=== PATIENT | female | born 1955 | race Caucasian/White ===

== ENCOUNTER 2021-01-28 14:09 | Outpatient (CLI) | payer MEDICARE, SELFPAY ==
--- NOTE | 2021-01-28 14:23 | US_ITS ---
WS: [id number] ULTRASOUND RENAL TECHNIQUE: Ultrasound examination of both kidneys. CLINICAL INFORMATION: CHRONIC KIDNEY DZ-STAGE 4 COMPARISON: None. FINDINGS: RIGHT: Multiple simple right renal cysts the largest measuring 1.7 x 1.6 x 1.2 cm and 1.0 x 1.0 x 0.9 cm Echogenicity: Increased Cortical thickness: 0.9 cm Hydronephrosis: None. Perinephric fluid: None. Right kidney measures: 10.9 cm x 5.6 cm x 4.3 cm. LEFT: Echogenicity: Increased Cortical thickness: 1.0 cm Hydronephrosis: None. Perinephric fluid: None. Left kidney measures: 10.0 cm x 5.9 cm x 5.0 cm. Normal visualized aorta. Bladder not visualized. US/US renal BI* [id number] IMPRESSION: 1. No hydronephrosis in either kidney. Bilateral renal cortical atrophy. 2. Echogenic kidneys bilaterally can be seen with medical renal disease. 3. Multiple simple right renal cysts the largest measuring 1.7 x 1.6 x 1.2 cm and 1.0 x 1.0 x 0.9 cm
== END 2021-01-28 14:10 | disposition home or self-care (01) ==
LOC: RAD 14:19
PROVIDERS: PCP Family Medicine; Visit Provider Internal Medicine Nephrology
DX: N18.4 Chronic kidney disease, stage 4 (severe) (principal); N26.1 Atrophy of kidney (terminal); Q61.02 Congenital multiple renal cysts
CPT/HCPCS: 76770

== ENCOUNTER 2022-05-12 20:51 | Inpatient (IN) | payer MEDICARE, SELFPAY ==
[2022-05-12 20:56] VITALS: BP 187/80; PULSE 105; RESP 16; TEMP 37.4; O2SAT 91
--- NOTE | 2022-05-12 23:17 | ECG_ITS ---
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 Measurements Intervals [place] Rate: 96 P: 36 VT: 117 QRS: 33 QRSD: 93 T: 29 QT: 347 QTc: 439 Interpretive Statements SINUS RHYTHM WITH SHORT VT INTERVAL No previous ECG available for comparison Electronically Signed On 05-13-2022 22:25:19 CDT by Dandre Schwarz M.D. [id number]
--- NOTE | 2022-05-12 23:17 | XRR_ITS ---
PROCEDURE INFORMATION: Exam: XR Chest Exam date and time: 05/12/2022 11:54 PM Age: 66 years old Clinical indication: Shortness of breath; Additional info: SOB TECHNIQUE: Imaging protocol: Radiologic exam of the chest. Views: 1 view. COMPARISON: No relevant prior studies available. FINDINGS: Lungs: Ill-defined multifocal left upper lobe opacity. Indistinct central interstitial markings. Pleural spaces: No pneumothorax. Bilateral hemidiaphragms are obscured and lateral costophrenic sulci are blunted. Heart/Mediastinum: The cardiac silhouette is partially obscured. Mediastinal and hilar contours are unremarkable. Bones/joints: Bones are unremarkable. XR/XR chest 1V portable [id number] IMPRESSION: 1. Bilateral pleural effusions. 2. Indistinct central interstitial markings. Possible interstitial edema. 3. Multifocal ill-defined opacity in the left upper lung. Possible infection.
[2022-05-12 23:49] VITALS: BP 173/93; PULSE 99; RESP 26; O2SAT 88; O2SAT 95
--- NOTE | 2022-05-12 23:56 | ED_ITS ---
HPI - SOB/Dyspnea General: Chief Complaint: Shortness of Breath/Dyspnea Stated Complaint: Sortness of breath Time Seen by Provider: 05/12/22 23:39 Source: patient Mode of arrival: ambulatory Limitations: no limitations History of Present Illness: HPI Narrative: 66-year-old female who states that she had a port removed from her left side of her chest on the . She states that she had this port for iron infusions and is getting set up for a fistula for dialysis. She states that since she had the port removed she has been having increasing shortness of breath. States she gets dyspneic with any exertion. She denies any fever denies any pain. Patient here is requiring 2 L of oxygen. Denies any vomiting or diarrhea. Associated symptoms: Deny abdominal pain, chest pain, fever(s), nausea or vomiting Review of Systems Const: Denies: fever(s), chills, body aches or change in appetite Eyes: Denies: blurry vision or eye discomfort ENMT: Denies: throat pain or dental pain Card: Denies: chest pain Resp: Reports: dyspnea GI: Denies: abdominal pain, nausea, vomiting or diarrhea : Denies: dysuria Musc: Denies: neck pain or back pain Skin/Breast: Denies: rash Neuro: Denies: headache(s) Psych: Denies: depression Christ/Lymph: Denies: easy bruising All/Imm: Denies: urticaria PFSH ED PFSH: Medical History (Updated 05/13/22 @ 01:24 by Yue Cabrera MD) ESRD (end stage renal disease) Social History (Updated 05/12/22 @ 23:56 by Yue Cabrera MD) Substance/Drug Use: never Physical Exam Const: COMMON NORMALS: patient oriented x3 HENMT: COMMON NORMALS: normocephalic and atraumatic HEAD & SCALP: normocephalic and atraumatic Eye: COMMON NORMALS: Equal, round and reactive pupils present and EOMs intact bilaterally PUPIL: Yes Equal, round and reactive pupils present Neck/C-Spine: COMMON NORMALS: full ROM and supple Chest: COMMONS NORMALS: normal inspection of the chest and normal palpation of entire chest wall Resp: COMMON NORMALS: normal respiratory effort, No retractions, No use of acc essory muscles and clear to auscultation bilaterally AUSCULTATION: clear to auscultation bilaterally Cardio: COMMON NORMALS: regular rate, regular rhythm and No murmurs present (Cardio) RATE: regular rate RHYTHM: regular rhythm GI: COMMON NORMALS: Normal to inspection, nondistended, normoactive bowel sounds present, Soft to palpation, non-tender and no masses PALPATION: Yes Soft to palpation Extremity: COMMON NORMALS: normal to inspection and full ROM Neuro: COMMON NORMALS: patient oriented x3, moves all extremities and no focal motor deficits Psych: COMMON NORMALS: mental status grossly normal, Normal thought process present and cooperative THOUGHT PROCESS: Normal thought process present Skin: COMMON NORMALS: no rashes or lesions noted and no wounds GENERAL SKIN EXAM: no rashes or lesions noted Course Vital Signs: Vital signs: Vital Signs Temperature 99.3 F 05/12/22 20:56 Pulse Rate 99 05/12/22 23:49 Respiratory Rate 26 H 05/12/22 23:49 Blood Pressure 173/93 05/12/22 23:49 Pulse Oximetry 95 05/12/22 23:49 MDM - SOB/Dyspnea Medical Decision Making Patient presents here with shortness of breath x-ray and CT does show bilateral upper lobe pneumonias along with pleural effusion her BNP is elevated as well. She does have end-stage renal disease not on dialysis yet potassium here is normal she still makes urine I spoke to the hospitalist and will admit at this time. Lab Data : 05/12/22 23:45 05/12/22 23:45 Labs/Radiology: Radiology Impressions Chest X-Ray 05/12/22 23:17 IMPRESSION: 1. Bilateral pleural effusions. 2. Indistinct central interstitial markings. Possible interstitial edema. 3. Multifocal ill-defined opacity in the left upper lung. Possible infection. Chest CT 05/13/22 00:00 IMPRESSION: 1. Bilateral upper lung consolidation suggests infection. 2. Moderate-sized bilateral pleural effusions. 3. Incidental findings above. Laboratory Results WBC 12.7 10^3/uL (4.0-10.0) H 05/12/22 23:45 RBC 3.30 10^6/uL (4.1-5.3) L 05/12/22 23:45 Hgb 9.6 g/dL (11.5-15.3) L 05/12/22 23:45 Hct 28.9 % (37.0-47.0) L 05/12/22 23:45 MCV 87.6 fl (81-99) 05/12/22 23:45 MCH 29.1 pg (28.0-34.0) 05/12/22 23:45 MCHC 33.2 g/dL (30.0-36.0) 05/12/22 23:45 RDW 13.2 % (12.1-15.1) 05/12/22 23:45 Plt Count 385 10^3/cmm (130-400) 05/12/22 23:45 MPV 10.8 fL (7.4-10.4) H 05/12/22 23:45 Neut % (Auto) 84.0 % 05/12/22 23:45 Lymph % (Auto) 10.6 % 05/12/22 23:45 [place] % (Auto) 4.5 % 05/12/22 23:45 Eos % (Auto) 0.1 % 05/12/22 23:45 Baso % (Auto) 0.5 % 05/12/22 23:45 Neut # (Auto) 10.66 10^3/uL (1.8-7.7) H 05/12/22 23:45 Lymph # (Auto) 1.3 10^3/uL (0.8-4.8) 05/12/22 23:45 [place] # (Auto) 0.6 10^3/uL (0.2-0.9) 05/12/22 23:45 Eos # (Auto) 0.0 10^3/uL (0.0-0.8) 05/12/22 23:45 Baso # (Auto) 0.1 10^3/uL (0.0-0.1) 05/12/22 23:45 Nucleated RBC % (auto) 0 % 05/12/22 23:45 Nucleated RBCs # 0.0 /100WBC 05/12/22 23:45 Sodium 129 mmol/L (136-145) L 05/12/22 23:45 Potassium 4.7 mmol/L (3.5-5.1) 05/12/22 23:45 Chloride 96 mmol/L (98-107) L 05/12/22 23:45 Carbon Dioxide 16 mmol/L (22-29) L 05/12/22 23:45 Anion Gap 21.7 (5-19) H 05/12/22 23:45 BUN 44 mg/dL (8-23) H 05/12/22 23:45 Creatinine 5.7 mg/dL (0.5-0.9) H* 05/12/22 23:45 GFR Calculation 7.4 mL/min (90-130) L 05/12/22 23:45 Glucose 177 mg/dL (65-115) H 05/12/22 23:45 Calculated Osmolality 284 mOsm/kg (285-295) L 05/12/22 23:45 Calcium 8.8 mg/dL (8.5-10.5) 05/12/22 23:45 Total Bilirubin 0.5 mg/dL (0.15-1.2) 05/12/22 23:45 AST 18 U/L (0-32) 05/12/22 23:45 ALT < 5 U/L (0-33) 05/12/22 23:45 Alkaline Phosphatase 161 IU/L (35-105) H 05/12/22 23:45 NT-Pro-B Natriuret Pep 99867 pg/mL (0-125) H 05/12/22 23:45 Total Protein 7.7 g/dL (6.6-8.7) 05/12/22 23:45 Albumin 3.6 g/dL (3.5-5.2) 05/12/22 23:45 Globulin 4.1 g/dL (1.3-4.6) 05/12/22 23:45 SARS-CoV-2 Ag (Rapid) Negative (Negative) 05/13/22 00:30 EKG Data EKG 1: I personally reviewed and interpreted this EKG as follows: EKG Interpretation Date: 05/12/22 EKG interpretation time: 22:45 Interpretation: nsr hr [address] or t wave abnormalities qrs 93 qtc 400 Critical Care Time Critical Care Time: Critical Care Time: Yes Total Critical Care Time: 40 Attestation: The high probability of a clinically significant, sudden or life threatening deterioration of the patient's resp system(s) required my full and direct attention, intervention and personal management. The critical care time is as shown. This time is in addition to time spent performing any reported procedures but includes the following: [x] Data and vital sign review and interpretation [x] Patient assessment, examination and intervention [x] Documentation [x] Medication orders and management Discharge Plan Discharge Patient Disposition: Admitted As Inpatient Clinical Impression: ESRD (end stage renal disease), Acute respiratory failure with hypoxia Community acquired pneumonia Qualifiers: Lung location: upper lobe of lung Coding Level of Care Code ED Program Administrator for Sergio Fwd Exam Comprehensive
[2022-05-13] VITALS (12 sets, daily range): BP systolic 128–166; BP diastolic 64–86; PULSE 74–113; RESP 14–30; TEMP 36.6–36.8; O2SAT 90–95
--- NOTE | 2022-05-13 | CTR_ITS ---
PROCEDURE INFORMATION: Exam: CT Chest Without Contrast; Diagnostic Exam date and time: 05/13/2022 12:25 AM Age: 66 years old Clinical indication: Shortness of breath; Prior surgery; Surgery date: 3-7 days post-operative; Surgery type: Port removed from left breast area on Thursday last week and sudden onset of SOB on right after TECHNIQUE: Imaging protocol: Diagnostic computed tomography of the chest without contrast. Radiation optimization: All CT scans at this facility use at least one of these dose optimization techniques: automated exposure control; mA and/or kV adjustment per patient size (includes targeted exams where dose is matched to clinical indication); or iterative reconstruction. COMPARISON: CR (CHEST, ) 05/12/2022 11:54 PM RADIATION DOSE METRICS: Total DLP (mGy-cm): 822.76 FINDINGS: Lungs: There is dependent atelectasis in the lower lungs bilaterally. There is moderate severity patchy consolidation in the upper lungs bilaterally, greater on the left. Pleural spaces: Moderate size bilateral simple pleural effusions. Heart: There is mild cardiac enlargement. There is no pericardial effusion. There is mild coronary artery calcification. Lymph nodes: There is no mediastinal or hilar lymphadenopathy. Vasculature: The aorta is unremarkable. There is no aneurysm. Intraperitoneal space: Visible structures in the upper abdomen are unremarkable. Bones/joints: Bones are unremarkable. Soft tissues: 3.0 x 1.5 cm radiodense subdermal hematoma in the anterior left upper chest wall subcutaneous fat visible on series 2, image 19, consistent with recent removal of the chest port. CT/CT chest wo con [id number] IMPRESSION: 1. Bilateral upper lung consolidation suggests infection. 2. Moderate-sized bilateral pleural effusions. 3. Incidental findings above.
[2022-05-13 00:02] LABS: Basophils # 0.1 10^3/uL (0.0-0.1); Basophils % 0.5 %; Eosinophils % 0.1 %; Hematocrit 28.9 % (37.0-47.0); Hemoglobin 9.6 g/dL (11.5-15.3); Lymphocytes # 1.3 10^3/uL (0.8-4.8); Lymphocytes % 10.6 %; Mean Corpuscular HGB Conc 33.2 g/dL (30.0-36.0); Mean Corpuscular Hemoglobin 29.1 pg (28.0-34.0); Mean Corpuscular Volume 87.6 fl (81-99); Mean Platelet Volume 10.8 fL (7.4-10.4); Monocytes # 0.6 10^3/uL (0.2-0.9); Monocytes % 4.5 %; Neutrophils # 10.66 10^3/uL (1.8-7.7); Nucleated Red Blood Cells % 0 %; Platelet Count 385 10^3/cmm (130-400); Red Cell Distribution Width 13.2 % (12.1-15.1); White Blood Count 12.7 10^3/uL (4.0-10.0)
[2022-05-13 00:20] LABS: Alanine Aminotransferase < 5 U/L (0-33); Albumin Level 3.6 g/dL (3.5-5.2); Alkaline Phosphatase 161 IU/L (35-105); Anion Gap 21.7 (5-19); Aspartate Amino Transferase 18 U/L (0-32); Blood Urea Nitrogen 44 mg/dL (8-23); Calcium 8.8 mg/dL (8.5-10.5); Carbon Dioxide 16 mmol/L (22-29); Chloride 96 mmol/L (98-107); Globulin 4.1 g/dL (1.3-4.6); Glomerular Filtration Rate 7.4 mL/min (90-130); Glucose 177 mg/dL (65-115); Osmolality Calculated 284 mOsm/kg (285-295); Potassium 4.7 mmol/L (3.5-5.1); Sodium 129 mmol/L (136-145); Total Bilirubin 0.5 mg/dL (0.15-1.2); Total Protein 7.7 g/dL (6.6-8.7)
[2022-05-13 00:44] LABS: NT Pro B Type Natriuretic Pept 37146 pg/mL (0-125)
[2022-05-13 00:55] LABS: SARS Covid-2 Antigen Negative (Negative)
[2022-05-13] MEDS: cefTRIAXone 1,000 MG in sodium chloride 0.9% (plus) 50 ML 100 MG IV (01:48)
--- NOTE | 2022-05-13 01:48 | USCV_ITS ---
Tracie Corcoran Age: 66 Gender: F : 1955 Exam Date: 05/13/2022 04:26 Ordering Phys: William Puckett MD Technologist: BRITTANY Exam Location: [facility] [place] Indication: shortness of breath. No hx cardiac intervention per patient. BP: 141 / 69 HR: 93 Rhythm: Sinus with intermittent atrial fibrillation Technical Quality: Adequate MEASUREMENTS (Male / Female) Normal Values 2D ECHO LV Diastolic Diameter PLAX 5.0 cm 4.2 - 5.9 / 3.9 - 5.3 cm LV Systolic Diameter PLAX 3.4 cm IVS Diastolic Thickness 1.9 cm 0.6 - 1.0 / 0.6 - 0.9 cm IVS Systolic Thickness 1.8 cm LVPW Diastolic Thickness 1.6 cm 0.6 - 1.0 / 0.6 - 0.9 cm LVPW Systolic Thickness 1.5 cm LVOT Diameter 2.1 cm LV Ejection Fraction 2D Teich 60.6 % LV Ejection Fraction MOD 2C 69.3 % LV Ejection Fraction 2C AL 71.6 % LA Diameter 4.0 cm LA Width 4.3 cm LA Height 6.1 cm RA Width 3.1 cm RA Height 3.7 cm Aorta at Sinotubular Diameter 2.3 cm IVC Diameter 1.5 cm M-MODE Aortic Annulus Diameter 3.3 cm LA Ao Ratio MM 1.3 MV E Point Septal Separation 0.7 cm DOPPLER AV Peak Velocity 279.0 cm/s LVOT Peak Velocity 91.0 cm/s AV Area Cont Eq vti 1.1 cm squared AV Area Cont Eq pk 1.1 cm squared MV Peak Velocity 197.0 cm/s MV Area PHT 4.5 cm squared Mitral E to A Ratio 1.4 MV E' Velocity 98.0 cm/s Mitral E to MV E' Ratio 12.5 Mitral E to LV E' Lateral Ratio 10.3 Mitral E to LV E' Septal Ratio 15.9 TR Peak Velocity 369.7 cm/s TR Peak Gradient 54.7 mmHg TV Peak E Velocity 74.0 cm/s Right Atrial Pressure 10.0 mmHg Pulmonary Artery Systolic Pressu 64.7 mmHg PV Peak Velocity 123.0 cm/s RV Acceleration Time 0.1 s RV Ejection Time 0.3 s RV AcT/ET 0.2 FINDINGS Left Ventricle Normal left ventricular size. LV systolic function is normal with EF of 50-55%. No regional wall motion abnormalities. There is a echogenic structure attached to the interventricular septum possibly calcification of the basal septum. Right Ventricle The right ventricle is normal in size and function. Right Atrium The right atrium is normal in size. Left Atrium The left atrium is dilated Mitral Valve Moderate mitral annular calcification is seen. Mean gradient across the mitral valve is 5mmHg. This is consistent with mild mitral stenosis. There is moderate to severe mitral regurgitation. Aortic Valve Aortic valve is thickened. Mild to moderate aortic stenosis. Mean gradient across the aortic valve is 16.2mmHg with NEVIN of 1.11cm2. There is no aortic regurgitation. Tricuspid Valve Structurally normal tricuspid valve without significant stenosis. Mild to moderate tricuspid regurgitation. RVSP is more than 60 mmHg. This is consistent with severe pulmonary hypertension. Pulmonic Valve Not well visualized. Pericardium Normal pericardium without effusion. Pleural effusion is seen Aorta Normal ascending aorta dimension. IVC CONCLUSIONS LV systolic function is normal with EF of 50-55%. Left atrial enlargement Moderate mitral annular calcification is seen. Mild mitral stenosis. There is moderate to severe mitral regurgitation. Mild to moderate aortic stenosis. Mean gradient across the aortic valve is 16.2mmHg with NEVIN of 1.11cm2. Mild to moderate tricuspid regurgitation. RVSP is more than 60 mmHg. This is consistent with severe pulmonary hypertension. Pleural effusion is seen No comparison studies are available Chapo Mccabe MD (Electronically Signed) Final Date: 13 May 2022 11:04 S
[2022-05-13] MEDS: azithromycin 500 MG in sodium chloride 0.9% 250 ML 250 MG IV (01:50)
--- NOTE | 2022-05-13 01:52 | PM.HP ---
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 Currently she is denying any chest pain palpitation, dizziness, fever. Upon arrival to ER she was worked up for above-mentioned complaint: Pertinent imaging studies: X-ray chest: Bilateral pleural effusion: Multifocal ill-defined opacity in the left upper lung. CT chest without contrast: Moderate sized bilateral pleural effusion, ?Bilateral upper lung consolidation. Pertinent labs: WBC 12.7 , H&H 9.6 / 28 , plt : 385 , serum sodium 129 , serum potassium 4.7 , BUN serum creatinine 44 / 5.7 , proBNP:00639 , EKG: Sinus rhythm with short MD interval Review of Systems General: Reports: 10 or more systems reviewed and unremarkable except in HPI and below Narrative: 68-year-old currently not in acute distress being admitted for chest pain evaluation Const: Denies: fever(s), chills, body aches, change in appetite or diaphoresis Card: Reports: dyspnea on exertion and orthopnea; Denies: palpitations, edema, swelling of feet/ankles or leg pain with exertion Resp: Reports: dyspnea and productive cough; Denies: wheezing or pain on inspiration GI: Reports: nausea and vomiting; Denies: abdominal pain, diarrhea or constipation : Denies: flank pain Musc: Denies: back pain, extremity pain or extremity swelling Neuro: Denies: headache(s), difficulty walking or confusion Medications/Allergies Allergies Allergy/AdvReac Type Severity Reaction Status Date / Time Latex, Natural Rubber Allergy ALGY-Rash Verified 05/12/22 21:01 trazodone Allergy ADR-Confusi Verified 05/12/22 21:01 on PFSH Acute PFSH: Medical History (Updated 06/21/22 @ 01:54 by William Puckett MD) ESRD (end stage renal disease) Social History (Updated 05/12/22 @ 23:56 by Yue Cabrera MD) Substance/Drug Use: never Vitals/I&O/Wt Last Vital Signs Temp 99.3 F 05/12/22 20:56 Pulse 99 05/12/22 23:49 Resp 26 H 05/12/22 23:49 BP 173/93 05/12/22 23:49 Pulse Ox 95 05/12/22 23:49 Weight last 48 hrs Weight 91.172 kg Physical Exam Const: COMMON NORMALS: patient oriented x3 HENMT: COMMON NORMALS: normocephalic and atraumatic HEAD & SCALP: normocephalic and atraumatic Chest: CHEST: Yes Symmetrical chest wall rise Resp: EFFORT & INSPECTION: Yes symmetric chest movement AUSCULTATION: clear to auscultation bilaterally OTHER: Bilateral fine crackles present in both lung field predominantly at bases. Diminished air entry at bases Cardio: COMMON NORMALS: regular rate, regular rhythm, S1 normal heart sound present, S2 normal heart sound present, No gallops present (Cardio), No murmurs present (Cardio), No rub (Cardio) and Peripheral pulses 2+ throughout RATE: regular rate RHYTHM: regular rhythm HEART SOUNDS: S1 normal heart sound present and S2 normal heart sound present PERIPHERAL PULSES: Peripheral pulses 2+ throughout GI: COMMON NORMALS: Normal to inspection, nondistended, normoactive bowel sounds present, Soft to palpation, non-tender, No hepatosplenomegaly present and no masses AUSCULTATION: Yes normoactive bowel sounds PALPATION: Yes Soft to palpation and Yes No hepatosplenomegaly present RECTAL EXAM: deferred Extremity: COMMON NORMALS: no clubbing, cyanosis or edema and no pedal edema Neuro: COMMON NORMALS: patient oriented x3 Data : 05/13/22 03:43 05/13/22 03:43 A&P Assessment and plan (1) Pneumonia: Status: Acute (2) ESRD (end stage renal disease): Status: Acute (3) Hypertension: Status: Acute (4) Hyponatremia: Status: Acute (5) Pleural effusion: Status: Acute Plan 66 year old female with past medical history of hypertension diabetes , end-stage renal disease, currently not on dialysis, awaiting AV fistula formation, still makes urine, ca ovary, 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 Currently she is denying any chest pain palpitation, dizziness, fever. Assessment: Pneumonia End-stage renal disease Hypertension Diabetes Hyponatremia Increased anion gap metabolic acidosis Bilateral pleural effusion Plan: Follow blood culture 2D echo Urine Legionella antigen Bacterial antigen panel MRSA PCR Continue Vanco and Zosyn for now Monitor intake output charting Continue Lasix 40 IV daily Monitor BMP Oral bicarb DVT prophylaxis: On heparin subacute CODE STATUS: Full code Attestations Medical Necessity Statement*: Patient is in hospital for management of pneumonia. Anticipated length of stay greater than 2 midnights Time Spent in Patient Care: Greater than 35 minutes (>than 50% of time spent in counselling and/or direct pt care on unit). 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
[2022-05-13] MEDS: FUROsemide 10 mg/mL SDV 4mL 40 MG IVP ×2 (01:54→09:06)
[2022-05-13] MEDS: ondansetron 2 mg/ML SDV 2 mL 4 MG IVP (02:11)
[2022-05-13] MEDS: heparin 5,000 unit/mL INJ 1 mL 5000 UNIT SUBCUT ×2 (02:11→14:56)
[2022-05-13] MEDS: piperacillin-tazobactam 3.375 GM in sodium chloride 0.9% (plus) 50 ML IV (03:45)
[2022-05-13 03:50] LABS: Basophils # 0.1 10^3/uL (0.0-0.1); Basophils % 0.6 %; Eosinophils % 0.2 %; Hematocrit 25.6 % (37.0-47.0); Hemoglobin 8.4 g/dL (11.5-15.3); Lymphocytes # 0.9 10^3/uL (0.8-4.8); Lymphocytes % 8.7 %; Mean Corpuscular HGB Conc 32.8 g/dL (30.0-36.0); Mean Corpuscular Hemoglobin 29.4 pg (28.0-34.0); Mean Corpuscular Volume 89.5 fl (81-99); Mean Platelet Volume 10.9 fL (7.4-10.4); Monocytes # 0.5 10^3/uL (0.2-0.9); Monocytes % 5.2 %; Neutrophils # 8.58 10^3/uL (1.8-7.7); Neutrophils % 85.1 %; Nucleated Red Blood Cells % 0 %; Platelet Count 325 10^3/cmm (130-400); Red Blood Count 2.86 10^6/uL (4.1-5.3); Red Cell Distribution Width 13.6 % (12.1-15.1); White Blood Count 10.1 10^3/uL (4.0-10.0)
[2022-05-13 04:06] LABS: Blood Urea Nitrogen 46 mg/dL (8-23); Calcium 8.1 mg/dL (8.5-10.5); Carbon Dioxide 18 mmol/L (22-29); Chloride 105 mmol/L (98-107); Glomerular Filtration Rate 7.8 mL/min (90-130); Glucose 162 mg/dL (65-115); Lactic Sepsis W/Reflex 0.7 mmol/L (0.5-2.2); Magnesium 1.8 mg/dL (1.7-2.3); Osmolality Calculated 299 mOsm/kg (285-295); Phosphorus 5.5 mg/dL (2.5-4.5); Sodium 137 mmol/L (136-145)
[2022-05-13 04:07] LABS: Troponin(5th) Baseline 46 ng/L (0-10)
[2022-05-13 04:12] LABS: Anion Gap 19.9 (5-19); Potassium 5.9 mmol/L (3.5-5.1)
[2022-05-13] MEDS: calcium gluconate 0.9% NaCL 1 GM/50 ML PREMIX IV (05:51)
[2022-05-13] MEDS: dextrose 50% syringe 50 mL 25 ML IVP (05:52)
[2022-05-13] MEDS: sodium polystyrene sulfonate 15 gm/60 mL Btl PO ×3 (05:52→18:43)
[2022-05-13] MEDS: insulin regular-human 5 UNIT in SYRINGE 1 EACH IVP (05:52)
[2022-05-13 06:12] LABS: INR 1.12 (0.8-1.2)
[2022-05-13 06:23] LABS: Troponin 5 2HR 47.55 ng/L (0-10)
[2022-05-13 06:37] LABS: Troponin 5 2HR Delta 1.55 ABS# (0-10)
[2022-05-13] MEDS: vancomycin 1,250 MG/250 ML PIGGYBACK 200 MG IV (07:49)
[2022-05-13] MEDS: sodium bicarbonate 650 mg Tablet 1300 MG PO (09:06)
--- NOTE | 2022-05-13 09:09 | PC.NURSE ---
Rounded on pt at this time pt resting quietly in bed with respirations even and unlabored. Pt states ate some breakfast and trying to get some rest. Pt denies pain at this time.
[2022-05-13 10:01] LABS: Anion Gap 18.6 (5-19); Blood Urea Nitrogen 46 mg/dL (8-23); Calcium 8.2 mg/dL (8.5-10.5); Carbon Dioxide 20 mmol/L (22-29); Chloride 105 mmol/L (98-107); Glomerular Filtration Rate 7.3 mL/min (90-130); Glucose 104 mg/dL (65-115); Osmolality Calculated 300 mOsm/kg (285-295); Potassium 4.6 mmol/L (3.5-5.1); Sodium 139 mmol/L (136-145)
[2022-05-13 10:06] LABS: Troponin 5 6HR 44.68 ng/L (0-10)
[2022-05-13 10:09] LABS: Troponin 5 6HR Delta -1.32 ng/L (0-12)
--- NOTE | 2022-05-13 12:20 | PM.MISC ---
Miscellaneous Note Note: H&P reviewed Patient is not actively complaining of anything at this point, she was evaluated in the ER Currently on 4 L nasal cannula which is new She has been diagnosed with pneumonia No significant leukocytosis Afebrile Stable Patient was given Kayexalate, she had 1 bowel movement this morning, repeat labs showed improvement of hyperkalemia Will consult nephro Patient is saturating well on 4 L nasal cannula He medically stable Does not look fluid overloaded No signs of uremia Hemodynamically stable Nonfocal neuro exam S1, S2 Plan Nephro consultation Community-acquired pneumonia continue antibiotics Acute hypoxia related to pneumonia titrate oxygen She is full code No signs of uremia No acute indication for dialysis Hyperkalemia: Improved High BNP related to fluid overload secondary to chronic kidney disease Patient does not make urine
--- NOTE | 2022-05-13 12:27 | PC.NURSE ---
attempted report x1 put on hold for 8 min
--- NOTE | 2022-05-13 13:00 | P.CONIM_ITS ---
Providers/Reason For Consult Consulting Physician/Specialty*: Nephrology Reason for Consult*: Eval for CKD Attending Physician: Gt Carmen MD Primary Care Provider: Henny Banerjee MD History of Present Illness History of Present Illness Thank for consultation, today at the pleasure of reviewing this 66-year-old female for evaluation of chronic kidney disease. She has established chronic kidney disease, is followed by Dr. Ortega in the outpatient renal clinic with his nurse practitioner Ana. He was last seen roughly 1 month ago. Baseline creatinine is not exactly known, however believes that her baseline GFR is roughly 9 mL/min. She was referred for fistula placement, in preparation for this a PowerPort was removed from the left chest wall last week, on Monday 05/07. Following that she has had progressively worsening shortness of breath, feels weak, tired, with a slight cough since this morning. On arrival she does breathe more comfortably with nasal cannula. She was given intravenous Lasix which did seem to help. Admission imaging included CT scan of the chest which demonstrates bilateral upper lobe consolidation suggesting i nfection and moderate sized bilateral pleural effusions. She has been started on empirical antibiotics including azithromycin, Rocephin, vancomycin, Zosyn. Cultures are sent and currently pending No overt uremic symptoms. Some mild global edema but this is mild. Hemodynamics remained stable following hospitalization, blood pressure is currently 148/86. Medications/Allergies Home Medications Medication Instructions Recorded Confirmed Last Taken Type alprazolam 0.5 mg tablet 0.5 mg PO BID 05/13/22 05/13/22 Unknown History amlodipine 10 mg tablet 10 mg PO DAILY 05/13/22 05/13/22 Unknown History atorvastatin 40 mg tablet 40 mg PO DAILY 05/13/22 05/13/22 Unknown History calcitriol 0.25 mcg capsule 0.25 mcg PO DAILY 05/13/22 05/13/22 Unknown History calcium carbonate 600 mg-vitamin 1 tab PO DAILY 05/13/22 05/13/22 Unknown History D3 10 mcg (400 unit) tablet (Calcium 600 + D(3)) cholecalciferol (vitamin D3) 25 25 mcg PO DAILY 05/13/22 05/13/22 Unknown History mcg (1,000 unit) capsule (Vitamin D3) escitalopram oxalate 20 mg tablet 20 mg PO DAILY 05/13/22 05/13/22 Unknown History ferrous gluconate 324 mg (37.5 mg 324 mg PO DAILY 05/13/22 05/13/22 Unknown History iron) tablet glipizide 5 mg tablet 5 mg PO BID 05/13/22 05/13/22 Unknown History nocuxuvwpbiu-temfyjpx-vktlk acid 1 cap PO DAILY 05/13/22 05/13/22 Unknown History 400 mcg-vitamin K 80 mcg capsule (Multi For Her 50 Plus) sodium bicarbonate 650 mg tablet 1,300 mg PO TID 05/13/22 05/13/22 Unknown History Allergies Allergy/AdvReac Type Severity Reaction Status Date / Time Latex, Natural Rubber Allergy ALGY-Rash Verified 05/13/22 08:22 trazodone Allergy ADR-Confusi Verified 05/13/22 08:22 on Current Medications Generic Name Dose Route Start Last Admin Trade Name Freq PRN Reason Stop Dose Admin Heparin Sodium (Porcine) 5,000 unit 05/13/22 01:45 05/13/22 02:11 Heparin 5,000 Unit/Ml Inj 1 Ml SUBCUT 5,000 unit Q12H JAREK Administration Ondansetron HCl 4 mg 05/13/22 01:45 05/13/22 02:11 Ondansetron 2 Mg/Ml Sdv 2 Ml IVP 4 mg Q8H PRN Administration vomiting, or N/V if npo Sodium Polystyrene Sulfonate 15 gm 05/13/22 05:30 05/13/22 05:52 Sodium Polystyrene Sulfonate 15 Gm/60 Ml Btl PO 15 gm Q6H JAREK Administration PFSH Acute PFSH: Medical History (Updated 05/13/22 @ 13:01 by Anthony Hardy) ESRD (end stage renal disease) Social History (Updated 05/12/22 @ 23:56 by Yue Cabrera MD) Substance/Drug Use: never Vitals/I&O/Wt Last Vital Signs Temp 99.3 F 05/12/22 20:56 Pulse 99 05/13/22 12:20 Resp 22 H 05/13/22 12:20 BP 148/86 05/13/22 12:20 Pulse Ox 90 05/13/22 12:20 05/12/22 05/13/22 05/13/22 22:59 06:59 14:59 Intake Total 400.05 / 400.05 Output Total 250 / 250 Balance 400.05 / 400.05 -250 / -250 Weight last 48 hrs Weight 91.172 kg Weight 91.172 kg Physical Exam Narrative: Constitutional: Awake, comfortable HEENT: Wet mucosa, non icteric Lungs: Bilaterally decreased air entry CVS: S1 S2, no murmurs Abdo: Soft, BS ok Ext 4: Mild edema, peripheral perfusion with no cyanosis Neurological: Grossly non-focal Data : 05/13/22 03:43 05/13/22 09:29 Micro: Microbiology 05/13/22 03:40 MRSA Culture - Final Nose 05/13/22 05:20 Legionella Urinary Antigen - Final Urine,Clean Catch Bacterial Antigens - Final 05/13/22 05:51 Blood Culture - Preliminary Blood SPECIMEN COLLECTED 05/13/22 05:46 Blood Culture - Preliminary Blood SPECIMEN COLLECTED A&P Assessment and plan (1) Stage 5 chronic kidney disease: 1. Chronic kidney disease Possible acute component, however, this is likely to be predominantly chronic kidney disease. GFR currently 7-8 mL/min. No acute indication for dialysis, however, I am a little worried that she may need dialysis sooner rather than later given the bilateral pleural effusions and evidence of hypervolemia. Intravenous Lasix 80 mg IV twice daily Daily renal panel Strict I's and O's Dose medication for GFR less than 15 2. Chemistry Hyperkalemia was temporized with Kayexalate. Acidosis, however, will DC sodium bicarbonate given the obvious sodium load with this. Continue to monitor acidosis. 3. Shortness of breath Appears multifactorial i.e. from possible pneumonia for which she is receiving antibiotics, bilateral pleural effusions and pulmonary hypertension seen on echocardiogram. Management of pulmonary hypertension per medical team, and meantime we will also give intravenous Lasix as decongestion may help. Culture sent and pending 4. Anemia of CKD Continue to monitor for time being, check iron levels. Anthony Hardy MD Nephrology [phone] Patient seen and examined via telemedicine, with the assistance of the bedside RN > 25 min spent in evaluation and mgmt of patient Status: Acute Coding Level of Care Code Acute Kiosk Sales Representative for Sergio Fwd Diagnoses Stage 5 chronic kidney disease N18.5
[2022-05-13 16:58] LABS: Glucose Point of Care 153 mg/dL (70-110)
[2022-05-13] MEDS: FUROsemide 10 mg/mL SDV 10mL 80 MG IVP (20:28)
[2022-05-13] MEDS: acetaminophen 325 mg Tablet 650 MG PO (23:19)
[2022-05-13] MEDS: ALPRAZolam 0.5 mg Tablet PO (23:19)
[2022-05-14] VITALS (11 sets, daily range): BP systolic 146–154; BP diastolic 66–87; PULSE 72–88; RESP 15–18; TEMP 36.7–37; O2SAT 92–97
[2022-05-14] MEDS: heparin 5,000 unit/mL INJ 1 mL 5000 UNIT SUBCUT ×2 (02:14→13:56)
[2022-05-14 05:35] LABS: Basophils # 0.1 10^3/uL (0.0-0.1); Basophils % 0.7 %; Eosinophils # 0.6 10^3/uL (0.0-0.8); Hemoglobin 8.2 g/dL (11.5-15.3); Mean Corpuscular HGB Conc 32.8 g/dL (30.0-36.0); Mean Corpuscular Hemoglobin 29.4 pg (28.0-34.0); Mean Corpuscular Volume 89.6 fl (81-99); Mean Platelet Volume 10.5 fL (7.4-10.4); Monocytes # 0.6 10^3/uL (0.2-0.9); Monocytes % 6.3 %; Neutrophils # 4.79 10^3/uL (1.8-7.7); Neutrophils % 52.8 %; Nucleated Red Blood Cells % 0 %; Platelet Count 333 10^3/cmm (130-400); Red Blood Count 2.79 10^6/uL (4.1-5.3); Red Cell Distribution Width 13.2 % (12.1-15.1); White Blood Count 9.1 10^3/uL (4.0-10.0)
[2022-05-14 05:48] LABS: INR 1.04 (0.8-1.2)
[2022-05-14 05:52] LABS: Lactic Sepsis W/Reflex 0.8 mmol/L (0.5-2.2)
[2022-05-14 05:54] LABS: Anion Gap 19.5 (5-19); Blood Urea Nitrogen 45 mg/dL (8-23); Calcium 8.2 mg/dL (8.5-10.5); Carbon Dioxide 18 mmol/L (22-29); Chloride 102 mmol/L (98-107); Glucose 86 mg/dL (65-115); Magnesium 1.8 mg/dL (1.7-2.3); Osmolality Calculated 293 mOsm/kg (285-295); Phosphorus 6.2 mg/dL (2.5-4.5); Potassium 3.5 mmol/L (3.5-5.1); Sodium 136 mmol/L (136-145)
[2022-05-14 06:01] LABS: Procalcitonin 0.62 ng/mL (0-0.5)
--- NOTE | 2022-05-14 07:15 | PM.PN ---
Subjective Subjective: Patient is on 3 L nasal cannula Afebrile No leukocytosis Potassium improved Nephro recommendations reviewed Echo showing mild to moderate aortic valve stenosis, tricuspid regurgitation, pulmonary hypertension Vitals/I&O/Wt Last Vital Signs Temp 98.4 F 05/14/22 04:00 Pulse 72 05/14/22 06:00 Resp 15 05/14/22 04:00 BP 146/73 05/14/22 04:00 Pulse Ox 95 05/14/22 04:00 05/13/22 05/14/22 05/14/22 22:59 06:59 14:59 Intake Total 750 / 1000 480 / 1480 Balance 750 / 750 480 / 1230 Weight last 48 hrs Weight 91.172 kg Weight 91.172 kg Physical Exam Narrative: Signs of fluid overload Currently on 3 L No signs of respiratory distress S1, S2 Blood pressure is stable Nonfocal neuro exam Abdomen soft but distended visceral obesity Data : 05/14/22 05:22 05/14/22 05:22 Micro: Microbiology 05/13/22 05:46 Blood Culture - Preliminary Blood NEGATIVE TO DATE 05/13/22 05:51 Blood Culture - Preliminary Blood NEGATIVE TO DATE 05/13/22 15:03 Legionella Urinary Antigen - Final Urine,Clean Catch 05/13/22 03:40 MRSA Culture - Final Nose 05/13/22 05:20 Legionella Urinary Antigen - Final Urine,Clean Catch Bacterial Antigens - Final A&P Assessment and plan (1) Stage 5 chronic kidney disease: Status: Acute (2) Pleural effusion: Status: Acute (3) Hyponatremia: Status: Acute (4) Hypertension: Status: Acute (5) Pneumonia: Status: Acute (6) Community acquired pneumonia: Status: Acute Qualifiers: Lung location: upper lobe of lung (7) Acute respiratory failure with hypoxia: Status: Acute Plan Acute hypoxia Currently requiring 3 L secondary to pulm hypertension, fluid overload and pneumonia Home O2 evaluation at discharge Chronic kidney disease, patient does make urine, currently on IV Lasix, no acute indication for dialysis Nephro recommendations reviewed Community-acquired pneumonia currently on antibiotics, afebrile, no leukocytosis Procalcitonin noted She does carry high risk of mortality morbidity considering immunocompromise state and above-mentioned multiple comorbidities Full code Renal diet Patient will stay 1 more day, plan to discharge her tomorrow I did speak with her daughter as well this morning Attestations Medical Necessity Statement*: Continue medical management Time Spent in Patient Care: 30 Coding Level of Care Code Acute Railway Station Manager for Chg Fwd Diagnoses Stage 5 chronic kidney disease N18.5 Pleural effusion J90 Hyponatremia E87.1 Hypertension I10 Pneumonia J18.9 Community acquired pneumonia J18.9 Lung location: upper lobe of lung Acute respiratory failure with hypoxia J96.01
[2022-05-14] MEDS: calcitriol 0.25 mcg Capsule PO (08:38)
[2022-05-14] MEDS: amlodipine 10 mg Tablet PO (08:38)
[2022-05-14] MEDS: FUROsemide 10 mg/mL SDV 10mL 80 MG IVP ×2 (08:38→21:29)
[2022-05-14] MEDS: cholecalciferol (vitamin D3) 1,000 unit Tablet 1000 UNIT PO (08:38)
--- NOTE | 2022-05-14 10:40 | P.PN_ITS ---
Subjective Subjective: Ms. Corcoran feels relatively okay today with no acute symptoms. Her breathing is a little better today than yesterday. She denies any acute uremic symptoms. Denies any extremity edema etc. No cough still calls. Vitals/I&O/Wt Last Vital Signs Temp 98.0 F 05/14/22 07:50 Pulse 84 05/14/22 07:50 Resp 16 05/14/22 07:50 BP 146/73 05/14/22 07:50 Pulse Ox 93 05/14/22 07:50 05/13/22 05/14/22 05/14/22 22:59 06:59 14:59 Intake Total 750 / 1000 480 / 1480 240 / 240 Output Total 100 / 100 Balance 750 / 750 480 / 1230 140 / 140 Weight last 48 hrs Weight 91.172 kg Weight 91.172 kg Physical Exam Narrative: Constitutional: Awake, comfortable HEENT: Wet mucosa, non icteric Lungs: Bilaterally decreased air entry CVS: S1 S2, no murmurs Abdo: Soft, BS ok Ext 4: Mild edema, peripheral perfusion with no cyanosis Neurological: Grossly non-focal Data : 05/14/22 05:22 05/14/22 05:22 Micro: Microbiology 05/13/22 15:03 Bacterial Antigens - Final Urine,Clean Catch 05/13/22 05:46 Blood Culture - Preliminary Blood NEGATIVE TO DATE 05/13/22 05:51 Blood Culture - Preliminary Blood NEGATIVE TO DATE 05/13/22 15:03 Legionella Urinary Antigen - Final Urine,Clean Catch 05/13/22 03:40 MRSA Culture - Final Nose 05/13/22 05:20 Legionella Urinary Antigen - Final Urine,Clean Catch Bacterial Antigens - Final A&P Assessment and plan (1) Stage 5 chronic kidney disease: 1. Chronic kidney disease Possible acute component, however, this is likely to be predominantly chronic kidney disease. GFR currently 7-8 mL/min. No acute indication for dialysis, close monitoring Intravenous Lasix 80 mg IV twice daily No change in renal function since yesterday Daily renal panel Strict I's and O's Dose medication for GFR less than 15 2. Chemistry Acidosis noted, however, will DC sodium bicarbonate given the obvious sodium load with this. Continue to monitor acidosis. 3. Shortness of breath Appears multifactorial i.e. from possible pneumonia for which she is receiving antibiotics, bilateral pleural effusions and mod and pulmonary hypertension seen on echocardiogram. Management of pulmonary hypertension per medical team, and meantime we will also give intravenous Lasix as decongestion may help. ? cardiology to review for echo findings inc mod , pulm HTN Culture sent and pending 4. Anemia of CKD Continue to monitor for time being, check iron levels (requested and pending) Anthony Hardy MD Nephrology [phone] Patient seen and examined via telemedicine, with the assistance of the bedside RN > 25 min spent in evaluation and mgmt of patient Status: Acute Attestations Medical Necessity Statement*: eval for EVETTE Coding Level of Care Code Acute [employer] for [employer]g Fwd Diagnoses Stage 5 chronic kidney disease N18.5
[2022-05-15] VITALS (12 sets, daily range): BP systolic 142–159; BP diastolic 62–77; PULSE 67–110; RESP 17–21; TEMP 36.6–37; O2SAT 91–98
[2022-05-15] MEDS: heparin 5,000 unit/mL INJ 1 mL 5000 UNIT SUBCUT (01:54)
[2022-05-15 06:04] LABS: Basophils # 0.1 10^3/uL (0.0-0.1); Basophils % 0.6 %; Eosinophils # 0.6 10^3/uL (0.0-0.8); Eosinophils % 7.3 %; Hemoglobin 6.9 g/dL (11.5-15.3); Lymphocytes # 2.3 10^3/uL (0.8-4.8); Lymphocytes % 28.4 %; Mean Corpuscular HGB Conc 33.3 g/dL (30.0-36.0); Mean Corpuscular Hemoglobin 28.8 pg (28.0-34.0); Mean Corpuscular Volume 86.3 fl (81-99); Mean Platelet Volume 10.8 fL (7.4-10.4); Monocytes # 0.7 10^3/uL (0.2-0.9); Monocytes % 8.1 %; Neutrophils # 4.44 10^3/uL (1.8-7.7); Neutrophils % 55.2 %; Nucleated Red Blood Cells % 0 %; Platelet Count 296 10^3/cmm (130-400); Red Cell Distribution Width 12.7 % (12.1-15.1); White Blood Count 8.1 10^3/uL (4.0-10.0)
[2022-05-15 06:06] LABS: Hematocrit 20.7 % (37.0-47.0)
[2022-05-15 06:32] LABS: Anion Gap 21.5 (5-19); Blood Urea Nitrogen 48 mg/dL (8-23); Calcium 7.3 mg/dL (8.5-10.5); Carbon Dioxide 19 mmol/L (22-29); Chloride 104 mmol/L (98-107); Glomerular Filtration Rate 6.9 mL/min (90-130); Glucose 121 mg/dL (65-115); Osmolality Calculated 306 mOsm/kg (285-295); Potassium 3.5 mmol/L (3.5-5.1); Sodium 141 mmol/L (136-145)
[2022-05-15 06:37] LABS: Glucose Point of Care 123 mg/dL (70-110)
[2022-05-15] MEDS: calcitriol 0.25 mcg Capsule PO (08:17)
[2022-05-15] MEDS: amlodipine 10 mg Tablet PO (08:17)
[2022-05-15] MEDS: cholecalciferol (vitamin D3) 1,000 unit Tablet 1000 UNIT PO (08:17)
[2022-05-15] MEDS: FUROsemide 10 mg/mL SDV 10mL 80 MG IVP ×2 (08:17→21:10)
[2022-05-15 08:19] LABS: Glucose Point of Care 118 mg/dL (70-110)
[2022-05-15 08:56] LABS: Iron 37 ug/dL (37-145); Percent Saturation 22.2 % (20-50); Total Iron Binding Capacity 166 mcg/dl; Unsaturated Iron Binding 129 ug/dL (112-347)
[2022-05-15 09:12] LABS: Vitamin B12 317 pg/mL (232-1245)
--- NOTE | 2022-05-15 09:37 | P.PN_ITS ---
Subjective Subjective: Ms. Corcoran feels okay today with no acute complaints. She had some concern at her outpatient nephrology team Dr Ortgea and JOELLEN Perez were unaware of the details of her admission. No current uremic symptoms. Breathing seems stable on low-dose nasal cannula oxygen. Anemic today. Still light brown, no obvious melena. Vitals/I&O/Wt Last Vital Signs Temp 97.9 F 05/15/22 07:53 Pulse 110 H 05/15/22 08:00 Resp 17 05/15/22 04:00 BP 159/72 05/15/22 07:53 Pulse Ox 91 05/15/22 08:00 05/14/22 05/15/22 05/15/22 22:59 06:59 14:59 Intake Total 240 / 720 100 / 820 236 / 236 Output Total 500 / 700 Balance -260 / 20 100 / 120 236 / 236 Physical Exam Narrative: Constitutional: Awake, comfortable HEENT: Wet mucosa, non icteric Lungs: Bilaterally decreased air entry CVS: S1 S2, no murmurs Abdo: Soft, BS ok Ext 4: Mild edema, peripheral perfusion with no cyanosis Neurological: Grossly non-focal Data : 05/15/22 05:37 05/15/22 05:37 Micro: Microbiology 05/13/22 15:03 Bacterial Antigens - Final Urine,Clean Catch 05/13/22 05:46 Blood Culture - Preliminary Blood NEGATIVE TO DATE 05/13/22 05:51 Blood Culture - Preliminary Blood NEGATIVE TO DATE A&P Assessment and plan (1) Stage 5 chronic kidney disease: 1. Chronic kidney disease Possible acute component, however, this is likely to be predominantly chronic kidney disease. Mibor flux in creatinine but relatively stable GFR currently 7-8 mL/min. No acute indication for dialysis, close monitoring Intravenous Lasix 80 mg IV twice daily Daily renal panel Strict I's and O's Dose medication for GFR less than 15 2. Chemistry Acidosis noted, however, hold sodium bicarbonate given the obvious sodium load with this. Continue to monitor acidosis. 3. Shortness of breath Appears multifactorial i.e. from possible pneumonia for which she is receiving antibiotics, bilateral pleural effusions and mod and pulmonary hypertension seen on echocardiogram. Management of pulmonary hypertension per medical team, and meantime we will also give intravenous Lasix as decongestion may help. ? cardiology to review for echo findings inc mod , pulm HTN Culture sent and pending 4. Anemia of CKD Iron deficient, will give 2 units of PRBCs, EPO 20kiu subQ x 1 and venofer loading I explained to her that it is not typical for us to reach out to all outpatient providers when patients are admitted to a hospital, but typically we would communicate hospitalization course events at the time of discharge, however, as a courtesy I am happy to reach out to Dr. Ortega, which I did. Anthony Hardy MD Nephrology [phone] Patient seen and examined via telemedicine, with the assistance of the bedside RN > 25 min spent in evaluation and mgmt of patient Status: Acute Attestations Medical Necessity Statement*: eval for EVETTE/CKD Coding Level of Care Code Acute Director Of Cloud Services for Chg Fwd Diagnoses Stage 5 chronic kidney disease N18.5
[2022-05-15 10:13] LABS: Hemoglobin 7.6 g/dL (11.5-15.3)
[2022-05-15] MEDS: iron sucrose 200 MG in sodium chloride 0.9% (100 ml) 100 ML 220 MG IV (10:37)
[2022-05-15 10:48] LABS: Estmated Average Glucose 146; Hemoglobin A1C 6.7 % (4.0-6.0)
[2022-05-15] MEDS: epoetin alfa 1000 Unit/0.05 mL (ESRD) 20000 UNIT SUBCUT (10:54)
[2022-05-15 11:24] LABS: Glucose Point of Care 164 mg/dL (70-110)
[2022-05-15] MEDS: insulin lispro 100 unit/1 mL SUBCUT (11:59)
--- NOTE | 2022-05-15 12:26 | PM.PN ---
Subjective Subjective: She is not oliguric Potassium normal Hemoglobin 6.9 this morning, I held blood transfusion which was requested by overnight doctor repeat H&H did show hemoglobin of 7.6 I have made decision to hold off on blood transfusion and only give her iron transfusion, iron studies requested, low normal iron level B12 was normal No GI bleed, Patient had concerns regarding her echo Dr. Florez was also notified that family is requesting that dialysis nurse be updated I gave her echo report I did draw some diagrams to explain pulm hypertension aortic stenosis and mitral valve regurgitation I also explained why blood transfusion and iron is requested Dr. Florez has spoken with the nurse of Dr. Ortega this morning All questions were answered to their satisfaction Vitals/I&O/Wt Last Vital Signs Temp 98.1 F 05/15/22 11:14 Pulse 81 05/15/22 11:14 Resp 17 05/15/22 04:00 BP 153/72 05/15/22 11:14 Pulse Ox 96 05/15/22 11:14 05/14/22 05/15/22 05/15/22 22:59 06:59 14:59 Intake Total 240 / 720 100 / 820 346 / 346 Output Total 500 / 700 Balance -260 / 20 100 / 120 346 / 346 Physical Exam Narrative: Patient is euvolemic No signs of uremia S1, S2 Abdomen soft Currently on 3 L of cannula Experiencing cough mild crackles at the base of the lungs Abdomen soft No active signs of fluid overload Awake and alert Nonfocal neuro exam Data : 05/15/22 09:55 05/15/22 05:37 Micro: Microbiology 05/13/22 15:03 Bacterial Antigens - Final Urine,Clean Catch A&P Assessment and plan (1) Stage 5 chronic kidney disease: Status: Acute (2) Pleural effusion: Status: Acute (3) Hyponatremia: Status: Acute (4) Hypertension: Status: Acute (5) Pneumonia: Status: Acute (6) Community acquired pneumonia: Status: Acute Qualifiers: Lung location: upper lobe of lung (7) ESRD (end stage renal disease): Status: Acute (8) Hypoxia: Status: Acute (9) Pleural effusion: Status: Acute Plan Acute hypoxia related to pulmonary hypertension and pneumonia Currently on 3 L nasal cannula Home O2 eval Continue antibiotics Afebrile Cultures negative Echo showed severe pulmonary hypertension moderate aortic valve stenosis and tricuspid mitral valve regurgitation, EF 50 to 55%, I asked patient to make an appointment with a receiving and processing supervisor for close follow-up I also asked her to inform [facility] regarding this echo report it could affect her transplant candidacy Anemia of chronic disease No active GI bleed Low iron also noted Likely related to chronic kidney disease Have requested iron Hold off on blood transfusion repeat H&H 7.6 Chronic kidney disease Not on dialysis, she is not oliguric, no signs of uremia Patient is on kidney transplant list [facility] She is not sure about etiology however attributing to diabetes She is diabetic hemoglobin has been within normal range without use of insulin I will keep her on low-dose sliding scale I did aske patient not to use glipizide or metformin Full code Renal diet DVT prophylaxis on hold due to drop in H&H, add SCDs Attestations Medical Necessity Statement*: Continue medical management, plan to discharge her tomorrow Time Spent in Patient Care: 30 Coding Level of Care Code Acute Surgical First Assistant for Mariog Fwd Diagnoses Stage 5 chronic kidney disease N18.5 Pleural effusion J90 Hyponatremia E87.1 Hypertension I10 Pneumonia J18.9 Community acquired pneumonia J18.9 Lung location: upper lobe of lung ESRD (end stage renal disease) N18.6 Hypoxia R09.02 Pleural effusion J90
[2022-05-15 17:54] LABS: Glucose Point of Care 145 mg/dL (70-110)
[2022-05-15 20:35] LABS: Glucose Point of Care 224 mg/dL (70-110)
[2022-05-16] VITALS (9 sets, daily range): BP systolic 129–167; BP diastolic 57–75; PULSE 71–100; RESP 15–18; TEMP 36.6–37; O2SAT 94–99
[2022-05-16 04:58] LABS: Basophils # 0.1 10^3/uL (0.0-0.1); Basophils % 0.8 %; Eosinophils # 0.6 10^3/uL (0.0-0.8); Hematocrit 23.6 % (37.0-47.0); Hemoglobin 7.6 g/dL (11.5-15.3); Lymphocytes % 25.6 %; Mean Corpuscular HGB Conc 32.2 g/dL (30.0-36.0); Mean Corpuscular Hemoglobin 28.3 pg (28.0-34.0); Mean Corpuscular Volume 87.7 fl (81-99); Mean Platelet Volume 10.6 fL (7.4-10.4); Monocytes # 0.7 10^3/uL (0.2-0.9); Monocytes % 8.6 %; Neutrophils # 4.51 10^3/uL (1.8-7.7); Neutrophils % 57.7 %; Nucleated Red Blood Cells % 0 %; Platelet Count 343 10^3/cmm (130-400); Red Blood Count 2.69 10^6/uL (4.1-5.3); Red Cell Distribution Width 12.8 % (12.1-15.1); White Blood Count 7.8 10^3/uL (4.0-10.0)
[2022-05-16 05:22] LABS: Anion Gap 21.4 (5-19); Blood Urea Nitrogen 44 mg/dL (8-23); Carbon Dioxide 19 mmol/L (22-29); Chloride 102 mmol/L (98-107); Glomerular Filtration Rate 7.3 mL/min (90-130); Glucose 137 mg/dL (65-115); Osmolality Calculated 301 mOsm/kg (285-295); Potassium 3.4 mmol/L (3.5-5.1); Sodium 139 mmol/L (136-145)
[2022-05-16 06:19] LABS: Glucose Point of Care 138 mg/dL (70-110)
[2022-05-16] MEDS: amlodipine 10 mg Tablet PO (08:43)
[2022-05-16] MEDS: cholecalciferol (vitamin D3) 1,000 unit Tablet 1000 UNIT PO (08:43)
[2022-05-16] MEDS: FUROsemide 10 mg/mL SDV 10mL 80 MG IVP (08:43)
[2022-05-16] MEDS: calcitriol 0.25 mcg Capsule PO (08:43)
--- NOTE | 2022-05-16 08:51 | PC.SOCIAL ---
Pg 2 IMM Explained to pt Pg 2 IMM. No questions voiced. Provided pt a copy. Initialed, dated, & timed a copy & placed in chart.
--- NOTE | 2022-05-16 09:50 | PM.PN ---
Subjective Subjective: Ms. Corcoran feels okay today with no acute complaints. Breathing more comfortably. No fevers or chills. UO noted to be 1626mL. Remains on high-dose IV diuretics. No uremic symptoms. Vitals/I&O/Wt Last Vital Signs Temp 97.9 F 05/16/22 08:00 Pulse 100 05/16/22 09:02 Resp 15 05/16/22 08:00 BP 167/75 05/16/22 08:00 Pulse Ox 95 05/16/22 09:02 05/15/22 05/16/22 05/16/22 22:59 06:59 14:59 Intake Total 236 / 942 800 / 1742 120 / 120 Balance 236 / 942 800 / 1742 120 / 120 Weight last 48 hrs Weight 104.417 kg Physical Exam Narrative: Constitutional: Awake, comfortable HEENT: Wet mucosa, non icteric Lungs: Bilaterally decreased air entry CVS: S1 S2, no murmurs Abdo: Soft, BS ok Ext 4: Mild edema, peripheral perfusion with no cyanosis Neurological: Grossly non-focal Data : 05/16/22 04:49 05/16/22 04:49 A&P Assessment and plan (1) Stage 5 chronic kidney disease: 1. Chronic kidney disease Possible acute component, however, this is likely to be predominantly chronic kidney disease. Creatinine but relatively stable GFR currently 7-8 mL/min. No acute indication for dialysis, close monitoring Change diuretics to Lasix 80mg po daily Daily renal panel Strict I's and O's Dose medication for GFR less than 15 2. Chemistry Acidosis noted, however, hold sodium bicarbonate given the obvious sodium load with this. Continue to monitor acidosis. 3. Shortness of breath Appears multifactorial i.e. from possible pneumonia for which she is receiving antibiotics, bilateral pleural effusions and mod and pulmonary hypertension seen on echocardiogram. Improved 4. Anemia of CKD Iron deficient, received EPO 20kiu subQ x 1 and venofer loading ok for DC today with close follow up from Dr Jordan Hardy MD Nephrology [phone] Patient seen and examined via telemedicine, with the assistance of the bedside RN > 25 min spent in evaluation and mgmt of patient Status: Acute Attestations Medical Necessity Statement*: eval for CKD stage 5 Coding Level of Care Code Acute Design Studio Consultant for Chg Fwd Diagnoses Stage 5 chronic kidney disease N18.5
[2022-05-16] MEDS: iron sucrose 200 MG in sodium chloride 0.9% (100 ml) 100 ML 110 MG IV (10:46)
[2022-05-16 10:59] LABS: Glucose Point of Care 185 mg/dL (70-110)
--- NOTE | 2022-05-16 11:03 | PM.DCS ---
Discharge Providers Date of Admission: 05/13/22 03:17 Date of Discharge: May 16, 2022 Attending Provider at Admission: William Puckett MD Attending Provider at Discharge: Gt Carmen MD Primary Care Provider: Henny Banerjee MD Diagnoses at Discharge Discharge Diagnosis (1) Stage 5 chronic kidney disease: Status: Acute Reason for Visit Reason for Visit: Sortness of breath Hospital Course Hospital Course Pleasant and cooperative 66-year-old female, who is on kidney transplant list currently being evaluated at [facility], presented to the hospital with generalized fatigue, malaise, she was diagnosed with community-acquired pneumonia. She was treated with antibiotics, she never spiked fever, she was requiring 3 L of oxygen at rest. Her oxygen requirement is new. CT chest showed pneumonia. Nephro was consulted who recommended treated her with Lasix she remained nonoliguric, no signs of uremia, 2 bags of iron were administered due to drop in hemoglobin related to chronic kidney disease. No active GI bleed. Hemoglobin remained stable at 7.6. No blood transfusion during this hospitalization. Patient was told she might need blood transfusion down the road if hemoglobin drops below 7. And now with severe pulmonary hypertension her new goal could be hemoglobin of 8. Nurse of Dr. Ortega has been notified by Dr. Florez. Echo revealed severe pulmonary hypertension, moderate aortic valve stenosis, tricuspid and mitral valve regurgitation, I have drawn pictures on the paperwork to explain her valvular abnormality, I have also tried to explain to her daughter and requested them to update the kidney transplant center. Patient is stating that she has been given referrals to see a program production specialist and yarder operator in [place] by her transplant center. At the time of discharge I will give her iron supplementatio, (only 3-day supply) potassium supplementation, Lasix and cefpodoxime Close follow-up with Dr. Ortega Cultures remain negative. Physical Exam Narrative: Very pleasant cooperative female Nonfocal neuro exam She does have mild crackles at base of the lungs related to pleural effusion Currently on 3 L nasal cannula No acute respite distress S1, S2 No signs of fluid overload No signs of uremia Abdomen is soft Discharge Data Studies Completed and Pending Completed Studies During Hospitalization Category Date Time Status CT chest wo con [id number] Urgent Cat Scan 05/13/22 00:00 Completed CXRP [XR chest 1V portable [id number]] Stat Exams 05/12/22 23:17 Completed CV. echo complete* [id number] Routine Ultrasound 05/13/22 01:48 Completed Pending at discharge Category Date Time Status Blood Culture Stat Lab 05/13/22 05:51 Results PRBC [Leukocyte Reduced RBC] Routine Lab 05/15/22 06:17 Results Sputum Culture and Gram Stain Routine Lab 05/13/22 12:37 Uncollected Type and Screen Routine Lab 05/15/22 06:17 Results Radiology Impressions Chest X-Ray 05/12/22 23:17 IMPRESSION: 1. Bilateral pleural effusions. 2. Indistinct central interstitial markings. Possible interstitial edema. 3. Multifocal ill-defined opacity in the left upper lung. Possible infection. Chest CT 05/13/22 00:00 IMPRESSION: 1. Bilateral upper lung consolidation suggests infection. 2. Moderate-sized bilateral pleural effusions. 3. Incidental findings above. Laboratory Results WBC 7.8 10^3/uL (4.0-10.0) 05/16/22 04:49 RBC 2.69 10^6/uL (4.1-5.3) L 05/16/22 04:49 Hgb 7.6 g/dL (11.5-15.3) L 05/16/22 04:49 Hct 23.6 % (37.0-47.0) L 05/16/22 04:49 MCV 87.7 fl (81-99) 05/16/22 04:49 MCH 28.3 pg (28.0-34.0) 05/16/22 04:49 MCHC 32.2 g/dL (30.0-36.0) 05/16/22 04:49 RDW 12.8 % (12.1-15.1) 05/16/22 04:49 Plt Count 343 10^3/cmm (130-400) 05/16/22 04:49 MPV 10.6 fL (7.4-10.4) H 05/16/22 04:49 Neut % (Auto) 57.7 % 05/16/22 04:49 Lymph % (Auto) 25.6 % 05/16/22 04:49 [place] % (Auto) 8.6 % 05/16/22 04:49 Eos % (Auto) 7.0 % 05/16/22 04:49 Baso % (Auto) 0.8 % 05/16/22 04:49 Neut # (Auto) 4.51 10^3/uL (1.8-7.7) 05/16/22 04:49 Lymph # (Auto) 2.0 10^3/uL (0.8-4.8) 05/16/22 04:49 [place] # (Auto) 0.7 10^3/uL (0.2-0.9) 05/16/22 04:49 Eos # (Auto) 0.6 10^3/uL (0.0-0.8) 05/16/22 04:49 Baso # (Auto) 0.1 10^3/uL (0.0-0.1) 05/16/22 04:49 Nucleated RBC % (auto) 0 % 05/16/22 04:49 Nucleated RBCs # 0.0 /100WBC 05/16/22 04:49 PT 13.90 SECONDS (12.1-14.9) 05/14/22 05:22 INR 1.04 (0.8-1.2) 05/14/22 05:22 Sodium 139 mmol/L (136-145) 05/16/22 04:49 Potassium 3.4 mmol/L (3.5-5.1) L 05/16/22 04:49 Chloride 102 mmol/L (98-107) 05/16/22 04:49 Carbon Dioxide 19 mmol/L (22-29) L 05/16/22 04:49 Anion Gap 21.4 (5-19) H 05/16/22 04:49 BUN 44 mg/dL (8-23) H 05/16/22 04:49 Creatinine 5.8 mg/dL (0.5-0.9) H* 05/16/22 04:49 GFR Calculation 7.3 mL/min (90-130) L 05/16/22 04:49 Glucose 137 mg/dL (65-115) H 05/16/22 04:49 POC Glucose 185 mg/dL (70-110) H 05/16/22 10:51 Estimat Average Glucose 146 05/15/22 09:55 Hemoglobin A1c 6.7 % (4.0-6.0) H 05/15/22 09:55 Calculated Osmolality 301 mOsm/kg (285-295) H 05/16/22 04:49 Lactic Acid 0.8 mmol/L (0.5-2.2) 05/14/22 05:22 Calcium 8.0 mg/dL (8.5-10.5) L 05/16/22 04:49 Phosphorus 6.2 mg/dL (2.5-4.5) H 05/14/22 05:22 Magnesium 1.8 mg/dL (1.7-2.3) 05/14/22 05:22 Iron 37 ug/dL (37-145) 05/15/22 05:37 TIBC 166 mcg/dl 05/15/22 05:37 % Saturation 22.2 % (20-50) 05/15/22 05:37 Unsat Iron Binding 129 ug/dL (112-347) 05/15/22 05:37 Total Bilirubin 0.5 mg/dL (0.15-1.2) 05/12/22 23:45 AST 18 U/L (0-32) 05/12/22 23:45 ALT < 5 U/L (0-33) 05/12/22 23:45 Alkaline Phosphatase 161 IU/L (35-105) H 05/12/22 23:45 Troponin T Baseline 46 ng/L (0-10) H 05/13/22 03:43 Troponin T 120 Minute 47.55 ng/L (0-10) H 05/13/22 05:46 Delta Troponin T 1.55 ABS# (0-10) 05/13/22 05:46 Troponin T Hi Sens 6Hr 44.68 ng/L (0-10) H 05/13/22 09:29 Troponin T Hi Sens 6Hr Delta -1.32 ng/L (0-12) L 05/13/22 09:29 NT-Pro-B Natriuret Pep 04069 pg/mL (0-125) H 05/12/22 23:45 Total Protein 7.7 g/dL (6.6-8.7) 05/12/22 23:45 Albumin 3.6 g/dL (3.5-5.2) 05/12/22 23:45 Globulin 4.1 g/dL (1.3-4.6) 05/12/22 23:45 Vitamin B12 317 pg/mL (232-1245) 05/15/22 05:37 Procalcitonin 0.62 ng/mL (0-0.5) H 05/14/22 05:22 SARS-CoV-2 Ag (Rapid) Negative (Negative) 05/13/22 00:30 Blood Type O Negative 05/14/22 05:24 Rho(D) Type Negative 05/14/22 05:24 Antibody Screen Negative 05/14/22 05:24 Crossmatch See Detail 05/14/22 05:24 Vitals Last Vital Signs Temp 97.9 F 05/16/22 08:00 Pulse 100 05/16/22 09:02 Resp 15 05/16/22 08:00 BP 167/75 05/16/22 08:00 Pulse Ox 95 05/16/22 09:02 Discharge Plan Discharge Patient Disposition: Home Condition: Stable Prescriptions: New furosemide [Lasix] 40 mg tablet 40 mg PO DAILY Qty: 60 1RF ferrous sulfate [FeroSul] 325 mg (65 mg iron) tablet 325 mg PO .every otherday Qty: 30 1RF potassium chloride 10 mEq tablet extended release 10 meq PO DAILY Qty: 3 0RF cefpodoxime 200 mg tablet 200 mg PO BID Qty: 10 0RF Rx Instructions: must administer with a meal/food Continued atorvastatin 40 mg Tablet 40 mg PO DAILY 0RF alprazolam 0.5 mg Tablet 0.5 mg PO BID 0RF sodium bicarbonate 650 mg Tablet 1,300 mg PO TID 0RF amlodipine 10 mg Tablet 10 mg PO DAILY 0RF calcitriol 0.25 mcg Capsule 0.25 mcg PO DAILY 0RF Vitamin D3 25 mcg (1,000 unit) Capsule 25 mcg PO DAILY 0RF escitalopram oxalate 20 mg Tablet 20 mg PO DAILY 0RF Calcium 600 + D(3) 600 mg-10 mcg (400 unit) Tablet 1 tab PO DAILY 0RF Multi For Her 50 Plus 400-80 mcg Capsule 1 cap PO DAILY 0RF ferrous gluconate 324 mg (37.5 mg iron) Tablet 324 mg PO DAILY 0RF Changed glipizide 5 mg Tablet 5 mg PO DAILY Qty: 0 0RF Discharge Orders: Discharge Order (Routine); Ordered 05/16/22 Ordered By: Gt Carmen Referrals: Abbie Orona [Referring] - 05/19/22 11:00 am Julián Ortega MD [Referring] - 1-3 days Discharge Diet: Diabetic Discharge Activity: Increase activity as tolerated Patient Instructions: Chronic Kidney Disease (IP), Chronic Kidney Disease Diet (DC), Pleural Effusion (GEN), Opioid Safety Discharge Attestations Time Spent in Discharge Care*: less than 30 min Quality Metrics Clinical Quality Measures [ No reported AMI, CVA or VTE this stay] Coding Level of Care Code Acute Chg FW DC note Diagnoses Stage 5 chronic kidney disease N18.5
[2022-05-16] MEDS: potassium chloride ER 20 mEq Tablet 40 MEQ PO (14:50)
== END 2022-05-16 15:40 | disposition home or self-care (01) | DRG 194 ==
LOC: ER 05-13 01:24 → ER IP 05-13 05:36 → MEDSURG 05-13 12:09
PROVIDERS: Admitting Provider Internal Medicine; Emergency Provider Emergency Medicine; PCP Family Medicine; Visit Provider Internal Medicine
DX: J18.9 Pneumonia, unspecified organism (principal); I12.0 Hypertensive chronic kidney disease with stage 5 chronic kidney disease or end stage renal disease; N18.5 Chronic kidney disease, stage 5; E87.1 Hypo-osmolality and hyponatremia; E87.2 Acidosis; E11.22 Type 2 diabetes mellitus with diabetic chronic kidney disease; I27.20 Pulmonary hypertension, unspecified; E87.5 Hyperkalemia; D63.1 Anemia in chronic kidney disease; I35.0 Nonrheumatic aortic (valve) stenosis; I34.0 Nonrheumatic mitral (valve) insufficiency
CPT/HCPCS: 36415; 36416; 71045; 71250; 80048; 80053; 82607; 82962; 83036; 83540; 83550; 83605; 83735; 83880; 84100; 84145; 84484; 85014; 85018; 85025; 85610; 86403; 86850; 86900; 86920; 87040; 87426; 87449; 87641; 93005; 93306; 94664; 96365; 96367; 96372; 96375; 99285; J0456; J0610; J0696; J1644; J1756; J1815; J1940; J2405; J2543; J3370; J7050; Q3014; Q4081

== ENCOUNTER 2022-06-04 09:15 | Emergency (ER) | payer MEDICARE, SELFPAY ==
[2022-06-04] VITALS (8 sets, daily range): BP systolic 122–168; BP diastolic 68–108; PULSE 85–100; RESP 18; TEMP 36.6–36.7; O2SAT 95–98; BMI 35.0
[2022-06-04] MEDS: LORazepam 2 mg Tablet PO (09:57)
[2022-06-04 10:04] LABS: Glucose Point of Care 101 mg/dL (70-110)
--- NOTE | 2022-06-04 10:05 | W.ED.GENADLT ---
HPI - General Adult General: Chief complaint: General Medical Stated complaint: panic attack,numbness to legs and arms Time Seen by Provider: 06/04/22 09:15 Source: patient Mode of arrival: ambulatory Limitations: no limitations History of Present Illness: 66-year-old female presents emergency room with slurred speech shaking and leg cramps. Had dialysis yesterday this morning blood sugar was 57 when she woke up she had what she describes as a panic attack after that she cannot breathe rapidly numbness and tingling in the legs hands and face. She was given glucose by EMS all of her symptoms have essentially resolved. She has end-stage renal disease thought to be secondary to previous ovarian cancer complicated by diabetes. She is only on glipizide for diabetic control. She has no known history of coronary disease no previous stroke that she is aware of. Onset (ago): minute(s) Relieving factors: none Exacerbating factors: none Associated symptoms: Reports confusion and nausea; Deny chest pain, cough, diaphoresis, decreased appetite, dyspnea, fevers/chills, headache(s), malaise, rash, palpitations, seizures, short of breath, syncope, vomiting or weakness Treatments prior to arrival: none Review of Systems Const: Denies: fever(s), chills, fatigue, malaise or diaphoresis ENMT: Denies: throat pain, ear or mastoid pain, nasal discharge or nasal congestion Card: Denies: chest pain, palpitations or syncope Resp: Denies: dyspnea GI: Reports: nausea; Denies: abdominal pain or vomiting : Denies: flank pain, difficulty voiding, dysuria, urinary frequency or urinary urgency Skin/Breast: Denies: rash Neuro: Reports: confusion; Denies: headache(s) [facility] ED PFSH: Medical History Acute respiratory failure with hypoxia Community acquired pneumonia ESRD (end stage renal disease) Hypertension Hyponatremia Hypoxia Pleural effusion Pleural effusion Pneumonia Stage 5 chronic kidney disease Physical Exam Const: COMMON NORMALS: no acute distress GENERAL APPEARANCE: cooperative and comfortable ORIENTATION/CONSCIOUSNESS: Yes awake, Yes oriented to person, Yes oriented to place and Yes oriented to time HENMT: COMMON NORMALS: normocephalic and atraumatic HEAD & SCALP: normocephalic and atraumatic Resp: COMMON NORMALS: normal respiratory effort, No retractions, No use of accessory muscles and clear to auscultation bilaterally AUSCULTATION: clear to auscultation bilaterally Cardio: COMMON NORMALS: regular rate, regular rhythm and No murmurs present (Cardio) RATE: regular rate RHYTHM: regular rhythm GI: COMMON NORMALS: Soft to palpation and No hepatosplenomegaly present AUSCULTATION: Yes normoactive bowel sounds PALPATION: Yes Soft to palpation, No Tenderness to palpation present (GI), No Guarding due to palpation present (GI) and Yes No hepatosplenomegaly present Extremity: COMMON NORMALS: normal to inspection, capillary refill normal, no clubbing, cyanosis or edema, no calf tenderness and no pedal edema Neuro: SENSORIUM/ORIENTATION: Yes oriented to person, Yes oriented to place and Yes oriented to time Skin: COMMON NORMALS: no rashes or lesions noted GENERAL SKIN EXAM: no rashes or lesions noted Course Vital Signs: Vital signs: Vital Signs Temperature 98 F 06/04/22 10:53 Pulse Rate 90 06/04/22 10:53 Respiratory Rate 18 06/04/22 10:53 Blood Pressure 148/78 06/04/22 10:53 Pulse Oximetry 97 06/04/22 10:53 [facility] - General Adult Medical Decision Making Symptoms completely resolved. On her first encounter patient had an 8 score 0 she improved and all of her symptoms resolved after Lulú blood sugar improved we will go and discharge her home suggest her that she talk to her primary care about doctor about stopping glipizide and getting on different medications as likely to cause hypoglycemic episodes. Medical Records I reviewed the patient's medical records. Lab Data I reviewed the patient's lab results. : 06/04/22 10:30 06/04/22 10:30 Laboratory Results WBC 9.1 10^3/uL (4.0-10.0) 06/04/22 10:30 RBC 2.79 10^6/uL (4.1-5.3) L 06/04/22 10:30 Hgb 8.0 g/dL (11.5-15.3) L 06/04/22 10:30 Hct 25.5 % (37.0-47.0) L 06/04/22 10:30 MCV 91.4 fl (81-99) 06/04/22 10:30 MCH 28.7 pg (28.0-34.0) 06/04/22 10:30 MCHC 31.4 g/dL (30.0-36.0) 06/04/22 10:30 RDW 13.9 % (12.1-15.1) 06/04/22 10:30 Plt Count 347 10^3/cmm (130-400) 06/04/22 10:30 MPV 10.8 fL (7.4-10.4) H 06/04/22 10:30 Neut % (Auto) 78.1 % 06/04/22 10:30 Lymph % (Auto) 9.8 % 06/04/22 10:30 [place] % (Auto) 7.6 % 06/04/22 10:30 Eos % (Auto) 3.8 % 06/04/22 10:30 Baso % (Auto) 0.4 % 06/04/22 10:30 Neut # (Auto) 7.06 10^3/uL (1.8-7.7) 06/04/22 10:30 Lymph # (Auto) 0.9 10^3/uL (0.8-4.8) 06/04/22 10:30 [place] # (Auto) 0.7 10^3/uL (0.2-0.9) 06/04/22 10:30 Eos # (Auto) 0.3 10^3/uL (0.0-0.8) 06/04/22 10:30 Baso # (Auto) 0.0 10^3/uL (0.0-0.1) 06/04/22 10:30 Nucleated RBC % (auto) 0 % 06/04/22 10:30 Nucleated RBCs # 0.0 /100WBC 06/04/22 10:30 Sodium 141 mmol/L (136-145) 06/04/22 10:30 Potassium 4.3 mmol/L (3.5-5.1) 06/04/22 10:30 Chloride 99 mmol/L (98-107) 06/04/22 10:30 Carbon Dioxide 25 mmol/L (22-29) 06/04/22 10:30 Anion Gap 21.3 (5-19) H 06/04/22 10:30 BUN 44 mg/dL (8-23) H 06/04/22 10:30 Creatinine 5.0 mg/dL (0.5-0.9) H 06/04/22 10:30 GFR Calculation 8.7 mL/min (90-130) L 06/04/22 10:30 Glucose 89 mg/dL (65-115) 06/04/22 10:30 POC Glucose 101 mg/dL (70-110) 06/04/22 10:00 Calculated Osmolality 303 mOsm/kg (285-295) H 06/04/22 10:30 Calcium 7.8 mg/dL (8.5-10.5) L 06/04/22 10:30 Urine Color Yellow (Yellow) 06/04/22 10:30 Urine Appearance Clear (CLEAR) 06/04/22 10:30 Urine pH 8 (5-7) H 06/04/22 10:30 Ur Specific [place] 1.010 (1.005-1.030) 06/04/22 10:30 Urine Protein 3+ (Negative) H 06/04/22 10:30 Urine Glucose (UA) Norm (Normal) 06/04/22 10:30 Urine Ketones Negative (Negative) 06/04/22 10:30 Urine Blood 2+ (Negative) H 06/04/22 10:30 Urine Nitrate Negative (Negative) 06/04/22 10:30 Urine Bilirubin Neg (Negative) 06/04/22 10:30 Prot Sulfosalicylic Acd Positive (Negative) 06/04/22 10:30 Urine Urobilinogen 1 mg/dL (Negative) H 06/04/22 10:30 Ur Leukocyte Esterase Negative (Negative) 06/04/22 10:30 Urine RBC 0-4 /hpf (0-2) H 06/04/22 10:30 Urine WBC 0-4 /hpf (0-5) H 06/04/22 10:30 Ur Squamous Epith Cells 0-4 /hpf (0-5) H 06/04/22 10:30 Ur Renal Epithelial Cell 0 /hpf 06/04/22 10:30 Amorphous Sediment Not Reportable 06/04/22 10:30 Urine Bacteria None /hpf (NONE) 06/04/22 10:30 Discharge Plan Discharge Patient Disposition: Home Clinical Impression: Hypoglycemia, Anxiety reaction Condition: Stable Prescriptions: No Action atorvastatin 40 mg Tablet 40 mg PO QAM 0RF sodium bicarbonate 650 mg Tablet 1,950 mg PO BID 0RF amlodipine 10 mg Tablet 10 mg PO QAM 0RF calcitriol 0.25 mcg Capsule 0.25 mcg PO .ON MON,WED,FRI 0RF cholecalciferol (vitamin D3) [Vitamin D3] 25 mcg (1,000 unit) Capsule 25 mcg PO QAM 0RF escitalopram oxalate 20 mg Tablet 20 mg PO QAM 0RF calcium carbonate-vitamin D3 [Calcium 600 + D(3)] 600 mg-10 mcg (400 unit) Tablet 1 tab PO QAM 0RF ferrous gluconate 324 mg (37.5 mg iron) Tablet 324 mg PO QAM 0RF potassium chloride 10 mEq tablet extended release 10 meq PO DAILY Qty: 3 0RF multivitamin Tablet 1 tab PO DAILY 0RF acetaminophen-codeine 300-30 mg tablet 1 tab PO Q4H PRN (Reason: Pain) 0RF Lasix 40 mg tablet 40 mg PO QAM 0RF glipizide 5 mg tablet 5 mg PO QAM 0RF Discharge Orders: Discharge ED (Routine); Ordered 06/04/22 Ordered By: Maciel Regalado Referrals: Jhon Schneider [Primary Care Provider] - Activity Restrictions/Additional Instructions: Talk to your primary care doctor about changing her glipizide to something less likely to cause hypoglycemia Coding Level of Care Code ED Gear Coding Machine Operator for Sergio Tang NIH stroke score NIHSS Level Of Consciousness - 1a: 0 Level Of Consciousness Questions - 1b: Both Correct Level Of Consciousness Commands - 1c: Both Correct Best Gaze - 2: Normal Visual Schuster - 3: No Visual Loss Facial Palsy - 4: Normal Motor Arm Right - 5: No Drift Motor Arm Left - 5: No Drift Motor Leg Right - 6: No Drift Motor Leg Left - 6: No Drift Limb Ataxia - 7: Absent Sensory - 8: Normal Best Language - 9: No Aphasia Dysarthia - 10: Normal Extinction And Inattention - 11: 0 Score Total Score: 0
--- NOTE | 2022-06-04 10:16 | PC.PHAR ---
pt states she takes care of her own medications-pt states she does not take alprazolam 0.5mg bid ext med history shows last filled 05/12/22 30d/s-rx bottle has ferrous gluconate 324mg bid pt states just takes one tab qam-rx written on 05/16/22 from for ferosul 325mg eod pt states doesnt take sulfate because of her kidney-pt states she is out of her kcl 10meq daily ext med history shows last filled 05/19/22 10d/s-pt states she takes sodium bicarbonate 650mg 3 tabs bid rx bottle has 2 tabs tid-notes are made in the pharmacy comments
[2022-06-04 10:53] LABS: Basophils % 0.4 %; Eosinophils # 0.3 10^3/uL (0.0-0.8); Eosinophils % 3.8 %; Hematocrit 25.5 % (37.0-47.0); Lymphocytes # 0.9 10^3/uL (0.8-4.8); Lymphocytes % 9.8 %; Mean Corpuscular HGB Conc 31.4 g/dL (30.0-36.0); Mean Corpuscular Hemoglobin 28.7 pg (28.0-34.0); Mean Corpuscular Volume 91.4 fl (81-99); Mean Platelet Volume 10.8 fL (7.4-10.4); Monocytes # 0.7 10^3/uL (0.2-0.9); Monocytes % 7.6 %; Neutrophils # 7.06 10^3/uL (1.8-7.7); Neutrophils % 78.1 %; Nucleated Red Blood Cells % 0 %; Platelet Count 347 10^3/cmm (130-400); Red Blood Count 2.79 10^6/uL (4.1-5.3); Red Cell Distribution Width 13.9 % (12.1-15.1); White Blood Count 9.1 10^3/uL (4.0-10.0)
[2022-06-04 10:57] LABS: Urine Appearance Clear (CLEAR); Urine Color Yellow (Yellow); pH Urine 8 (5-7)
[2022-06-04 10:58] LABS: Add Urine Culture? No; Add Urine Microscopic? YES; Bilirubin Urine Neg (Negative); Blood Urine 2+ (Negative); Glucose Urine UA Norm (Normal); Ketones Urine Negative (Negative); Leukocyte Esterase Urine Negative (Negative); Nitrate Urine Negative (Negative); Protein Urine 3+ (Negative); RBC Urine 0-4 /hpf (0-2); Renal Epithelial Cells Urine 0 /hpf; Squamous Epithelial Cell Urine 0-4 /hpf (0-5); Sulfosalicylic Acid Urine Positive (Negative); Urobilinogen Urine 1 mg/dL (Negative); WBC Urine 0-4 /hpf (0-5)
[2022-06-04 11:12] LABS: Anion Gap 21.3 (5-19); Blood Urea Nitrogen 44 mg/dL (8-23); Calcium 7.8 mg/dL (8.5-10.5); Carbon Dioxide 25 mmol/L (22-29); Chloride 99 mmol/L (98-107); Glomerular Filtration Rate 8.7 mL/min (90-130); Glucose 89 mg/dL (65-115); Osmolality Calculated 303 mOsm/kg (285-295); Potassium 4.3 mmol/L (3.5-5.1); Sodium 141 mmol/L (136-145)
== END 2022-06-04 12:10 | disposition home or self-care (01) ==
PROVIDERS: Emergency Provider Family Medicine; PCP Family Medicine
DX: F41.1 Generalized anxiety disorder (principal); E11.649 Type 2 diabetes mellitus with hypoglycemia without coma; E11.22 Type 2 diabetes mellitus with diabetic chronic kidney disease; I12.0 Hypertensive chronic kidney disease with stage 5 chronic kidney disease or end stage renal disease; N18.6 End stage renal disease; Z99.2 Dependence on renal dialysis; Z79.84 Long term (current) use of oral hypoglycemic drugs; Z85.43 Personal history of malignant neoplasm of ovary
CPT/HCPCS: 36416; 80048; 81001; 82962; 85025; 99283

== ENCOUNTER → 2022-06-13 07:55 | Day surgery (SDC) | payer MEDICARE, SELFPAY ==
[2022-06-13 08:29] VITALS: BP 118/57; PULSE 79; RESP 18; TEMP 36.7; O2SAT 98
[2022-06-13 08:31] LABS: Hematocrit 25.4 % (37.0-47.0); Hemoglobin 7.9 g/dL (11.5-15.3)
[2022-06-13] MEDS: sodium chloride 0.9% (100 ml) 100 ML 10 ML (09:30)
[2022-06-13 09:50] VITALS: BP 141/59; PULSE 72; RESP 18; TEMP 36.6; O2SAT 95
[2022-06-13 10:06] VITALS: BP 138/78; PULSE 74; RESP 18; TEMP 36.4; O2SAT 94
[2022-06-13 10:21] VITALS: BP 143/67; PULSE 69; RESP 18; TEMP 36.6; O2SAT 95
[2022-06-13 11:21] VITALS: BP 140/60; PULSE 79; RESP 18; TEMP 36.5; O2SAT 96
== END ==
PROVIDERS: PCP Family Medicine; Visit Provider Internal Medicine Nephrology
DX: D64.9 Anemia, unspecified (principal)
CPT/HCPCS: 36415; 36430; 85014; 85018; 86850; 86900; 86920; P9016

== ENCOUNTER 2022-10-23 10:49 | Emergency (ER) | payer MEDICARE, SELFPAY ==
[2022-10-23] VITALS (37 sets, daily range): BP systolic 106–149; BP diastolic 50–80; PULSE 69–82; RESP 13–24; TEMP 36.8; O2SAT 91–100; BMI 34.3
--- NOTE | 2022-10-23 11:31 | XRR_ITS ---
PROCEDURE INFORMATION: Exam: XR Chest Exam date and time: 10/23/2022 11:43 AM Age: 67 years old Clinical indication: Angina pectoris; Prior surgery; Surgery type: Heart cath; Patient HX: Chest pain with nausea and vomiting; Additional info: Cp TECHNIQUE: Imaging protocol: Radiologic exam of the chest. Views: 1 view. COMPARISON: CT chest con [id number] 05/13/2022 12:25 AM FINDINGS: Tubes, catheters and devices: A dialysis catheter is present with the tip near the junction of the SVC and right atrium. Lungs: Unremarkable. No consolidation. Pleural spaces: Unremarkable. No pleural effusion. No pneumothorax. Heart/Mediastinum: An aortic valve prosthesis is present. Heart is not enlarged. Bones/joints: Unremarkable. XR/XR chest 1V portable [id number] IMPRESSION: No acute abnormality.
--- NOTE | 2022-10-23 11:31 | ECG_ITS ---
[facility] Test Date: 2022-10-23 Pat Name: Tracie Corcoran Department: Room: Gender: Female Survey Questionnaire Designer: : 1955 Requested By: Daron Noe Order Number: [id number] Bowen MD: Marta Lugo M.D. Measurements Intervals [place] Rate: 68 P: 77 HI: 130 QRS: 52 QRSD: 93 T: 78 QT: 483 QTc: 517 Interpretive Statements SINUS RHYTHM MINIMAL ST DEPRESSION [0.025+ mV ST DEPRESSION] PROLONGED QT INTERVAL Compared to ECG 05/12/2022 22:45:08 ST (T wave) deviation now present Prolonged QT interval now present Short HI interval no longer present Electronically Signed On 10-23-2022 19:00:33 PROGRESS DEVELOPER by Marta Lugo M.D. [email or web address]
--- NOTE | 2022-10-23 11:32 | W.ED.CHESTPA ---
HPI - Chest Pain General: Chief Complaint: Chest Pain Stated Complaint: CP/ N/V Time Seen by Provider: 10/23/22 11:02 Source: patient Mode of arrival: EMS Limitations: no limitations History of Present Illness: This patient was transported to the emergency department via EMS from dialysis. She was almost completed with her usual dialysis run and noted discomfort in her epigastrium and her lower chest with emesis of mucus. She states that she was nauseated prior to the onset of the symptoms. She states that she does not normally eat anything before dialysis and she did not do so today. She does not have any significant history of heartburn or gastroesophageal reflux disease. She had a aortic valve TAVR completed at [facility] a few weeks ago but has been doing well since then with less dyspnea with exertion. She has no known history of coronary artery disease or prior NM. He is a diabetic as well as she is had a prior gastric bypass approximately 16 years ago. No known exposure to illness. She completed approximately 3 hours of her dialysis run this morning. Quality: heaviness Context: recent surgery Associated symptoms: Reports nausea and vomiting; Deny abdominal pain, dyspnea, fever(s), palpitations or syncope Risk Factors: Coronary artery disease risk factors: diabetes Review of Systems Const: Denies: fever(s) or chills Eyes: Denies: change in vision ENMT: Denies: throat pain, odynophagia, nasal discharge or nasal congestion Card: Denies: palpitations, irregular heart rhythm, edema, syncope or pre-syncope Resp: Denies: dyspnea, productive cough or non-productive cough GI: Reports: nausea and vomiting; Denies: abdominal pain, diarrhea, hematochezia or melena : Reports: oliguria; Denies: flank pain Musc: Denies: neck pain, back pain, extremity pain or extremity swelling Skin/Breast: Denies: rash or pruritus Neuro: Denies: headache(s), numbness in extremities or weakness in extremities Psych: Reports: anxiety; Denies: depression Christ/Lymph: Reports: easy bruising PFSH ED PFSH: Medical History Acute respiratory failure with hypoxia Community acquired pneumonia ESRD (end stage renal disease) Hypertension Hyponatremia Hypoxia Pleural effusion Pleural effusion Pneumonia Stage 5 chronic kidney disease Physical Exam Narrative: EXAM NARRATIVE: This patient is alert and responds appropriately to questions. She makes good eye contact. Const: COMMON NORMALS: no acute distress and patient oriented x3 GENERAL APPEARANCE: cooperative and comfortable NUTRITIONAL APPEARANCE: overweight HENMT: COMMON NORMALS: normocephalic, Normal nasal mucous membranes and turbinates present, moist oral mucous membranes and oropharynx normal HEAD & SCALP: normocephalic NOSE: Normal nasal mucous membranes and turbinates present Eye: COMMON NORMALS: Equal, round and reactive pupils present, EOMs intact bilaterally and conjunctivae normal CONJUNCTIVA: Yes conjunctivae normal PUPIL: Yes Equal, round and reactive pupils present Neck/C-Spine: COMMON NORMALS: full ROM, no JVD and No carotid bruits Chest: COMMONS NORMALS: normal inspection of the chest (She has a dialysis catheter in her right upper chest) and normal palpation of entire chest wall Resp: COMMON NORMALS: normal respiratory effort, No retractions, No use of accessory muscles and clear to auscultation bilaterally AUSCULTATION: clear to auscultation bilaterally Cardio: COMMON NORMALS: no JVD, regular rate, regular rhythm and Peripheral pulses 2+ throughout RATE: regular rate RHYTHM: regular rhythm HEART SOUNDS: Murmur heart sound present PERIPHERAL PULSES: Peripheral pulses 2+ throughout GI: COMMON NORMALS: Normal to inspection, nondistended, normoactive bowel sounds present, Soft to palpation, non-tender, no masses and no bruits PALPATION: Yes Soft to palpation : COMMON NORMALS: Yes no CVA tenderness BLADDER/KIDNEY EXAM: Yes no CVA tenderness Back/Pelvis: COMMON NORMALS: no CVA tenderness, thoracic and lumbar spine normal to inspection, no thoracic nor lumbar tenderness and thoraco-lumbar ROM normal Extremity: COMMON NORMALS: normal to inspection, full ROM, capillary refill normal, no calf tenderness and no pedal edema Neuro: COMMON NORMALS: patient oriented x3, moves all extremities, no focal motor deficits and no sensory deficits noted CRANIAL NERVES: Yes CN normal except as noted Psych: COMMON NORMALS: mental status grossly normal Skin: COMMON NORMALS: no rashes or lesions noted and turgor normal GENERAL SKIN EXAM: no rashes or lesions noted and turgor normal Course Reevaluation(s): Reevaluation #1: Patient has had resolution of any symptoms shortly after arriving in the examination room. Her laboratories are generally reassuring. She has chronic anemia which is typical with chronic kidney disease. Troponin is essentially unchanged albeit elevated but this is likely due to the high sensitivity of the high-sensitivity troponin in light of her chronic kidney disease. She has excellent vital signs and no other concerning findings at this time. We will repeat a third troponin to provide additional assurance against any potential ongoing ACS etc. Time: 16:44 Reevaluation #2: The patient continues to be asymptomatic so a third or 6-hour troponin was obtained. It is unchanged essentially from the prior 2 troponins. Her EKGs are also unchanged and do not reveal any concerning changes. At this point given negative biomarkers as well as negative EKGs and a currently asymptomatic I feel that the likelihood of ACS is extremely low. No evidence of other worrisome condition based upon her clinical picture ancillary studies etc. We discussed continued observation versus discharge to home observation and she agreed with the latter. She is to continue all her usual medications, dialysis, and return to this or the nearest emergency department should she experience any recurrent symptoms to include chest pain shortness of breath fevers chills or other concerning symptoms that we discussed. She was appreciative of care. Time: 18:49 Vital Signs: Vital signs: Vital Signs Temperature 98.3 F 10/23/22 11:00 Pulse Rate 82 10/23/22 17:15 Respiratory Rate 16 10/23/22 17:15 Blood Pressure 127/58 10/23/22 17:15 Pulse Oximetry 100 10/23/22 17:00 Oxygen Delivery Me thod 10/23/22 11:10 MDM - Chest Pain Medical Decision Making Patient with known history of diabetes as well as chronic kidney disease on hemodialysis presented to our emergency department with some vague symptoms with an episode of regurgitation of clear mucus. He did not have any associated fevers chills cough sustained chest pain, shortness of breath etc. Is occurred almost at the end of her dialysis run. She was evaluated in the emergency department found to have reassuring vital signs reassuring clinical examination and a reassuring biochemical evaluation for ACS. Serial biomarkers,(elevation of high-sensitivity troponin which remained unchanged is consistent with her chronic kidney disease). EKGs reassuring. Chest x-ray and other ancillary studies are consistent with her underlying diagnosis and do not point to any worrisome condition. She is remained asymptomatic with stable vital signs in the emergency department for prolonged observation. We discussed work-up and its limitations and implications but certainly does not suggest an ongoing emergency medical condition and she is stable for home observation with return precautions. Medical Records I reviewed the patient's medical records. Lab Data I reviewed the patient's lab results. 10/23/22 11:55 10/23/22 12:38 Radiology Impressions Chest X-Ray 10/23/22 11:31 IMPRESSION: No acute abnormality. Laboratory Results WBC 10.5 10^3/uL (4.0-10.0) H 10/23/22 11:55 RBC 2.99 10^6/uL (4.1-5.3) L 10/23/22 11:55 Hgb 9.0 g/dL (11.5-15.3) L 10/23/22 11:55 Hct 29.8 % (37.0-47.0) L 10/23/22 11:55 MCV 99.7 fl (81-99) H 10/23/22 11:55 MCH 30.1 pg (28.0-34.0) 10/23/22 11:55 MCHC 30.2 g/dL (30.0-36.0) 10/23/22 11:55 RDW 21.9 % (12.1-15.1) H 10/23/22 11:55 Plt Count 120 10^3/cmm (130-400) L 10/23/22 11:55 MPV 11.7 fL (7.4-10.4) H 10/23/22 11:55 Neut % (Auto) 83.6 % 10/23/22 11:55 Lymph % (Auto) 7.6 % 10/23/22 11:55 Granite % (Auto) 7.5 % 10/23/22 11:55 Eos % (Auto) 0.4 % 10/23/22 11:55 Baso % (Auto) 0.4 % 10/23/22 11:55 Neut # (Auto) 8.80 10^3/uL (1.8-7.7) H 10/23/22 11:55 Lymph # (Auto) 0.8 10^3/uL (0.8-4.8) 10/23/22 11:55 Granite # (Auto) 0.8 10^3/uL (0.2-0.9) 10/23/22 11:55 Eos # (Auto) 0.0 10^3/uL (0.0-0.8) 10/23/22 11:55 Baso # (Auto) 0.0 10^3/uL (0.0-0.1) 10/23/22 11:55 Nucleated RBC % (auto) 0 % 10/23/22 11:55 Nucleated RBCs # 0.0 /100WBC 10/23/22 11:55 Sodium 137 mmol/L (136-145) 10/23/22 12:38 Potassium 4.0 mmol/L (3.5-5.1) 10/23/22 12:38 Chloride 91 mmol/L (98-107) L 10/23/22 12:38 Carbon Dioxide 34 mmol/L (22-29) H 10/23/22 12:38 Anion Gap 16.0 (5-19) 10/23/22 12:38 BUN 21 mg/dL (8-23) 10/23/22 12:38 Creatinine 2.7 mg/dL (0.5-0.9) H 10/23/22 12:38 GFR Calculation 17.6 mL/min (90-130) L 10/23/22 12:38 Glucose 184 mg/dL (65-115) H 10/23/22 12:38 Calculated Osmolality 292 mOsm/kg (285-295) 10/23/22 12:38 Calcium 9.0 mg/dL (8.5-10.5) 10/23/22 12:38 Magnesium 1.8 mg/dL (1.7-2.3) 10/23/22 12:38 Total Bilirubin 1.1 mg/dL (0.15-1.2) 10/23/22 12:38 AST 21 U/L (0-32) 10/23/22 12:38 ALT 14 U/L (0-33) 10/23/22 12:38 Alkaline Phosphatase 126 U/L (35-105) H 10/23/22 12:38 Troponin T Baseline 29 ng/L (0-10) H 10/23/22 11:55 Troponin T 120 Minute 32.62 ng/L (0-10) H 10/23/22 13:57 Delta Troponin T 3.62 ABS# (0-10) 10/23/22 13:57 Troponin T Hi Sens 6Hr 32.93 ng/L (0-10) H 10/23/22 17:30 Troponin T Hi Sens 6Hr Delta 3.93 ng/L (0-12) 10/23/22 17:30 Total Protein 6.7 g/dL (6.6-8.7) 10/23/22 12:38 Albumin 3.7 g/dL (3.5-5.2) 10/23/22 12:38 Globulin 3.0 g/dL (1.3-4.6) 10/23/22 12:38 Lipase 41 U/L (13-60) 10/23/22 12:38 EKG Data EKG 1: I personally reviewed and interpreted this EKG as follows: Interpretation: Resting EKG reveals a ventricular rate of 68 bpm consistent with sinus rhythm. She has a prolonged QTC at 501 ms. Other intervals are normal. No acute ST-T wave changes noted.No acute changes compared with prior tracings. EKG 3: I personally reviewed and interpreted this EKG as follows: Interpretation: Repeat EKG this visit reveals a ventricular rate of 72 bpm. Normal TN interval normal QRS duration. Normal axis. No acute ST-T wave changes noted at this time. Discharge Plan Discharge Patient Disposition: Home Clinical Impression: Chronic kidney disease, Anemia due to chronic kidney disease, Epigastric pain Condition: Stable Prescriptions: No Action atorvastatin 40 mg Tablet 40 mg PO QAM amlodipine 10 mg Tablet 10 mg PO QAM cholecalciferol (vitamin D3) [Vitamin D3] 25 mcg (1,000 unit) Capsule 25 mcg PO QAM escitalopram oxalate 20 mg Tablet 20 mg PO QAM calcium carbonate-vitamin D3 [Calcium 600 + D(3)] 600 mg-10 mcg (400 unit) Tablet 1 tab PO QAM furosemide [Lasix] 40 mg tablet 40 mg PO QAM PRN (Reason: Edema) glipizide 5 mg tablet 2.5 mg PO QAM Aspir-81 81 mg Tablet,Delayed Release (Dr/Ec) 81 mg PO DAILY calcitriol 0.25 mcg capsule See Rx Instructions .ROUTE .COMPLEX Rx Instructions: 75 MG ONLY ON DIALYSIS DAYS Velphoro 500 mg tablet,chewable 750 mg PO TID RenaPlex-D 800 mcg-12.5 mg -2,000 unit tablet 1 tab PO DAILY Discharge Orders: Discharge ED (Routine); Ordered 10/23/22 Ordered By: Daron Noe Referrals: Jhon Schneider [Primary Care Provider] - Discharge Diet: Usual diet Discharge Activity: Increase activity as tolerated Patient Instructions: Abdominal Pain (ED), Opioid Safety, Pain Management Activity Restrictions/Additional Instructions: Continue all your usual medications. Continue dialysis as scheduled. If you develop recurrence of symptoms, sustained chest pain, fever, cough, shortness of breath or other concerning symptoms return to this or the nearest emergency department. Coding Level of Care Code ED Digital Hardware Design Engineer for Chg Fwd Exam Comprehensive
[2022-10-23 12:09] LABS: Basophils % 0.4 %; Eosinophils % 0.4 %; Hematocrit 29.8 % (37.0-47.0); Lymphocytes # 0.8 10^3/uL (0.8-4.8); Lymphocytes % 7.6 %; Mean Corpuscular HGB Conc 30.2 g/dL (30.0-36.0); Mean Corpuscular Hemoglobin 30.1 pg (28.0-34.0); Mean Corpuscular Volume 99.7 fl (81-99); Mean Platelet Volume 11.7 fL (7.4-10.4); Monocytes # 0.8 10^3/uL (0.2-0.9); Monocytes % 7.5 %; Neutrophils % 83.6 %; Nucleated Red Blood Cells % 0 %; Platelet Count 120 10^3/cmm (130-400); Red Blood Count 2.99 10^6/uL (4.1-5.3); Red Cell Distribution Width 21.9 % (12.1-15.1); White Blood Count 10.5 10^3/uL (4.0-10.0)
[2022-10-23] MEDS: famotidine 20 mg/2 mL INJ 40 MG IVP (12:23)
[2022-10-23 12:28] LABS: Troponin(5th) Baseline 29 ng/L (0-10)
[2022-10-23 13:10] LABS: Alanine Aminotransferase 14 U/L (0-33); Albumin Level 3.7 g/dL (3.5-5.2); Alkaline Phosphatase 126 U/L (35-105); Aspartate Amino Transferase 21 U/L (0-32); Blood Urea Nitrogen 21 mg/dL (8-23); Carbon Dioxide 34 mmol/L (22-29); Chloride 91 mmol/L (98-107); Glomerular Filtration Rate 17.6 mL/min (90-130); Glucose 184 mg/dL (65-115); Lipase 41 U/L (13-60); Magnesium 1.8 mg/dL (1.7-2.3); Osmolality Calculated 292 mOsm/kg (285-295); Sodium 137 mmol/L (136-145); Total Bilirubin 1.1 mg/dL (0.15-1.2); Total Protein 6.7 g/dL (6.6-8.7)
--- NOTE | 2022-10-23 13:31 | ECG_ITS ---
[facility] Test Date: 2022-10-23 Pat Name: Tracie Corcoran Department: Room: Gender: Female Pneumatic Systems Operator: : 1955 Requested By: Daron Noe Order Number: [id number] Bowen MD: Marta Lugo M.D. Measurements Intervals [place] Rate: 73 P: 56 [place]: 142 QRS: 53 QRSD: 94 T: 77 QT: 441 QTc: 488 Interpretive Statements SINUS RHYTHM Compared to ECG 10/23/2022 11:04:49 ST (T wave) deviation no longer present Prolonged QT interval no longer present Electronically Signed On 10-23-2022 19:06:00 CLAIMS COUNSEL by Marta Lugo M.D. [id number]
[2022-10-23 14:23] LABS: Troponin 5 2HR 32.62 ng/L (0-10); Troponin 5 2HR Delta 3.62 ABS# (0-10)
--- NOTE | 2022-10-23 17:31 | ECG_ITS ---
[facility] Test Date: 2022-10-23 Pat Name: Tracie Corcoran Department: Room: Gender: Female Drier Operator Head: : 1955 Requested By: Daron Noe Order Number: [id number] Bowen MD: Marta Lugo M.D. Measurements Intervals [place] Rate: 72 P: 58 [place]: 139 QRS: 57 QRSD: 91 T: 75 QT: 433 QTc: 475 Interpretive Statements SINUS RHYTHM Compared to ECG 10/23/2022 14:03:29 No significant changes Electronically Signed On 10-23-2022 19:05:20 CONTRACT TECHNICAL WRITER by Marta Lugo M.D. [id number]
[2022-10-23 18:25] LABS: Troponin 5 6HR 32.93 ng/L (0-10)
[2022-10-23 18:29] LABS: Troponin 5 6HR Delta 3.93 ng/L (0-12)
== END 2022-10-23 19:48 | disposition home or self-care (01) ==
PROVIDERS: Emergency Provider Emergency Medicine; PCP Family Medicine
DX: R10.13 Epigastric pain (principal); I12.0 Hypertensive chronic kidney disease with stage 5 chronic kidney disease or end stage renal disease; N18.6 End stage renal disease; D63.1 Anemia in chronic kidney disease; Z99.2 Dependence on renal dialysis; Z79.84 Long term (current) use of oral hypoglycemic drugs; Z79.82 Long term (current) use of aspirin
CPT/HCPCS: 36415; 71045; 80053; 83690; 83735; 84484; 85025; 93005; 96374; 99285; J3490

== ENCOUNTER 2023-07-28 11:15 | Outpatient (CLI) | payer MEDICARE, SELFPAY ==
--- NOTE | 2023-07-28 11:21 | MM_ITS ---
WS: [id number] BILATERAL 3D TOMOSYNTHESIS DIGITAL SCREENING MAMMOGRAPHY WITH CAD CLINICAL INFORMATION: SCREENING HISTORY: Screening mammogram. No current complaints. COMPARISON: 2020 TECHNIQUE: Bilateral CC and MLO views. FINDINGS: Scattered fibroglandular densities bilaterally. No suspicious focal mass, asymmetry, calcifications, or architectural distortion. No evidence of malignancy. Vascular calcification. IMPRESSION: MM/[place] [id number] BI-RADS: 2-Benign FOLLOW UP: 1 Year Follow-up Recommend return to annual screening mammography.
== END 2023-07-28 11:16 | disposition home or self-care (01) ==
PROVIDERS: PCP Family Medicine; Visit Provider Family Medicine
DX: Z12.31 Encounter for screening mammogram for malignant neoplasm of breast (principal)
CPT/HCPCS: 77063; 77067

== ENCOUNTER → 2023-10-23 09:48 | Outpatient (BNVA) | payer MEDICARE, SELFPAY | PROVIDERS: PCP Family Medicine; Visit Provider Podiatrist Foot & Ankle Surgery | DX: Q82.8 Other specified congenital malformations of skin (principal); N18.9 Chronic kidney disease, unspecified; E11.22 Type 2 diabetes mellitus with diabetic chronic kidney disease | CPT/HCPCS: 99203 ==

== ENCOUNTER 2024-08-23 07:18 | Emergency (ER) | payer MEDICARE, SELFPAY ==
[2024-08-23] VITALS (9 sets, daily range): BP systolic 135–164; BP diastolic 55–83; PULSE 76–84; RESP 14–25; TEMP 36.7; O2SAT 96–100; BMI 30.4
--- NOTE | 2024-08-23 07:21 | ECG_ITS ---
[facility] Test Date: 2024-08-23 Pat Name: Tracie Corcoran Department: Room: Gender: Female Clerk Cashier: : 1955 Requested By: Maciel Patel Order Number: [id number] Jessi MD: Chapo Mccabe M.D. Measurements Intervals [place] Rate: 79 P: 66 [place]: 145 QRS: 38 QRSD: 94 T: 46 QT: 406 QTc: 468 Interpretive Statements SINUS RHYTHM NONSPECIFIC T-WAVE ABNORMALITY Compared to ECG 10/23/2022 17:31:15 T-wave abnormality now present Electronically Signed On 08-23-2024 16:25:50 CDT by Chapo Mccabe M.D. [id number]
--- NOTE | 2024-08-23 07:22 | XR_ITS ---
WS: [id number] Exam: XR chest 1V portable [id number] Date/Time of Exam: 08/23/2024 7:27 AM Reason For Exam: Chest pain Comparison 10/23/2022. Lungs are fully expanded and clear. Heart size is normal. The mediastinum is normal in contour. No pl eural effusions. Signs of aortic valve replacement. Bony structures are intact. Surgical clips along the LEFT axilla. XR/XR chest 1V portable [id number] IMPRESSION: 1. No acute cardiopulmonary finding.
--- NOTE | 2024-08-23 07:24 | ED_ITS ---
HPI - Chest Pain 2 General: Chief Complaint: Chest Pain Stated Complaint: Chest Pain Time Seen by Provider: 08/23/24 07:19 History of Present Illness: 69-year-old female who presents emergenc y room complaining of chest discomfort and anxiety. Patient is complaining numbness and tingling in her hands and face. She is some mild chest tightness. She admits to having severe anxiety and feels like she is having anxiety attack. No shortness of breath per her report but she is mildly tachypneic on arrival. Associated symptoms: Deny abdominal pain, dyspnea or fever(s) Related Data Home Medications Medication Instructions Recorded Confirmed amlodipine 10 mg tablet 10 mg PO QAM 05/13/22 08/23/24 atorvastatin 40 mg tablet 40 mg PO QAM 05/13/22 08/23/24 calcium carbonate 600 mg-vitamin 1 tab PO QAM 05/13/22 08/23/24 D3 10 mcg (400 unit) tablet (Calcium 600 + D(3)) cholecalciferol (vitamin D3) 25 25 mcg PO QAM 05/13/22 08/23/24 mcg (1,000 unit) capsule (Vitamin D3) escitalopram oxalate 20 mg tablet 20 mg PO QAM 05/13/22 08/23/24 aspirin 81 mg tablet,delayed 81 mg PO DAILY 10/23/22 08/23/24 release calcitriol 0.25 mcg capsule See Rx Instructions .Route .COMPLEX 10/23/22 08/23/24 vit B,C-folic ac 800 mcg-zinc 12.5 1 tab PO DAILY 10/23/22 08/23/24 mg-selen-D3 2,000 unit-vit E tablet (RenaPlex-D) cinacalcet 60 mg tablet (Sensipar) 60 mg PO .3XW 08/23/24 08/23/24 lanthanum 750 mg chewable tablet See Rx Instructions .Route .COMPLEX 08/23/24 08/23/24 losartan 25 mg tablet 25 mg PO QPM 08/23/24 08/23/24 Previous Rx's Medication Instructions Recorded lorazepam 2 mg tablet (Ativan) 2 mg PO Q8H PRN anxiety #10 tabs 08/23/24 Allergies Allergy/AdvReac Type Severity Reaction Status Date / Time Latex, Natural Rubber Allergy ALGY-Rash Verified 10/23/23 09:52 trazodone Allergy ADR-Confusi Verified 10/23/23 09:52 on Review of Systems 2 Const: Denies: fever(s) or chills Card: Reports: chest pain Resp: Denies: dyspnea GI: Denies: abdominal pain : Denies: dysuria, urinary frequency or urinary urgency Musc: Denies: neck pain or back pain Skin/Breast: Denies: rash PFSH ED 2 PFSH: Medical History Pleural effusion Hypoxia Stage 5 chronic kidney disease Pleural effusion Hyponatremia Hypertension Pneumonia Acute respiratory failure with hypoxia Community acquired pneumonia ESRD (end stage renal disease) Social History Substance/Drug Use: never Physical Exam 2 Const: COMMON NORMALS: no acute distress GENERAL APPEARANCE: cooperative and comfortable ORIENTATION/CONSCIOUSNESS: Yes awake, Yes oriented to person, Yes oriented to place and Yes oriented to time HENMT: COMMON NORMALS: normocephalic, atraumatic and hearing grossly normal bilaterally HEAD & SCALP: normocephalic and atraumatic Resp: COMMON NORMALS: normal respiratory effort, No retractions, No use of accessory muscles and clear to auscultation bilaterally AUSCULTATION: clear to auscultation bilaterally Cardio: COMMON NORMALS: regular rate, regular rhythm and No murmurs present (Cardio) RATE: regular rate RHYTHM: regular rhythm GI: COMMON NORMALS: Soft to palpation and No hepatosplenomegaly present A USCULTATION: Yes normoactive bowel sounds PALPATION: Yes Soft to palpation, No Tenderness to palpation present (GI), No Guarding due to palpation present (GI) and Yes No hepatosplenomegaly present Extremity: COMMON NORMALS: normal to inspection, capillary refill normal, no clubbing, cyanosis or edema, no calf tenderness and no pedal edema Neuro: SENSORIUM/ORIENTATION: Yes oriented to person, Yes oriented to place and Yes oriented to time Skin: COMMON NORMALS: no rashes or lesions noted GENERAL SKIN EXAM: no rashes or lesions noted Course 2 Vital Signs: Vital signs: Vital Signs Temperature 98.1 F 08/23/24 07:19 Pulse Rate 80 08/23/24 11:45 Respiratory Rate 17 08/23/24 11:45 Blood Pressure 139/82 08/23/24 11:45 Pulse Oximetry 96 08/23/24 11:45 Oxygen Delivery Me thod Room Air 08/23/24 11:30 MDM - Chest Pain Medical Decision Making No acute findings cardiac enzymes show elevated troponin consistent with her history of chronic kidney disease no acute EKG changes. She is not having any further symptoms of all resolved. ABG shows acute respiratory alkalosis from hyperventilation. Will discharge patient home. She is going to follow-up for send he is to get her usual dialysis today. Medical Records I reviewed the patient's medical records. Lab Data I reviewed the patient's lab results. 08/23/24 08:05 08/23/24 08:05 Radiology Impressions Chest X-Ray 08/23/24 07:22 IMPRESSION: 1. No acute cardiopulmonary finding. Laboratory Results WBC 8.65 10^3/uL (3.29-11.43) 08/23/24 08:05 RBC 3.69 10^6/uL (3.85-5.65) L 08/23/24 08:05 Hgb 10.60 g/dL (11.27-16.99) L 08/23/24 08:05 Hct 34.1 % (36-47) L 08/23/24 08:05 MCV 92.4 fl (85-98) 08/23/24 08:05 MCH 28.7 pg (27-33) 08/23/24 08:05 MCHC 31.1 g/dL (30-55) 08/23/24 08:05 RDW 15.1 % (12.1-15.1) 08/23/24 08:05 Plt Count 223 10^3/cmm (157-399) 08/23/24 08:05 MPV 10.1 fL (7.4-10.4) 08/23/24 08:05 Neut % (Auto) 81.2 % 08/23/24 08:05 Lymph % (Auto) 10.2 % 08/23/24 08:05 [place] % (Auto) 5.5 % 08/23/24 08:05 Eos % (Auto) 2.4 % 08/23/24 08:05 Baso % (Auto) 0.5 % 08/23/24 08:05 Neut # (Auto) 7.02 10^3/uL (1.8-7.7) 08/23/24 08:05 Lymph # (Auto) 0.9 10^3/uL (0.8-4.8) 08/23/24 08:05 [place] # (Auto) 0.5 10^3/uL (0.2-0.9) 08/23/24 08:05 Eos # (Auto) 0.2 10^3/uL (0.0-0.8) 08/23/24 08:05 Baso # (Auto) 0.0 10^3/uL (0.0-0.1) 08/23/24 08:05 Nucleated RBC % (auto) 0 % 08/23/24 08:05 Nucleated RBCs # 0.0 /100WBC 08/23/24 08:05 Specimen Type Arterial 08/23/24 07:44 Sample Site Brachial, right 08/23/24 07:44 ABG pH 7.62 (7.35-7.45) H* 08/23/24 07:44 ABG pCO2 18.8 mmHg (35-45) L* 08/23/24 07:44 ABG pO2 121.0 mmHg (80.0-100.0) H 08/23/24 07:44 ABG PO2/FiO2 Ratio 576 08/23/24 07:44 ABG HCO3 19.1 mmol/L (22-26) L 08/23/24 07:44 ABG O2 Saturation > 99.1 08/23/24 07:44 ABG Base Excess -0.5 mmol/L (-2.0-2.0) 08/23/24 07:44 Collin Test N/a 08/23/24 07:44 A-a O2 Gradient 0.3 mmHg (5-10) L 08/23/24 07:44 Hematocrit 33.0 % (37-47) L 08/23/24 07:44 Hgb O2 Saturation 97.0 % (95-100) 08/23/24 07:44 Carboxyhemoglobin 0.8 %THgb (0.4-20.1) 08/23/24 07:44 Methemoglobin 1.4 % (0.4-1.5) 08/23/24 07:44 Total Hemoglobin 10.8 g/dL (12-16) L 08/23/24 07:44 Sodium 141.0 mmol/L (131-143) 08/23/24 07:44 Potassium 3.8 mmol/L (3.5-5.0) 08/23/24 07:44 Glucose 252.0 mg/dL (70-115) H 08/23/24 07:44 Ionized Calcium 1.1 mmol/L (1.1-1.4) 08/23/24 07:44 O2 Delivery Device Room air 08/23/24 07:44 FiO2 21.0 % 08/23/24 07:44 Curriculum And Assessment Director ID Amh 08/23/24 07:44 Sodium 142 mmol/L (136-145) 08/23/24 08:05 Potassium 4.0 mmol/L (3.5-5.1) 08/23/24 08:05 Chloride 100 mmol/L (98-107) 08/23/24 08:05 Carbon Dioxide 21 mmol/L (22-29) L 08/23/24 08:05 Anion Gap 25.0 (5-19) H 08/23/24 08:05 BUN 44 mg/dL (8-23) H 08/23/24 08:05 Creatinine 7.0 mg/dL (0.5-0.9) H* 08/23/24 08:05 GFR Calculation 5.8 mL/min (90-130) L 08/23/24 08:05 Glucose 245 mg/dL (65-115) H 08/23/24 08:05 Calculated Osmolality 313 mOsm/kg (285-295) H 08/23/24 08:05 Calcium 9.2 mg/dL (8.5-10.5) 08/23/24 08:05 Total Bilirubin 0.6 mg/dL (0.15-1.2) 08/23/24 08:05 AST 24 U/L (0-32) 08/23/24 08:05 ALT 25 U/L (0-33) 08/23/24 08:05 Alkaline Phosphatase 97 U/L (35-105) 08/23/24 08:05 Troponin T Baseline 31 ng/L (0-10) H 08/23/24 08:05 Troponin T 120 Minute 30.58 ng/L (0-10) H 08/23/24 10:31 Delta Troponin T -0.42 ABS# (0-10) L 08/23/24 10:31 Total Protein 6.5 g/dL (6.6-8.7) L 08/23/24 08:05 Albumin 4.1 g/dL (3.5-5.2) 08/23/24 08:05 Globulin 2.4 g/dL (1.3-4.6) 08/23/24 08:05 All radiology interpretation(s) finalized by discharge Discharge Plan Discharge Patient Disposition: Home Clinical Impression: Acute hyperventilation, End stage renal disease on dialysis Condition: Stable Prescriptions: New lorazepam [Ativan] 2 mg tablet 2 mg PO Q8H PRN (Reason: anxiety) Qty: 10 0RF No Action atorvastatin 40 mg Tablet 40 mg PO QAM amlodipine 10 mg Tablet 10 mg PO QAM cholecalciferol (vitamin D3) [Vitamin D3] 25 mcg (1,000 unit) Capsule 25 mcg PO QAM escitalopram oxalate 20 mg Tablet 20 mg PO QAM calcium carbonate-vitamin D3 [Calcium 600 + D(3)] 600 mg-10 mcg (400 unit) Tablet 1 tab PO QAM aspirin [Aspir-81] 81 mg Tablet,Delayed Release (Dr/Ec) 81 mg PO DAILY calcitriol 0.25 mcg capsule See Rx Instructions .ROUTE .COMPLEX Rx Instructions: 75 MG ONLY ON DIALYSIS DAYS RenaPlex-D 800 mcg-12.5 mg -2,000 unit tablet 1 tab PO DAILY cinacalcet [Sensipar] 60 mg Tablet 60 mg PO .3XW Rx Instructions: takes thursday , and thursday before dialysis losartan 25 mg tablet 25 mg PO QPM lanthanum 750 mg tablet,chewable See Rx Instructions .ROUTE .COMPLEX Rx Instructions: chew 3tablets by mouth before each meal and 2 tablets before each snack daily Discharge Orders: Discharge ED (Routine); Ordered 08/23/24 Ordered By: Macile Regalado Referrals: Jhon Schneider [Primary Care Provider] - Discharge Diet: Usual diet Discharge Activity: Increase activity as tolerated Patient Instructions: Opioid Safety, Pain Management Activity Restrictions/Additional Instructions: Thank you for choosing [facility] for your healthcare needs today. It is very important that you follow up as instructed or that you return to the Emergency Department should you have concerns or if your condition changes or worsens in any way. You were seen in the emergency room for headache and numbness in your face and arms and tingling as well as some mild chest discomfort. Your cardiac enzymes and EKG does not show any acute changes here ABG showed hyperventilation. Recommend that you return to the clinic for completion of your dialysis as previously scheduled follow-up with your primary care physician. Coding Level of Care Code ED Surgery Consultant for Sergio Tang
[2024-08-23] MEDS: aspirin 81 mg Chew Tablet 324 MG PO (07:39)
[2024-08-23 07:55] LABS: ABG PCO2 18.8 mmHg (35-45); ABG PH Result 7.62 (7.35-7.45); Alveolar-Arterial Oxygen Gradi 0.3 mmHg (5-10); Base Excess ABG -0.5 mmol/L (-2.0-2.0); Blood Gas Operator Identificat AMH; Blood Gas Sample Site Brachial, right; Blood Gas Sample Type Arterial; Carboxyhemoglobin 0.8 %THgb (0.4-20.1); HCO3 ABG 19.1 mmol/L (22-26); Ionized Calcium Level - ABG 1.1 mmol/L (1.1-1.4); Methemoglobin 1.4 % (0.4-1.5); Oxygen Device ROOM AIR; Oxygen Saturation ABG > 99.1; PO2 FiO2 Ratio Arterial Blood 576; Potassium Level - ABG 3.8 mmol/L (3.5-5.0); Total Hemoglobin 10.8 g/dL (12-16)
[2024-08-23 08:20] LABS: Basophils % 0.5 %; Eosinophils # 0.2 10^3/uL (0.0-0.8); Eosinophils % 2.4 %; Hematocrit 34.1 % (36-47); Lymphocytes # 0.9 10^3/uL (0.8-4.8); Lymphocytes % 10.2 %; Mean Corpuscular HGB Conc 31.1 g/dL (30-55); Mean Corpuscular Hemoglobin 28.7 pg (27-33); Mean Corpuscular Volume 92.4 fl (85-98); Mean Platelet Volume 10.1 fL (7.4-10.4); Monocytes # 0.5 10^3/uL (0.2-0.9); Monocytes % 5.5 %; Neutrophils # 7.02 10^3/uL (1.8-7.7); Neutrophils % 81.2 %; Nucleated Red Blood Cells % 0 %; Platelet Count 223 10^3/cmm (157-399); Red Blood Count 3.69 10^6/uL (3.85-5.65); Red Cell Distribution Width 15.1 % (12.1-15.1); White Blood Count 8.65 10^3/uL (3.29-11.43)
[2024-08-23 08:46] LABS: Troponin(5th) Baseline 31 ng/L (0-10)
[2024-08-23 08:50] LABS: Alanine Aminotransferase 25 U/L (0-33); Albumin Level 4.1 g/dL (3.5-5.2); Alkaline Phosphatase 97 U/L (35-105); Aspartate Amino Transferase 24 U/L (0-32); Blood Urea Nitrogen 44 mg/dL (8-23); Calcium 9.2 mg/dL (8.5-10.5); Carbon Dioxide 21 mmol/L (22-29); Chloride 100 mmol/L (98-107); Globulin 2.4 g/dL (1.3-4.6); Glomerular Filtration Rate 5.8 mL/min (90-130); Glucose 245 mg/dL (65-115); Osmolality Calculated 313 mOsm/kg (285-295); Sodium 142 mmol/L (136-145); Total Bilirubin 0.6 mg/dL (0.15-1.2); Total Protein 6.5 g/dL (6.6-8.7)
[2024-08-23 08:58] LABS: Creatinine Clr Calc Pharmacy 7.5006
--- NOTE | 2024-08-23 09:23 | ECG_ITS ---
[facility] Test Date: 2024-08-23 Pat Name: Tracie Corcoran Department: Room: Gender: Female Snuff Container Inspector: : 1955 Requested By: Maciel Patel Order Number: [id number] Jessi MD: Chapo Mccabe M.D. Measurements Intervals [place] Rate: 78 P: 60 [place]: 157 QRS: 64 QRSD: 89 T: 58 QT: 404 QTc: 463 Interpretive Statements SINUS RHYTHM Compared to ECG 08/23/2024 07:21:34 T-wave abnormality no longer present Electronically Signed On 08-23-2024 16:31:24 CDT by Chapo Mccabe M.D. [id number]
[2024-08-23] MEDS: LORazepam 2 mg Tablet PO (09:25)
[2024-08-23 11:02] LABS: Troponin 5 2HR 30.58 ng/L (0-10)
[2024-08-23 11:06] LABS: Troponin 5 2HR Delta -0.42 ABS# (0-10)
== END 2024-08-23 12:22 | disposition home or self-care (01) ==
PROVIDERS: Emergency Provider Family Medicine; PCP Family Medicine
DX: I12.0 Hypertensive chronic kidney disease with stage 5 chronic kidney disease or end stage renal disease (principal); N18.6 End stage renal disease; R06.4 Hyperventilation; R07.89 Other chest pain; F41.9 Anxiety disorder, unspecified; Z79.899 Other long term (current) drug therapy; Z99.2 Dependence on renal dialysis
CPT/HCPCS: 36415; 36600; 71045; 80051; 80053; 82330; 82805; 84484; 85025; 93005; 99285

== ENCOUNTER 2024-10-27 14:49 | Observation (INO) | payer MEDICARE, SELFPAY ==
[2024-10-27] VITALS (18 sets, daily range): BP systolic 112–174; BP diastolic 43–86; PULSE 69–118; RESP 15–20; TEMP 37–37.2; O2SAT 70–100
--- NOTE | 2024-10-27 15:18 | ECG_ITS ---
[facility] Test Date: 2024-10-27 Pat Name: Tracie Corcoran Department: Room: Gender: Female Marine Surveyor: : 1955 Requested By: Maciel Patel Order Number: [id number] Jessi MD: Chapo Mccabe M.D. Measurements Intervals [place] Rate: 154 P: 0 [place]: 0 QRS: 19 QRSD: 86 T: 16 QT: 286 QTc: 459 Interpretive Statements ATRIAL FIBRILLATION WITH RAPID VENTRICULAR RESPONSE WITH ABERRANT CONDUCTION OR VENTRICULAR PREMATURE COMPLEXES MINIMAL VOLTAGE CRITERIA FOR LVH, CONSIDER NORMAL VARIANT [MEETS CRITERIA IN ONE OF: R(aVL), S(V1), R(V5), R(V5/V6)+S(V1)] NONSPECIFIC ST & T-WAVE ABNORMALITY Compared to ECG 08/23/2024 10:02:28 Ventricular premature complex(es) now present Aberrant conduction of supraventricular beat(s) now present T-wave abnormality now present Sinus rhythm no longer present Electronically Signed On 10-27-2024 17:57:28 REGISTERED NURSE by Chapo Mccabe M.D. [id number]
[2024-10-27 15:19] LABS: Basophils # 0.1 10^3/uL (0.0-0.1); Basophils % 0.7 %; Eosinophils # 0.2 10^3/uL (0.0-0.8); Eosinophils % 2.8 %; Hematocrit 36.5 % (36-47); Lymphocytes # 1.8 10^3/uL (0.8-4.8); Lymphocytes % 26.1 %; Mean Corpuscular Hemoglobin 28.5 pg (27-33); Mean Corpuscular Volume 92.2 fl (85-98); Mean Platelet Volume 10.6 fL (7.4-10.4); Monocytes # 0.5 10^3/uL (0.2-0.9); Monocytes % 7.1 %; Neutrophils # 4.29 10^3/uL (1.8-7.7); Neutrophils % 63.2 %; Nucleated Red Blood Cells % 0 %; Platelet Count 246 10^3/cmm (157-399); Red Blood Count 3.96 10^6/uL (3.85-5.65); Red Cell Distribution Width 16.1 % (12.1-15.1); White Blood Count 6.79 10^3/uL (3.29-11.43)
[2024-10-27 15:38] LABS: Alanine Aminotransferase 21 U/L (0-33); Albumin Level 3.9 g/dL (3.5-5.2); Alkaline Phosphatase 95 U/L (35-105); Aspartate Amino Transferase 24 U/L (0-32); Blood Urea Nitrogen 19 mg/dL (8-23); Calcium 9.3 mg/dL (8.5-10.5); Carbon Dioxide 29 mmol/L (22-29); Chloride 94 mmol/L (98-107); Creatinine Clr Calc Pharmacy 12.4212; Globulin 3.2 g/dL (1.3-4.6); Glomerular Filtration Rate 10.5 mL/min (90-130); Glucose 157 mg/dL (65-115); Osmolality Calculated 300 mOsm/kg (285-295); Sodium 142 mmol/L (136-145); Total Bilirubin 0.7 mg/dL (0.15-1.2); Total Protein 7.1 g/dL (6.6-8.7)
--- NOTE | 2024-10-27 15:46 | ED_ITS ---
HPI - Arrhythmia/Palpitations 2 General: Chief Complaint: Arrhythmia/Palpitations Stated Complaint: Reff by dialysis, levels are high 140 and above Time Seen by Provider: 10/27/24 15:28 History of Present Illness: 69-year-old female who presents to the e mergency room with complaint of rapid heart rate palpitations been going on for several days intermittently quite a bit worse today. She was at nephrology for dialysis and noted to have heart rate in the 150s dialysis stopped she was directed to the emergency room. Etiology of her renal failure is diabetes mellitus and hypertensive kidney disease. Normally gets dialysis on Tuesdays and Saturdays. She denies chest pain. Related Data Home Medications Medication Instructions Recorded Confirmed amlodipine 10 mg tablet 10 mg PO QAM 05/13/22 10/27/24 atorvastatin 40 mg tablet 80 mg PO BEDTIME 05/13/22 10/27/24 calcium 600 mg (as 1 tab PO QAM 05/13/22 10/27/24 carbonate)-vitamin D3 10 mcg (400 unit) tablet (Calcium 600 + D(3)) cholecalciferol (vitamin D3) 25 25 mcg PO QAM 05/13/22 10/27/24 mcg (1,000 unit) capsule (Vitamin D3) escitalopram oxalate 20 mg tablet 20 mg PO QAM 05/13/22 10/27/24 aspirin 81 mg tablet,delayed 81 mg PO DAILY 10/23/22 10/27/24 release calcitriol 0.25 mcg capsule See Rx Instructions .Route .COMPLEX 10/23/22 10/27/24 vit B,C-folic ac 800 mcg-zinc 12.5 1 tab PO DAILY 10/23/22 10/27/24 mg-selen-D3 2,000 unit-vit E tablet (RenaPlex-D) cinacalcet 60 mg tablet (Sensipar) 60 mg PO .3XW 08/23/24 10/27/24 lanthanum 750 mg chewable tablet See Rx Instructions .Route .COMPLEX 08/23/24 10/27/24 losartan 25 mg tablet 25 mg PO QPM 08/23/24 10/27/24 Previous Rx's Medication Instructions Recorded lorazepam 2 mg tablet (Ativan) 2 mg PO Q8H PRN anxiety #10 tabs 08/23/24 Allergies Allergy/AdvReac Type Severity Reaction Status Date / Time Latex, Natural Rubber Allergy ALGY-Rash Verified 10/23/23 09:52 Review of Systems 2 Const: Denies: fever(s) or chills Card: Reports: chest pain, palpitations, irregular heart rhythm, edema and swelling of feet/ankles Resp: Reports: dyspnea GI: Denies: abdominal pain : Denies: dysuria, urinary frequency or urinary urgency Musc: Denies: neck pain or back pain Skin/Breast: Denies: rash PFSH ED 2 PFSH: Medical History Pleural effusion Hypoxia Stage 5 chronic kidney disease Pleural effusion Hyponatremia Hypertension Pneumonia Acute respiratory failure with hypoxia Community acquired pneumonia ESRD (end stage renal disease) Surgical History H/O gastric bypass S/P TAVR (transcatheter aortic valve replacement) Social History Substance/Drug Use: never Physical Exam 2 Const: COMMON NORMALS: no acute distress GENERAL APPEARANCE: cooperative and comfortable ORIENTATION/CONSCIOUSNESS: Yes awake, Yes oriented to person, Yes oriented to place and Yes oriented to time HENMT: COMMON NORMALS: normocephalic, atraumatic and hearing grossly normal bilaterally HEAD & SCALP: normocephalic and atraumatic Resp: COMMON NORMALS: normal respiratory effort, No retractions, No use of accessory muscles and clear to auscultation bilaterally AUSCULTATION: clear to auscultation bilaterally Cardio: COMMON NORMALS: No murmurs present (Cardio) RATE: tachycardic R HYTHM: abnormal rhythm irregularly irregular GI: COMMON NORMALS: Soft to palpation and No hepatosplenomegaly present A USCULTATION: Yes normoactive bowel sounds PALPATION: Yes Soft to palpation, No Tenderness to palpation present (GI), No Guarding due to palpation present (GI) and Yes No hepatosplenomegaly present Extremity: COMMON NORMALS: normal to inspection, capillary refill normal, no clubbing, cyanosis or edema, no calf tenderness and no pedal edema Neuro: SENSORIUM/ORIENTATION: Yes oriented to person, Yes oriented to place and Yes oriented to time Skin: COMMON NORMALS: no rashes or lesions noted GENERAL SKIN EXAM: no rashes or lesions noted Course 2 Vital Signs: Vital signs: Vital Signs Temperature 98.6 F 10/28/24 04:00 Pulse Rate 67 10/28/24 05:49 Respiratory Rate 12 10/28/24 04:00 Blood Pressure 103/51 10/28/24 04:00 Pulse Oximetry 91 10/28/24 04:00 Oxygen Delivery Me thod Room Air 10/28/24 04:00 MDM - Arrhythmia/Palpitations Medical Decision Making New onset A-fib with RVR. Improved after Cardizem bolus and drip. Patient's rate is controlled. First troponin 37-second troponin 35 trending negative. Discussed with hospitalist will admit for new onset A-fib consideration of anticoagulation and adjustment of medications for rate control. Discussed with hospitalist patient did not complete her course of dialysis today Medical Records I reviewed the patient's medical records. Lab Data I reviewed the patient's lab results. 10/28/24 05:25 10/27/24 15:10 Radiology Impressions Chest X-Ray 10/27/24 15:46 IMPRESSION: No acute cardiopulmonary findings. Laboratory Results WBC 6.79 10^3/uL (3.29-11.43) 10/27/24 15:10 RBC 3.96 10^6/uL (3.85-5.65) 10/27/24 15:10 Hgb 11.30 g/dL (11.27-16.99) 10/27/24 15:10 Hct 36.5 % (36-47) 10/27/24 15:10 MCV 92.2 fl (85-98) 10/27/24 15:10 MCH 28.5 pg (27-33) 10/27/24 15:10 MCHC 31.0 g/dL (30-55) 10/27/24 15:10 RDW 16.1 % (12.1-15.1) H 10/27/24 15:10 Plt Count 246 10^3/cmm (157-399) 10/27/24 15:10 MPV 10.6 fL (7.4-10.4) H 10/27/24 15:10 Neut % (Auto) 63.2 % 10/27/24 15:10 Lymph % (Auto) 26.1 % 10/27/24 15:10 [place] % (Auto) 7.1 % 10/27/24 15:10 Eos % (Auto) 2.8 % 10/27/24 15:10 Baso % (Auto) 0.7 % 10/27/24 15:10 Neut # (Auto) 4.29 10^3/uL (1.8-7.7) 10/27/24 15:10 Lymph # (Auto) 1.8 10^3/uL (0.8-4.8) 10/27/24 15:10 [place] # (Auto) 0.5 10^3/uL (0.2-0.9) 10/27/24 15:10 Eos # (Auto) 0.2 10^3/uL (0.0-0.8) 10/27/24 15:10 Baso # (Auto) 0.1 10^3/uL (0.0-0.1) 10/27/24 15:10 Nucleated RBC % (auto) 0 % 10/27/24 15:10 Nucleated RBCs # 0.0 /100WBC 10/27/24 15:10 Sodium 142 mmol/L (136-145) 10/27/24 15:10 Potassium 4.0 mmol/L (3.5-5.1) 10/27/24 15:10 Chloride 94 mmol/L (98-107) L 10/27/24 15:10 Carbon Dioxide 29 mmol/L (22-29) 10/27/24 15:10 Anion Gap 23.0 (5-19) H 10/27/24 15:10 BUN 19 mg/dL (8-23) 10/27/24 15:10 Creatinine 4.2 mg/dL (0.5-0.9) H 10/27/24 15:10 GFR Calculation 10.5 mL/min (90-130) L 10/27/24 15:10 Glucose 157 mg/dL (65-115) H 10/27/24 15:10 Calculated Osmolality 300 mOsm/kg (285-295) H 10/27/24 15:10 Calcium 9.3 mg/dL (8.5-10.5) 10/27/24 15:10 Magnesium 1.9 mg/dL (1.7-2.3) 10/27/24 15:10 Total Bilirubin 0.7 mg/dL (0.15-1.2) 10/27/24 15:10 AST 24 U/L (0-32) 10/27/24 15:10 ALT 21 U/L (0-33) 10/27/24 15:10 Alkaline Phosphatase 95 U/L (35-105) 10/27/24 15:10 Troponin T Baseline 37 ng/L (0-10) H 10/27/24 15:10 Troponin T 120 Minute 35.04 ng/L (0-10) H 10/27/24 17:21 Delta Troponin T -1.96 ABS# (0-10) L 10/27/24 17:21 Total Protein 7.1 g/dL (6.6-8.7) 10/27/24 15:10 Albumin 3.9 g/dL (3.5-5.2) 10/27/24 15:10 Globulin 3.2 g/dL (1.3-4.6) 10/27/24 15:10 TSH 3.02 uIU/mL (0.27-4.20) 10/27/24 15:10 All radiology interpretation(s) finalized by discharge Discharge Plan Discharge Patient Disposition: Admitted As Inpatient Admit Provider: Teddy Figueroa Clinical Impression: New onset atrial fibrillation, Type 2 diabetes mellitus, S/P TAVR (transcatheter aortic valve replacement), End-stage renal disease on hemodialysis Condition: Stable Coding Level of Care Code ED Campus Coordinator for Sergio Tang
--- NOTE | 2024-10-27 15:46 | XRR_ITS ---
PROCEDURE INFORMATION: Exam: XR Chest Exam date and time: 10/27/2024 4:19 PM Age: 69 years old Clinical indication: Cough and dyspnea; Additional info: Dyspnea/cough TECHNIQUE: Imaging protocol: Radiologic exam of the chest. Views: 1 view. COMPARISON: CR XR chest 1V portable [id number] 08/23/2024 7:31 AM FINDINGS: Lungs: Unremarkable. No consolidation. Pleural spaces: Unremarkable. No pleural effusion. No pneumothorax. Heart/Mediastinum: Status post TAVR. Stable heart size. Bones/joints: Unremarkable. Soft tissues: Surgical clips again seen along the left axilla. XR/XR chest 1V portable [id number] IMPRESSION: No acute cardiopulmonary findings.
[2024-10-27] MEDS: dilTIAZem 5 mg/mL SDV 5 mL 20 MG IVP (15:57)
[2024-10-27] MEDS: dilTIAZem 100 MG in sodium chloride 0.9% (add-van) 100 ML IV (15:58)
[2024-10-27 16:13] LABS: Troponin(5th) Baseline 37 ng/L (0-10)
[2024-10-27 16:32] LABS: Thyroid Stimulating Hormone 3.02 uIU/mL (0.27-4.20)
--- NOTE | 2024-10-27 17:46 | ECG_ITS ---
[facility] Test Date: 2024-10-27 Pat Name: Tracie Corcoran Department: Room: Gender: Female Interactive Media Marketing Strategist: : 1955 Requested By: Maciel Patel Order Number: [id number] Jessi MD: Chapo Mccabe M.D. Measurements Intervals [place] Rate: 97 P: 0 [place]: 0 QRS: 42 QRSD: 90 T: 36 QT: 347 QTc: 442 Interpretive Statements ATRIAL FIBRILLATION NONSPECIFIC T-WAVE ABNORMALITY Compared to ECG 10/27/2024 15:18:49 Ventricular premature complex(es) no longer present Aberrant conduction of supraventricular beat(s) no longer present T-wave abnormality still present Electronically Signed On 10-27-2024 17:57:41 GARAGE DOOR TECHNICIAN by Chapo Mccabe M.D. [id number]
--- NOTE | 2024-10-27 17:57 | P.HP_ITS ---
Providers/Chief Complaint 2 Admitting Physician: Teddy Figueroa Primary Care Provider: Jhon Schneider Chief Complaint: Reff by dialysis, levels are high 140 and above History of Present Illness Pleasant 69 and a lady with history of ESRD on dialysis TTS, recently noticed a few episodes of brief lightheadedness, reports that her vitals were repeatedly abnormal during dialysis today and she was directed for evaluation to ER. There she was found to have A-fib with RVR, heart rates up into 160s. She denies history of A-fib in the past. She states she is currently awaiting arrangements for kidney transplantation. She states she has history of TAVR. Other than that had a migraine several weeks ago. And more recently a UTI which was treated by her primary provider. Otherwise denies any other recent issues apart from mild stress from bills and other day-to-day matters. Does not drink any alcohol. Does drink a large pot of coffee every day. Never smoked, no recreational substance use. She normally follows with a rug renovator at [facility] where her transplant team is as well. Review of Systems 2 Const: Denies: fever(s), chills, body aches or malaise ENMT: Denies: throat pain Card: Reports: lightheadedness; Denies: chest pain, edema, pre-syncope or dyspnea on exertion Resp: Denies: dyspnea, productive cough, change in phlegm color or hemoptysis GI: Denies: abdominal pain, nausea, vomiting, diarrhea, constipation, hematochezia or melena : Denies: flank pain, urinary frequency or hematuria Musc: Denies: back pain, joint swelling or joint redness Skin/Breast: Denies: rash or new lesions Neuro: Denies: headache(s), dizziness or confusion Medications/Allergies Home Medications Medication Instructions Recorded Confirmed Last Taken Type amlodipine 10 mg tablet 10 mg PO QAM 05/13/22 08/23/24 08/22/24 History atorvastatin 40 mg tablet 40 mg PO [facility] 05/13/22 08/23/24 08/22/24 History calcium 600 mg (as 1 tab PO [facility] 05/13/22 08/23/24 08/22/24 History carbonate)-vitamin D3 10 mcg (400 unit) tablet (Calcium 600 + D(3)) cholecalciferol (vitamin D3) 25 25 mcg PO QAM 05/13/22 08/23/24 08/22/24 History mcg (1,000 unit) capsule (Vitamin D3) escitalopram oxalate 20 mg tablet 20 mg PO QAM 05/13/22 08/23/24 08/22/24 History aspirin 81 mg tablet,delayed 81 mg PO DAILY 10/23/22 08/23/24 08/23/24 History release calcitriol 0.25 mcg capsule See Rx Instructions .Route .COMPLEX 10/23/22 08/23/24 08/23/24 History vit B,C-folic ac 800 mcg-zinc 12.5 1 tab PO DAILY 10/23/22 08/23/24 08/22/24 History mg-selen-D3 2,000 unit-vit E tablet (RenaPlex-D) cinacalcet 60 mg tablet (Sensipar) 60 mg PO .3XW 08/23/24 08/23/24 08/23/24 History lanthanum 750 mg chewable tablet See Rx Instructions .Route .COMPLEX 08/23/24 08/23/24 08/22/24 History lorazepam 2 mg tablet (Ativan) 2 mg PO Q8H PRN anxiety #10 tabs 08/23/24 Unknown Rx losartan 25 mg tablet 25 mg PO QPM 08/23/24 08/23/24 08/22/24 History Allergies Allergy/AdvReac Type Severity Reaction Status Date / Time Latex, Natural Rubber Allergy ALGY-Rash Verified 10/23/23 09:52 PFSH Acute 2 PFSH: Medical History Pleural effusion Hypoxia Stage 5 chronic kidney disease Pleural effusion Hyponatremia Hypertension Pneumonia Acute respiratory failure with hypoxia Community acquired pneumonia ESRD (end stage renal disease) Surgical History H/O gastric bypass S/P TAVR (transcatheter aortic valve replacement) Social History Substance/Drug Use: never Vitals/I&O/Wt Last Vital Signs Temp 98.9 F 10/27/24 15:15 Pulse 100 10/27/24 17:30 BP 147/68 10/27/24 17:30 Pulse Ox 99 10/27/24 17:30 O2 Del Method Room Air 10/27/24 17:30 10/27/24 10/27/24 10/27/24 06:59 14:59 22:59 Intake Total 13.250 / 13.250 Balance 13.250 / 13.250 Weight last 48 hrs Weight 77 kg Physical Exam 2 Const: COMMON NORMALS: patient oriented x3 and alert GENERAL APPEARANCE: c ooperative NUTRITIONAL APPEARANCE: overweight ORIENTATION/CONSCIOUSNESS: Y es awake HENMT: COMMON NORMALS: oropharynx normal Neck/C-Spine: COMMON NORMALS: no JVD Resp: COMMON NORMALS: normal respiratory effort and clear to auscultation bilaterally AUSCULTATION: clear to auscultation bilaterally Cardio: COMMON NORMALS: no JVD, regular rhythm, S1 normal heart sound present, S2 normal heart sound present and No murmurs present (Cardio) RATE: t achycardic RHYTHM: abnormal rhythm irregularly irregular HEART SOUNDS: S1 normal heart sound present and S2 normal heart sound present GI: COMMON NORMALS: Normal to inspection, nondistended, normoactive bowel sounds present, Soft to palpation and non-tender PALPATION: Yes Soft to palpation Extremity: COMMON NORMALS: no joint enlargement and no pedal edema Neuro: COMMON NORMALS: patient oriented x3 and moves all extremities S ENSORIUM/ORIENTATION: Yes alert Skin: COMMON NORMALS: no rashes or lesions noted GENERAL SKIN EXAM: no rashes or lesions noted Data 10/27/24 15:10 10/27/24 15:10 A&P Assessment and plan (1) Paroxysmal atrial fibrillation with RVR: New onset atrial fibrillation with A-fib with RVR, heart rates up to 160s. This was accompanied by lightheadedness. No palpitations. No chest pain. Reviewed vitals, CBC, CMP, troponin, TSH. Requesting magnesium. Reviewed echocardiogram from 2021 at which point was found to have moderate to severe mitral regurgitation. Additionally reports history of TAVR. Did not respond to initial Cardizem push, started on Cardizem drip in the ER. Currently on 15 mg/h. Continue Cardizem drip, discussed with her starting oral Cardizem. Wean off drip. Monitor heart rates on telemetry with risk of bradycardia, hypotension with IV Cardizem. Denies chest pain. Complete troponin EKG series. So far noted with mild ovation of troponin, EKG on my interpretation without sign of acute [place]. Pending official read. With high her age, sex, history of hypertension, discussed risk of CVA. She is agreeable to initiate anticoagulation. Denies any significant bleeding or falls. Discussed with her risk of bleeding with anticoagulation. (2) New onset atrial fibrillation: Suspected possibly secondary to at least moderate to severe mitral regurgitation noted back in 2021. Repeat TTE once heart rate is better controlled. Complete troponin EKG series to assess for ischemia. She does not drink alcohol, no substance use. Does drink a pot of coffee a day. Discussed with her reducing caffeine intake, she verbalized understanding. Plan ESRD: Hemodialysis TTS. Reports is working with transplant team at [facility], and is close to receiving a kidney transplant. History of TAVR HTN: Hold amlodipine for now with Cardizem. Hold losartan for now while medications adjusted for atrial fibrillation. Monitor blood pressures. Attestations 2 Medical Necessity Statement*: Place in observation for assessment and management of symptomatic new onset atrial fibrillation with RVR in a lady with underlying ESRD on dialysis. and High MDM includes amount and/or complexity of data reviewed/ordered [ previous or external records, resulted lab(s)/test(s), ordered lab(s)/test(s), independent test interpretation and other healthcare professional discussion] and described risk of complication, morbidity or mortality of management as documented Diagnoses Paroxysmal atrial fibrillation with RVR I48.0 New onset atrial fibrillation I48.91
[2024-10-27 18:15] LABS: Troponin 5 2HR 35.04 ng/L (0-10)
[2024-10-27 18:16] LABS: Troponin 5 2HR Delta -1.96 ABS# (0-10)
[2024-10-27 20:03] LABS: Magnesium 1.9 mg/dL (1.7-2.3)
[2024-10-27] MEDS: dilTIAZem 60 mg Tablet PO (20:09)
[2024-10-27] MEDS: apixaban 5 mg Tablet PO (20:10)
[2024-10-27 20:43] LABS: Bilirubin Urine Negative (Negative); Blood Urine Negative (Negative); Glucose Urine UA Negative (Normal); Ketones Urine Negative (Negative); Leukocyte Esterase Urine 2+ (Negative); Nitrate Urine Negative (Negative); Protein Urine 2+ (Negative); Specific Gravity, Urine 1.006 (1.005-1.030); Urine Appearance Cloudy (CLEAR); Urine Color Yellow (Yellow); pH Urine 8.5 (5-7)
[2024-10-27 20:46] LABS: Add Urine Microscopic? YES; Bacteria Urine EXCEEDS /hpf; Hyaline Casts Urine 0-4 /lpf; RBC Urine 0-2 /hpf (0-2); WBC Urine >100 /hpf (0-5)
[2024-10-27 21:00] LABS: Add Urine Culture? Yes
--- NOTE | 2024-10-27 21:46 | ECG_ITS ---
[facility] Date: 2024-[facility]27 Pat Name: Tracie Corcoran Department: Room: 112 Gender: Female Bench Manager: : 1955 Requested By: Maciel Patel Order Number: [id number] Jessi MD: Dandre Schwarz M.D. Measurements Intervals [place] Rate: 80 P: 0 VA: 0 QRS: 45 QRSD: 88 T: 51 QT: 388 QTc: 449 Interpretive Statements ATRIAL FIBRILLATION NONSPECIFIC T-WAVE ABNORMALITY ABNORMAL RHYTHM ECG Compared to ECG 10/27/2024 17:53:53 No significant changes Electronically Signed On 10-28-2024 17:04:50 ENVIRONMENTAL SAMPLER by Dandre Schwarz M.D. [email or web address]
[2024-10-27 21:57] LABS: Troponin 5 6HR 40.04 ng/L (0-10); Troponin 5 6HR Delta 3.04 ng/L (0-12)
[2024-10-28] VITALS: BP 145/54; PULSE 95; RESP 19; TEMP 37.2; O2SAT 99
[2024-10-28] MEDS: dilTIAZem 60 mg Tablet PO ×2 (00:31→08:48)
[2024-10-28] MEDS: acetaminophen 325 mg Tablet 650 MG PO (00:31)
[2024-10-28 04:00] VITALS: BP 103/51; PULSE 90; RESP 12; TEMP 37; O2SAT 91
[2024-10-28 05:49] VITALS: PULSE 67
[2024-10-28 05:50] LABS: Basophils # 0.1 10^3/uL (0.0-0.1); Eosinophils # 0.3 10^3/uL (0.0-0.8); Eosinophils % 4.2 %; Hematocrit 30.1 % (36-47); Lymphocytes # 2.1 10^3/uL (0.8-4.8); Lymphocytes % 34.9 %; Mean Corpuscular HGB Conc 30.6 g/dL (30-55); Mean Corpuscular Hemoglobin 29.3 pg (27-33); Mean Corpuscular Volume 95.9 fl (85-98); Mean Platelet Volume 10.4 fL (7.4-10.4); Monocytes # 0.7 10^3/uL (0.2-0.9); Monocytes % 11.4 %; Neutrophils # 2.85 10^3/uL (1.8-7.7); Neutrophils % 48.3 %; Nucleated Red Blood Cells % 0 %; Platelet Count 214 10^3/cmm (157-399); Red Blood Count 3.14 10^6/uL (3.85-5.65); Red Cell Distribution Width 16.2 % (12.1-15.1)
[2024-10-28 06:20] LABS: Alanine Aminotransferase 18 U/L (0-33); Albumin Level 3.2 g/dL (3.5-5.2); Alkaline Phosphatase 74 U/L (35-105); Aspartate Amino Transferase 20 U/L (0-32); Blood Urea Nitrogen 27 mg/dL (8-23); Calcium 9.4 mg/dL (8.5-10.5); Carbon Dioxide 30 mmol/L (22-29); Chloride 98 mmol/L (98-107); Creatinine Clr Calc Pharmacy 9.3404; Globulin 2.7 g/dL (1.3-4.6); Glomerular Filtration Rate 7.4 mL/min (90-130); Glucose 123 mg/dL (65-115); Osmolality Calculated 296 mOsm/kg (285-295); Sodium 140 mmol/L (136-145); Total Bilirubin 0.6 mg/dL (0.15-1.2); Total Protein 5.9 g/dL (6.6-8.7)
[2024-10-28 07:52] VITALS: BP 135/47; PULSE 66; TEMP 36.9; O2SAT 100
[2024-10-28] MEDS: apixaban 5 mg Tablet PO (08:48)
--- NOTE | 2024-10-28 09:21 | USCV_ITS ---
Tracie Corcoran Age: 69 Gender: F : 1955 Exam Date: 10/28/2024 14:50 Ordering Phys: Teddy Figueroa MD Technologist: Jimbo Espinosa Exam Location: [facility] [place] Indication: new afib BP: 0 / 45 HR: 72 Rhythm: Sinus Technical Quality: Adequate MEASUREMENTS (Male / Female) Normal Values 2D ECHO LV Diastolic Diameter PLAX 3.5 cm 4.2 - 5.9 / 3.9 - 5.3 cm IVS Diastolic Thickness 1.1 cm 0.6 - 1.0 / 0.6 - 0.9 cm IVS Systolic Thickness 1.1 cm LVPW Diastolic Thickness 1.9 cm 0.6 - 1.0 / 0.6 - 0.9 cm LVPW Systolic Thickness 2.9 cm LVOT Diameter 2.0 cm LV Ejection Fraction 2D Teich 63.1 % LV Ejection Fraction MOD 4C 62.3 % LV Ejection Fraction MOD 2C 58.6 % LV Ejection Fraction 2C AL 61.3 % LA Diameter 3.8 cm RA Systolic Volume 4C AL 47.3 ml RA Systolic Volume 4C MOD 49.1 ml LA Sys Volume AL 69.6 cm cubed LA Sys Volume Index AL 36.4 cm cubed/m squared Aorta at Sinotubular Diameter 1.7 cm IVC Diameter 2.0 cm M-MODE LA Ao Ratio MM 1.9 AV Cusp Separation MM 0.7 cm DOPPLER AV Peak Velocity 295.3 cm/s LVOT Peak Velocity 89.0 cm/s AV Area Cont Eq vti 1.1 cm squared AV Area Cont Eq pk 1.0 cm squared MV Peak Velocity 505.0 cm/s MV Area PHT 2.0 cm squared Mitral E to A Ratio 1.7 TV Peak Velocity 409.8 cm/s TR Peak Velocity 446.0 cm/s TR Peak Gradient 79.6 mmHg TR Mean Velocity 367.0 cm/s TR Mean Gradient 57.1 mmHg TR Velocity Time Integral 131.0 cm PV Peak Velocity 118.0 cm/s RV Ejection Time 0.3 s FINDINGS Left Ventricle Normal left ventricular size, systolic function and wall thickness, with no regional wall motion abnormalities. Left ventricular ejection fraction is estimated at 55 %. Grade II/IV diastolic dysfunction, moderately elevated filling pressures. Right Ventricle The right ventricle is normal in size and function. RVSP could not be calculated due to incomplete tricuspid regurgitation velocity profile. Right Atrium The right atrium is normal in size. Left Atrium Moderately increased left atrial size. Mitral Valve Moderately thickened mitral valve. Moderate mitral annular calcification. Moderate mitral valve regurgitation Aortic Valve Structurally normal trileaflet aortic valve. No aortic valve stenosis. Trace aortic valve regurgitation. Tricuspid Valve [id number] tricuspid valve regurgitation. Pulmonic Valve Structurally normal pulmonic valve without significant stenosis. There is no pulmonic regurgitation. Pericardium Normal pericardium without effusion. Aorta Normal ascending aorta dimension. IVC The inferior vena cava appears normal. CONCLUSIONS Normal left ventricular size, systolic function and wall thickness, with no regional wall motion abnormalities. Left ventricular ejection fraction is estimated at 55 %. Grade II/IV diastolic dysfunction, moderately elevated filling pressures. Moderately increased left atrial size. Moderately thickened mitral valve. Moderate mitral annular calcification. Moderate mitral valve regurgitation [id number] tricuspid valve regurgitation. Right atrial pressure is around 20 mm of mercury. Gt Cam MD (Electronically Signed) Final Date: 29 October 2024 00:38 S
[2024-10-28] MEDS: aspirin 81 mg EC Tablet PO (10:06)
[2024-10-28 11:40] VITALS: BP 134/45; PULSE 67; RESP 18; TEMP 36.6; O2SAT 97
--- NOTE | 2024-10-28 11:43 | PC.SOCIAL ---
IMM Updated Updated pt on IMM. No questions voiced. Provided pt a copy. Initialed, dated, & timed a copy & placed in chart.
[2024-10-28 12:00] VITALS: BP 134/45; PULSE 67; TEMP 36.6; O2SAT 97
--- NOTE | 2024-10-28 13:38 | PC.NURSE ---
called ultrasound twice now since this morning due to hospitalist wants her us echocardiogram done prior to discharge due to pt's cardiac history and soon to be on a kidney transplant list. Called LEEANN and left a voicemail message twice.
--- NOTE | 2024-10-28 14:19 | P.DS_ITS ---
Discharge Providers Date of Admission: 10/27/24 17:31 Date of Discharge: October 28, 2024 Attending Provider at Admission: Teddy Figueroa Attending Provider at Discharge: Teddy Figueroa Primary Care Provider: Jhon Schneider Diagnoses at Discharge Discharge Diagnosis (1) Paroxysmal atrial fibrillation with RVR: Status: Acute (2) New onset atrial fibrillation: Status: Acute Reason for Visit Reason for Visit: Reff by dialysis, levels are high 140 and above Brief History: Pleasant 69 and a lady with history of ESRD on dialysis TTS, recently noticed a few episodes of brief lightheadedness, reports that her vitals were repeatedly abnormal during dialysis today and she was directed for evaluation to ER. There she was found to have A-fib with RVR, heart rates up into 160s. She denies history of A-fib in the past. She states she is currently awaiting arrangements for kidney transplantation. She states she has history of TAVR. Other than that had a migraine several weeks ago. And more recently a UTI which was treated by her primary provider. Otherwise denies any other recent issues apart from mild stress from bills and other day-to-day matters. Does not drink any alcohol. Does drink a large pot of coffee every day. Never smoked, no recreational substance use. She normally follows with a machinist bench at [facility] where her transplant team is as well. Hospital Course Hospital Course She was hospitalized and continue treatment with Cardizem drip, started on oral Cardizem, resumed on her usual medications. TSH was assessed and unremarkable. Electrolytes were good. Heart rates improved and she converted to sinus rhythm. With discussion of stroke risk, bleeding risk, started on Eliquis for stroke risk reduction. Etiology is suspected possibly secondary to atrial dilation with previously noted moderate to severe mitral regurgitation. Did not have any evidence of ischemia on EKG and only minimal elevation of troponin. Remained free of chest pain. She additionally drinks at least a pot of coffee a day, which is discussed could contribute, and was instructed to reduce coffee intake if possible. At discharge continues on Cardizem with discontinuation of amlodipine. Please follow-up heart rhythm as well as blood counts and tolerance of anticoagulation. She is asked to follow-up with cardiology, as well as with her machinist bench at [facility] who is coordinating preparations for renal transplantation. Due to proximity to possible renal transplantation, echocardiogram is not resulted but has been obtained prior to discharge. Physical Exam Const: COMMON NORMALS: patient oriented x3 and alert GENERAL APPEARANCE: cooperative ORIENTATION/CONSCIOUSNESS: Yes awake HENMT: COMMON NORMALS: oropharynx normal Neck/C-Spine: COMMON NORMALS: no JVD Resp: COMMON NORMALS: normal respiratory effort and clear to auscultation bilaterally AUSCULTATION: clear to auscultation bilaterally Cardio: COMMON NORMALS: no JVD, regular rhythm, S1 normal heart sound present, S2 normal heart sound present and No murmurs present (Cardio) RHYTHM: regular rhythm HEART SOUNDS: S1 normal heart sound present and S2 normal heart sound present GI: COMMON NORMALS: Normal to inspection, nondistended, normoactive bowel sounds present, Soft to palpation and non-tender PALPATION: Yes Soft to palpation Extremity: COMMON NORMALS: no joint enlargement and no pedal edema Neuro: COMMON NORMALS: patient oriented x3 and moves all extremities SENSORIUM/ORIENTATION: Yes alert Skin: COMMON NORMALS: no rashes or lesions noted GENERAL SKIN EXAM: no rashes or lesions noted Discharge Data Studies Completed and Pending Completed Studies During Hospitalization Category Date Time Status XR chest 1V portable [id number] Stat Exams 10/27/24 15:46 Completed Pending at discharge Category Date Time Status Complete Blood Count w/Auto AM LABS Lab 10/29/24 04:00 Ordered Complete Blood Count w/Auto AM LABS Lab 10/30/24 04:00 Ordered Comprehensive Metabolic Panel AM LABS Lab 10/29/24 04:00 Ordered Comprehensive Metabolic Panel AM LABS Lab 10/30/24 04:00 Ordered Urine Culture Stat Lab 10/27/24 20:00 Received CV. echo complete* [id number] Routine Ultrasound 10/28/24 09:21 Ordered Radiology Impressions Chest X-Ray 10/27/24 15:46 IMPRESSION: No acute cardiopulmonary findings. Laboratory Results WBC 5.90 10^3/uL (3.29-11.43) 10/28/24 05:25 RBC 3.14 10^6/uL (3.85-5.65) L 10/28/24 05:25 Hgb 9.20 g/dL (11.27-16.99) L 10/28/24 05:25 Hct 30.1 % (36-47) L 10/28/24 05:25 MCV 95.9 fl (85-98) 10/28/24 05:25 MCH 29.3 pg (27-33) 10/28/24 05:25 MCHC 30.6 g/dL (30-55) 10/28/24 05:25 RDW 16.2 % (12.1-15.1) H 10/28/24 05:25 Plt Count 214 10^3/cmm (157-399) 10/28/24 05:25 MPV 10.4 fL (7.4-10.4) 10/28/24 05:25 Neut % (Auto) 48.3 % 10/28/24 05:25 Lymph % (Auto) 34.9 % 10/28/24 05:25 [place] % (Auto) 11.4 % 10/28/24 05:25 Eos % (Auto) 4.2 % 10/28/24 05:25 Baso % (Auto) 1.0 % 10/28/24 05:25 Neut # (Auto) 2.85 10^3/uL (1.8-7.7) 10/28/24 05:25 Lymph # (Auto) 2.1 10^3/uL (0.8-4.8) 10/28/24 05:25 [place] # (Auto) 0.7 10^3/uL (0.2-0.9) 10/28/24 05:25 Eos # (Auto) 0.3 10^3/uL (0.0-0.8) 10/28/24 05:25 Baso # (Auto) 0.1 10^3/uL (0.0-0.1) 10/28/24 05:25 Nucleated RBC % (auto) 0 % 10/28/24 05:25 Nucleated RBCs # 0.0 /100WBC 10/28/24 05:25 Sodium 140 mmol/L (136-145) 10/28/24 05:25 Potassium 4.0 mmol/L (3.5-5.1) 10/28/24 05:25 Chloride 98 mmol/L (98-107) 10/28/24 05:25 Carbon Dioxide 30 mmol/L (22-29) H 10/28/24 05:25 Anion Gap 16.0 (5-19) 10/28/24 05:25 BUN 27 mg/dL (8-23) H 12/06/24 05:25 Creatinine 5.7 mg/dL (0.5-0.9) H* 10/28/24 05:25 GFR Calculation 7.4 mL/min (90-130) L 10/28/24 05:25 Glucose 123 mg/dL (65-115) H 10/28/24 05:25 Calculated Osmolality 296 mOsm/kg (285-295) H 10/28/24 05:25 Calcium 9.4 mg/dL (8.5-10.5) 10/28/24 05:25 Magnesium 1.9 mg/dL (1.7-2.3) 10/27/24 15:10 Total Bilirubin 0.6 mg/dL (0.15-1.2) 10/28/24 05:25 AST 20 U/L (0-32) 10/28/24 05:25 ALT 18 U/L (0-33) 10/28/24 05:25 Alkaline Phosphatase 74 U/L (35-105) 10/28/24 05:25 Troponin T Baseline 37 ng/L (0-10) H 10/27/24 15:10 Troponin T 120 Minute 35.04 ng/L (0-10) H 10/27/24 17:21 Delta Troponin T -1.96 ABS# (0-10) L 10/27/24 17:21 Troponin T Hi Sens 6Hr 40.04 ng/L (0-10) H 10/27/24 21:33 Troponin T Hi Sens 6Hr Delta 3.04 ng/L (0-12) 10/27/24 21:33 Total Protein 5.9 g/dL (6.6-8.7) L 10/28/24 05:25 Albumin 3.2 g/dL (3.5-5.2) L 10/28/24 05:25 Globulin 2.7 g/dL (1.3-4.6) 10/28/24 05:25 TSH 3.02 uIU/mL (0.27-4.20) 10/27/24 15:10 Urine Color Yellow (Yellow) 10/27/24 20:00 Urine Appearance Cloudy (CLEAR) A 10/27/24 20:00 Urine pH 8.5 (5-7) A 10/27/24 20:00 Ur Specific [place] 1.006 (1.005-1.030) 10/27/24 20:00 Urine Protein 2+ (Negative) A 10/27/24 20:00 Urine Glucose (UA) Negative (Normal) 10/27/24 20:00 Urine Ketones Negative (Negative) 10/27/24 20:00 Urine Blood Negative (Negative) 10/27/24 20:00 Urine Nitrate Negative (Negative) 10/27/24 20:00 Urine Bilirubin Negative (Negative) 10/27/24 20:00 Urine Urobilinogen 1.0 mg/dL (Negative) 10/27/24 20:00 Ur Leukocyte Esterase 2+ (Negative) A 10/27/24 20:00 Urine RBC 0-2 /hpf (0-2) 10/27/24 20:00 Urine WBC >100 /hpf (0-5) H 10/27/24 20:00 Ur Squamous Epith Cells 6-10 /hpf (0-5) 10/27/24 20:00 Amorphous Sediment Not Reportable 10/27/24 20:00 Urine Bacteria Exceeds /hpf (NONE) 10/27/24 20:00 Hyaline Casts 0-4 /lpf H 10/27/24 20:00 Vitals Last Vital Signs Temp 97.8 F 10/28/24 12:00 Pulse 67 10/28/24 12:00 Resp 18 10/28/24 11:40 BP 134/45 10/28/24 12:00 Pulse Ox 97 10/28/24 12:00 O2 Del Method Room Air 10/28/24 12:00 Discharge Plan Discharge Patient Disposition: Home Condition: Stable Prescriptions: New Eliquis 5 mg Tablet 5 mg PO BID@0900,2100 Qty: 180 0RF diltiazem HCl 60 mg capsule,extended release 12 hr 60 mg PO BID Qty: 180 0RF Continued atorvastatin 40 mg Tablet 80 mg PO BEDTIME cholecalciferol (vitamin D3) [Vitamin D3] 25 mcg (1,000 unit) Capsule 25 mcg PO QAM escitalopram oxalate 20 mg Tablet 20 mg PO QAM calcium carbonate-vitamin D3 [Calcium 600 + D(3)] 600 mg-10 mcg (400 unit) Tablet 1 tab PO QAM aspirin 81 mg Tablet,Delayed Release (Dr/Ec) 81 mg PO DAILY calcitriol 0.25 mcg capsule See Rx Instructions .ROUTE .COMPLEX Rx Instructions: 75 MG ONLY ON DIALYSIS DAYS, Thursday, , Thursday RenaPlex-D 800 mcg-12.5 mg -2,000 unit tablet 1 tab PO DAILY cinacalcet [Sensipar] 60 mg Tablet 60 mg PO .3XW Rx Instructions: takes thursday , and thursday before dialysis losartan 25 mg tablet 25 mg PO QPM lanthanum 750 mg tablet,chewable See Rx Instructions .ROUTE .COMPLEX Rx Instructions: chew 3tablets by mouth before each meal and 2 tablets before each snack daily lorazepam [Ativan] 2 mg tablet 2 mg PO Q8H PRN (Reason: anxiety) Qty: 10 0RF Discontinued amlodipine 10 mg Tablet 10 mg PO QAM Discharge Orders: Discharge Order (Routine); Ordered 10/28/24 Ordered By: Teddy Figueroa Referrals: CARDIOLOGY [Provider Group] - 4-7 days (Patient will get referal from Primary care Physician) [facility] - [Outside] Jhon Schneider [Primary Care Provider] - 11/02/24 9:40 am Patient Instructions: Anticoagulation Therapy, Diltiazem (By mouth), Apixaban (By mouth), A-fib (Atrial Fibrillation) (DC) Activity Restrictions/Additional Instructions: Please follow-up with your primary provider as well as with cardiology for reassessment after new onset atrial fibrillation. Please discuss with your prime provider as well as machinist bench regarding pending echocardiogram for follow-up of moderate to severe mitral regurgitation as a suspected etiology. Continue diltiazem for atrial fibrillation, discontinue amlodipine. Monitor blood pressure 3 times daily. Discussed with your primary provider regarding anticoagulation for stroke risk reduction. Have your parent provider follow-up your blood counts. Please reduce coffee intake to help reduce chance of triggering atrial fibrillation. Discharge Attestations Time Spent in Discharge Care*: greater than 30 min Quality Metrics Clinical Quality Measures [ No reported AMI, CVA or VTE this stay] Coding Level of Care Code 27887 Total time (in minutes) for Discharge: 45 Diagnoses Paroxysmal atrial fibrillation with RVR I48.0 New onset atrial fibrillation I48.91
--- NOTE | 2024-10-28 14:56 | PC.NURSE ---
ultrasound staff is in here now discharge packet provided to pt. lenny henry is provided.
== END 2024-10-28 15:17 | disposition home or self-care (01) ==
LOC: ER 15:47 → CSU 18:19
PROVIDERS: Emergency Medicine; Admitting Provider Internal Medicine; Emergency Provider Family Medicine; PCP Family Medicine; Visit Provider Internal Medicine
DX: I48.0 Paroxysmal atrial fibrillation (principal); E11.22 Type 2 diabetes mellitus with diabetic chronic kidney disease; I12.9 Hypertensive chronic kidney disease with stage 1 through stage 4 chronic kidney disease, or unspecified chronic kidney disease; N18.6 End stage renal disease; Z99.2 Dependence on renal dialysis; Z79.82 Long term (current) use of aspirin; Z98.84 Bariatric surgery status
CPT/HCPCS: 36415; 71045; 80053; 81001; 83735; 84443; 84484; 85025; 87077; 87086; 87186; 93005; 93306; 96374; 99285; A9270; G0378; J3490

== ENCOUNTER 2024-11-01 21:17 | Inpatient (IN) | payer MEDICARE, SELFPAY ==
[2024-11-01] VITALS (7 sets, daily range): BP systolic 120–181; BP diastolic 35–76; PULSE 83–93; RESP 32; TEMP 37.7; O2SAT 86–100; BMI 30.4
--- NOTE | 2024-11-01 21:24 | XRR_ITS ---
PROCEDURE INFORMATION: Exam: XR Chest Exam date and time: 11/01/2024 9:27 PM Age: 69 years old Clinical indication: Shortness of breath; Prior surgery; Surgery date: 6+ months; Surgery type: Lt axilla; Additional info: Dyspnea TECHNIQUE: Imaging protocol: Radiologic exam of the chest. Views: 1 view. COMPARISON: CR XR chest 1V portable [id number] 10/27/2024 4:19 PM FINDINGS: Lungs: Mild interstitial pulmonary edema. No focal consolidation. Pleural spaces: Unremarkable. No pleural effusion. No pneumothorax. Heart/Mediastinum: Unremarkable. No cardiomegaly. Vasculature: Aortic valve replacement. Bones/joints: Mild degenerative disease of bilateral acromioclavicular joints. There are mild degenerative changes of the glenohumeral joint. Soft tissues: Left axillary surgical clips. XR/XR chest 1V portable [id number] IMPRESSION: Mild interstitial pulmonary edema.
--- NOTE | 2024-11-01 21:33 | ECG_ITS ---
[facility]: 2024[facility]01 Pat Name: Tracie Corcoran Department: Room: Gender: Female Irish Moss Gatherer: : 1955 Requested By: Low Tariq Order Number: [id number] Jessi MD: Dandre Schwarz M.D. Measurements Intervals [place] Rate: 92 P: 58 AL: 133 QRS: 51 QRSD: 90 T: 70 QT: 321 QTc: 397 Interpretive Statements SINUS RHYTHM WITH OCCASIONAL VENTRICULAR PREMATURE COMPLEXES MODERATE ST DEPRESSION [0.05+ mV ST DEPRESSION] Compared to ECG 10/27/2024 21:57:20 Ventricular premature complex(es) now present ST (T wave) deviation now present Atrial fibrillation no longer present T-wave abnormality no longer present Electronically Signed On 11-02-2024 01:03:37 NIGHT CLERK by Dandre Schwarz M.D. [id number]
--- NOTE | 2024-11-01 21:45 | ED_ITS ---
HPI - SOB/Dyspnea 2 General: Chief Complaint: Shortness of Breath/Dyspnea Stated Complaint: SOB Time Seen by Provider: 11/01/24 21:18 History of Present Illness: HPI Narrative: Return to the ER with worsening dyspnea. Patient is on 4 L per nasal cannula his O2 sat is approximately 86% upon arrival. She is end-stage renal disease on dialysis, she was diagnosed with A-fib and put on Eliquis. She was just recently discharged from the hospital on 10 28, she was sent home on Eliquis and diltiazem, she has not taken her Eliquis for the last couple days because it made her feel funny. Related Data Home Medications Medication Instructions Recorded Confirmed atorvastatin 40 mg tablet 80 mg PO BEDTIME 05/13/22 10/27/24 calcium 600 mg (as 1 tab PO QAM 05/13/22 10/27/24 carbonate)-vitamin D3 10 mcg (400 unit) tablet (Calcium 600 + D(3)) cholecalciferol (vitamin D3) 25 25 mcg PO QAM 05/13/22 10/27/24 mcg (1,000 unit) capsule (Vitamin D3) escitalopram oxalate 20 mg tablet 20 mg PO QAM 05/13/22 10/27/24 aspirin 81 mg tablet,delayed 81 mg PO DAILY 10/23/22 10/27/24 release calcitriol 0.25 mcg capsule See Rx Instructions .Route .COMPLEX 10/23/22 10/27/24 vit B,C-folic ac 800 mcg-zinc 12.5 1 tab PO DAILY 10/23/22 10/27/24 mg-selen-D3 2,000 unit-vit E tablet (RenaPlex-D) cinacalcet 60 mg tablet (Sensipar) 60 mg PO .3XW 08/23/24 10/27/24 lanthanum 750 mg chewable tablet See Rx Instructions .Route .COMPLEX 08/23/24 10/27/24 losartan 25 mg tablet 25 mg PO QPM 08/23/24 10/27/24 Previous Rx's Medication Instructions Recorded lorazepam 2 mg tablet (Ativan) 2 mg PO Q8H PRN anxiety #10 tabs 08/23/24 apixaban 5 mg tablet (Eliquis) 5 mg PO BID@0900,2100 #180 tabs 10/28/24 diltiazem HCl 60 mg 60 mg PO BID #180 caps 10/28/24 capsule,extended release 12 hr Allergies Allergy/AdvReac Type Severity Reaction Status Date / Time Latex, Natural Rubber Allergy ALGY-Rash Verified 11/01/24 21:31 Review of Systems 2 General: Reports: 10 or more systems reviewed and unremarkable except in HPI and below PFSH ED 2 PFSH: Medical History Pleural effusion Hypoxia Stage 5 chronic kidney disease Pleural effusion Hyponatremia Hypertension Pneumonia Acute respiratory failure with hypoxia Community acquired pneumonia ESRD (end stage renal disease) Surgical History H/O gastric bypass S/P TAVR (transcatheter aortic valve replacement) Social History Substance/Drug Use: never Physical Exam 2 Const: COMMON NORMALS: no acute distress, average body habitus, patient oriented x3, no limitations, healthy appearing, alert and well nourished HENMT: COMMON NORMALS: normocephalic, atraumatic, hearing grossly normal bilaterally, external ears normal, Normal external nose present and moist oral mucous membranes HEAD & SCALP: normocephalic and atraumatic NOSE: Normal external nose present EXTERNAL EAR: Yes external ears normal Neck/C-Spine: COMMON NORMALS: full ROM, no lymphadenopathy, supple, no meningeal signs, no JVD and Thyroid normal THYROID: Thyroid normal Chest: COMMONS NORMALS: normal inspection of the chest and normal palpation of entire chest wall Resp: COMMON NORMALS: normal respiratory effort, No retractions and No use of accessory muscles; negative for clear to auscultation bilaterally (Decreased breath sounds bilaterally) AUSCULTATION: not clear to auscultation bilaterally (Decreased breath sounds bilaterally) Cardio: COMMON NORMALS: no JVD, regular rate, regular rhythm, S1 normal heart sound present, S2 normal heart sound present, No gallops present (Cardio), No clicks present (Cardio), No murmurs present (Cardio) and No rub (Cardio) R ATE: regular rate RHYTHM: regular rhythm HEART SOUNDS: S1 normal heart sound present and S2 normal heart sound present GI: COMMON NORMALS: Normal to inspection, nondistended, normoactive bowel sounds present, Soft to palpation, non-tender, No hepatosplenomegaly present and no masses PALPATION: Yes Soft to palpation and Yes No hepatosplenomegaly present Neuro: COMMON NORMALS: patient oriented x3 SENSORIUM/ORIENTATION: Yes alert MENINGEAL SIGNS: Yes no meningeal signs Course 2 Vital Signs: Vital signs: Vital Signs Temperature 99.9 F H 11/01/24 21:18 Pulse Rate 90 11/01/24 23:47 Respiratory Rate 32 H 11/01/24 21:18 Blood Pressure 120/35 11/01/24 23:00 Pulse Oximetry 97 11/01/24 23:47 Oxygen Delivery Me thod Nasal Cannula 11/01/24 21:18 Oxygen Flow Rate 4 11/01/24 21:18 MDM - SOB/Dyspnea Medical Decision Making Patient was requiring at least 4 L of oxygen here stay here. Patient is COVID- positive. X-ray shows pulmonary edema. Patient had a initial troponin of approximately 92 with a delta of 107 and a 2-hour of 199 approximately. Patient was chest pain free during her stay here. Patient was given IV insulin dextrose and calcium gluconate for an elevated potassium. These results was discussed with Dr. Carmen who [facility] Medical Records I reviewed the patient's medical records. Lab Data I reviewed the patient's lab results. 11/01/24 22:25 11/01/24 22:25 Labs/Radiology: Radiology Impressions Chest X-Ray 11/01/24 21:24 IMPRESSION: Mild interstitial pulmonary edema. Laboratory Results WBC 9.07 10^3/uL (3.29-11.43) 11/01/24: RBC 3.39 10^6/uL (3.85-5.65) L 11/01/24 22: Hgb 9.70 g/dL (11.27-16.99) L 11/01/24: Hct 31.4 % (36-47) L 11/01/24: MCV 92.6 fl (85-98) 11/01/24 22: MCH 28.6 pg (27-33) 11/01/24 22: MCHC 30.9 g/dL (30-55) 11/01/24 22: RDW 16.5 % (12.1-15.1) H 11/01/24 22: Plt Count 252 10^3/cmm (157-399) 11/01/24: MPV 9.8 fL (7.4-10.4) 11/01/24: Neut % (Auto) 88.2 % 11/01/24: Lymph % (Auto) 4.6 % 11/01/24: Rock % (Auto) 6.0 % 11/01/24: Eos % (Auto) 0.3 % 11/01/24: Baso % (Auto) 0.2 % 11/01/24: Neut # (Auto) 8.00 10^3/uL (1.8-7.7) H 11/01/24: Lymph # (Auto) 0.4 10^3/uL (0.8-4.8) L 11/01/24: Rock # (Auto) 0.5 10^3/uL (0.2-0.9) 11/01/24: Eos # (Auto) 0.0 10^3/uL (0.0-0.8) 11/01/24: Baso # (Auto) 0.0 10^3/uL (0.0-0.1) 11/01/24: Nucleated RBC % (auto) 0 % 11/01/24: Nucleated RBCs # 0.0 /100WBC 11/01/24: Specimen Type Arterial 11/01/24 22:09 Sample Site Brachial, right 11/01/24 22:09 ABG pH 7.42 (7.35-7.45) 11/01/24 22:09 ABG pCO2 32.7 mmHg (35-45) L 11/01/24 22:09 ABG pO2 88.6 mmHg (80.0-100.0) 11/01/24 22:09 ABG HCO3 21.1 mmol/L (22-26) L 11/01/24 22:09 ABG O2 Saturation 95.6 11/01/24 22:09 ABG Base Excess -2.8 mmol/L (-2.0-2.0) L 11/01/24 22:09 Collin Test N/a 11/01/24 22:09 A-a O2 Gradient 2.6 mmHg (5-10) L 11/01/24 22:09 Hematocrit 31.6 % (37-47) L 11/01/24 22:09 Hgb O2 Saturation 93.8 % (95-100) L 11/01/24 22:09 Carboxyhemoglobin 0.3 %THgb (0.4-20.1) L 11/01/24 22:09 Methemoglobin 1.5 % (0.4-1.5) 11/01/24 22:09 Total Hemoglobin 10.3 g/dL (12-16) L 11/01/24 22:09 Sodium 139.0 mmol/L (131-143) 11/01/24 22:09 Potassium 5.6 mmol/L (3.5-5.0) H 11/01/24 22:09 Glucose 248.0 mg/dL (70-115) H 11/01/24 22:09 Ionized Calcium 1.1 mmol/L (1.1-1.4) 11/01/24 22:09 O2 Delivery Device Oxy mask 11/01/24 22:09 O2 Liters/Min 13.0 % 11/01/24 22:09 Screen Printing Equipment Setter ID [id number] 11/01/24 22:09 Sodium 137 mmol/L (136-145) 11/01/24 22:25 Potassium 5.9 mmol/L (3.5-5.1) H 11/01/24 22:25 Chloride 97 mmol/L (98-107) L 11/01/24 22:25 Carbon Dioxide 21 mmol/L (22-29) L 11/01/24 22:25 Anion Gap 24.9 (5-19) H 11/01/24 22:25 BUN 53 mg/dL (8-23) H 11/01/24 22:25 Creatinine 8.4 mg/dL (0.5-0.9) H* 11/01/24 22:25 GFR Calculation 4.7 mL/min (90-130) L 11/01/24 22:25 Glucose 259 mg/dL (65-115) H 11/01/24 22:25 Calculated Osmolality 307 mOsm/kg (285-295) H 11/01/24 22:25 Lactic Acid 1.9 mmol/L (0.5-2.2) 11/01/24 22: Calcium 8.9 mg/dL (8.5-10.5) 11/01/24 22:25 Phosphorus 7.5 mg/dL (2.5-4.5) H 11/01/24 22:25 Magnesium 1.9 mg/dL (1.7-2.3) 11/01/24 22:25 Total Bilirubin 0.7 mg/dL (0.15-1.2) 11/01/24 22:25 AST 40 U/L (0-32) H 11/01/24 22:25 ALT 39 U/L (0-33) H 11/01/24 22:25 Alkaline Phosphatase 90 U/L (35-105) 11/01/24 22:25 Troponin T Baseline 93 ng/L (0-10) H 11/01/24 22:25 Troponin T 120 Minute 196.0 ng/L (0-10) H 11/02/24 00:32 Delta Troponin T 103.0 ABS# (0-10) H* 11/02/24 00:32 NT-Pro-B Natriuret Pep 32081 pg/mL (0-125) H 11/01/24 22:25 Total Protein 6.9 g/dL (6.6-8.7) 11/01/24 22:25 Albumin 3.7 g/dL (3.5-5.2) 11/01/24 22:25 Globulin 3.2 g/dL (1.3-4.6) 11/01/24 22:25 Coronavirus (PCR) Positive (Negative) A 11/01/24 21:45 Influenza A (PCR) Negative (Negative) 11/01/24 21:45 Influenza Type B (PCR) Negative (Negative) 11/01/24 21:45 RSV (PCR) Negative (Negative) 11/01/24 21:45 All radiology interpretation(s) finalized by discharge Discharge Plan Discharge Patient Disposition: Admitted As Inpatient Clinical Impression: Pulmonary edema, End-stage renal disease on hemodialysis, COVID, Acute hyperkalemia, Acute hypoxic respiratory failure, Elevated troponin Condition: Stable Coding Level of Care Code ED Transmission Mechanic for Sergio Tang
[2024-11-01 22:13] LABS: ABG PCO2 32.7 mmHg (35-45); ABG PH Result 7.42 (7.35-7.45); Alveolar-Arterial Oxygen Gradi 2.6 mmHg (5-10); Arterial Blood Gas Hematocrit 31.6 % (37-47); Base Excess ABG -2.8 mmol/L (-2.0-2.0); Blood Gas Operator Identificat 600455; Blood Gas Sample Site Brachial, right; Blood Gas Sample Type Arterial; Carboxyhemoglobin 0.3 %THgb (0.4-20.1); HCO3 ABG 21.1 mmol/L (22-26); HGB O2 Sat 93.8 % (95-100); Ionized Calcium Level - ABG 1.1 mmol/L (1.1-1.4); Methemoglobin 1.5 % (0.4-1.5); Oxygen Device OXY MASK; Oxygen Saturation ABG 95.6; PO2 ABG 88.6 mmHg (80.0-100.0); Potassium Level - ABG 5.6 mmol/L (3.5-5.0); Total Hemoglobin 10.3 g/dL (12-16)
[2024-11-01] MEDS: cloNIDine 0.1 mg Tablet PO (22:15)
[2024-11-01 22:31] LABS: Basophils % 0.2 %; Eosinophils % 0.3 %; Hematocrit 31.4 % (36-47); Lymphocytes # 0.4 10^3/uL (0.8-4.8); Lymphocytes % 4.6 %; Mean Corpuscular HGB Conc 30.9 g/dL (30-55); Mean Corpuscular Hemoglobin 28.6 pg (27-33); Mean Corpuscular Volume 92.6 fl (85-98); Mean Platelet Volume 9.8 fL (7.4-10.4); Monocytes # 0.5 10^3/uL (0.2-0.9); Neutrophils % 88.2 %; Nucleated Red Blood Cells % 0 %; Platelet Count 252 10^3/cmm (157-399); Red Blood Count 3.39 10^6/uL (3.85-5.65); Red Cell Distribution Width 16.5 % (12.1-15.1); White Blood Count 9.07 10^3/uL (3.29-11.43)
[2024-11-01 22:48] LABS: Lactic Sepsis W/Reflex 1.9 mmol/L (0.5-2.2)
[2024-11-01 23:10] LABS: Troponin(5th) Baseline 93 ng/L (0-10)
[2024-11-01 23:34] LABS: Alanine Aminotransferase 39 U/L (0-33); Albumin Level 3.7 g/dL (3.5-5.2); Alkaline Phosphatase 90 U/L (35-105); Aspartate Amino Transferase 40 U/L (0-32); Blood Urea Nitrogen 53 mg/dL (8-23); Calcium 8.9 mg/dL (8.5-10.5); Carbon Dioxide 21 mmol/L (22-29); Creatinine Clr Calc Pharmacy 6.2505; Globulin 3.2 g/dL (1.3-4.6); Glomerular Filtration Rate 4.7 mL/min (90-130); Glucose 259 mg/dL (65-115); Magnesium 1.9 mg/dL (1.7-2.3); NT Pro B Type Natriuretic Pept 20215 pg/mL (0-125); Phosphorus 7.5 mg/dL (2.5-4.5); Total Bilirubin 0.7 mg/dL (0.15-1.2); Total Protein 6.9 g/dL (6.6-8.7)
[2024-11-01 23:36] LABS: Influenza A NEGATIVE (Negative); Influenza B NEGATIVE (Negative); Respiratory Syncytial Virus Ce NEGATIVE (Negative)
[2024-11-01 23:42] LABS: Anion Gap 24.9 (5-19); Chloride 97 mmol/L (98-107); Osmolality Calculated 307 mOsm/kg (285-295); Potassium 5.9 mmol/L (3.5-5.1); Sodium 137 mmol/L (136-145)
[2024-11-01] MEDS: FUROsemide 10 mg/mL SDV 4mL 40 MG IVP (23:44)
[2024-11-01 23:46] LABS: Covid PCR Positive (Negative)
--- NOTE | 2024-11-01 23:52 | ECG_ITS ---
[employer] Test Date: 2024-11-01 Pat Name: Tracie Corcoran Department: Room: Gender: Female Spares Scheduler: : 1955 Requested By: Low Tariq Order Number: [id number] Jessi MD: Dandre Schwarz M.D. Measurements Intervals [place] Rate: 81 P: 57 MO: 142 QRS: 67 QRSD: 89 T: 63 QT: 372 QTc: 432 Interpretive Statements SINUS RHYTHM Compared to ECG 11/01/2024 21:33:36 Ventricular premature complex(es) no longer present ST (T wave) deviation no longer present Electronically Signed On 11-02-2024 01:10:00 INSPECTOR FILTERS by Dandre Schwarz M.D. [id number]
[2024-11-02] VITALS (15 sets, daily range): BP systolic 99–158; BP diastolic 35–72; PULSE 62–86; RESP 15–19; TEMP 36.3–36.9; O2SAT 92–98; BMI 32.3
[2024-11-02] MEDS: calcium chloride 10% Syr 10 mL 1 GM IVP (00:49)
[2024-11-02] MEDS: insulin regular-human 100 units/1 mL 10 UNIT IVP (00:49)
[2024-11-02] MEDS: enoxaparin 80 mg/0.8 mL Syringe SUBCUT (02:12)
--- NOTE | 2024-11-02 02:45 | P.HP_ITS ---
Providers/Chief Complaint 2 Admitting Physician: Gt Carmen MD Primary Care Provider: Jhon Schneider Chief Complaint: SOB History of Present Illness Tracie Corcoran is a 69 year old female end-stage renal disease Thursday, was recently discharged from the hospital after management of A-fib on Cardizem and Eliquis, patient has stopped taking Eliquis because she did not feel comfortable with it, patient is being evaluated at [facility] for kidney transplant and has a referral for pulmonary hypertension as well presented with worsening of shortness of breath. In the ER she was diagnosed with COVID-19 current currently requiring 6 L nasal cannula. At baseline she is not oxygen dependent. In the ER she received treatment for hyperkalemia Patient is stating that since her discharge she has only taken 2 doses of Eliquis it made her feel nauseous that so she did not continue Eliquis. She has has been feeling weak lethargic fatigue with nonproductive cough. She has not noticed any fever but endorsing diaphoresis. Shortness of breath. At the time of my evaluation she is on OxyMask 5 L saturating 97%. Patient is stating that her case is being discussed on [facility] for [facility] transplant Review of Systems 2 Const: Reports: fever(s) and chills Eyes: Denies: change in vision ENMT: Denies: throat pain Card: Denies: chest pain Resp: Reports: dyspnea GI: Reports: nausea Medications/Allergies Home Medications Medication Instructions Recorded Confirmed Last Taken Type atorvastatin 40 mg tablet 80 mg PO BEDTIME 05/13/22 11/02/24 11/01/24 History calcium 600 mg (as 1 tab PO QAM 05/13/22 11/02/24 11/01/24 History carbonate)-vitamin D3 10 mcg (400 unit) tablet (Calcium 600 + D(3)) cholecalciferol (vitamin D3) 25 25 mcg PO QAM 05/13/22 11/02/24 11/01/24 History mcg (1,000 unit) capsule (Vitamin D3) escitalopram oxalate 20 mg tablet 20 mg PO QAM 05/13/22 11/02/24 11/01/24 History aspirin 81 mg tablet,delayed 81 mg PO DAILY 10/23/22 11/02/24 11/01/24 History release calcitriol 0.25 mcg capsule See Rx Instructions .Route .COMPLEX 10/23/22 11/02/24 10/29/24 History vit B,C-folic ac 800 mcg-zinc 12.5 1 tab PO DAILY 10/23/22 11/02/24 11/01/24 History mg-selen-D3 2,000 unit-vit E tablet (RenaPlex-D) cinacalcet 60 mg tablet (Sensipar) 60 mg PO .3XW 08/23/24 11/02/24 10/29/24 History lanthanum 750 mg chewable tablet See Rx Instructions .Route .COMPLEX 08/23/24 11/02/24 11/01/24 History losartan 25 mg tablet 25 mg PO QPM 08/23/24 11/02/24 11/01/24 History apixaban 5 mg tablet (Eliquis) 5 mg PO BID@0900,2100 #180 tabs 10/28/24 11/02/24 10/31/24 Rx 5 mg diltiazem HCl 60 mg 60 mg PO BID #180 caps 10/28/24 11/02/24 11/01/24 Rx capsule,extended release 12 hr Allergies Allergy/AdvReac Type Severity Reaction Status Date / Time Latex, Natural Rubber Allergy ALGY-Rash Verified 11/01/24 21:31 PFSH Acute 2 PFSH: Medical History Pleural effusion Hypoxia Stage 5 chronic kidney disease Pleural effusion Hyponatremia Hypertension Pneumonia Acute respiratory failure with hypoxia Community acquired pneumonia ESRD (end stage renal disease) Surgical History H/O gastric bypass S/P TAVR (transcatheter aortic valve replacement) Social History Substance/Drug Use: never Vitals/I&O/Wt Last Vital Signs Temp 99.9 F H 11/01/24 21:18 Pulse 78 11/02/24 02:00 Resp 32 H 11/01/24 21:18 BP 156/70 11/02/24 02:00 Pulse Ox 97 11/02/24 02:00 O2 Del Method Nasal Cannula, Simple Mask 11/02/24 02:00 O2 Flow Rate 6 11/02/24 02:00 11/01/24 11/01/24 11/02/24 14:59 22:59 06:59 Intake Total 0 / 0 Balance 0 / 0 Weight last 48 hrs Weight 78 kg Physical Exam 2 Narrative: Euvolemic GCS 15 Currently on 5 L OxiMax Hypertensive Pleasant and cooperative Nonfocal neuroexam S1, S2 No signs of RVR Pleasant nonfocal neuroexam Abdomen soft Data 11/01/24 22:25 11/01/24 22:25 A&P Assessment and plan (1) S/P TAVR (transcatheter aortic valve replacement): (2) Paroxysmal atrial fibrillation with RVR: (3) Type 2 diabetes mellitus: (4) End-stage renal disease on hemodialysis: (5) Acute hyperkalemia: (6) COVID: (7) Acute hypoxic respiratory failure: Plan COVID-19 Acute hypoxia Currently on 5 L OxyMask Can wean off oxygen if oxygen saturation stays above 95% Afebrile Start remdesivir Decadron Recently diagnosed A-fib Currently not in RVR I will reduce the dose of Eliquis to 2.5 mg twice daily and continue Continue diltiazem End-stage renal disease Thursday No urgent need of dialysis she has been given hyperkalemia cocktail in the ER I will put a consult order for nephrology, please inform them in the morning Patient is seeing materials engineer and kidney transplant team in [facility] Patient lives alone at home, Consistent carb/renal diet along sliding scale Hypertension: Continue antihypertensive regimen I am anticipating if patient remains afebrile and oxycodone is not worsening she might be able to go home by Thursday Full code Renal diet consisting of diet Continue Eliquis Attestations 2 Medical Necessity Statement*: More than 2 midnights anticipated Diagnoses S/P TAVR (transcatheter aortic valve replacement) Z95.2 Paroxysmal atrial fibrillation with RVR I48.0 Type 2 diabetes mellitus E11.9 End-stage renal disease on hemodialysis N18.6; Z99.2 Acute hyperkalemia E87.5 COVID U07.1 Acute hypoxic respiratory failure J96.01
[2024-11-02 04:40] LABS: Basophils % 0.2 %; Hematocrit 28.1 % (36-47); Lymphocytes # 0.8 10^3/uL (0.8-4.8); Lymphocytes % 13.6 %; Mean Corpuscular HGB Conc 30.6 g/dL (30-55); Mean Corpuscular Hemoglobin 29.3 pg (27-33); Mean Corpuscular Volume 95.6 fl (85-98); Mean Platelet Volume 10.5 fL (7.4-10.4); Monocytes # 0.6 10^3/uL (0.2-0.9); Monocytes % 10.3 %; Neutrophils # 4.46 10^3/uL (1.8-7.7); Neutrophils % 75.6 %; Nucleated Red Blood Cells % 0 %; Platelet Count 217 10^3/cmm (157-399); Red Blood Count 2.94 10^6/uL (3.85-5.65); Red Cell Distribution Width 16.4 % (12.1-15.1)
[2024-11-02 04:59] LABS: Anion Gap 23.7 (5-19); Blood Urea Nitrogen 56 mg/dL (8-23); C Reactive Protein 33.8 mg/L (0.0-4.9); Calcium 9.1 mg/dL (8.5-10.5); Carbon Dioxide 19 mmol/L (22-29); Chloride 98 mmol/L (98-107); Creatinine Clr Calc Pharmacy 5.9469; Glomerular Filtration Rate 4.3 mL/min (90-130); Glucose 106 mg/dL (65-115); Osmolality Calculated 296 mOsm/kg (285-295); Potassium 5.7 mmol/L (3.5-5.1); Sodium 135 mmol/L (136-145)
[2024-11-02 05:04] LABS: Troponin 5 6HR 286.5 ng/L (0-10); Troponin 5 6HR Delta 193.5 ng/L (0-12)
--- NOTE | 2024-11-02 05:09 | PC.NURSE ---
patient had morning blood drawn that came back with a critical creatnine level of 9.1, a 6 hour troponin level of 286.5, and a delta troponin level of 193.5. dr carrasco notified, no response at this time. a critical lab value documented.
[2024-11-02] MEDS: dexamethasone 10 mg/mL INJ 6 MG PO (05:44)
--- NOTE | 2024-11-02 06:04 | ECG_ITS ---
[facility] Date: 2024-[facility]02 Pat Name: Tracie Corcoran Department: Room: 258 Gender: Female Catalog Librarian: : 1955 Requested By: Low Tariq Order Number: [id number] Jessi MD: Chapo Mccabe M.D. Measurements Intervals [place] Rate: 71 P: 53 ME: 118 QRS: 62 QRSD: 93 T: 73 QT: 423 QTc: 462 Interpretive Statements SINUS RHYTHM WITH SHORT ME INTERVAL Compared to ECG 11/01/2024 23:52:09 Short ME interval now present Electronically Signed On 11-04-2024 22:20:28 SOCIAL RESEARCH ASSISTANT by Chapo Mccabe M.D. [id number]
[2024-11-02 06:25] LABS: Glucose Point of Care 119 mg/dL (70-110)
[2024-11-02] MEDS: remdesivir 200 MG in sodium chloride 0.9% (100 ml) 60 ML 100 MG IV (06:50)
[2024-11-02] MEDS: apixaban 5 mg Tablet 2.5 MG PO (07:58)
[2024-11-02] MEDS: dilTIAZem ER (12HR) 60 mg Capsule PO ×2 (07:58→20:22)
--- NOTE | 2024-11-02 09:01 | PC.NURSE ---
Pt complaining of chest heaviness. Pt flipping back and forth from sinus rhythm, to afib with RVR. Dr. Polanco advised. New orders received to DC eliquis, start heparin gtt. Stat troponin, and stat EKG
--- NOTE | 2024-11-02 09:08 | P.CONIM_ITS ---
Providers/Reason For Consult 2 Consulting Physician/Specialty*: jazmine lozoya md / telenephrology Reason for Consult*: ESRD care Requesting Physician: DR Carmen and Dr Polanco Attending Physician: Carly Polanco MD Primary Care Provider: Jhon Schneider History of Present Illness History of Present Illness Tracie Corcoran is a 69 year old female history of ESRD on dialysis Thursday and Thursday. Recent diagnosis of atrial fibrillation and hospitalization for A-fib with RVR and started on Eliquis. It appears that she did not get her medications over the last few days. History of aortic stenosis status post TAVR. Patient also has history of gastric bypass. The patient presented emergency room initially with significant shortness of breath was diagnosed with COVID-19 pneumonia. Renal was called this morning to provide dialysis care. Review of Systems 2 Narrative: Shortness of breath orthopnea palpitations intermittently no headaches positive cough no chest pain denies fevers positive constipation no diarrhea no significant edema. Medications/Allergies Home Medications Medication Instructions Recorded Confirmed Last Taken Type atorvastatin 40 mg tablet 80 mg PO BEDTIME 05/13/22 11/02/24 11/01/24 History calcium 600 mg (as 1 tab PO QAM 05/13/22 11/02/24 11/01/24 History carbonate)-vitamin D3 10 mcg (400 unit) tablet (Calcium 600 + D(3)) cholecalciferol (vitamin D3) 25 25 mcg PO QAM 05/13/22 11/02/24 11/01/24 History mcg (1,000 unit) capsule (Vitamin D3) escitalopram oxalate 20 mg tablet 20 mg PO QAM 05/13/22 11/02/24 11/01/24 History aspirin 81 mg tablet,delayed 81 mg PO DAILY 10/23/22 11/02/24 11/01/24 History release calcitriol 0.25 mcg capsule See Rx Instructions .Route .COMPLEX 10/23/22 11/02/24 10/29/24 History vit B,C-folic ac 800 mcg-zinc 12.5 1 tab PO DAILY 10/23/22 11/02/24 11/01/24 History mg-selen-D3 2,000 unit-vit E tablet (RenaPlex-D) cinacalcet 60 mg tablet (Sensipar) 60 mg PO .3XW 08/23/24 11/02/24 10/29/24 History lanthanum 750 mg chewable tablet See Rx Instructions .Route .COMPLEX 08/23/24 11/02/24 11/01/24 History losartan 25 mg tablet 25 mg PO QPM 08/23/24 11/02/24 11/01/24 History apixaban 5 mg tablet (Eliquis) 5 mg PO BID@0900,2100 #180 tabs 10/28/24 11/02/24 10/31/24 Rx 5 mg diltiazem HCl 60 mg 60 mg PO BID #180 caps 10/28/24 11/02/24 11/01/24 Rx capsule,extended release 12 hr Allergies Allergy/AdvReac Type Severity Reaction Status Date / Time Latex, Natural Rubber Allergy ALGY-Rash Verified 11/01/24 21:31 Current Medications Generic Name Dose Route Start Last Admin Trade Name Freq PRN Reason Stop Dose Admin Dexamethasone 6 mg 11/02/24 03:45 11/02/24 05:44 Dexamethasone 10 Mg/Ml Inj PO 6 mg Q24H JAREK Administration Diltiazem HCl 60 mg 11/02/24 09:00 11/02/24 07:58 Diltiazem Er (12hr) 60 Mg Capsule PO 60 mg BID JAREK Administration Insulin Human Lispro 0 unit 11/02/24 08:00 11/02/24 06:44 Insulin Lispro 100 Unit/1 Ml SUBCUT Not Given TIDWM JAREK Protocol PFSH Acute 2 PFSH: Medical History Pleural effusion Hypoxia Stage 5 chronic kidney disease Pleural effusion Hyponatremia Hypertension Pneumonia Acute respiratory failure with hypoxia Community acquired pneumonia ESRD (end stage renal disease) Surgical History H/O gastric bypass S/P TAVR (transcatheter aortic valve replacement) Social History Substance/Drug Use: never Vitals/I&O/Wt Last Vital Signs Temp 97.9 F 11/02/24 08:01 Pulse 69 11/02/24 08:01 Resp 16 11/02/24 08:01 BP 150/63 11/02/24 08:01 Pulse Ox 94 11/02/24 08:01 O2 Del Method Nasal Cannula 11/02/24 08:01 O2 Flow Rate 0 11/02/24 08:00 11/01/24 11/02/24 11/02/24 22:59 06:59 14:59 Intake Total 0 / 0 480 / 480 220 / 220 Balance 0 / 0 480 / 480 220 / 220 Weight last 48 hrs Weight 83.943 kg Weight 83.007 kg Weight 82.809 kg Weight 78 kg Physical Exam 2 Narrative: Obese lady sitting up in bed in mild discomfort/respiratory shortness of breath. Vital signs noted. HEENT normocephalic atraumatic. Neck is supple. Lungs dull bases and crackles. Heart regular with systolic murmur positive S1-S2. Abdomen is soft positive bowel sounds. Extremities left upper extremity AV fistula with good thrill and bruit. Minimal edema. Neuro awake alert Oriented, interactive. Data 11/02/24 04:30 11/02/24 04:30 A&P Assessment and plan (1) End-stage renal disease on hemodialysis: 69-year-old lady history of obesity, gastric bypass, aortic stenosis status post TAVR, recent diagnosis of A-fib. Underlying diabetes hypertension. Patient presents with COVID-19 pneumonia. 1. COVID-19 as per hospitalist. If give remdesivir please renal dose. 2. Paroxysmal A-fib currently in normal sinus rhythm agree with Logan. 3. ESRD and volume overloaded we will dialyze today and remove fluids as tolerated on a 2K bath. 4. Blood pressure should improve with dialysis. 5. Diabetic care as per the hospitalist 6. Anemia check iron studies give low-dose Epogen. 7. Mild elevated troponin as per hospitalist patient has elevated BNP we will remove fluids on dialysis. 8. Normal recent TSH on October 27 The patient was seen and examined with the aid of a nurse using audiovisual equipment. The patient consented to hemodialysis and to telehealth visit. Plan COVID-19 pneumonia, volume overload, hypertension, ESRD, obesity and diabetes. Consult Attestations 2 Medical Necessity Statement: Respiratory distress hyperkalemia hypertension shortness of breath. Time Spent in Patient Care: Greater than 35 minutes (>than 50% of time spent in counselling and/or direct pt care on unit) . Coding Level of Care Code Acute Code for Chg Fwd Diagnoses End-stage renal disease on hemodialysis N18.6; Z99.2
[2024-11-02] MEDS: heparin 5,000 unit/mL INJ 1 mL IVP (09:18)
[2024-11-02] MEDS: heparin drip 25,000 UNIT/500 ML PREMIX 24 UNIT IV (09:19)
--- NOTE | 2024-11-02 09:19 | ECG_ITS ---
[facility] Date: 2024-11-02 Pat Name: Tracie Corcoran Department: Room: 258 Gender: Female Asphalt Tile Floor Layer: : 1955 Requested By: Carly Polanco Order Number: [id number] Jessi MD: Chapo Mccabe M.D. Measurements Intervals [place] Rate: 74 P: 48 VT: 154 QRS: 48 QRSD: 97 T: 79 QT: 412 QTc: 459 Interpretive Statements SINUS RHYTHM Compared to ECG 11/02/2024 06:04:47 Short VT interval no longer present Electronically Signed On 11-04-2024 22:03:40 ANTIQUE FURNITURE RESTORER by Chapo Mccabe M.D. [id number]
[2024-11-02 11:13] LABS: Troponin T (5th) Once 222 ng/L (0-10)
[2024-11-02 11:31] LABS: 25 Hydroxy Vitamin D 58 ng/mL (30-100)
[2024-11-02 11:47] LABS: Glucose Point of Care 305 mg/dL (70-110)
[2024-11-02] MEDS: insulin lispro 100 unit/1 mL SUBCUT ×2 (12:09→22:20)
--- NOTE | 2024-11-02 13:11 | PM.MISC ---
Miscellaneous Note Note: continue mgmt as per hnp complains of chest pressure that comes and goes, not associated with n/v positive for covid plan for dialysis today pt on 5L nc trop 222, delta trop 6 hours 200 cardiology consulted, await recommendations continue heparin drip x48 hours continue aspirin, atorvastatin, continue remdesivir
[2024-11-02 15:17] LABS: Cholesterol 116 mg/dL (0-200); HDL Cholesterol 58 mg/dL (60-100); LDL Cholesterol Calculated 44 mg/dL (50-129); LDL HDL Ratio 0.76 RATIO (0.00-3.22); Triglycerides 69 mg/dL (0-150)
--- NOTE | 2024-11-02 15:20 | P.CONIM_ITS ---
Providers/Reason For Consult 2 Consulting Physician/Specialty*: Dr. Cam Reason for Consult*: elevated troponin, afib rvr Requesting Physician: Dr. Ploanco Attending Physician: Carly Polanco MD History of Present Illness History of Present Illness Tracie Corcoran is a 69 year old female end-stage renal disease, s/p TAVR, type 2 diabetes. Thursday has dialysis, was recently discharged from the hospital after management of A-fib on Cardizem and Eliquis but patient stopped taking this. Her complaint with the Eliquis was that it caused her to be nauseas.Her main complaint was shortness of breath, although she reports chest pressure from time to time. Currently she is rate controlled on Cardizem and metoprolol. Patient is being evaluated at [facility] for kidney transplant and originally came in for shortness of breath. Troponins were positive [id number] delta positive. EKG showed sinus rhythm with no acute ST or t wave abnormalities. Currently on nasal cannula. At baseline she is not oxygen dependent. In the ER she received treatment for hyperkalemia. She is covid positive. Echo showed normal EF grade II/IV diastolic dysfunction, moderate mitral regurg. No regional wall motion abnormalities seen. VSS. Review of Systems 2 Narrative: Consitutional: denies fever, chills, body aches, or changes in appetite, denies abnormal weight loss Eyes: Denies changes in vision Card: Reports on and off chest pressure denies aggrivating or relieving factors, palpitations, irregular heart rhythm, edema, syncope, , orthopnea, leg pain with exertion Resp: REports cough, reports shortness of breath on exertion, denies hemoptysis GI: denies abdominal pain, denies nausea or voimting, denies blood in stool : denies blood in urine, denies dysuria Musc: Denies extremity pain, denies limited range of motion or recent injury Skin: Denies rash, lesions, or wounds, denies changes to skin color Neuro: Denies nubmness in extremities, h/a, s/s of stroke Christ: Denies easy bruiding/bleeding Medications/Allergies Home Medications Medication Instructions Recorded Confirmed Last Taken Type atorvastatin 40 mg tablet 80 mg PO BEDTIME 05/13/22 11/02/24 11/01/24 History calcium 600 mg (as 1 tab PO QAM 05/13/22 11/02/24 11/01/24 History carbonate)-vitamin D3 10 mcg (400 unit) tablet (Calcium 600 + D(3)) cholecalciferol (vitamin D3) 25 25 mcg PO QAM 05/13/22 11/02/24 11/01/24 History mcg (1,000 unit) capsule (Vitamin D3) escitalopram oxalate 20 mg tablet 20 mg PO QAM 05/13/22 11/02/24 11/01/24 History aspirin 81 mg tablet,delayed 81 mg PO DAILY 10/23/22 11/02/24 11/01/24 History release calcitriol 0.25 mcg capsule See Rx Instructions .Route .COMPLEX 10/23/22 11/02/24 10/29/24 History vit B,C-folic ac 800 mcg-zinc 12.5 1 tab PO DAILY 10/23/22 11/02/24 11/01/24 History mg-selen-D3 2,000 unit-vit E tablet (RenaPlex-D) cinacalcet 60 mg tablet (Sensipar) 60 mg PO .3XW 08/23/24 11/02/24 10/29/24 History lanthanum 750 mg chewable tablet See Rx Instructions .Route .COMPLEX 08/23/24 11/02/24 11/01/24 History losartan 25 mg tablet 25 mg PO QPM 08/23/24 11/02/24 11/01/24 History apixaban 5 mg tablet (Eliquis) 5 mg PO BID@0900,2100 #180 tabs 10/28/24 11/02/24 10/31/24 Rx 5 mg diltiazem HCl 60 mg 60 mg PO BID #180 caps 10/28/24 11/02/24 11/01/24 Rx capsule,extended release 12 hr Allergies Allergy/AdvReac Type Severity Reaction Status Date / Time Latex, Natural Rubber Allergy ALGY-Rash Verified 11/01/24 21:31 Current Medications Generic Name Dose Route Start Last Admin Trade Name Freq PRN Reason Stop Dose Admin Dexamethasone 6 mg 11/02/24 03:45 11/02/24 05:44 Dexamethasone 10 Mg/Ml Inj PO 6 mg Q24H JAREK Administration Diltiazem HCl 60 mg 11/02/24 09:00 11/02/24 07:58 Diltiazem Er (12hr) 60 Mg Capsule PO 60 mg BID JAREK Administration Heparin Sodium/Sodium Chloride 25,000 unit in 500 mls @ 0 mls/hr 11/02/24 09:00 11/02/24 09:19 Heparin Drip IV 14.46 unit/kg/hr CONT JAREK 24 mls/hr Administration Protocol Per Protocol Insulin Human Lispro 0 unit 11/02/24 08:00 11/02/24 12:09 Insulin Lispro 100 Unit/1 Ml SUBCUT 12 unit TIDWM JAREK Administration Protocol PFSH Acute 2 PFSH: Medical History Pleural effusion Hypoxia Stage 5 chronic kidney disease Pleural effusion Hyponatremia Hypertension Pneumonia Acute respiratory failure with hypoxia Community acquired pneumonia ESRD (end stage renal disease) Surgical History H/O gastric bypass S/P TAVR (transcatheter aortic valve replacement) Social History Substance/Drug Use: never Vitals/I&O/Wt Last Vital Signs Temp 97.9 F 11/02/24 12:02 Pulse 86 11/02/24 14:40 Resp 18 11/02/24 14:40 BP 145/72 11/02/24 12:02 Pulse Ox 95 11/02/24 14:40 O2 Del Method Nasal Cannula 11/02/24 14:40 O2 Flow Rate 4 11/02/24 14:40 11/02/24 11/02/24 11/02/24 06:59 14:59 22:59 Intake Total 480 / 480 340 / 340 Balance 480 / 480 340 / 340 Weight last 48 hrs Weight 185 lb 1 oz Weight 183 lb Weight 182 lb 9 oz Weight 171 lb 15.369 oz Physical Exam 2 Narrative: General: No apparent distress, healthy appearing, well nourished HENMT: normoceophalic Muskuloskeletal: Full ROM Lymphatic: no lymphedema noted Respiratory: Currently on O2, bilateral lower lobes diminished, no use of accessory muscles Cardio: No JVD, regular rate, regular rhythm, S1 S2 normal, no murmurs GI: Normal to inspection, nondistended Extremities: Full ROM, normal, normal capillary refill, no cyanosis or edema Neuro: Alert and oriented x4, no focal motor deficits Psych: Affect normal, denies suicidal ideation, mental status grossly normal Skin: No rashes or lesions noted, no wounds Data 11/02/24 04:30 11/02/24 04:30 Other data: Echo CONCLUSIONS Normal left ventricular size, systolic function and wall thickness, with no regional wall motion abnormalities. Left ventricular ejection fraction is estimated at 55 %. Grade II/IV diastolic dysfunction, moderately elevated filling pressures. Moderately increased left atrial size. Moderately thickened mitral valve. Moderate mitral annular calcification. Moderate mitral valve regurgitation [id number]-[id number] tricuspid valve regurgitation. Right atrial pressure is around 20 mm of mercury A&P Assessment and plan (1) Chest pain: Qualifiers: Chest pain type: unspecified Qualified Code(s): R07.9 - Chest pain, unspecified (2) New onset atrial fibrillation: (3) S/P TAVR (transcatheter aortic valve replacement): (4) Elevated troponin: Plan The plan for this very pleasant 69 year old female is to continue rate control for afib with metoprolol and diltiazem. At this time rate controlled. Continue heparin drip. Troponins elevated. Could be result of myocarditis, end stage renal disease, coronary ischemia. At this time, chest pain is atypical more like chest pressure. Patient is recovering from covid. EKG stable. We will continue to watch her. Should she develop worsening pain/ekg changes, may do angiogram. She may require this in the future prior to renal transplant as well. Echo showed normal EF. Planning on dialysis today to remove fluid. Thank you, Dr. Polanco, for allowing us to care for this very pleasant 69 year old female. Consult Attestations 2 Medical Necessity Statement: Deferred to primary. Coding Level of Care Code Acute Code for Chg Fwd Diagnoses Chest pain, unspecified type R07.9 Chest pain type: unspecified New onset atrial fibrillation I48.91 S/P TAVR (transcatheter aortic valve replacement) Z95.2 Elevated troponin R79.89
[2024-11-02 15:40] LABS: Hepatitis B Surface AB 479.3 (11.5-1000); Hepatitis B Surface Antigen Non-Reactive (Nonreactive); Hepatitis C Virus Antibody Non-Reactive (Nonreactive)
[2024-11-02 16:25] LABS: Glucose Point of Care 146 mg/dL (70-110)
[2024-11-02] MEDS: epoetin alfa 20,000 unit/mL MDV (ESRD) 5000 UNIT SUBCUT (16:40)
[2024-11-02 17:05] LABS: Partial Thromboplastin Time > 250.0 SECONDS (23.9-36.7)
[2024-11-02 20:54] LABS: Glucose Point of Care 215 mg/dL (70-110)
[2024-11-02 23:36] LABS: Glucose Point of Care 291 mg/dL (70-110)
[2024-11-03] VITALS (7 sets, daily range): BP systolic 106–135; BP diastolic 46–70; PULSE 55–71; RESP 16–18; TEMP 36.4–36.8; O2SAT 92–100
[2024-11-03] MEDS: dexamethasone 10 mg/mL INJ 6 MG PO (04:01)
[2024-11-03 06:10] LABS: Hematocrit 28.9 % (36-47); Lymphocytes # 0.6 10^3/uL (0.8-4.8); Lymphocytes % 16.6 %; Mean Corpuscular HGB Conc 31.5 g/dL (30-55); Mean Corpuscular Hemoglobin 28.8 pg (27-33); Mean Corpuscular Volume 91.5 fl (85-98); Mean Platelet Volume 10.2 fL (7.4-10.4); Monocytes # 0.3 10^3/uL (0.2-0.9); Neutrophils # 2.94 10^3/uL (1.8-7.7); Neutrophils % 76.1 %; Nucleated Red Blood Cells % 0 %; Platelet Count 218 10^3/cmm (157-399); Red Blood Count 3.16 10^6/uL (3.85-5.65); Red Cell Distribution Width 16.3 % (12.1-15.1); White Blood Count 3.86 10^3/uL (3.29-11.43)
[2024-11-03 06:16] LABS: Glucose Point of Care 192 mg/dL (70-110)
[2024-11-03 06:27] LABS: Alanine Aminotransferase 27 U/L (0-33); Albumin Level 3.3 g/dL (3.5-5.2); Alkaline Phosphatase 67 U/L (35-105); Anion Gap 19.5 (5-19); Aspartate Amino Transferase 25 U/L (0-32); Blood Urea Nitrogen 29 mg/dL (8-23); Calcium 9.1 mg/dL (8.5-10.5); Carbon Dioxide 26 mmol/L (22-29); Chloride 99 mmol/L (98-107); Globulin 2.9 g/dL (1.3-4.6); Glucose 169 mg/dL (65-115); Magnesium 2.2 mg/dL (1.7-2.3); Osmolality Calculated 300 mOsm/kg (285-295); Phosphorus 6.1 mg/dL (2.5-4.5); Potassium 4.5 mmol/L (3.5-5.1); Sodium 140 mmol/L (136-145); Total Bilirubin 0.5 mg/dL (0.15-1.2); Total Protein 6.2 g/dL (6.6-8.7)
[2024-11-03 06:44] LABS: Iron 103 ug/dL (37-145); Percent Saturation 63.1 % (20-50); Total Iron Binding Capacity 163 mcg/dl; Unsaturated Iron Binding 60 ug/dL (112-347)
[2024-11-03 06:49] LABS: Partial Thromboplastin Time > 250.0 SECONDS (23.9-36.7)
[2024-11-03 06:57] LABS: Ferritin 2012 ng/mL (15-150)
[2024-11-03 07:07] LABS: Calcium 9.3 mg/dL (8.5-10.5)
[2024-11-03 07:14] LABS: Parathyroid Hormone 187.6 pg/mL (15-65)
--- NOTE | 2024-11-03 07:37 | PC.NURSE ---
dr garner notified of critical lab result, heparin drip paused at 0650. ptt was greater than 250.
[2024-11-03] MEDS: metoprolol succinate ER (24 HR) 25 mg Tablet 12.5 MG PO (09:41)
[2024-11-03] MEDS: dilTIAZem ER (12HR) 60 mg Capsule PO ×2 (09:41→17:56)
[2024-11-03] MEDS: aspirin 81 mg EC Tablet PO (09:42)
[2024-11-03] MEDS: remdesivir 100 MG in sodium chloride 0.9% (100 ml) 80 ML IV (09:42)
--- NOTE | 2024-11-03 10:55 | PM.PN ---
Subjective Subjective: dec SOB. less edema. feels better, no edema. weak. remains on 5l NC02 Medications: Reviewed: Yes Medication Review Details: Current Medications Acetaminophen (Acetaminophen 500 Mg Tablet) 500 mg PO Q4H PRN PRN Reason: fever Albuterol/Ipratropium (Ipratropium-Albuterol 3 Ml Neb) 3 ml INHALATION Q6H PRN PRN Reason: SHORTNESS OF BREATH Aspirin (Aspirin 81 Mg Ec Tablet) 81 mg PO DAILY [facility] Last Admin: 11/03/24 09:42 Dose: 81 mg Calcitriol (Calcitriol 0.25 Mcg Capsule) 0.75 mcg PO TuThSa [facility] Dexamethasone (Dexamethasone 10 Mg/Ml Inj) 6 mg PO Q24H [facility] Last Admin: 11/03/24 04:01 Dose: 6 mg Diltiazem HCl (Diltiazem Er (12hr) 60 Mg Capsule) 60 mg PO BID [facility] Last Admin: 11/03/24 09:41 Dose: 60 mg Epoetin Yobani (Epoetin Yobani 20,000 Unit/Ml Mdv (Esrd)) 5,000 unit SUBCUT DIALYSIS [facility] Last Admin: 11/02/24 16:40 Dose: 5,000 unit Heparin Sodium (Porcine) (Heparin 5,000 Unit/Ml Inj 1 Ml) 0 unit IVP PRN PRN; Protocol PRN Reason: Heparin Weight Based Protocol -Subsequent Bolus Dextrose (D10w) 250 mls @ 1,000 mls/hr IV PRN PRN PRN Reason: HYPOGLYCEMIA Remdesivir 100 mg/ Sodium (Chloride) 100 mls @ 100 mls/hr IV Q24H [facility] Stop: 11/06/24 09:59 Last Admin: 11/03/24 09:42 Dose: 100 mls/hr Dextrose (D10w) 250 mls @ 1,000 mls/hr IV PRN PRN; Protocol PRN Reason: Adult Acute Hypoglycemia Nursing Protocol Heparin Sodium/Sodium Chloride (Heparin Drip) 25,000 unit in 500 mls @ 0 mls/hr IV CONT JAREK; Protocol Last Titration: 11/03/24 06:56 Dose: 0 unit/kg/hr, 0 mls/hr Insulin Human Lispro (Insulin Lispro 100 Unit/1 Ml) 0 unit SUBCUT TIDWM [facility]; Protocol Last Admin: 11/02/24 22:20 Dose: 6 unit Lorazepam (Lorazepam 2 Mg Tablet) 0.5 mg PO Q8H PRN PRN Reason: anxiety Metoprolol Succinate (Metoprolol Succinate Er (24 Hr) 25 Mg Tablet) 12.5 mg PO DAILY JAREK Last Admin: 11/03/24 09:41 Dose: 12.5 mg Non-Formulary Medication (Cinacalcet [Sensipar]) 60 mg PO .3XW JAREK Ondansetron HCl (Ondansetron 2 Mg/Ml Sdv 2 Ml) 4 mg IVP Q6H PRN PRN Reason: NAUSEA AND VOMITING Vitals/I&O/Wt Last Vital Signs Temp 97.6 F 11/03/24 07:43 Pulse 63 11/03/24 09:44 Resp 18 11/03/24 09:44 BP 133/62 11/03/24 07:43 Pulse Ox 97 11/03/24 09:44 O2 Del Method Nasal Cannula 11/03/24 09:44 O2 Flow Rate 4 11/03/24 09:44 11/02/24 11/03/24 11/03/24 22:59 06:59 14:59 Intake Total 248.4 / 588.4 781.6 / 1370.0 236 / 236 Balance 248.4 / 588.4 781.6 / 1370.0 236 / 236 Weight last 48 hrs Weight 82.418 kg Weight 83.943 kg Weight 83.007 kg Weight 82.809 kg Weight 78 kg Physical Exam Narrative: Obese lady sitting up in bed in using NC02. Vital signs noted. HEENT normocephalic atraumatic. Neck is supple. Lungs dull bases and crackles. Heart irregular with systolic murmur positive S1-S2. Abdomen is soft positive bowel sounds. Extremities left upper extremity AV fistula with good thrill and bruit. Minimal edema. Neuro awake alert Oriented, interactive. Data 11/03/24 06:00 11/03/24 06:00 A&P Assessment and plan (1) End-stage renal disease on hemodialysis: 69-year-old lady history of obesity, gastric bypass, aortic stenosis status post TAVR, recent diagnosis of A-fib. Underlying diabetes hypertension. Patient presents with COVID-19 pneumonia. 1. COVID-19 as per hospitalist. remdesivir - please renal dose for ESRD. 2. Paroxysmal A-fib - agree with Eliquis. S/P TAVR 3. ESRD and volume overloaded -s/p HD yesterday. repeat dialysis tomorrow. consider extra over the weekend. 4. Blood pressure improved with dialysis and medications. 5. Diabetic care as per the hospitalist 6. Anemia- iron sat 63%, ferritin 2011. no iron. use low-dose Epogen. 7. echo- Grade II/ IV diastolic dysfunction and moderate MR -elevated BNP we will remove fluids on dialysis. 8. Normal recent TSH on October 27 9. phos binders. pth 187- good for ESRD- no vit d analouges- hold calcitriol and cinacalcet The patient was seen and examined with the aid of a nurse using audiovisual equipment. The patient consented to hemodialysis and to telehealth visit. Plan COVID-19 pneumonia, volume overload, hypertension, ESRD, obesity and diabetes. Attestations Medical Necessity Statement*: ESRD, COVID-19, hypoxemia Time Spent in Patient Care: 16 - 35 minutes (>than 50% of time spent in counselling and/or direct pt care on unit). Coding Level of Care Code Acute Code for Chg Fwd Diagnoses End-stage renal disease on hemodialysis N18.6; Z99.2
[2024-11-03 11:17] LABS: Partial Thromboplastin Time 64.6 SECONDS (23.9-36.7)
[2024-11-03 11:38] LABS: Glucose Point of Care 367 mg/dL (70-110)
--- NOTE | 2024-11-03 12:19 | USCV_ITS ---
Tracie Corcoran Age: 69 Gender: F : 1955 Exam Date: 11/03/2024 14:41 Ordering Phys: Carly Polanco MD Technologist: Exam Location: [facility] Indication: nstemi BP: / HR: Rhythm: Sinus Technical Quality: Adequate MEASUREMENTS (Male / Female) Normal Values 2D ECHO LV Diastolic Diameter PLAX 4.8 cm 4.2 - 5.9 / 3.9 - 5.3 cm IVS Diastolic Thickness 1.4 cm 0.6 - 1.0 / 0.6 - 0.9 cm IVS Systolic Thickness 1.4 cm LVPW Diastolic Thickness 1.6 cm 0.6 - 1.0 / 0.6 - 0.9 cm LVPW Systolic Thickness 1.8 cm LVOT Diameter 1.8 cm LV Ejection Fraction 2D Teich 67.8 % LV Ejection Fraction MOD 4C 54.4 % LV Ejection Fraction MOD 2C 61.8 % LV Ejection Fraction 2C AL 63.4 % LA Diameter 4.8 cm RA Systolic Volume 4C AL 46.3 ml RA Systolic Volume 4C MOD 47.5 ml Aorta at Sinotubular Diameter 2.5 cm IVC Diameter 1.9 cm FINDINGS Left Ventricle Right Ventricle Right Atrium Left Atrium Mitral Valve Aortic Valve Tricuspid Valve Pulmonic Valve Pericardium Aorta IVC CONCLUSIONS Limited echocardiogram performed to assess LV systolic function. LV systolic function is normal with EF 55 to 60%. No regional wall motion abnormalities are seen. Moderate mitral annular calcification. No changes from prior echo done on 10/28/2024 Chapo Mccabe MD (Electronically Signed) Final Date: 04 November 2024 07:51 S
[2024-11-03] MEDS: insulin lispro 100 unit/1 mL SUBCUT ×2 (12:43→17:56)
--- NOTE | 2024-11-03 16:13 | P.PN_ITS ---
Subjective 2 Subjective: seen today still requiring 3L NC dialysis planned today denies chest pain Vitals/I&O/Wt Last Vital Signs Temp 97.6 F 11/03/24 11:32 Pulse 55 L 11/03/24 11:32 Resp 16 11/03/24 11:32 BP 124/70 11/03/24 11:32 Pulse Ox 99 11/03/24 11:32 O2 Del Method Nasal Cannula 11/03/24 11:32 O2 Flow Rate 5 11/03/24 11:32 11/03/24 11/03/24 11/03/24 06:59 14:59 22:59 Intake Total 781.6 / 1870.0 454 / 454 Balance 781.6 / -680.0 454 / 454 Weight last 48 hrs Weight 82.418 kg Weight 85.1 kg Weight 83.943 kg Weight 83.007 kg Weight 82.809 kg Weight 78 kg Physical Exam 2 Narrative: Euvolemic GCS 15 Currently on 3 L OxiMax Hypertensive Pleasant and cooperative Nonfocal neuroexam S1, S2 No signs of RVR Pleasant nonfocal neuroexam Abdomen soft lungs clear to auscultation Data 11/04/24 04:20 11/04/24 04:20 A&P Assessment and plan (1) S/P TAVR (transcatheter aortic valve replacement): (2) Paroxysmal atrial fibrillation with RVR: (3) Type 2 diabetes mellitus: (4) End-stage renal disease on hemodialysis: (5) Acute hyperkalemia: (6) COVID: (7) Acute hypoxic respiratory failure: Plan COVID-19 Acute hypoxia Currently on 5 L OxyMask Can wean off oxygen if oxygen saturation stays above 95% Afebrile Start remdesivir Decadron Recently diagnosed A-fib Currently not in RVR I will reduce the dose of Eliquis to 2.5 mg twice daily and continue Continue diltiazem End-stage renal disease Thursday No urgent need of dialysis she has been given hyperkalemia cocktail in the ER I will put a consult order for nephrology, please inform them in the morning 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 stop at 48 hours cardiology following Attestations 2 Medical Necessity Statement*: continue to tx for nstemi and covid Diagnoses S/P TAVR (transcatheter aortic valve replacement) Z95.2 Paroxysmal atrial fibrillation with RVR I48.0 Type 2 diabetes mellitus E11.9 End-stage renal disease on hemodialysis N18.6; Z99.2 Acute hyperkalemia E87.5 COVID U07.1 Acute hypoxic respiratory failure J96.01
[2024-11-03 17:54] LABS: Glucose Point of Care 288 mg/dL (70-110)
[2024-11-03] MEDS: heparin, porcine 1,000 unit/mL INJ 10 mL 1000 UNIT IV (21:23)
[2024-11-03 21:35] LABS: Glucose Point of Care 235 mg/dL (70-110)
[2024-11-03] MEDS: heparin drip 25,000 UNIT/500 ML PREMIX 20 UNIT IV (21:39)
[2024-11-03 21:46] LABS: Partial Thromboplastin Time 43.9 SECONDS (23.9-36.7)
[2024-11-04] VITALS: BP 124/57; PULSE 58; RESP 17; TEMP 36.6; O2SAT 95
[2024-11-04] MEDS: dexamethasone 10 mg/mL INJ 6 MG PO (03:54)
[2024-11-04 04:00] VITALS: BP 121/61; PULSE 55; RESP 17; TEMP 36.3; O2SAT 94
[2024-11-04 05:29] LABS: Lymphocytes % 17.4 %; Mean Corpuscular HGB Conc 31.1 g/dL (30-55); Mean Corpuscular Hemoglobin 28.5 pg (27-33); Mean Corpuscular Volume 91.8 fl (85-98); Mean Platelet Volume 11.2 fL (7.4-10.4); Monocytes # 0.4 10^3/uL (0.2-0.9); Monocytes % 7.5 %; Neutrophils # 4.08 10^3/uL (1.8-7.7); Neutrophils % 74.9 %; Nucleated Red Blood Cells % 0 %; Platelet Count 229 10^3/cmm (157-399); Red Blood Count 3.05 10^6/uL (3.85-5.65); Red Cell Distribution Width 16.2 % (12.1-15.1); White Blood Count 5.45 10^3/uL (3.29-11.43)
[2024-11-04 06:03] LABS: Partial Thromboplastin Time > 250.0 SECONDS (23.9-36.7)
[2024-11-04 06:04] LABS: Alanine Aminotransferase 27 U/L (0-33); Albumin Level 3.4 g/dL (3.5-5.2); Alkaline Phosphatase 77 U/L (35-105); Anion Gap 21.6 (5-19); Aspartate Amino Transferase 24 U/L (0-32); Blood Urea Nitrogen 54 mg/dL (8-23); Carbon Dioxide 23 mmol/L (22-29); Chloride 96 mmol/L (98-107); Globulin 2.8 g/dL (1.3-4.6); Glomerular Filtration Rate 5.9 mL/min (90-130); Glucose 232 mg/dL (65-115); Magnesium 2.2 mg/dL (1.7-2.3); Osmolality Calculated 304 mOsm/kg (285-295); Potassium 4.6 mmol/L (3.5-5.1); Sodium 136 mmol/L (136-145); Total Bilirubin 0.5 mg/dL (0.15-1.2); Total Protein 6.2 g/dL (6.6-8.7)
--- NOTE | 2024-11-04 06:11 | PC.NURSE ---
patient had a critical PTT this morningof greater than 250. heparin drip paused and dr notified of critical lab value and waiting for further orders
--- NOTE | 2024-11-04 06:31 | PC.NURSE ---
dr carrasco called to report critical ptt on diaz manley but no answer. a message also sent thru voalte, and no response
[2024-11-04 06:39] LABS: Glucose Point of Care 237 mg/dL (70-110)
[2024-11-04 07:56] VITALS: BP 123/53; PULSE 60; TEMP 36.4; O2SAT 95
[2024-11-04] MEDS: insulin lispro 100 unit/1 mL SUBCUT ×2 (08:53→11:50)
[2024-11-04] MEDS: aspirin 81 mg EC Tablet PO (08:53)
[2024-11-04] MEDS: dilTIAZem ER (12HR) 60 mg Capsule PO (08:53)
[2024-11-04] MEDS: metoprolol succinate ER (24 HR) 25 mg Tablet 12.5 MG PO (08:53)
[2024-11-04 09:02] VITALS: PULSE 78; RESP 16; O2SAT 97
[2024-11-04] MEDS: remdesivir 100 MG in sodium chloride 0.9% (100 ml) 80 ML IV (10:00)
--- NOTE | 2024-11-04 11:21 | P.PN_ITS ---
Subjective 2 Subjective: no new complaints Medications: Reviewed: Yes Vitals/I&O/Wt Last Vital Signs Temp 97.6 F 11/04/24 07:56 Pulse 78 11/04/24 09:02 Resp 16 11/04/24 09:02 BP 123/53 11/04/24 07:56 Pulse Ox 97 11/04/24 09:02 O2 Del Method Room Air 11/04/24 09:02 O2 Flow Rate 5 11/03/24 11:32 11/03/24 11/04/24 11/04/24 22:59 06:59 14:59 Intake Total 390.333 / 844.333 340 / 340 Balance 390.333 / 844.333 340 / 340 Weight last 48 hrs Weight 84.907 kg Weight 82.418 kg Weight 85.1 kg Physical Exam 2 Narrative: Obese lady sitting up in bed in using NC02. Vital signs noted. HEENT normocephalic atraumatic. Neck is supple. Lungs dull bases and crackles. Heart irregular with systolic murmur positive S1-S2. Abdomen is soft positive bowel sounds. Extremities left upper extremity AV fistula with good thrill and bruit. Minimal edema. Neuro awake alert Oriented, interactive. Data 11/04/24 04:20 11/04/24 04:20 A&P Assessment and plan (1) End-stage renal disease on hemodialysis: 69-year-old lady history of obesity, gastric bypass, aortic stenosis status post TAVR, recent diagnosis of A-fib. Underlying diabetes hypertension. Patient presents with COVID-19 pneumonia. 1. COVID-19 as per hospitalist. remdesivir - please renal dose for ESRD. 2. Paroxysmal A-fib - agree with Eliquis. S/P TAVR 3. ESRD and volume overloaded -HD today 4. Blood pressure improved with dialysis and medications. 5. Diabetic care as per the hospitalist 6. Anemia- iron sat 63%, ferritin 2011. no iron. use low-dose Epogen. 7. echo- Grade II/ IV diastolic dysfunction and moderate MR -elevated BNP we will remove fluids on dialysis. 8. Normal recent TSH on October 27 9. phos binders. pth 187- good for ESRD- no vit d analouges- hold calcitriol and cinacalcet The patient was seen and examined with the aid of a nurse using audiovisual equipment. The patient consented to hemodialysis and to telehealth visit. Plan COVID-19 pneumonia, volume overload, hypertension, ESRD, obesity and diabetes. Attestations 2 Medical Necessity Statement*: per grzegorz Coding Level of Care Code Acute Code for Chg Fwd Diagnoses End-stage renal disease on hemodialysis N18.6; Z99.2
[2024-11-04 11:30] LABS: Glucose Point of Care 434 mg/dL (70-110)
[2024-11-04 11:50] LABS: Partial Thromboplastin Time 36.8 SECONDS (23.9-36.7)
--- NOTE | 2024-11-04 12:35 | PC.SOCIAL ---
IMM Updated Updated pt on IMM. No questions voiced. Provided pt a copy. Initialed, dated, & timed a copy & placed in chart.
--- NOTE | 2024-11-04 13:03 | P.DS_ITS ---
Discharge Providers Date of Admission: 11/02/24 01:17 Date of Discharge: November 04, 2024 Attending Provider at Admission: Gt Carmen MD Attending Provider at Discharge: Carly Polanco MD Primary Care Provider: Jhon Schneider Diagnoses at Discharge Discharge Diagnosis (1) End-stage renal disease on hemodialysis: Status: Acute Reason for Visit Reason for Visit: SOB Hospital Course Hospital Course Patient presented to the hospital with acute hypoxia requiring 5 L nasal cannula. She was diagnosed with COVID-19. She is also dialysis patient and was dialyzed in the hospital. Was found to have NSTEMI and treated with heparin drip x 48 hours. Seen by cardiology. No procedures planned at this time. Plan to follow-up as an outpatient. She was recently diagnosed with atrial fibrillation at a previous visit and was started on 5 Eliquis. She stated she was not taking her Eliquis as directed as it made her nauseous apparently. She would like to take a reduced dose of 2.5 twice daily. Doses was changed as per patient request however she was counseled that therapeutic doses 5 twice daily. She is supposed to get a kidney transplant in the near future as she is on the transplant list. She is following up at [facility] for that. She will be discharged home at this time as she is back to room air. Limited echocardiogram was also obtained which did not show any wall motion abnormalities. Outpatient cardiology consult provided. Physical Exam Narrative: Obese lady sitting up in bed on room air. Vital signs noted. HEENT normocephalic atraumatic. Neck is supple. Lungs clear to auscultation bilaterally no wheezes no rhonchi Heart irregular with systolic murmur positive S1-S2. Abdomen is soft positive bowel sounds. Extremities left upper extremity AV fistula with good thrill and bruit. Minimal edema. Neuro awake alert Oriented, interactive. Discharge Data Studies Completed and Pending Completed Studies During Hospitalization Category Date Time Status XR chest 1V portable [id number] Stat Exams 11/01/24 21:24 Completed CV. echo limited [id number] Routine Ultrasound 11/03/24 12:19 Completed Pending at discharge Category Date Time Status Complete Blood Count w/Auto AM LABS Lab 11/05/24 04:00 Ordered Comprehensive Metabolic Panel AM LABS Lab 11/05/24 04:00 Ordered Magnesium AM LABS Lab 11/05/24 04:00 Ordered Phosphorus AM LABS Lab 11/05/24 04:00 Ordered Radiology Impressions Chest X-Ray 11/01/24 21:24 IMPRESSION: Mild interstitial pulmonary edema. Laboratory Results WBC 5.45 10^3/uL (3.29-11.43) 11/04/24 04:20 RBC 3.05 10^6/uL (3.85-5.65) L 11/04/24 04:20 Hgb 8.70 g/dL (11.27-16.99) L 11/04/24 04:20 Hct 28.0 % (36-47) L 11/04/24 04:20 MCV 91.8 fl (85-98) 11/04/24 04:20 MCH 28.5 pg (27-33) 11/04/24 04:20 MCHC 31.1 g/dL (30-55) 11/04/24 04:20 RDW 16.2 % (12.1-15.1) H 11/04/24 04:20 Plt Count 229 10^3/cmm (157-399) 11/04/24 04:20 MPV 11.2 fL (7.4-10.4) H 11/04/24 04:20 Neut % (Auto) 74.9 % 11/04/24 04:20 Lymph % (Auto) 17.4 % 11/04/24 04:20 Banks % (Auto) 7.5 % 11/04/24 04:20 Eos % (Auto) 0.0 % 11/04/24 04:20 Baso % (Auto) 0.0 % 11/04/24 04:20 Neut # (Auto) 4.08 10^3/uL (1.8-7.7) 11/04/24 04:20 Lymph # (Auto) 1.0 10^3/uL (0.8-4.8) 11/04/24 04:20 Banks # (Auto) 0.4 10^3/uL (0.2-0.9) 11/04/24 04:20 Eos # (Auto) 0.0 10^3/uL (0.0-0.8) 11/04/24 04:20 Baso # (Auto) 0.0 10^3/uL (0.0-0.1) 11/04/24 04:20 Nucleated RBC % (auto) 0 % 11/04/24 04:20 Nucleated RBCs # 0.0 /100WBC 11/04/24 04:20 APTT 36.8 SECONDS (23.9-36.7) H D 11/04/24 11:04 Specimen Type Arterial 11/01/24 22:09 Sample Site Brachial, right 11/01/24 22:09 ABG pH 7.42 (7.35-7.45) 11/01/24 22:09 ABG pCO2 32.7 mmHg (35-45) L 11/01/24 22:09 ABG pO2 88.6 mmHg (80.0-100.0) 11/01/24 22:09 ABG HCO3 21.1 mmol/L (22-26) L 11/01/24 22:09 ABG O2 Saturation 95.6 11/01/24 22:09 ABG Base Excess -2.8 mmol/L (-2.0-2.0) L 11/01/24 22:09 Collin Test N/a 11/01/24 22:09 A-a O2 Gradient 2.6 mmHg (5-10) L 11/01/24 22:09 Hematocrit 31.6 % (37-47) L 11/01/24 22:09 Hgb O2 Saturation 93.8 % (95-100) L 11/01/24 22:09 Carboxyhemoglobin 0.3 %THgb (0.4-20.1) L 11/01/24 22:09 Methemoglobin 1.5 % (0.4-1.5) 11/01/24 22:09 Total Hemoglobin 10.3 g/dL (12-16) L 11/01/24 22:09 Sodium 139.0 mmol/L (131-143) 11/01/24 22:09 Potassium 5.6 mmol/L (3.5-5.0) H 11/01/24 22:09 Glucose 248.0 mg/dL (70-115) H 11/01/24 22:09 Ionized Calcium 1.1 mmol/L (1.1-1.4) 11/01/24 22:09 O2 Delivery Device Oxy mask 11/01/24 22:09 O2 Liters/Min 13.0 % 11/01/24 22:09 Sales Account Coordinator ID [id number] 11/01/24 22:09 Sodium 136 mmol/L (136-145) 11/04/24 04:20 Potassium 4.6 mmol/L (3.5-5.1) 11/04/24 04:20 Chloride 96 mmol/L (98-107) L 11/04/24 04:20 Carbon Dioxide 23 mmol/L (22-29) 11/04/24 04:20 Anion Gap 21.6 (5-19) H 11/04/24 04:20 BUN 54 mg/dL (8-23) H 11/04/24 04:20 Creatinine 6.9 mg/dL (0.5-0.9) H* 11/04/24 04:20 GFR Calculation 5.9 mL/min (90-130) L 11/04/24 04:20 Glucose 232 mg/dL (65-115) H 11/04/24 04:20 POC Glucose 434 mg/dL (70-110) H 11/04/24 11:28 Calculated Osmolality 304 mOsm/kg (285-295) H 11/04/24 04:20 Lactic Acid 1.9 mmol/L (0.5-2.2) 11/01/24 22:25 Calcium 9.0 mg/dL (8.5-10.5) 11/04/24 04:20 Phosphorus 6.0 mg/dL (2.5-4.5) H 11/04/24 04:20 Magnesium 2.2 mg/dL (1.7-2.3) 11/04/24 04:20 Iron 103 ug/dL (37-145) 11/03/24 06:00 TIBC 163 mcg/dl 11/03/24 06:00 % Saturation 63.1 % (20-50) H 11/03/24 06:00 Unsat Iron Binding 60 ug/dL (112-347) L 11/03/24 06:00 Ferritin 2012 ng/mL (15-150) H 11/03/24 06:00 Total Bilirubin 0.5 mg/dL (0.15-1.2) 11/04/24 04:20 AST 24 U/L (0-32) 11/04/24 04:20 ALT 27 U/L (0-33) 11/04/24 04:20 Alkaline Phosphatase 77 U/L (35-105) 11/04/24 04:20 Troponin T 5th Gen ng/L 222 ng/L (0-10) H* 11/02/24 09:56 Troponin T Baseline 93 ng/L (0-10) H 11/01/24 22:25 Troponin T 120 Minute 196.0 ng/L (0-10) H 11/02/24 00:32 Delta Troponin T 103.0 ABS# (0-10) H* 11/02/24 00:32 Troponin T Hi Sens 6Hr 286.5 ng/L (0-10) H 11/02/24 04:30 Troponin T Hi Sens 6Hr Delta 193.5 ng/L (0-12) H* 11/02/24 04:30 C-Reactive Protein 33.8 mg/L (0.0-4.9) H 11/02/24 04:30 NT-Pro-B Natriuret Pep 08450 pg/mL (0-125) H 11/01/24 22:25 Total Protein 6.2 g/dL (6.6-8.7) L 11/04/24 04:20 Albumin 3.4 g/dL (3.5-5.2) L 11/04/24 04:20 Globulin 2.8 g/dL (1.3-4.6) 11/04/24 04:20 Triglycerides 69 mg/dL (0-150) 11/02/24 04:30 Cholesterol 116 mg/dL (0-200) 11/02/24 04:30 LDL Cholesterol, Calc 44 mg/dL (50-129) L 11/02/24 04:30 HDL Cholesterol 58 mg/dL (60-100) L 11/02/24 04:30 LDL/HDL Ratio 0.76 RATIO (0.00-3.22) 11/02/24 04:30 Cholesterol/HDL Ratio 2.00 mg/dL (0.0-4.40) 11/02/24 04:30 25-OH Vitamin D Total 58 ng/mL (30-100) 11/02/24 09:56 PTH Intact 187.6 pg/mL (15-65) H 11/03/24 06:00 Calcium (PTH Intact) 9.3 mg/dL (8.5-10.5) 11/03/24 06:00 Coronavirus (PCR) Positive (Negative) A 11/01/24 21:45 Hep Bs Antigen Non-reactive (Nonreactive) 11/02/24 09:56 Hep Bs Antibody 479.3 (11.5-1000) 11/02/24 09:56 Hepatitis C Antibody Non-reactive (Nonreactive) 11/02/24 09:56 Influenza A (PCR) Negative (Negative) 11/01/24 21:45 Influenza Type B (PCR) Negative (Negative) 11/01/24 21:45 RSV (PCR) Negative (Negative) 11/01/24 21:45 Vitals Last Vital Signs Temp 97.6 F 11/04/24 07:56 Pulse 78 11/04/24 09:02 Resp 16 11/04/24 09:02 BP 123/53 11/04/24 07:56 Pulse Ox 97 11/04/24 09:02 O2 Del Method Room Air 11/04/24 09:02 O2 Flow Rate 5 11/03/24 11:32 Discharge Plan Discharge Patient Disposition: Home Condition: Stable Prescriptions: New metoprolol succinate 25 mg Tablet Extended Release 24 Hr 12.5 mg PO DAILY Qty: 30 0RF Eliquis 2.5 mg tablet 2.5 mg PO BID Qty: 30 0RF Continued atorvastatin 40 mg Tablet 80 mg PO BEDTIME cholecalciferol (vitamin D3) [Vitamin D3] 25 mcg (1,000 unit) Capsule 25 mcg PO QAM escitalopram oxalate 20 mg Tablet 20 mg PO QAM calcium carbonate-vitamin D3 [Calcium 600 + D(3)] 600 mg-10 mcg (400 unit) Tablet 1 tab PO QAM aspirin 81 mg Tablet,Delayed Release (Dr/Ec) 81 mg PO DAILY calcitriol 0.25 mcg capsule See Rx Instructions .ROUTE .COMPLEX Rx Instructions: 75 MG ONLY ON DIALYSIS DAYS, Thursday, , Thursday RenaPlex-D 800 mcg-12.5 mg -2,000 unit tablet 1 tab PO DAILY cinacalcet [Sensipar] 60 mg Tablet 60 mg PO .3XW Rx Instructions: takes thursday , and thursday before dialysis losartan 25 mg tablet 25 mg PO QPM lanthanum 750 mg tablet,chewable See Rx Instructions .ROUTE .COMPLEX Rx Instructions: chew 3tablets by mouth before each meal and 2 tablets before each snack daily diltiazem HCl 60 mg capsule,extended release 12 hr 60 mg PO BID Qty: 180 0RF Discontinued Eliquis 5 mg Tablet 5 mg PO BID@0900,2100 Qty: 180 0RF Patient Comments: patient states she stopped taking this med because it made her have a dry non productive cough and made her shake Discharge Orders: Discharge Order (Routine); Ordered 11/04/24 Ordered By: Carly Polanco [facility]] Celia Rasmussen NP [Nurse Practitioner] - 11/07/24 3:30 pm () Jhon Schneider [Primary Care Provider] - 11/08/24 9:20 am () Discharge Diet: Cardiac and Diabetic Discharge Activity: Resume usual activity Patient Instructions: Metoprolol (By mouth), Apixaban (By mouth), Dialysis Nutrition Plan (DC), Prevent Infections (GEN), How To Wash Your Hands (DC), Droplet Precautions (GEN), Hemodialysis (DC), Opioid Safety Discharge Attestations Time Spent in Discharge Care*: greater than 30 min Quality Metrics Clinical Quality Measures [ No reported AMI, CVA or VTE this stay] Coding Level of Care Code Acute Code for Chg Fwd Diagnoses End-stage renal disease on hemodialysis N18.6; Z99.2
[2024-11-04 14:55] VITALS: BP 123/53; PULSE 60; RESP 16; TEMP 36.4; O2SAT 95
== END 2024-11-04 14:40 | disposition home or self-care (01) | DRG 177 ==
LOC: ER 11-02 01:41 → MEDSURG 11-02 02:01
PROVIDERS: Internal Medicine Nephrology; Nurse Practitioner Family; Admitting Provider Internal Medicine; Emergency Provider Emergency Medicine; PCP Family Medicine; Visit Provider Internal Medicine
DX: U07.1 COVID-19 (principal); I21.4 Non-ST elevation (NSTEMI) myocardial infarction; N18.6 End stage renal disease; J96.01 Acute respiratory failure with hypoxia; I12.0 Hypertensive chronic kidney disease with stage 5 chronic kidney disease or end stage renal disease; E11.22 Type 2 diabetes mellitus with diabetic chronic kidney disease; I48.0 Paroxysmal atrial fibrillation; T45.516A Underdosing of anticoagulants, initial encounter; E87.5 Hyperkalemia; E66.9 Obesity, unspecified; Z68.33 Body mass index [BMI] 33.0-33.9, adult; D64.9 Anemia, unspecified; Z99.2 Dependence on renal dialysis; Z95.2 Presence of prosthetic heart valve; Z98.84 Bariatric surgery status
CPT/HCPCS: 0241U; 36415; 36416; 71045; 80048; 80051; 80053; 80061; 82306; 82310; 82330; 82728; 82805; 82962; 83540; 83550; 83605; 83735; 83880; 83970; 84100; 84484; 85025; 85730; 86140; 86706; 86803; 87340; 90935; 93005; 93308; 94664; 96372; 96374; 96375; 99285; J0248; J1100; J1644; J1650; J1815; J1940; J3490; Q3014; Q4081

== ENCOUNTER 2024-11-29 10:50 | Emergency (ER) | payer MEDICARE, SELFPAY ==
[2024-11-29 10:59] VITALS: BP 162/72; PULSE 66; TEMP 37.2; O2SAT 100; BMI 30.3
--- NOTE | 2024-11-29 11:34 | XRR_ITS ---
PROCEDURE INFORMATION: Exam: XR Left Wrist Exam date and time: 11/29/2024 11:37 AM Age: 69 years old Clinical indication: Injury or trauma; Fall; Blunt trauma (contusions or hematomas); Wrist; Left TECHNIQUE: Imaging protocol: Radiologic exam of the left wrist. Views: 3 or more views. Frontal Oblique Lateral COMPARISON: No relevant prior studies available. FINDINGS: Bones/joints: Diffusely severely decreased bone density. Limited sensitivity to detect acute abnormalities. Age-indeterminate fractures identified within the proximal aspect of the 5th digit middle phalanx. Fracture lines involve the proximal articular surface. Possible acute or chronic fractures. Mild to moderate generalized bony degenerative changes. No other bony fractures or dislocation. Soft tissues: Diffuse mild to moderate soft tissue edema. Vasculature: Severe diffuse atherosclerotic arterial vascular wall calcifications are demonstrated. Other findings: External artifact overlies the area of interest. Limited study. Notes: If there is further concern, followup radiographs or MRI of the wrist may be performed for complete assessment. XR/XR wrist LT min 3V* [id number] IMPRESSION: 1. Age-indeterminate fractures involving the 5th digit middle phalanx and involving the proximal articular surface. Possible acute or chronic fractures. 2. Chronic bony degenerative changes. Decreased bone density. 3. Soft tissue edema. 4. Arterial vascular calcifications.
--- NOTE | 2024-11-29 11:34 | XRR_ITS ---
PROCEDURE INFORMATION: Exam: XR Right Knee Exam date and time: 11/29/2024 11:37 AM Age: 69 years old Clinical indication: Injury or trauma; Fall; Blunt trauma; Knee; Right TECHNIQUE: Imaging protocol: Radiologic exam of the right knee. Views: 3 views. AP Obilque Lateral COMPARISON: No relevant prior studies available. FINDINGS: Bones/joints: Diffusely decreased bone density. Mild to moderate generalized bony degenerative changes. Narrowing of the knee medial compartment is demonstrated. Moderate degenerative changes in the medial compartment with sclerosis and osteophytes, joint space narrowing. No visualized evidence for acute bony fracture or dislocation. No joint effusion is demonstrated. Soft tissues: The soft tissue appear unremarkable. Vasculature: Severe diffuse atherosclerotic arterial vascular wall calcifications are demonstrated. Notes: If there is further concern, recommend follow-up radiographs or MRI for complete assessment. XR/XR knee RT 3V* [id number] IMPRESSION: 1. Chronic bony degenerative changes. Decreased bone density. 2. Arterial vascular calcifications.
--- NOTE | 2024-11-29 13:13 | W.ED.FALL ---
HPI - Fall General: Chief Complaint: Extremity Injury, Upper Stated Complaint: left hand, r knee injury Time Seen by Provider: 11/29/24 12:16 Source: patient Mode of arrival: ambulatory Limitations: no limitations History of Present Illness: Patient is a 69-year-old female presents to ED today for evaluation of right knee and left wrist and hand pain that began following a fall yesterday. She denies any other injuries at this time. Denies striking her head or LOC. She is ambulatory on the right knee by hobbling . She states her knee did not start hurting immediately after the fall but began later that evening and into today. She states her left wrist and hand hurt immediately. She states that she heard a crunch when she fell. Does report a previous injury to her left fifth finger about a month ago but never got seen for this. MD complaint: fall Onset (ago): day(s) (yesterday) Fall from: standing Fall witnessed: no Place fall occurred: home Loss of consciousness: None Prolonged down time: no Context: tripped/slipped Location of injury - extremities: Left: hand and Right: knee Severity: moderate Associated symptoms-after fall: Reports no associated symptoms; Denies chest pain, headache(s), lightheadedness or neck pain Related Data Home Medications Medication Instructions Recorded Confirmed atorvastatin 40 mg tablet 80 mg PO BEDTIME 05/13/22 11/02/24 calcium 600 mg (as 1 tab PO QAM 05/13/22 11/02/24 carbonate)-vitamin D3 10 mcg (400 unit) tablet (Calcium 600 + D(3)) cholecalciferol (vitamin D3) 25 25 mcg PO QAM 05/13/22 11/02/24 mcg (1,000 unit) capsule (Vitamin D3) escitalopram oxalate 20 mg tablet 20 mg PO QAM 05/13/22 11/02/24 aspirin 81 mg tablet,delayed 81 mg PO DAILY 10/23/22 11/02/24 release calcitriol 0.25 mcg capsule See Rx Instructions .Route .COMPLEX 10/23/22 11/02/24 vit B,C-folic ac 800 mcg-zinc 12.5 1 tab PO DAILY 10/23/22 11/02/24 mg-selen-D3 2,000 unit-vit E tablet (RenaPlex-D) cinacalcet 60 mg tablet (Sensipar) 60 mg PO .3XW 08/23/24 11/02/24 lanthanum 750 mg chewable tablet See Rx Instructions .Route .COMPLEX 08/23/24 11/02/24 losartan 25 mg tablet 25 mg PO QPM 08/23/24 11/02/24 Previous Rx's Medication Instructions Recorded diltiazem HCl 60 mg 60 mg PO BID #180 caps 10/28/24 capsule,extended release 12 hr apixaban 2.5 mg tablet (Eliquis) 2.5 mg PO BID #30 tabs 11/04/24 metoprolol succinate 25 mg 12.5 mg (1/2 x 25 mg) PO DAILY #30 11/04/24 tablet,extended release 24 hr tabs Allergies Allergy/AdvReac Type Severity Reaction Status Date / Time Latex, Natural Rubber Allergy ALGY-Rash Verified 11/29/24 11:02 Review of Systems Card: Denies: chest pain, palpitations, lightheadedness, syncope or pre-syncope GI: Denies: nausea or vomiting Musc: Reports: extremity pain (L hand), extremity swelling (L hand), joint pain (L wrist, R knee) and joint swelling (L wrist); Denies: neck pain or back pain Neuro: Denies: headache(s), numbness in extremities, weakness in extremities or sensory changes PFSH ED PFSH: Medical History Pleural effusion Hypoxia Stage 5 chronic kidney disease Pleural effusion Hyponatremia Hypertension Pneumonia Acute respiratory failure with hypoxia Community acquired pneumonia ESRD (end stage renal disease) Surgical History H/O gastric bypass S/P TAVR (transcatheter aortic valve replacement) Social History Substance/Drug Use: never Physical Exam Const: COMMON NORMALS: no acute distress, average body habitus, patient oriented x3, no limitations, alert and well nourished HENMT: COMMON NORMALS: normocephalic and atraumatic HEAD & SCALP: normal to inspection, normocephalic and atraumatic Neck/C-Spine: CERVICAL SPINE: No Cervical spine tenderness Back/Pelvis: COMMON NORMALS: thoracic and lumbar spine normal to inspection Extremity: COMMON NORMALS: capillary refill normal GENERAL: Yes normal exam except as noted LEFT UPPER EXTREMITY: Yes wrist and Yes hand & digits RIGHT LOWER EXTREMITY: Yes knee joint (mild anterior knee pain; no edema or signs of trauma) Right knee: Yes neurovascular exam (normal) OTHER: significant pain and mild swelling to L wrist and dorsal L hand; ecchymosis present; NV intact Neuro: COMMON NORMALS: patient oriented x3, moves all extremities, no focal motor deficits and no sensory deficits noted SENSORIUM/ORIENTATION: Yes alert Course Vital Signs: Vital signs: Vital Signs Temperature 98.9 F 11/29/24 10:59 Pulse Rate 66 11/29/24 10:59 Blood Pressure 162/72 11/29/24 10:59 Pulse Oximetry 100 11/29/24 10:59 Oxygen Delivery Me thod Room Air 11/29/24 10:59 MDM - Fall Medical Decision Making XR of knee unremarkable apart from chronic changes. XR of wrist showing fx involving 5th digit. This is probably from an earlier fall. She has significant pain/swelling to wrist/hand. I think it is reasonable to splint and have her evaluated at ortho. Lab Data Radiology Impressions Knee X-Ray 11/29/24 11:34 IMPRESSION: 1. Chronic bony degenerative changes. Decreased bone density. 2. Arterial vascular calcifications. Wrist X-Ray 11/29/24 11:34 IMPRESSION: 1. Age-indeterminate fractures involving the 5th digit middle phalanx and involving the proximal articular surface. Possible acute or chronic fractures. 2. Chronic bony degenerative changes. Decreased bone density. 3. Soft tissue edema. 4. Arterial vascular calcifications. All radiology interpretation(s) finalized by discharge Discharge Plan Discharge Patient Disposition: Home Clinical Impression: Injury of left wrist Qualifiers: Encounter type: initial encounter Qualified Code(s): S69.92XA - Unspecified injury of left wrist, hand and finger(s), initial encounter Closed fracture of phalanx of little finger Qualifiers: Encounter type: initial encounter Phalanx: unspecified phalanx Fracture alignment: nondisplaced Laterality: left Qualified Code(s): S62.607A - Fracture of unspecified phalanx of left little finger, initial encounter for closed fracture Condition: Stable Prescriptions: No Action atorvastatin 40 mg Tablet 80 mg PO BEDTIME cholecalciferol (vitamin D3) [Vitamin D3] 25 mcg (1,000 unit) Capsule 25 mcg PO QAM escitalopram oxalate 20 mg Tablet 20 mg PO QAM calcium carbonate-vitamin D3 [Calcium 600 + D(3)] 600 mg-10 mcg (400 unit) Tablet 1 tab PO QAM metoprolol succinate 25 mg Tablet Extended Release 24 Hr 12.5 mg PO DAILY Qty: 30 0RF Eliquis 2.5 mg tablet 2.5 mg PO BID Qty: 30 0RF aspirin 81 mg Tablet,Delayed Release (Dr/Ec) 81 mg PO DAILY calcitriol 0.25 mcg capsule See Rx Instructions .ROUTE .COMPLEX Rx Instructions: 75 MG ONLY ON DIALYSIS DAYS, Thursday, , Thursday RenaPlex-D 800 mcg-12.5 mg -2,000 unit tablet 1 tab PO DAILY cinacalcet [Sensipar] 60 mg Tablet 60 mg PO .3XW Rx Instructions: takes thursday , and thursday before dialysis losartan 25 mg tablet 25 mg PO QPM lanthanum 750 mg tablet,chewable See Rx Instructions .ROUTE .COMPLEX Rx Instructions: chew 3tablets by mouth before each meal and 2 tablets before each snack daily diltiazem HCl 60 mg capsule,extended release 12 hr 60 mg PO BID Qty: 180 0RF Discharge Orders: Discharge ED (Routine); Ordered 11/29/24 Ordered By: Celia Jacobsen Referrals: Jhon Schneider [Primary Care Provider] - Activity Restrictions/Additional Instructions: As we discussed, we will place a splint on your left hand and wrist and have you follow-up with orthopedics. Coding Level of Care Code ED Inside Sales Advertising Executive for Sergio Tang
[2024-11-29 13:56] VITALS: BP 174/74; PULSE 64; O2SAT 98
--- NOTE | 2024-12-01 07:17 | DCPLANNER ---
messaged ortho for er f/u
== END 2024-11-29 13:58 | disposition home or self-care (01) ==
PROVIDERS: Emergency Provider Physician Assistant; PCP Family Medicine
DX: S62.607A Fracture of unspecified phalanx of left little finger, initial encounter for closed fracture (principal); S69.92XA Unspecified injury of left wrist, hand and finger(s), initial encounter; Z79.01 Long term (current) use of anticoagulants; Z79.82 Long term (current) use of aspirin; I12.0 Hypertensive chronic kidney disease with stage 5 chronic kidney disease or end stage renal disease; N18.6 End stage renal disease; W19.XXXA Unspecified fall, initial encounter
CPT/HCPCS: 29125; 73110; 73562; 99284

== ENCOUNTER → 2024-12-06 11:16 | Outpatient (BNVA) | payer MEDICARE, SELFPAY | PROVIDERS: PCP Family Medicine; Visit Provider Nurse Practitioner | DX: S62.657D Nondisplaced fracture of middle phalanx of left little finger, subsequent encounter for fracture with routine healing; S60.211D Contusion of right wrist, subsequent encounter; X58.XXXD Exposure to other specified factors, subsequent encounter; Z46.89 Encounter for fitting and adjustment of other specified devices | CPT/HCPCS: 26725; 73130; 97760; 99204; L3982 ==

== ENCOUNTER 2024-12-06 14:55 | Outpatient (CLI) | payer MEDICARE, SELFPAY | END 2024-12-06 14:56 | disposition home or self-care (01) | LOC: SPT 14:55 | PROVIDERS: PCP Family Medicine; Visit Provider Nurse Practitioner | DX: Z46.89 Encounter for fitting and adjustment of other specified devices (principal); S62.607D Fracture of unspecified phalanx of left little finger, subsequent encounter for fracture with routine healing; X58.XXXD Exposure to other specified factors, subsequent encounter | CPT/HCPCS: 97760; L3982 ==

== ENCOUNTER → 2024-12-15 12:03 | Outpatient (BNVA) | payer MEDICARE, SELFPAY | PROVIDERS: PCP Family Medicine; Visit Provider Nurse Practitioner Family | DX: I12.0 Hypertensive chronic kidney disease with stage 5 chronic kidney disease or end stage renal disease (principal); N18.6 End stage renal disease; Z99.2 Dependence on renal dialysis; E11.22 Type 2 diabetes mellitus with diabetic chronic kidney disease; Z95.2 Presence of prosthetic heart valve; I48.0 Paroxysmal atrial fibrillation; R79.89 Other specified abnormal findings of blood chemistry; Z87.891 Personal history of nicotine dependence; Z79.01 Long term (current) use of anticoagulants | CPT/HCPCS: 99213 ==

== ENCOUNTER 2024-12-22 11:01 | Outpatient (CLI) | payer MEDICARE, SELFPAY ==
--- NOTE | 2024-12-22 11:04 | MM_ITS ---
WS: [id number] VIEWS: MLO and CC views both breasts. 3D digital tomosynthesis is also included in this exam. Comparison made with prior exam of 07/28/2023 and 11/08/2020. . Findings: There are scattered areas of fibroglandular density. No sign of suspicious mass, tumor calcification or architectural distortion. MM/MM scr BI tomosynthesis [id number] Impression: BI-RADS: 2 - Benign. FOLLOW-UP: 1 Year Follow-up This mammogram was also analyzed by the Computer Aided Detection System R2 Imag e Behavioral Health Technician.
== END 2024-12-22 11:02 | disposition home or self-care (01) ==
LOC: RAD 11:03
PROVIDERS: PCP Family Medicine; Visit Provider Family Medicine
DX: Z12.31 Encounter for screening mammogram for malignant neoplasm of breast (principal); R92.323 Mammographic fibroglandular density, bilateral breasts
CPT/HCPCS: 77063; 77067

== ENCOUNTER → 2025-01-02 09:19 | Outpatient (BNVA) | payer MEDICARE, SELFPAY | PROVIDERS: PCP Family Medicine; Visit Provider Nurse Practitioner | DX: S62.657D Nondisplaced fracture of middle phalanx of left little finger, subsequent encounter for fracture with routine healing (principal); S60.211D Contusion of right wrist, subsequent encounter; X58.XXXD Exposure to other specified factors, subsequent encounter | CPT/HCPCS: 73130; 99024 ==

== ENCOUNTER → 2025-04-12 15:46 | Outpatient (BNVA) | payer MEDICARE, SELFPAY | PROVIDERS: PCP Family Medicine; Visit Provider Internal Medicine Cardiovascular Disease | DX: I48.91 Unspecified atrial fibrillation (principal); I35.0 Nonrheumatic aortic (valve) stenosis; Z95.2 Presence of prosthetic heart valve; N63.0 Unspecified lump in unspecified breast; I12.0 Hypertensive chronic kidney disease with stage 5 chronic kidney disease or end stage renal disease; N18.6 End stage renal disease; Z99.2 Dependence on renal dialysis; Z87.891 Personal history of nicotine dependence; Z79.01 Long term (current) use of anticoagulants | CPT/HCPCS: 99214 ==

== ENCOUNTER 2025-04-25 10:28 | Outpatient (CLI) | payer MEDICARE, SELFPAY ==
--- NOTE | 2025-04-25 10:31 | MM_ITS ---
WS: [id number] ADDITIONAL VIEWS LEFT MAMMOGRAM WITH DIGITAL BREAST TOMOSYNTHESIS. LEFT BREAST ULTRASOUND, complete HISTORY: BREAST ASYMMETRY/CHANGE OF SKIN OF BREAST COMPARISON: 12/22/2024, 07/28/2023 LEFT MAMMOGRAM: LEFT CC and MLO. Spot compression views and true ML with digital breast tomosynthesis and SM. Breast composition: The breasts are heterogeneously dense, which may obscure small masses. There is very thickened trabecular pattern throughout the entire LEFT breast. There are a few benign scattered calcifications. Heavy vascular calcifications. There is very mild diffuse skin thickening which has progressed since the prior studies. LEFT BREAST ULTRASOUND, complete 2-D and color Doppler imaging submitted. All 4 quadrants of the breast are evaluated along with the axilla and retroareolar. There is diffuse edema throughout the entire LEFT breast. No mass or adenopathy. Minimal skin thickening from edema. No area of increased vascularity. No abscess or focal collection identified. Note: Limited RIGHT breast evaluation demonstrated no breast edema. MM/MM diag LT tomosynthesis [id number] IMPRESSION: BI-RADS: 4 - Suspicious Finding - Biopsy Should Be Considered FOLLOW UP: See Report 1. Significant change in appearance of the LEFT breast as compared to 10/22/20 25 and 07/28/2023. There is new extensive soft tissue edema throughout the breast extending into the axilla. Unilateral breast edema can be seen with both benig n and malignant conditions. 2. Benign etiologies to consider are mastitis, postradiation changes and lymph atic obstruction and congestive heart failure. CHF is more typically noted bila terally. 3. Malignant etiologies to consider are inflammatory breast carcinoma, lymphom a or leukemia, metastasis. Consider punch biopsy of the LEFT breast. Additional imaging that may be helpful as chest CT with IV contrast to evaluate for a georgie tral venous obstruction or adenopathy.
== END 2025-04-25 10:29 | disposition home or self-care (01) ==
LOC: RAD 10:30
PROVIDERS: PCP Family Medicine; Visit Provider Nurse Practitioner Family
DX: N64.89 Other specified disorders of breast (principal); R23.4 Changes in skin texture; R92.333 Mammographic heterogeneous density, bilateral breasts; R92.1 Mammographic calcification found on diagnostic imaging of breast; R60.0 Localized edema; R92.8 Other abnormal and inconclusive findings on diagnostic imaging of breast
CPT/HCPCS: 76642; 77061; G0279

== ENCOUNTER 2025-10-24 07:13 | Inpatient (IN) | payer MEDICARE, SELFPAY ==
[2025-10-24] VITALS (10 sets, daily range): BP systolic 120–149; BP diastolic 55–99; PULSE 61–80; RESP 16–18; TEMP 36.4–36.9; O2SAT 93–99; BMI 26.9
--- NOTE | 2025-10-24 07:15 | W.ED.WEAKNES ---
HPI - Weakness General: Chief complaint: General Medical Stated complaint: Tachy, Weakness, AMS coming from dialysis History of Present Illness: 70-year-old female with a history of gastric bypass, TAVR, end-stage renal disease on dialysis, hyponatremia, hypertension, atrial fibrillation and chronic anticoagulation on Eliquis who presents to the emergency room by ambulance from dialysis with tachycardia, weakness and altered mental status. She says she drove herself to dialysis. While there apparently she became altered briefly and had a high heart rate. By the time EMS arrived this had all resolved. She is alert and oriented now with a regular heart rate. No focal motor deficits. She says she had been feeling a little bit weak earlier in the day when she went outside and felt like her heart rate might have gone up at that point. No fevers. No chest pain. No abdominal pain. No nausea or vomiting. She did not complete dialysis today. She also did not go to her Thursday dialysis Related Data Home Medications ?Medication ?Instructions ?Recorded ?Confirmed calcium 600 mg (as 1 tab PO QAM 05/13/22 10/24/25 carbonate)-vitamin D3 10 mcg (400 unit) tablet (Calcium 600 + D(3)) cholecalciferol (vitamin D3) 25 25 mcg PO QAM 05/13/22 10/24/25 mcg (1,000 unit) capsule (Vitamin D3) escitalopram oxalate 20 mg tablet 20 mg PO QAM 05/13/22 10/24/25 aspirin 81 mg tablet,delayed 81 mg PO DAILY 10/23/22 10/24/25 release calcitriol 0.25 mcg capsule See Rx Instructions .Route .COMPLEX 10/23/22 10/24/25 vit B,C-folic ac 800 mcg-zinc 12.5 1 tab PO DAILY 10/23/22 10/24/25 mg-selen-D3 2,000 unit-vit E tablet (RenaPlex-D) cinacalcet 60 mg tablet (Sensipar) 60 mg PO .3XW 08/23/24 10/24/25 lanthanum 750 mg chewable tablet See Rx Instructions .Route .COMPLEX 08/23/24 10/24/25 atorvastatin 80 mg tablet 80 mg PO QPM 10/24/25 10/24/25 losartan 50 mg tablet 50 mg PO BID 10/24/25 10/24/25 omeprazole 20 mg capsule,delayed 20 mg PO DAILY 10/24/25 10/24/25 release trazodone 50 mg tablet 50 mg PO BEDTIME 10/24/25 10/24/25 Previous Rx's ?Medication ?Instructions ?Recorded ulnar gutter fast form #1 ea 12/06/24 metoprolol succinate 25 mg 12.5 mg (1/2 x 25 mg) PO DAILY #90 12/26/24 tablet,extended release 24 hr tabs diltiazem HCl 60 mg 60 mg PO BID #180 caps 01/27/25 capsule,extended release 12 hr isosorbide mononitrate 30 mg 30 mg PO DAILY #90 tabs 04/12/25 tablet,extended release 24 hr nitroglycerin 0.4 mg sublingual 0.4 mg sublingual Q5M PRN chest 04/12/25 tablet pain #25 tabs apixaban 2.5 mg tablet (Eliquis) 2.5 mg PO BID #90 tabs 06/02/25 Allergies Allergy/AdvReac Type Severity Reaction Status Date / Time Latex, Natural Rubber Allergy ALGY-Rash Verified 04/12/25 15:56 Review of Systems Narrative: Constitutional symptoms: Negative except as documented in HPI. Skin symptoms: Negative except as documented in HPI. Eye symptoms: Negative except as documented in HPI. ENMT symptoms: Negative except as documented in HPI. Respiratory symptoms: Negative except as documented in HPI. Cardiovascular symptoms: Negative except as documented in HPI. Gastrointestinal symptoms: Negative except as documented in HPI. Genitourinary symptoms: Negative except as documented in HPI. Musculoskeletal symptoms: Negative except as documented in HPI. Neurologic symptoms: Negative except as documented in HPI. Psychiatric symptoms: Negative except as documented in HPI. Endocrine symptoms: Negative except as documented in HPI. PFSH ED PFSH: Medical History (Updated 10/24/25 @ 09:20 by Kasandra De La Paz MD) Pleural effusion Hypoxia Stage 5 chronic kidney disease Pleural effusion Hyponatremia Hypertension Pneumonia Acute respiratory failure with hypoxia Community acquired pneumonia ESRD (end stage renal disease) Surgical History H/O gastric bypass S/P TAVR (transcatheter aortic valve replacement) Social History Smoking and tobacco/nicotine status: former use of tobacco/nicotine Substance/Drug Use: never Physical Exam Narrative: EXAM NARRATIVE: General: Alert, no acute distress. Skin: Warm, dry. AV fistula on the left Head: Normocephalic, atraumatic. Neck: Supple, trachea midline. Eye: Extraocular movements are intact. Ears, nose, mouth and throat: mucosa moist. Cardiovascular: Regular, Normal peripheral perfusion. Systolic ejection murmur present Respiratory: Lungs are clear to auscultation, respirations are non-labored, breath sounds are equal, Symmetrical chest wall expansion. Gastrointestinal: Soft, Nontender, Non distended Musculoskeletal: Normal ROM, no deformity. Neurological: Alert and oriented, No focal neurological deficit observed. Psychiatric: Cooperative, appropriate mood & affect. Course Vital Signs: Vital signs: Vital Signs Temperature 98.0 F 10/24/25 07:15 Pulse Rate 71 10/24/25 07:15 Respiratory Rate 16 10/24/25 07:15 Blood Pressure 147/72 10/24/25 07:15 Pulse Oximetry 93 10/24/25 07:15 Oxygen Delivery Me thod Room Air 10/24/25 07:15 MDM - Weakness Medical Decision Making Medical decision making Patient's reason for coming to the emergency room: Weakness, dizziness, tachycardia, altered mental status Social determinants: Patient is retired I reviewed the patient's medical record. 70-year-old female with a history of gastric bypass, TAVR, end-stage renal disease on dialysis, hyponatremia, hypertension, atrial fibrillation and chronic anticoagulation on Eliquis who presents to the emergency room by ambulance from dialysis with tachycardia, weakness and altered mental status. I reviewed the patient's current home meds Patient is on Eliquis at home. Alternate historians: None Differential diagnosis for patient presenting with generalized weakness including but not limited to and based on the above HPI, review of systems and physical exam: Sepsis. Dehydration. Renal failure. Electrolyte abnormalities. Anemia. Congestive heart failure. Hypotension. Coronary syndrome. Hepatitis. Cirrhosis. Infections such as pneumonia, urinary tract infection, Tick bourne illness, Cellulitis, Viral infections including influenza and Covid-19. Workup: labwork and lab/exam driven imaging ordered to evaluate, rule in and rule out above pathologies. EKG: Time 7:56 AM. Rate 71. Normal sinus rhythm, No ST-T changes, no ectopy, normal NH & QRS intervals, This was reviewed and interpreted by myself the ER physician at 8:01 AM Chest x-ray: Concern for left lower lobe infiltrate and left basal pleural effusion. Patient does not report any pneumonia type symptoms but she is receiving IV antibiotics. This was reviewed and interpreted by myself the emergency room physician. I also reviewed the radiology report. Lab Review: Laboratory results were reviewed and interpreted by myself the emergency room physician. No leukocytosis. No anemia. BUN and creatinine are 59 and 9. Potassium is 4.9. Urinalysis shows greater than 100 whites with 4+ bacteria. Chart review: Reviewed previous micro. Patient in October 2025 grew E. coli that was fairly pansensitive Assessment of risk: Level of risk: High risk patient. Multiple comorbidities. Hospitalization considerations: Observation for now. I have concerned she might be early sepsis with having had an episode of encephalopathy and tachycardia Reexamination: Patient has remained stable here. No tachycardia. No hypotension. No increased work of breathing. No altered mental status. No focal motor deficits. Consultation: I spoke with Dr. Johnson who is on-call for the hospital service who agrees to admission. Consultation: I spoke with Dr. Alvarado who is on-call for nephrology and will set up dialysis for the patient. I also spoke with the dialysis nurse who is going to come in and perform dialysis Assessment and plan: Urinary tract infection Metabolic encephalopathy End-stage renal disease on dialysis ?I am concerned with her becoming tachycardic, encephalopathic and having an elevated lactate that this may be an early sepsis/SIRS situation. - 50 mL saline given. Limited fluids as she has not received dialysis in over 5 days and her pressures okay right now - Cefepime given -Sepsis quality measures. -Lactic acid with a reflex was ordered. -Blood cultures were ordered. ?I reevaluated the patient's volume status after sepsis fluids were given. -I discussed the patient with the hospitalist on-call who is admitting the patient. - Discussed findings and plan with patient. Answered any questions. - All laboratory values were reviewed and interpreted personally by myself, the ER physician - All imaging was reviewed and interpreted personally by myself, the ER physician. - Evaluation and treatment of this problem were appropriate in the emergency setting Critical Care: -I spent a total of 36 minutes of critical care time managing the patient, independent of any other practitioner. -The time involved in the performance of separately reportable procedures was not counted towards critical care time. Lab Data 10/24/25 07:28 10/24/25 07:28 Radiology Impressions Chest X-Ray 10/24/25 07:19 IMPRESSION: 1. Mild LEFT lower lobe infiltrate and LEFT basal pleural effusion. 2. Mild cardiac enlargement. Laboratory Results WBC 7.65 10^3/uL (3.29-11.43) 10/24/25 07: RBC 4.33 10^6/uL (3.85-5.65) 10/24/25 07:28 Hgb 12.10 g/dL (11.27-16.99) 10/24/25 07:28 Hct 39.7 % (36-47) 10/24/25 07: MCV 91.7 fl (85-98) 10/24/25 07: MCH 27.9 pg (27-33) 10/24/25 07: MCHC 30.5 g/dL (30-55) 10/24/25 07: RDW 16.6 % (12.1-15.1) H 10/24/25 07:28 Plt Count 192 10^3/cmm (157-399) 10/24/25 07:28 MPV 11.1 fL (7.4-10.4) H 10/24/25 07:28 Neut % (Auto) 79.1 % 10/24/25 07: Lymph % (Auto) 11.8 % 10/24/25 07:28 [place] % (Auto) 5.6 % 10/24/25 07:28 Eos % (Auto) 2.4 % 10/24/25 07:28 Baso % (Auto) 0.8 % 10/24/25 07:28 Neut # (Auto) 6.06 10^3/uL (1.8-7.7) 10/24/25 07:28 Lymph # (Auto) 0.9 10^3/uL (0.8-4.8) 10/24/25 07:28 [place] # (Auto) 0.4 10^3/uL (0.2-0.9) 10/24/25 07:28 Eos # (Auto) 0.2 10^3/uL (0.0-0.8) 10/24/25 07:28 Baso # (Auto) 0.1 10^3/uL (0.0-0.1) 10/24/25 07:28 Nucleated RBC % (auto) 0 % 10/24/25 07:28 Nucleated RBCs # 0.0 /100WBC 10/24/25 07:28 Sodium 140 mmol/L (136-145) 10/24/25 07:28 Potassium 4.9 mmol/L (3.5-5.1) 10/24/25 07:28 Chloride 97 mmol/L (98-107) L 10/24/25 07:28 Carbon Dioxide 19 mmol/L (22-29) L 10/24/25 07:28 Anion Gap 28.9 (5-19) H 10/24/25 07:28 BUN 59 mg/dL (8-23) H 10/24/25 07:28 Creatinine 9.0 mg/dL (0.5-0.9) H* 10/24/25 07:28 GFR Calculation 4.3 mL/min (90-130) L 10/24/25 07:28 Glucose 231 mg/dL (65-115) H 10/24/25 07:28 Calculated Osmolality 314 mOsm/kg (285-295) H 10/24/25 07:28 Lactic Acid 2.8 mmol/L (0.5-2.2) H 10/24/25 07:28 Calcium 8.9 mg/dL (8.5-10.5) 10/24/25 07:28 Total Bilirubin 0.9 mg/dL (0.15-1.2) 10/24/25 07:28 AST 30 U/L (0-32) 10/24/25 07:28 ALT 21 U/L (0-33) 10/24/25 07:28 Alkaline Phosphatase 114 U/L (35-105) H 10/24/25 07:28 Troponin T Baseline 54 ng/L (0-10) H 10/24/25 07:28 Troponin T 120 Minute 54.32 ng/L (0-10) H 10/24/25 08:30 Delta Troponin T 0.32 ABS# (0-10) 10/24/25 08:30 Total Protein 7.0 g/dL (6.6-8.7) 10/24/25 07:28 Albumin 4.2 g/dL (3.5-5.2) 10/24/25 07:28 Globulin 2.8 g/dL (1.3-4.6) 10/24/25 07:28 Procalcitonin 0.36 ng/mL (0-0.5) 10/24/25 07:28 Urine Color Yellow (Yellow) 10/24/25 08:30 Urine Appearance Turbid (CLEAR) A 10/24/25 08:30 Urine pH 6.0 (5-7) 10/24/25 08:30 Ur Specific [place] 1.018 (1.005-1.030) 10/24/25 08:30 Urine Protein 3+ (Negative) A 10/24/25 08:30 Urine Glucose (UA) 1+ (Normal) H 10/24/25 08:30 Urine Ketones Trace (Negative) 10/24/25 08:30 Urine Blood 2+ (Negative) A 10/24/25 08:30 Urine Nitrate Negative (Negative) 10/24/25 08:30 Urine Bilirubin Negative (Negative) 10/24/25 08:30 Urine Urobilinogen 1.0 mg/dL (Negative) 10/24/25 08:30 Ur Leukocyte Esterase 3+ (Negative) A 10/24/25 08:30 Urine RBC 11-20 /hpf (0-2) H 10/24/25 08:30 Urine WBC >100 /hpf (0-5) H 10/24/25 08:30 Ur Squamous Epith Cells 11-20 /hpf (0-5) H 10/24/25 08:30 Amorphous Sediment Not Reportable 10/24/25 08:30 Urine Bacteria 4+ /hpf (NONE) H 10/24/25 08:30 Hyaline Casts 7.54 /lpf 10/24/25 08:30 Influenza A (PCR) Negative (Negative) 10/24/25 07:28 Influenza Type B (PCR) Negative (Negative) 10/24/25 07:28 RSV (PCR) Negative (Negative) 10/24/25 07:28 SARS-CoV-2 (PCR) Negative (Negative) 10/24/25 07:28 All radiology interpretation(s) finalized by discharge Discharge Plan Discharge Patient Disposition: Placed in Observation Clinical Impression: Urinary tract infection, Acute metabolic encephalopathy, End-stage renal disease on hemodialysis Coding Level of Care Code ED Quality Assurance Monitor Final for Sergio Tang
--- NOTE | 2025-10-24 07:19 | XR_ITS ---
WS: [id number] Exam: XR chest 1V portable [id number] Date/Time of Exam: 10/24/2025 7:47 AM Reason For Exam: Weakness Comparison 11/01/2024. Infiltrate in the LEFT lower lobe and LEFT basal pleural effusion noted. RIGHT lung is clear. Mild cardiac enlargement. Signs of cardiac valve replacement. The mediastinum is normal in contour. Bony structures are intact. XR/XR chest 1V portable [id number] IMPRESSION: 1. Mild LEFT lower lobe infiltrate and LEFT basal pleural effusion. 2. Mild cardiac enlargement.
--- OUTSIDE RECORDS SUMMARY | 2025-10-24 07:25 | XMS_ITS | Encounter Summary ---
Author Organization [facility] Address [address] [place] [address] Care Team Providers Care Mechanics Handyman Name Role Phone Jhon Schneider MD Primary Care Provider [phone] Encounter Details Date Type Department Care Team (Late st Contact Info) Description 10/27/2007 [facility] 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
--- OUTSIDE RECORDS SUMMARY | 2025-10-24 07:25 | XMS_ITS | Encounter Summary ---
Author Organization [facility] Address [address] [place] [address] Care Team Providers Care Miller Supervisor Name Role Phone Jhon Schneider MD Primary Care Provider [phone] Encounter Details Date Type Department Care Team (Latest Contact Info) Description 05/22/2005 Outpatient Historical [facility] 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 Female 3:56 AM RECOVERER Gender Identity Not on file Sexual Orientation Not on file documented as of this encounter Plan of Treatment Not on file documented as of this encounter Visit Diagnoses Diagnosis Ingrowing nail- Primary Type I (juvenile type) diabetes mellitus without mention of complication, not stated as uncontrolled Type II or unspecified type diabetes mellitus with neurological manifestations, not stated as uncontrolled(250.60) (CMS/HCC) Type II or unspecified type diabetes mellitus with neurological manifestations, not stated as uncontrolled documented in this encounter Care Teams Miller Supervisor Relationship Specialty Start Date End Date Jhon Schneider MD [address] [facility] [address] [place] [address] PCP - General Family Practice 11/08/20 documented as of this encounter
--- OUTSIDE RECORDS SUMMARY | 2025-10-24 07:25 | XMS_ITS | Encounter Summary ---
Author Organization [facility] Address [address] [place] [address] Care Team Providers Care Generation Technologist Name Role Phone Jhon Schneider MD Primary Care Provider [phone] Encounter Details Date Type Department Care Team (Latest Contact Info) Description 05/24/2007 Outpatient Historical [facility] [address], [address] [place] [address] Rachid Fermin DO NO ADDRESS ON FILE Elev Transaminase/Ldh (Primary Dx) Social History Tobacco Use Types Packs/Day Years Used Date Smoking Tobacco: Never Assessed Comments Unknown Sex and Gender Information Value Date Recorded Sex Assigned at Not on file Legal Sex Female 3:56 AM RN OSTOMY Gender Identity Not on file Sexual Orientation Not on file documented as of this encounter Plan of Treatment Not on file documented as of this encounter Visit Diagnoses Diagnosis Nonspecific elevation of levels of transaminase or lactic acid dehydrogenase (LDH)- Primary documented in this encounter Care Teams Generation Technologist Relationship Specialty Start Date End Date Jhon Schneider MD [address] [phone] PCP - General Family Practice 11/08/20 documented as of this encounter
--- OUTSIDE RECORDS SUMMARY | 2025-10-24 07:25 | XMS_ITS | Encounter Summary ---
Author Organization [facility] Address [address] [place] [address] Care Team Providers Care Gameplay Engineer Name Role Phone Jhon Schneider MD Primary Care Provider [phone] Encounter Details Date Type Department Care Team (Latest Contact Info) Description 08/31/2007 Outpatient Historical [facility] 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 Gender Identity Not on file Sexual Orientation Not on file documented as of this encounter Plan of Treatment Not on file documented as of this encounter Visit Diagnoses Diagnosis Type II or unspecified type diabetes mellitus without mention of complication, not stated as uncontrolled- Primary Iron deficiency anemia, unspecified Unspecified essential hypertension Other and unspecified hyperlipidemia documented in this encounter Care Teams Gameplay Engineer Relationship Specialty Start Date End Date Jhon Schneider MD [address] [facility] [address] [place] [phone] PCP - General Family Practice 11/08/20 documented as of this encounter
--- OUTSIDE RECORDS SUMMARY | 2025-10-24 07:25 | XMS_ITS | Encounter Summary ---
Author Organization [facility] Address [address] [place] [address] Care Team Providers Care Entry Level Management Name Role Phone Jhon Schneider MD Primary Care Provider [phone] Encounter Details Date Type Department Care Team (Late st Contact Info) Description 10/27/2007 Outpatient Historical [facility] 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
--- OUTSIDE RECORDS SUMMARY | 2025-10-24 07:25 | XMS_ITS | Encounter Summary ---
Author Organization [facility] Address [address] [place] [address] Care Team Providers Care Salesforce Developer Name Role Phone Jhon Schneider MD Primary Care Provider [phone] Encounter Details Date Type Department Care Team (Latest Contact Info) Description 07/01/2005 Outpatient Historical [facility] [address] [place] [address] Thania Calvin MD [address] [place] [phone] IRON DEFIC ANEMIA NOS (Primary Dx); HYPERTENSION NOS; DIABETES MELLITUS TYPE II-UNCOMPL (CMS/HCC); UNSPEC CONSTIPATION Social History Tobacco Use Types Packs/Day Years Used Date Smoking Tobacco: Never Assessed Comments Unknown Sex and Gender Information Value Date Recorded Sex Assigned at Not on file Legal 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 Gender Identity Not on file Sexual Orientation Not on file documented as of this encounter Plan of Treatment Not on file documented as of this encounter Visit Diagnoses Diagnosis Iron deficiency anemia, unspecified- Primary Unspecified essential hypertension Type II or unspecified type diabetes mellitus without mention of complication, not stated as uncontrolled Unspecified constipation documented in this encounter Care Teams Salesforce Developer Relationship Specialty Start Date End Date Jhon Schneider MD [address] [facility] [address] [place] [phone] PCP - General Family Practice 11/08/20 documented as of this encounter
--- OUTSIDE RECORDS SUMMARY | 2025-10-24 07:25 | XMS_ITS | Encounter Summary ---
Author Organization [facility] Address [address] [place] [address] Care Team Providers Care Package Delivery Room Service Runner Name Role Phone Jhon Schneider MD Primary Care Provider [phone] [phone] Encounter Details Date Type Department Care Team (Latest Contact Info) Description 06/10/2007 Outpatient Historical [facility] 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 Gender Identity Not on file Sexual Orientation Not on file documented as of this encounter Plan of Treatment Not on file documented as of this encounter Visit Diagnoses Diagnosis Type II or unspecified type diabetes mellitus without mention of complication, uncontrolled- Primary Unspecified essential hypertension Calculus of gallbladder without mention of cholecystitis or obstruction Iron deficiency anemia, unspecified documented in this encounter Care Teams Package Delivery Room Service Runner Relationship Specialty Start Date End Date Jhon Schneider MD [address] [phone] PCP - General Family Practice 11/08/20 documented as of this encounter
--- OUTSIDE RECORDS SUMMARY | 2025-10-24 07:25 | XMS_ITS | Encounter Summary ---
Author Organization [facility] Address [address] [place] [address] Care Team Providers Care Configurator Name Role Phone Jhon Schneider MD Primary Care Provider +1 [phone] Encounter Details Date Type Department Care Team (Latest Contact Info) Description 11/17/2005 Outpatient Historical [facility] 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 Gender Identity Not on file Sexual Orientation Not on file documented as of this encounter Plan of Treatment Not on file documented as of this encounter Visit Diagnoses Diagnosis Other abnormal clinical finding- Primary Iron deficiency anemia, unspecified Type II or unspecified type diabetes mellitus without mention of complication, not stated as uncontrolled Dysthymic disorder documented in this encounter Care Teams Configurator Relationship Specialty Start Date End Date Jhon Schneider MD [address] [phone] PCP - General Family Practice 11/08/20 documented as of this encounter
--- OUTSIDE RECORDS SUMMARY | 2025-10-24 07:25 | XMS_ITS | Clinical Summary ---
Author Organization [facility] Address [address] [place] [address] Care Team Providers Care Pharmacogeneticist Name Role Phone Jhon Schneider MD Primary Care Provider +1 [phone] Allergies Active Allergy Reactions Criticality Noted Date Comments Adhesive Rash Low 10/25/2020 Trazodone Nausea and Vomiting,Muscle Pain Low 02/2021 Medications cholecalciferol, Vitamin D3, 125 mcg (5,000 unit) Capsule Take 5,000 Units by mouth daily. Active acetaminophen (TYLENOL) 325 mg tablet Take 650 mg by mouth every 4 hours as needed. 2-3 tabs q 4 hours prn Active multivitamin (DAILY-EVANGELIST) tablet Take 1 Tablet by mouth daily. Active calcium carbonate/vitamin D3 (CALCIUM 600 + D,3, ORAL) Take 1 Tablet by mouth daily. Active lancets (Accu-Chek Fastclix Lancet Drum) Accu-Chek Fastclix Lancet Drum Active blood sugar diagnostic (Accu-Chek SmartView Test Strip) Strip Accu-Chek SmartView Test Strips Active ALPRAZolam (Xanax) 0.5 mg tabletIndications: YESSENIA (generalized anxiety disorder),Bereavem ent Take 1 Tablet (0.5 mg) by mouth 2 times daily as needed for Anxiety. 60 Tablet 2 1 Active SODIUM BICARBONATE ORAL Take by mouth. [address] Ortega Active glipiZIDE (GLUCOTROL) 5 mg tabletIndications: Type 2 diabetes mellitus with stage 4 chronic kidney disease, without long-term current use of insulin ([facility]/HCC) Take 1 Tablet (5 mg) by mouth 2 times daily with meals. 180 Tablet 1 1 Active ferrous gluconate 324 mg (38 mg iron) tablet Take 1 Tablet (324 mg) by mouth daily. Can only take the green tablet 90 Tablet 1 1 Active escitalopram oxalate (LEXAPRO) 20 mg tabletIndications: Moderate episode of recurrent major depressive disorder (CMS/HCC) Take 1 Tablet (20 mg) by mouth daily. 90 Tablet 1 1 Active atorvastatin (LIPITOR) 40 mg tabletIndications: Hyperlipidemia, unspecified hyperlipidemia type TAKE 1 TABLET BY MOUTH ONCE DAILY 90 Tablet 1 1 Active amLODIPine (NORVASC) 10 mg tabletIndications: Benign hypertension TAKE 1 TABLET EVERY DAY 30 Tablet 2 1 Active Active Problems Problem Noted Date Diagnosed Date YESSENIA (generalized anxiety disorder) 01/29/2021 Benign hypertension 10/26/2020 Insomnia 10/26/2020 Hyperlipidemia 10/26/2020 Moderate episode of recurrent major depressive d isorder 10/26/2020 Severe obesity (BMI 35.0-39.9) with comorbidity 10/26/2020 Type 2 diabetes mellitus wit h stage 4 chronic kidney disease, without long-term current use of insulin 10/25/2020 Resolved Problems Problem Noted Date Diagnosed Date Resolved Date Stage 3 chronic kidney disease 10/26/2020 01/29/2021 Immunizations Immunization Administration Dates Next Due (PNEUMOVAX 23)(50 YRS UP) PN EUMOCOCCAL POLYSACCHARIDE (PPV23) 0.5 ML, IM 10/23/2004 (SPIKEVAX) (12 YRS UP PRIMAR Y SERIES) COVID-19 VACCINE - MRNA-1273(PF) 100 MCG/0.5 ML IM SUSP 02/05/2021 Influenza Seasonal Unspecified Formulation IM ,09/09/2006 Pneumococcal conjugate, unspecified formulation 09/23/2015 Family History Medical History Relation Name Comments Unknown Father Uterine Cancer Maternal Grandmother Unknown Mother Ovarian Cancer Other SELF Breast Cancer Neg Hx Relation Name Status Comments Daughter 1 Alive Daughter 2 Alive Father Maternal Grandmother Mother Other SELF Alive Sister 1 Alive Sister 2 Alive Sister 3 Alive Son Alive Social History Tobacco Use Types Packs/Day Years Used Date Smoking Tobacco: Former Smokeless Tobacco: Never Alcohol Use Standard Drinks/Week Comments Not Currently 0 (1 standard drink = 0.6 oz pur e alcohol) Comments No Sex and Gender Information Value Date Recorded Sex Assigned at Not on file Legal Sex Female 3:56 AM 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 Gender Identity Not on file Sexual Orientation Not on file Last Filed Vital Signs Vital Sign Reading Time Taken Comments Blood Pressure 138/70 04/29/2021 9:16 AM CDT Pulse 72 04/29/2021 9:16 AM CDT Temperature 36.4 C (97.5 F) 04/29/2021 9:16 AM CDT Respiratory Rate 16 04/29/2021 9:16 AM CDT Oxygen Saturation 93% 04/29/2021 9:16 AM CDT Inhaled Oxygen Concentration - - Weight 99.1 kg (218 lb 6.4 oz) 04/29/2021 9:16 A M CDT Height 160 cm (5' 3 ) 04/29/2021 9:16 AM CDT Body Mass Index 38.69 04/29/2021 9:16 AM CDT Plan of Treatment Health Maintenance Due Date Last Done Comments DIABETES ANNUAL FOOT EXAM 1973 FIT/ DNA Q 3 YEARS (AUTO ORDER) 1973 FIT/FOBT Q 1 YEAR (AUTO ORDER) 1973 FLEX SIG/CT COLONOGRAPHY Q 5 YEARS (AUTO ORDER) 1973 DTAP/TDAP/TD VACCINES (1 - Tdap) 1974 COLORECTAL CANCER SCREENING (AUTO ORDER) 2000 COLORECTAL SCREENING 2000 Colorectal Cancer Screening (AUTO ORDER) 2000 Colorectal Cancer Screening 2000 FIT-DNA Q 3 years 2000 FIT/FOBT Q 1 year 2000 Flex Sig/CT Colonography Q 5 years 2000 RSV VACCINE (60+ or ) (1 - Risk 50-74 years 1-dose series) 2005 ZOSTER VACCINE (1 of 2) 2005 PNEUMOCOCCAL VACCINE 50+ YEA RS (2 of 2 - PCV) 09/23/2016 09/23/2015, 10/23/2004 OSTEOPOROSIS SCREENING 2020 DIABETES HBA1C Q 6 MONTHS 10/29/20212020, 10/25/2020, 09/03/2006, Additional history exists DIABETES MICROALBUMIN ANNUAL SCREEN 03/21/2022 03/21/2021, 09/03/2006 LDL CHOLESTEROL ANNUAL 04/29/2022 1, 01/26/2008, 09/03/2006 DIABETES ANNUAL RETINAL EXAM 12/05/2023 12/05/2022 [place] Preventative Visit/Annual Wellness Visit 11/23/2024 INFLUENZA VACCINE (#1) 2025 0, 09/23/2016, 09/23/2015, Additional history exists COVID-19 Vaccine (2 6 season) 2025 02/05/2021 BREAST CANCER SCREENING 04/25/2026 04/25/20 25, 12/22/2024, 07/28/2023, Additional history exists Procedures Procedure Name Priority Date/Time Associated Diagnosis Comments LIPID PANEL Routine 04/29/2021 10:38 AM CDT HEMOGLOBIN A1C Routine 04/29/2021 10:38 AM CDT MICROALBUMIN/CREATIN INE RATIO, RANDOM UR Routine 03/21/2021 2:20 PM CDT Chronic kidney disease, stage 4 (severe) (CMS/HCC) MAMMO SCREEN BILAT W OR WO CAD Routine 11/08/2020 2:10 PM WORKFORCE DEVELOPMENT 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 Screening mammogram, encounter for from Last 3 Months or Most Recently Relevant to Health Maintenance Results * (ABNORMAL) HEMOGLOBIN A1C (04/29/2021 10:38 AM CDT) HEMOGLOBIN A1C 6.9(H) <5.7 % of total Hgb [facility] [place] Comment: For someone without known diabetes, a hemoglobin A1c value of 6.5% or greater indicates that they may have diabetes and this should be confirmed with a follow-up test. For someone with known diabetes, a value <7% indicates that their diabetes is well controlled and a value greater than or equal to 7% indicates suboptimal control. A1c targets should be individualized based on duration of diabetes, age, comorbid conditions, and other considerations. Currently, no consensus exists regarding use of hemoglobin A1c for diagnosis of diabetes for children. FASTING: UNKNOWN Test Performed at: [facility] [address] [place] [address] Navin Martínez D.O. MPH 04/29/2021 10:3 8 AM CDT 04/30/2021 8:20 AM CDT Abbie HADDAD CHEMISTRY ORDERABLES Final Resul t [facility] [address] [address] [place] [id number] * (ABNORMAL) LIPID PANEL (04/29/2021 10:38 AM CDT) CHOLESTEROL 212(H) <200 mg/dL [facility] HDL 58 > OR = 50 mg/dL [facility] TRIGLYCERIDE 185(H) <150 mg/dL [facility] LDL CALCULATED 123(H) mg/dL (calc) [facility] Comment: Reference range: <100 Desirable range <100 mg/dL for primary prevention; <70 mg/dL for patients with CHD or diabetic patients with > or = 2 CHD risk factors. LDL-C is now calculated using the Maxx-Jenny calculation, which is a validated novel method providing better accuracy than the Friedewald equation in the estimation of LDL-C. Maxx SS et al. ROHAN. 2013;310(19): 5433-2095 (http://education.[employer]/faq/WUG459) CHOL/HDL RATIO 3.7 <5.0 (calc) [facility] TOTAL NON-HDL CHOL(LDL+VLDL) 154(H) <130 mg/dL (calc) [facility] Comment: For patients with diabetes plus 1 major ASCVD risk factor, treating to a non-HDL-C goal of <100 mg/dL (LDL-C of <70 mg/dL) is considered a therapeutic option. Test Performed at: [facility] [address] [address] [place] [address] Navin Martínez D.O., MPH 04/29/2021 10:3 8 AM CDT 04/30/2021 8:20 AM CDT Abbie HADDAD CHEMISTRY ORDERABLES Final Resul t Performing Organization Address City/[facility] [address]/ZIP Co de Phone Number [facility] [place] [address] [address] [address] * MICROALBUMIN/CREATININE RATIO, RANDOM UR (03/21/2021 2:20 PM CDT) MICROALBUMIN, URINE >440.0 No Reference Range mg/dL 03/22/2021 1:14 AM CDT [facility] [place] CREATININE, URINE 174.2 29.0 - 226.0 mg/dL 03/22/2021 1:[address] [facility] Urine URINE SPECIMEN / Unknown Collection / Unknown 03/21/2021 2:20 PM CDT 03/21/2021 10:35 PM CDT Narrative [facility] [place] [facility] - 03/22/2021 1:14 AM CDT Condition Microalbumin/Creat ratio Normal Males <17 Normal Females <25 Microalbuminuria Males 17-299 Microalbuminuria Females 25-299 Overt proteinuria >=300 Verified by repeat analysis. us Julián Ortega MD URINE ORDERABLES Final Resul t Performing Organization Address [facility] [address]/[facility] Co de Phone Number [facility] [place] [facility] [address] [place] [address] * MAMMO SCREEN BILAT W OR WO CAD (11/08/2020 2:10 PM WORKFORCE DEVELOPMENT 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) Anatomical Region Laterality Modality Breast Bilateral Mammography Narrative 11/21/2020 12:48 PM WORKFORCE DEVELOPMENT 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 Bilateral Mammogram Reason for Exam: Screening Comparison: No prior exam(s) for comparison. Findings: Bilateral CC and MLO views were obtained. This examination was reviewed with the aid of a computer-aided detection system(CAD). Breast Composition: The breasts are almost entirely fatty. There are no suspicious masses, areas of architectural distortions, or microcalcifications to suggest malignancy. Impression: Negative screening mammogram. Recommendation: Routine annual follow-up Overall Assessment: Birads Category 1: Negative Abbie Yeyo SOCIAL STAFF WORKER MAMMO ORDERABLES Final Result from Last 3 Months or Most Recently Relevant to Health Maintenance Insurance [address] [place], [place] [address]O [facility] Care Teams Pharmacogeneticist Relationship Specialty Start Date End Date Jhon Schneider MD [address] [phone] PCP - General Family Practice 11/08/20
--- OUTSIDE RECORDS SUMMARY | 2025-10-24 07:25 | XMS_ITS | Encounter Summary ---
Author Organization [facility] Address [address] [place] [address] Care Team Providers Care Postal Transportation Clerk Name Role Phone Jhon Schneider MD Primary Care Provider +1 [phone] Encounter Details Date Type Department Care Team (Latest Contact Info) Description 05/13/2005 Outpatient Historical [facility] [address] [place] [phone] Thania Calvin MD [address] [place] [phone] SCREENING MAL NEOP-RECTUM (Primary Dx); ABN FIND-STOOL CONTENTS-OCC BLOOD Social History Tobacco Use Types Packs/Day Years Used Date Smoking Tobacco: Never Assessed Comments Unknown Sex and Gender Information Value Date Recorded Sex Assigned at Not on file Legal Sex Female 3:56 AM ELECTROCHEMIST Gender Identity Not on file Sexual Orientation Not on file documented as of this encounter Plan of Treatment Not on file documented as of this encounter Visit Diagnoses Diagnosis Screening for malignant neoplasm of the rectum- Primary Nonspecific abnormal finding in stool contents documented in this encounter Care Teams Postal Transportation Clerk Relationship Specialty Start Date End Date Jhon Schneider MD [address] [facility] [address] [place] [phone] PCP - General Family Practice 11/08/20 documented as of this encounter
--- OUTSIDE RECORDS SUMMARY | 2025-10-24 07:25 | XMS_ITS | Encounter Summary ---
Author Organization [facility] Address [address] [place] [address] Care Team Providers Care Technical Sme Name Role Phone Jhon Schneider MD Primary Care Provider +1 -[phone] Encounter Details Date Type Department Care Team (Latest Contact Info) Description 05/18/2007 Outpatient Historical [place] [address] [place] [address] Thania Calvin MD [address] [place] [phone] Hypoglycemia, Unspecified (Primary Dx); Jaundice, Unspecified, not of [place]; Unspecified Iron Deficiency Anemia; Unspecified Essential Hypertension Social History Tobacco Use Types Packs/Day Years Used Date Smoking Tobacco: Never Assessed Comments Unknown Sex and Gender Information Value Date Recorded Sex Assigned at Not on file Legal Sex Female 3:56 AM PURCHASING 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
--- OUTSIDE RECORDS SUMMARY | 2025-10-24 07:25 | XMS_ITS | Encounter Summary ---
Author Organization [facility] Address [address] [place] [address] Care Team Providers Care Scaffold Builder Name Role Phone Jhon Schneider MD Primary Care Provider +1 -[phone] Encounter Details Date Type Department Care Team (Latest Contact Info) Description 07/13/2007 Outpatient Historical [facility] [address] [place] [phone] Thania Calvin MD [address] [place] [phone] DM w/o Complication Type II (CMS/HCC) (Primary Dx); Unspecified Essential Hypertension; Unspecified Iron Deficiency Anemia; Contact Dermatitis and Other Eczema, due to Unspecified Cause Social History Tobacco Use Types Packs/Day Years Used Date Smoking Tobacco: Never Assessed Comments Unknown Sex and Gender Information Value Date Recorded Sex Assigned at Not on file Legal Sex Female 3:[address]MINISTRATOR Gender Identity Not on file Sexual Orientation Not on file documented as of this encounter Plan of Treatment Not on file documented as of this encounter Visit Diagnoses Diagnosis Type II or unspecified type diabetes mellitus without mention of complication, not stated as uncontrolled- Primary Unspecified essential hypertension Iron deficiency anemia, unspecified Contact dermatitis and other eczema, due to unspecified cause documented in this encounter Care Teams Scaffold Builder Relationship Specialty Start Date End Date Jhon Schneider MD [address] [phone] PCP - General Family Practice 11/08/20 documented as of this encounter
--- OUTSIDE RECORDS SUMMARY | 2025-10-24 07:25 | XMS_ITS | Encounter Summary ---
Author Organization [facility] Address [address] [place] [address] Care Team Providers Care Lisw Name Role Phone Jhon Schneider MD Primary Care Provider +1 [phone] Encounter Details Date Type Department Care Team (Latest Contact Info) Description 04/29/2005 Outpatient Historical [place] [address] [place] [address] Thania Calvin MD [address] [place] [phone] DIABETES MELLITUS TYPE II-UNCOMPL (CMS/HCC) (Primary Dx); HYPERTENSION NOS; ANEMIA NOS; ACUTE STRESS REACT NOS Social History Tobacco Use Types Packs/Day Years Used Date Smoking Tobacco: Never Assessed Comments Unknown Sex and Gender Information Value Date Recorded Sex Assigned at Not on file Legal Sex Female 3:56 AM INVESTIGATOR Gender Identity Not on file Sexual Orientation Not on file documented as of this encounter Plan of Treatment Not on file documented as of this encounter Visit Diagnoses Diagnosis Type II or unspecified type diabetes mellitus without mention of complication, not stated as uncontrolled- Primary Unspecified essential hypertension Anemia, unspecified Unspecified acute reaction to stress documented in this encounter Care Teams Lisw Relationship Specialty Start Date End Date Jhon Schneider MD [address] [facility] [address] [place] [phone] PCP - General Family Practice 11/08/20 documented as of this encounter
--- OUTSIDE RECORDS SUMMARY | 2025-10-24 07:25 | XMS_ITS | Encounter Summary ---
Author Organization [facility] Address [address] [place] [address] Care Team Providers Care Food Preparer Name Role Phone Jhon Schneider MD Primary Care Provider +1 [phone] Encounter Details Date Type Department Care Team (Latest Contact Info) Description 09/16/2005 Outpatient Historical [place] [address] [place] [phone] Thania Calvin MD [address] [place] [phone] IRON DEFIC ANEMIA NOS (Primary Dx); DIABETES MELLITUS TYPE II-UNCOMPL (CMS/HCC); HYPERTENSION NOS; ABNORMAL CLINICAL FINDING NEC Social History Tobacco Use Types Packs/Day Years Used Date Smoking Tobacco: Never Assessed Comments Unknown Sex and Gender Information Value Date Recorded Sex Assigned at Not on file Legal 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 Female 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 Gender Identity Not on file Sexual Orientation Not on file documented as of this encounter Plan of Treatment Not on file documented as of this encounter Visit Diagnoses Diagnosis Iron deficiency anemia, unspecified- Primary Type II or unspecified type diabetes mellitus without mention of complication, not stated as uncontrolled Unspecified essential hypertension Other abnormal clinical finding documented in this encounter Care Teams Food Preparer Relationship Specialty Start Date End Date Jhon Schneider MD [address] [facility] [address] [place] [phone] PCP - General Family Practice 11/08/20 documented as of this encounter
--- OUTSIDE RECORDS SUMMARY | 2025-10-24 07:25 | XMS_ITS | Encounter Summary ---
Author Organization [facility] Address [address] [place] [address] Care Team Providers Care Chain Carrier Name Role Phone Jhon Schneider MD Primary Care Provider [phone] [phone] Encounter Details Date Type Department Care Team (Late st Contact Info) Description 11/17/2007 Outpatient Historical [facility] [address] [place] [address] Thania Calvin MD [address] [place] [phone] Social History Tobacco Use Types Packs/Day Years Used Date Smoking Tobacco: Never Assessed Comments Unknown Sex and Gender Information Value Date Recorded Sex Assigned at Not on file Legal Sex Female 3:56 AM FILLING MIXER Gender Identity Not on file Sexual Orientation Not on file documented as of this encounter Plan of Treatment Not on file documented as of this encounter Visit Diagnoses Not on filedocumented in this encounter Care Teams Chain Carrier Relationship Specialty Start Date End Date Jhon Schneider MD [address] [facility] [address] [place] [phone] PCP - General Family Practice 11/08/20 documented as of this encounter
--- OUTSIDE RECORDS SUMMARY | 2025-10-24 07:25 | XMS_ITS | Encounter Summary ---
Author Organization [facility] Address [address] [place] [address] Care Team Providers Care Shallot Packer Name Role Phone Jhon Schneider MD Primary Care Provider [phone] [phone] Encounter Details Date Type Department Care Team (Latest Contact Info) Description 11/11/2005 Outpatient Historical [facility] 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 Gender Identity Not on file Sexual Orientation Not on file documented as of this encounter Plan of Treatment Not on file documented as of this encounter Visit Diagnoses Diagnosis Iron deficiency anemia, unspecified- Primary Other abnormal clinical finding Type II or unspecified type diabetes mellitus without mention of complication, not stated as uncontrolled Major depressive disorder, recurrent episode, unspecified (CMS/HCC) Major depressive disorder, recurrent episode, unspecified documented in this encounter Care Teams Shallot Packer Relationship Specialty Start Date End Date Jhon Schneider MD [address] [facility] [address] [place] [phone] PCP - General Family Practice 11/08/20 documented as of this encounter
--- OUTSIDE RECORDS SUMMARY | 2025-10-24 07:25 | XMS_ITS | Encounter Summary ---
Author Organization [facility] Address [address] [place] [address] Care Team Providers Care Comp Field Case Manager Name Role Phone Jhon Schneider MD Primary Care Provider [phone] Encounter Details Date Type Department Care Team (Latest Contact Info) Description 11/11/2005 Outpatient Historical [place] [address] [place] [phone] Thania Calvin MD [address] [place] [phone] HYPERLIPIDEMIA NEC/NOS (Primary Dx) Social History Tobacco Use Types Packs/Day Years Used Date Smoking Tobacco: Never Assessed Comments Unknown Sex and Gender Information Value Date Recorded Sex Assigned at Not on file Legal Sex Female 3:56 AM COUNTER CUTTER Gender Identity Not on file Sexual Orientation Not on file documented as of this encounter Plan of Treatment Not on file documented as of this encounter Procedures Procedure Name Priority Date/Time Associated Diagnosis Comments HEMOGLOBIN A1C Routine 11/11/2005 10:10 AM COUNTER CUTTER documented in this encounter Results * (ABNORMAL) HEMOGLOBIN A1C (11/11/2005 10:10 AM COUNTER CUTTER) HEMOGLOBIN A1C 6.3(H) 4.0 - 6.0 %A1C INTERFACE SYSTEM 11/11/2005 10:1 0 AM COUNTER CUTTER us Thania Calvin MD CHEMISTRY ORDERABLES Final R esult INTERFACE SYSTEM Refer to clinic/hospital department documented in this encounter Visit Diagnoses Diagnosis Other and unspecified hyperlipidemia- Primary documented in this encounter Care Teams Comp Field Case Manager Relationship Specialty Start Date End Date Jhon Schneider MD [address] [phone] PCP - General Family Practice 11/08/20 documented as of this encounter
--- OUTSIDE RECORDS SUMMARY | 2025-10-24 07:25 | XMS_ITS | Encounter Summary ---
Author Organization [facility] Address [address] [place] [address] Care Team Providers Care Manager Group Name Role Phone Jhon Schneider MD Primary Care Provider [phone] Encounter Details Date Type Department Care Team (Latest Contact Info) Description 05/06/2005 Outpatient Historical [place] [address] [place] [phone] Thania Calvin MD [address] [place] [phone] ANEMIA NOS (Primary Dx) Social History Tobacco Use Types Packs/Day Years Used Date Smoking Tobacco: Never Assessed Comments Unknown Sex and Gender Information Value Date Recorded Sex Assigned at Not on file Legal Sex Female 3:56 AM 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 Gender Identity Not on file Sexual Orientation Not on file documented as of this encounter Plan of Treatment Not on file documented as of this encounter Procedures Procedure Name Priority Date/Time Associated Diagnosis Comments FOLATE, SERUM Routine 05/06/2005 4:10 PM CDT IRON, TIBC, AND PERCENT SATURATION Routine 05/06/2005 4:10 PM CDT RETICULOCYTES Routine 05/06/2005 4:10 PM CDT FERRITIN Routine 05/06/2005 4:10 PM CDT VITAMIN B12 LEVEL Routine 05/06/2005 4:1 0 PM CDT documented in this encounter Results * (ABNORMAL) RETICULOCYTES (05/06/2005 4:10 PM CDT) RETICULOCYTES 1.8(H) 0.5 - 1.5 % INTERFACE SYSTEM 05/06/2005 4:10 PM CDT us Thania Calvin MD HEMATOLOGY ORDERABLES Final Result Performing Organization Address [facility] Phone Number INTERFACE SYSTEM Refer to clinic/hospital department * (ABNORMAL) IRON AND TIBC (05/06/2005 4:10 PM CDT) IRON 36(L) 45 - 150 ug/dL INTERFACE SYSTEM TIBC 575(H) 250 - 450 ug/dL INTERFACE SYSTEM IRON % SATURATION 6(L) 15 - 50 % INTERFACE SYSTEM 05/06/2005 4:10 PM CDT us Thania Calvin MD CHEMISTRY ORDERABLES Final R esult Performing Organization Address [facility] Phone Number INTERFACE SYSTEM Refer to clinic/hospital department * VITAMIN B12 (05/06/2005 4:10 PM CDT) VITAMIN B12 297 211 - 911 pg/dL INTERFACE SYSTEM Comment: As of 05 at 3:00 p.m. [facility] has changed the methodology for B12, and with this change the reference range has changed from 200-925 pg/dl to 211- 911 pg/dl. 05/06/2005 4:10 PM CDT us Thania Calvin MD CHEMISTRY ORDERABLES Final R esult Performing Organization Address [facility] de Phone Number INTERFACE SYSTEM Refer to clinic/hospital department * FOLATE, SERUM (05/06/2005 4:10 PM CDT) FOLATE, SERUM 32.11 >=5.38 ng/dL INTERFACE SYSTEM Comment: As of 05 at 3:00 p.m. [facility] has changed the methodology for Folate, and with this change the reference range has changed from 2.76-20.00 ng/dl to >5.38 ng/dl. 05/06/2005 4:10 PM CDT us Thania Calvin MD CHEMISTRY ORDERABLES Final R esult Performing Organization Address [facility] de Phone Number INTERFACE SYSTEM Refer to clinic/hospital department * FERRITIN (05/06/2005 4:10 PM CDT) FERRITIN 19.6 6.3 - 132.0 ng/mL INTERFACE SYSTEM 05/06/2005 4:10 PM CDT us Thania Calvin MD CHEMISTRY ORDERABLES Final R esult Performing Organization Address [facility] de Phone Number INTERFACE SYSTEM Refer to clinic/hospital department documented in this encounter Visit Diagnoses Diagnosis Anemia, unspecified- Primary documented in this encounter Care Teams Manager Group Relationship Specialty Start Date End Date Jhon Schneider MD [address] [phone] PCP - General Family Practice 11/08/20 documented as of this encounter
--- OUTSIDE RECORDS SUMMARY | 2025-10-24 07:25 | XMS_ITS | Clinical Summary ---
Author Organization [facility] tone Address [address] [place] [address] Care Team Providers Care Cuff Setter Name Role Phone Jhon Schneider MD Primary Care Provider [phone] Allergies Active Allergy Reactions Criticality Noted Date Comments Adhesive Rash,Other (See Comments) Low 10/25/2020 Primary hypertension Primary hypertension [id number] Active 2022-08-27 00:00:00 Adhesive Tape-Silicones Other (See Comments) 02/19/2022 blisters blisters Pre-transplant evaluation for kidney transplant Pre-transplant evaluation for kidney transplant [id number] Active 2022-02-11 00:00:00 Overview: Images from the original note were not included.Tracie Corcoran 1955Referring Wood Carver Hand: Julián OrtegaListwendy Date: Dialysis Info: Type: Time: NOD GFR 9 (04/16/2022)Blood Type: Body mass index is 35.61 kg/m?.ALERTS Remittance Clerk:ESRD r/t DM2 and HTNPast Medical History: Diagnosis Date CKD (chronic kidney disease), stage V Community acquired pneumonia Diabetes mellitus age 32. Took metformin. started insulin 1997. Did not require insulin after gastric bypass in 2008. 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 Generalized anxiety disorder lexapro and xanax prescribed by PCP. last saw counselor a year ago. Lost and son. History of blood transfusion Hypercholesteremia Hypertension 40's Malignancy 2000 Ovarian cancer. Hysterectomy and 3 rounds of chemo completed. [facility] [place]. Past Surgical History: Procedure Laterality Date Gastric Bypass Hysterectomy 02/2001 Social History Socioeconomic History Marital status: Spouse name: Not on file Number of children: Not on file Years of education: Not on file Highest education level: Not on file Occupational History Not on file Tobacco Use Smoking status: Former Smoker Packs/day: 0.50 Years: 20.00 Pack years: 10.00 Types: Cigaret... (TRUNCATED) Latex Other (See Comments) 04/29/2022 blisters S/P TAVR (transcatheter aortic valve replacement) S/P TAVR (transcatheter aortic valve replacement) [id number] Active 2022-09-22 00:00:00 Overview: Added automatically from request for surgery [id number] Assessment & Plan: S/p TAVR with 23mm [place] S3 valve 09/30/22Feeling well- reports improved energy and less ZHONG. Taking less breaks while completing house chores. TTE 11/03: Final result pending EKG 11/03: SR with PVCs and PACs HR 82Continue ASA 81 mg daily and all other medications as prescribed. KCCQ completedSerial BMP and CBC checks per nephrology. Follow up with PCP and Wood Carver Hand as scheduled for regular visits.TTE in 1 yearIncrease physical activity as tolerated to goal 150 min moderate intensity exercise per week. I expect her functional status will continue to improve over the next several weeks to months. Today, the NYHA functional class is II. Medications acetaminophen (TYLENOL) 325 mg tablet Take 650 mg by mouth every 4 hours as needed. 2-3 tabs q 4 hours prn 10/25/20 20 Active cholecalciferol, vitamin D3, 1,000 unit Take 1,000 Units by mouth daily. 10/25/20 20 Active RenaPlex-D 800 mcg-12.5 mg -2,000 unit Tablet Take 1 Tablet by mouth daily. 06/09/20 22 Active aspirin (OLU CHEWABLE) 81 mg Tablet, Chewable Take 81 mg by mouth daily. Active calcitRIOL (ROCALTROL) 0.25 mcg capsule Take 2.25 mcg by mouth daily. Takes at dialysis tue., th, and Sat Active calcium as carbonate (CALTRATE) 1,500 mg (600 mg elemental) Tablet Take 600 mg by mouth daily. Active OTHER Takes concentrated form of protein on dialysis days. Active alcohol (BD Single Use Swabs Regular) Pads, Medicated Active lidocaine-priloc clifton (EMLA) 2.5-2.5 % CreamIndications :Dependence on renal dialysis Apply to affected area see administration instructions. 30 Gram 2 07/20/20 23 Active Blood-Glucose Meter KitIndications:T ype 2 diabetes mellitus with stage 5 chronic kidney disease not on chronic dialysis, without long-term current use of insulin ([facility]) To check blood sugar once a day 1 Kit 08/04/20 23 Active blood sugar diagnostic StripIndications :Type 2 diabetes mellitus with stage 5 chronic kidney disease not on chronic dialysis, without long-term current use of insulin ([facility]) Take blood sugar once a day 100 Strip 3 08/04/20 23 Active lancetsIndicatio ns:Type 2 diabetes mellitus with stage 5 chronic kidney disease not on chronic dialysis, without long-term current use of insulin ([facility]) To check blood sugar once a day 100 Each 3 08/04/20 23 Active ofloxacin (OCUFLOX) 0.3 % solution 1 Drop by See Admin Instructions route 4 times daily. 08/31/20 23 Active OneTouch Delica Plus Lancet 30 gauge TO CHECK BLOOD SUGAR ONCE A DAY 08/04/20 23 Active fluconazole (DIFLUCAN) 150 mg tabletIndication s:Vaginal candidiasis Take one tablet repeat in three days 2 Tablet 09/22/20 24 Active Eliquis 2.5 mg tablet Take 1 Tablet by mouth 2 times daily. 11/04/20 24 Active calcitRIOL (ROCALTROL) 0.25 mcg capsule Take 2.25 mcg by mouth. 04/22/20 24 Active calcium as carbonate (CALTRATE) 1,500 mg (600 mg elemental) Tablet Take 600 mg by mouth. 04/22/20 24 Active diltiaZEM (CARDIZEM SR) 60 mg Extended Release 12 hour capsule Take 60 mg by mouth 2 times daily. Active fluticasone propionate (FLONASE) 50 mcg/spray Fitzgerald, Suspension nasal inhalerIndicatio ns:Sensation of fullness in both ears Administer 2 Sprays in each nostril daily. 16 Gram 11 12/09/19 25 Active omeprazole (PriLOSEC) 20 mg Capsule, Delayed Release(E.C.)Ind ications:Gastroe sophageal reflux disease without esophagitis Take 1 capsule by mouth once daily 100 Capsule 3 03/29/20 25 Active apixaban (Eliquis) 2.5 mg tablet Take 2.5 mg by mouth 2 times daily. 11/04/20 24 Active losartan (COZAAR) 25 mg tabletIndication s:Benign hypertension Take 1 Tablet (25 mg) by mouth 2 times daily. 180 Tablet 3 04/26/20 25 Active metoprolol succinate (TOPROL XL) 25 mg Extended Release 24 hour tablet Take 0.5 Tablets (12.5 mg) by mouth daily. 50 Tablet 2 04/26/20 25 Active isosorbide mononitrate (IMDUR) 30 mg Extended Release 24 hour tablet Take 1 Tablet by mouth daily. 04/12/20 25 Active nitroglycerin (NITROSTAT) 0.4 mg Tablet, Sublingual PLACE 1 TABLET UNDER THE TONGUE EVERY 5 MINUTES NEEDED FOR CHEST PAIN. DO NOT EXCEED 3 DOSES PER EPISODE 04/12/20 25 Active lanthanum (FOSRENOL) 750 mg Tablet, Chewable CHEW AND SWALLOW 3 TABLETS THREE TIMES DAILY WITH MEALS AND 1 TABLET TWO TIMES DAILY WITH SNACKS 04/25/20 25 Active fluconazole (DIFLUCAN) 150 mg tabletIndication s:Encounter for other specified prophylactic measures Take one tablet on day 4 of antibiotic. 1 Tablet 05/02/20 25 Active traZODone (DESYREL) 50 mg tablet TAKE 1 TABLET BY MOUTH ONCE DAILY AT BEDTIME 100 Tablet 1 08/16/20 25 Active escitalopram oxalate (LEXAPRO) 20 mg tabletIndication s:Moderate episode of recurrent major depressive disorder (CMS/HCC) TAKE ONE TABLET BY MOUTH ONCE DAILY 100 Tablet 08/28/20 25 Active atorvastatin (LIPITOR) 80 mg tablet Take 1 tablet by mouth once daily 100 Tablet 08/28/20 25 Active Active Problems Problem Noted Date Diagnosed Date Paroxysmal atrial fibrillation 12/09/2024 Wound infection after surgery 04/09/2023 End stage kidney disease 03/09/2023 S/P TAVR (transcatheter aortic valve replacement ) 09/22/2022 Overview (03/02/2023): S/P TAVR (transcatheter aortic valve replacement) S/P TAVR (transcatheter aortic valve replacement) [id number] Active 2022-09-22 00:00:00 Overview: Added automatically from request for surgery [id number] Added automatically from request for surgery [id number] Last Assessment & Plan: S/p TAVR with 23mm [place] S3 valve 09/30/22 Feeling well- reports improved energy and less ZHONG. Taking less breaks while completing house chores. TTE 11/03: Final result pending EKG 11/03: SR with PVCs and PACs HR 82 Continue ASA 81 mg daily and all other medications as prescribed. KCCQ completed Serial BMP and CBC checks per nephrology. Follow up with PCP and Wood Carver Hand as scheduled for regular visits. TTE in 1 year Increase physical activity as tolerated to goal 150 min moderate intensity exercise per week. I expect her functional status will continue to improve over the next several weeks to months. Today, the NYHA functional class is II. S/P TAVR (transcatheter aortic valve replacement) S/P TAVR (transcatheter aortic valve replacement) [id number] Active 2022-09-22 00:00:00 Overview: Added automatically from request for surgery [id number] Last Assessment & Plan: S/p TAVR with 23mm [place] S3 valve 09/30/22 Feeling well- reports improved energy and less ZHONG. Taking less breaks while completing house chores. TTE 11/03: Final result pending EKG 11/03: SR with PVCs and PACs HR 82 Continue ASA 81 mg daily and all other medications as prescribed. KCCQ completed Serial BMP and CBC checks per nephrology. Follow up with PCP and Wood Carver Hand as scheduled for regular visits. TTE in 1 year Increase physical activity as tolerated to goal 150 min moderate intensity exercise per week. I expect her functional status will continue to improve over the next several weeks to months. Today, the NYHA functional class is II. Pulmonary hypertension 05/21/2022 Moderate aortic valve stenosis 05/21/2022 Mitral valve insufficiency 05/21/2022 Tricuspid valve insufficiency 05/21/2022 YESSENIA (generalized anxiety disorder) 01/29/2021 Hyperlipidemia 10/26/2020 Benign hypertension 10/26/2020 Moderate episode of recurrent major depressive d isorder 10/26/2020 Insomnia 10/26/2020 Severe obesity (BMI 35.0-39.9) with comorbidity 10/26/2020 Type 2 diabetes mellitus wit h stage 5 chronic kidney disease not on chronic dialysis, without long-term current use of insulin 10/25/2020 Resolved Problems Problem Noted Date Diagnosed Date Resolved Date Stage 3 chronic kidney disease 10/26/2020 01/29/2021 Encounters Date Type Department Care Team Description 09/19/2025 Patient Outreach [address] [address] Jhon Schneider MD Primary Care Outreach 08/26/[address] [address] IsaiCitlalli, HIDE INSPECTOR AND SORTER Moderate episode of recurrent major depressive disorder (CMS/HCC) 08/16/[address] [address] Jhon Schneider MD from Last 3 Months Immunizations Immunization Administration Dates Next Due (PNEUMOVAX 23)(50 YRS UP) PN EUMOCOCCAL POLYSACCHARIDE (PPV23) 0.5 ML, IM 09/23/2015,10/23/2004 (SPIKEVAX) (12 YRS UP PRIMAR Y SERIES) COVID-19 VACCINE - MRNA-1273(PF) 100 MCG/0.5 ML IM SUSP 11/27/2021,04/11/2021,02/05/2021 INFLUENZA VACCINE HIGH DOSE QUADRIVALENT 65 YR UP PF IM 09/23/2016,09/23/2015 Influenza Seasonal Unspecifi ed Formulation IM 09/30/2007,09/09/2006 Influenza Vaccine High Dose 65+ Yrs IM 6,09/23/2015 Influenza, Unspecified Formulation 08/23/2018 Pneumococcal conjugate, unsp ecified formulation 09/23/2015 Family History Medical History Relation [...] Packs/Day Years Used Date Smoking Tobacco: Former Cigarettes 0 Q uit: 11/23/1982 Passive Smoke Exposure: Past Smokeless Tobacco: Never Tobacco Cessation:Counseling Given: Not Answered Alcohol Use Standard Drinks/Week Comments Not Currently 0 (1 standard drink = 0.6 oz pur e alcohol) Financial Resource Strain Answer Date R ecorded How hard is it for you to pa y for the very basics like food, housing, medical care, and heating? Somewhat hard 03/02/2023 Food Insecurity Answer Date Recorded In the past 12 months, have you worried that your food would run out before you had money to buy more? Never true 03/02/2023 In the past 12 months, did y ou run out of food and didn't have money to buy more? Never true 03/02/2023 Transportation Needs Answer Date Record ed In the past 12 months, has l ack of transportation kept you from medical appointments or from getting medications? No 03/02/2023 Lack of Transportation (Non-Medical) Not on file 03/02/2023 Feeling Safe Answer Date Recorded Are you in a relationship wi th someone who hurts you emotionally and/or physically? 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 Gender Identity Not on file Sexual Orientation Not on file Last Filed Vital Signs Vital Sign Reading Time Taken Comments Blood Pressure 139/62 06/27/2025 11:11 AM CDT Pulse 72 06/27/2025 11:05 AM CDT Temperature 36.8 C (98.2 F) 06/27/2025 11:05 AM CDT Respiratory Rate 17 06/27/2025 11:05 AM CDT Oxygen Saturation 98% 06/27/2025 11:05 AM CDT Inhaled Oxygen Concentration - - Weight 75.3 kg (166 lb) 06/27/2025 11:05 AM CDT Height 160 cm (5' 3 ) 06/27/2025 11:05 AM CDT Body Mass Index 29.41 06/27/2025 11:05 AM CDT Plan of Treatment Health Maintenance Due Date Last Done Comments DTAP/TDAP/TD VACCINES (1 - Tdap) 1974 FIT-DNA Q 3 years 2000 FIT/FOBT Q 1 year 2000 Flex Sig/CT Colonography Q 5 years 2000 RSV VACCINE (60+ or ) (1 - Risk 50-74 years 1-dose series) 2005 ZOSTER VACCINE (1 of 2) 2005 PNEUMOCOCCAL VACCINE 50+ YEA RS (2 of 2 - PCV) 09/23/2016 09/23/2015, 09/23/2015, 10/23/2004 OSTEOPOROSIS SCREENING 2020 DIABETES MICROALBUMIN ANNUAL SCREEN 03/21/2022 03/21/2021 DIABETES ANNUAL RETINAL EXAM 12/05/2023 12/05/2022, 12/05/2022 Medicare Advantage (CT) Preventative Visit/Annual Wellness Visit 11/23/2024 04/22/2024, 03/02/2023 LDL CHOLESTEROL ANNUAL 04/22/2025 4, 03/04/2023, 01/22/2022, Additional history exists INFLUENZA VACCINE (#1) 2025 , 10/25/2020, 09/23/2016, Additional history exists COVID-19 Vaccine (5 - 2024-2 6 season) 2025 11/27/2021, 04/11/2021, 03/12/2021, Additional history exists DIABETES HBA1C Q 6 MONTHS 11/09/20252024, 04/03/2025, 01/16/2025, Additional history exists DIABETES ANNUAL FOOT EXAM 04/03/20262024, 04/22/2024, 03/02/2023, Additional history exists BREAST CANCER SCREENING 04/25/2026 04/25/20 25, 12/22/2024, 12/22/2024, Additional history exists DIABETES: A1C (Auto Order) 05/10/202605/10, 04/03/2025, 01/16/2025, Additional history exists COLORECTAL SCREENING 03/13/2027 03/13/2022 Colorectal Cancer Screening 03/13/2027 Medical Devices Implanted Type Area Refinery Operator Crude Unit Device Identifier Shelf Expiration Date Model / Serial / Lot Clip Ligating Horizon Red 506078 - Csc - [id number] Implanted:Qty: 1 on 05/07/2022 by Dorian Montana MD at [facility] Clip Left: Arm [employer] [id number] 10/27/2026 [id number] / / [id number] Clip Ligating Horizon Med Ti 806502 - Csc - [id number] Implanted:Qty: 1 on 05/07/2022 by Dorian Montana MD at [facility] Clip Left: Arm TELEFLEX- WECK CLOSURE SYS [id number] 07/08/2026 [id number] / / [id number] Clip Ligating Horizon Med Ti 629003 - Csc - [id number] Implanted:Qty: 1 on 05/30/2022 by Dorian Montana MD at [facility] Clip Left: Arm TELEFLEX- WECK CLOSURE SYS [id number] 11/25/2026 [id number] / / [id number] Clip Ligating Horizon Red 355081 - Csc - [id number] Implanted:Qty: 1 on 05/30/2022 by Dorian Montana MD at [facility] Clip Left: Arm [employer] [id number] 10/27/2026 733408 / / [id number] Clip Ligating Horizon Red 170389 - Csc - [id number] Implanted:Qty: 1 on 12/22/2022 by Dorian Montana MD at [facility] Clip Left: Arm [employer] [id number] 04/28/2027 [id number] / / [id number] Clip Ligating Horizon Med Ti 130767 - Csc - [id number] Implanted:Qty: 1 on 12/22/2022 by Dorian Montana MD at [facility] Clip Left: Arm TELEFLEX- WECK CLOSURE SYS [id number] 04/03/2027 [id number] / / [id number] Clip Ligating Horizon Red 112652 - Csc - [id number] Implanted:Qty: 1 on 03/09/2023 by Dorian Montana MD at [facility] Clip Left: Arm [employer] [id number] 06/30/2027 / / [id number] Clip Ligating Horizon Med Ti 683580 - Csc - [id number] Implanted:Qty: 1 on 03/09/2023 by Dorian Montana MD at [facility] Clip Left: Arm TELEFLEX- WECK CLOSURE SYS [id number] 04/13/2027 / / [id number] Clip Ligating Horizon Red 882389 - Csc - [id number] Implanted:Qty: 1 on 04/08/2023 by Dorian Montana MD at [facility] Clip Left: Arm TE[employer] [id number] 07/13/2027 / / [id number] Clip Ligating Horizon Med Ti 490705 - Csc - [id number] Implanted:Qty: 1 on 04/08/2023 by Dorian Montana MD at [facility] Clip Left: Arm TELEFLEX- WECK CLOSURE SYS [id number] 04/13/2027 / / [id number] Hemostatic Surgicel 2x3in 1952 - [id number] Implanted:Qty: 1 on 05/30/2022 by Dorian Montana MD at [facility] Hemostatic Left: Arm [employer]J- [employer] 09/22/20261952 / / [id number] Hemostatic Surg Powder 3013sp - [id number] Implanted:Qty: 1 on 05/30/2022 by Dorian Montana MD at [facility] Hemostatic Left: Arm J&J- [employer] [id number] 04/22/2023 3013SP / / [id number] Hemostatic Surgicel 2x3in 1952 - [id number] Implanted:Qty: 1 on 12/22/2022 by Dorian Montana MD at [facility] Hemostatic Left: Arm J&J- [employer] [id number] 03/22/20271952 / / [id number] Hemostatic Surgicel 1x2in 1960 - [id number] Implanted:Qty: 1 on 12/22/2022 by Dorian Montana MD at [facility] Hemostatic Left: Arm J&J- [employer] [id number] 04/22/20251960 / / [id number] Hemostatic Surgicel 1x2in 1960 - [id number] Implanted:Qty: 1 on 03/09/2023 by Dorian Montana MD at [facility] Hemostatic Left: Arm J&J- [employer] [id number] 06/22/20251960 / / [id number] Lens Io Tecnis 19.0 [id number] - [id number] Implanted:Qty: 1 on 01/21/2023 by Elie Hope MD at [facility] Lens Left: Anterior Chamber [employer]J VISION 06/12/2024 [id number] 90-OLD / [id number] / Description:LENS IOL TECNIS EYHANCE 19.0 [id number] - [id number] Lens Iol Tecnis Eyhance 19.0 [id number] - [id number] Implanted:Qty: 1 on 09/09/2023 by Elie Hope MD at [facility] Lens Right: Eye [employer]J VISION 07/16/2026 [id number] / [id number] / Explanted Type Area Refinery Operator Crude Unit Device Identifier Shelf Expiration Date Model / Serial / Lot Cath Dialysis Glidepath 14.5fr 24cm [facility] [id number]/7/2 [id number] Implanted:Qty : 1 on 05/29/2022 by Galen Rosales MD Explanted:Qty : 1 on 01/18/2024 by Nathaniel Darby S Catheter Right: Chest Wall CR BARD- BRENNA [employer]ASC [employer] 11/22/2023 [id number] / / [id number] Procedures Procedure Name Priority Date/Time Associated Diagnosis Comments MAMMO DIAGNOSTIC UNI LEFT W OR WO CAD Routine 04/25/2025 10:21 AM CDT HEMOGLOBIN A1C Routine 04/03/2025 9:35 AM CDT Type 2 diabetes mellitus with stage 5 chronic kidney disease not on chronic dialysis, without long-term current use of insulin ([facility]) LIPID PANEL Routine 04/22/2024 9:43 AM CDT End stage kidney disease ([facility]) Type 2 diabetes mellitus with stage 5 chronic kidney disease not on chronic dialysis, without long-term current use of insulin ([facility]) Mixed hyperlipidemia HM DIABETES EYE EXAM Routine 12/05/2022 MICROALBUMIN/CREATI NINE RATIO, RANDOM UR Routine 03/21/2021 2:20 PM CDT from Last 3 Months or Most Recently Relevant to Health Maintenance Results * MAMMO DIAGNOSTIC UNI LEFT W OR WO CAD (04/25/2025 10:21 AM CDT) Anatomical Region Laterality Modality Breast Left Mammography Citlalli Alex HIDE INSPECTOR AND SORTER MAMMO ORDERABLES Final R esult * (ABNORMAL) HEMOGLOBIN A1C (04/03/2025 9:35 AM CDT) HEMOGLOBIN A1C 7.3(H) <5.7 % [facility] Comment: For someone without known diabetes, a [...] A1c for diagnosis of diabetes for children. ESTIMATED AVERAGE GLUCOSE (MG/DL) 163 mg/dL [facility] ESTIMATED AVERAGE GLUCOSE (MMOL/L) 9.0 mmol/L [facility] Comment: Test Performed at: [facility] [id number] [place] [address] Rigo Steinberg MD Blood 04/03/2025 9:35 AM CDT 04/04/2025 3:55 AM CDT [facility] CHEMISTRY ORDERABLES Fin al Result Performing Organization Address City/[facility]/ZIP Co de Phone Number [facility] [phone] [facility] [address] * LIPID PANEL (04/22/2024 9:43 AM CDT) CHOLESTEROL 161 <200 mg/dL [facility] HDL 76 > OR = 50 mg/dL [facility] TRIGLYCERIDE 95 <150 mg/dL [facility] LDL CALCULATED 67 mg/dL (calc) [facility] Comment: Reference range: <100 Desirable range <100 mg/dL for primary prevention; <70 mg/dL for patients with CHD or diabetic patients with > or = 2 CHD risk factors. LDL-C is now calculated using the David calculation, which is a validated novel method providing better accuracy than the Friedewald equation in the estimation of LDL-C. Maxx HILL et al. ROHAN. 2013;310(19): 5418-0776 (http://education.[employer]/faq/DCC536) CHOL/HDL RATIO 2.1 <5.0 (calc) [facility] NON-HDL CHOLESTEROL 85 <130 mg/dL (calc) [facility] Comment: For patients with diabetes plus 1 major ASCVD risk factor, treating to a non-HDL-C goal of <100 mg/dL (LDL-C of <70 mg/dL) is considered a therapeutic option. Test Performed at: [facility] [address] [place] [id number] Rigo Steinberg MD Blood 04/22/2024 9:43 AM CDT 04/23/2024 3:32 AM CDT Citlalli Pollockpps [facility] CHEMISTRY ORDERABLES Fin al Result Performing Organization Address City/[facility]/ZIP Co de Phone Number [facility] [phone] [facility] [address] * (ABNORMAL) DIABETES EYE EXAM (12/05/2022) Abstract Provider HEALTH MAINTENANCE Edited Resu lt - Final [facility] CLIA# [id number] [address] [address] * MICROALBUMIN/CREATININE RATIO, RANDOM UR (03/21/2021 2:20 PM CDT) MICROALBUMIN, URINE >440.0 No Reference Range mg/dL 03/22/2021 1:14 AM CDT [facility] CREATININE, URINE 174.2 29.0 - 226.0 mg/dL 03/22/2021 1:14 AM CDT [facility] Urine URINE SPECIMEN / Unknown Collection / Unknown 03/21/2021 2:20 PM CDT 03/21/2021 10:35 PM CDT Narrative [facility] - 03/22/2021 1:14 AM CDT [facility]#[id number] Specimen Source: Urine, unspecified source Condition Microalbumin/Creat ratio Normal Males <17 Normal Females <25 Microalbuminuria Males 17-299 Microalbuminuria Females 25-299 Overt proteinuria >=300 Verified by repeat analysis. Julián Ortega MD URINE ORDERABLES Final Resul t Performing Organization Address City/[facility]/ZIP Co de Phone Number [facility] [address] [place], [place] [address] [facility] CLIA# [id number] [address] [place] [address] from Last 3 Months or Most Recently Relevant to Health Maintenance Insurance [facility] [id number] MEDICAID [place] Advance Directives For more information, please contact: [phone] * Full Code (Latest Code Status on File) Date Activated Date Inactivated Comments 04/08/2023 5:53 PM 04/10/2023 8:27 PM * Full Code Date Activated Date Inactivated Comments 03/10/2023 6:31 AM 03/10/2023 3:05 PM * Full Code Date Activated Date Inactivated Comments 03/09/2023 10:51 PM 03/10/2023 6:31 AM * Full Code Date Activated Date Inactivated Comments 05/07/2022 6:46 AM 05/07/2022 1:58 PM * Full Code Date Activated Date Inactivated Comments 03/13/2022 9:40 AM 03/13/2022 12:39 PM Care Teams Cuff Setter Relationship Specialty Start Date End Date Jhon Schneider MD [address] [phone] PCP - General Family Practice 11/08/20
--- OUTSIDE RECORDS SUMMARY | 2025-10-24 07:25 | XMS_ITS | Encounter Summary ---
Author Organization [facility] Address [address] [place] [address] Care Team Providers Care Border Machine Operator Name Role Phone Jhon Schneider MD Primary Care Provider +1 -[phone] Encounter Details Date Type Department Care Team (Latest Contact Info) Description 04/27/2007 Outpatient Historical [place] [address] [place] [address] Thania Calvin MD [address] [place] [phone] Unspecified Iron Deficiency Anemia (Primary Dx); Unspecified Essential Hypertension; Vomiting Alone; Unspecified Constipation Social History Tobacco Use Types Packs/Day Years Used Date Smoking Tobacco: Never Assessed Comments Unknown Sex and Gender Information Value Date Recorded Sex Assigned at Not on file Legal Sex Female 3:56 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
--- OUTSIDE RECORDS SUMMARY | 2025-10-24 07:25 | XMS_ITS | Encounter Summary ---
Author Organization [facility] Address [address] [place] [address] Care Team Providers Care Supervisor [employer] Name Role Phone Jhon Schneider MD Primary Care Provider +1 -[phone] Encounter Details Date Type Department Care Team (Latest Contact Info) Description 09/30/2007 Outpatient Historical [facility] [address] [place] [address] Thania Calvin MD [address] [place] [phone] Vaccine for Influenza (Primary Dx) Social History Tobacco Use Types Packs/Day Years Used Date Smoking Tobacco: Never Assessed Comments Unknown Sex and Gender Information Value Date Recorded Sex Assigned at Not on file Legal Sex Female 3:56 AM CHIEF CRNA Gender Identity Not on file Sexual Orientation Not on file documented as of this encounter Plan of Treatment Not on file documented as of this encounter Visit Diagnoses Diagnosis Vaccine for influenza- Primary Need for prophylactic vaccination and inoculation against influenza documented in this encounter Care Teams Supervisor [employer] Relationship Specialty Start Date End Date Jhon Schneider MD [address] [facility] [address] [place] [phone] PCP - General Family Practice 11/08/20 documented as of this encounter
--- OUTSIDE RECORDS SUMMARY | 2025-10-24 07:25 | XMS_ITS | Encounter Summary ---
Author Organization [facility] Address [address] [place] [address] Care Team Providers Care Melon Packer Name Role Phone Jhon Schneider MD Primary Care Provider +1 [phone] Encounter Details Date Type Department Care Team (Latest Contact Info) Description 08/18/2005 Outpatient Historical [facility] General Surgery [address] [place] [phone] Cl Todd MD [address] [place] [address] IRON DEFIC ANEMIA NOS (Primary Dx) Social History Tobacco Use Types Packs/Day Years Used Date Smoking Tobacco: Never Assessed Comments Unknown Sex and Gender Information Value Date Recorded Sex Assigned at Not on file Legal Sex Female 3:56 AM UNIT MANAGER CONVENIENCE STORES Gender Identity Not on file Sexual Orientation Not on file documented as of this encounter Plan of Treatment Not on file documented as of this encounter Visit Diagnoses Diagnosis Iron deficiency anemia, unspecified- Primary documented in this encounter Care Teams Melon Packer Relationship Specialty Start Date End Date Jhon Schneider MD [address] [phone] PCP - General Family Practice 11/08/20 documented as of this encounter
--- OUTSIDE RECORDS SUMMARY | 2025-10-24 07:26 | XMS_ITS | Encounter Summary ---
Author Organization [facility] Address [address] Lopez: Epic Prelude ADT [place] [address] Care Team Providers Care Supervisor Cemetery Workers Name Role Phone Jhon Schneider MD Primary Care Provider +1 -[phone] Encounter Details Date Type Department Care Team (Late st Contact Info) Description 06/09/2001 Outpatient Historical Non-Staff, Physician NO ADDRESS ON FILE Social History Tobacco Use Types Packs/Day Years Used Date Smoking Tobacco: Never Assessed Comments Unknown Sex and Gender Information Value Date Recorded Sex Assigned at Not on file Legal Sex Female 3:56 AM CORPORATE EVENTS DIRECTOR Gender Identity Not on file Sexual Orientation Not on file documented as of this encounter Plan of Treatment Not on file documented as of this encounter Visit Diagnoses Not on filedocumented in this encounter Care Teams Supervisor Cemetery Workers Relationship Specialty Start Date End Date Jhon Schneider MD [address] [facility] 60 [place] [phone] PCP - General Family Practice 11/08/20 documented as of this encounter
--- OUTSIDE RECORDS SUMMARY | 2025-10-24 07:26 | XMS_ITS | Encounter Summary ---
Author Organization [facility] Address [address] [place] [address] Care Team Providers Care Planner Scheduler Name Role Phone Jhon Schneider MD Primary Care Provider +1 -[phone] Encounter Details Date Type Department Care Team (Latest Contact Info) Description 08/21/2004 Outpatient Historical [place] [address] [place] [address] Thania Calvin MD [address] [place] [phone] DIABETES MELLITUS TYPE II-UNCOMPL (CMS/HCC) (Primary Dx); ABNORMAL CLINICAL FINDING NEC; HYPERTENSION NOS; OTHER UNSPEC SLEEP APNEA Social History Tobacco Use Types Packs/Day Years Used Date Smoking Tobacco: Never Assessed Comments Unknown Sex and Gender Information Value Date Recorded Sex Assigned at Not on file Legal Sex Female 3:56 AM PLANT BUYER Gender Identity Not on file Sexual Orientation Not on file documented as of this encounter Plan of Treatment Not on file documented as of this encounter Visit Diagnoses Diagnosis Type II or unspecified type diabetes mellitus without mention of complication, not stated as uncontrolled- Primary Other abnormal clinical finding Unspecified essential hypertension Unspecified sleep apnea documented in this encounter Care Teams Planner Scheduler Relationship Specialty Start Date End Date Jhon Schneider MD [address] [facility] [address] [place] [phone] PCP - General Family Practice 11/08/20 documented as of this encounter
--- OUTSIDE RECORDS SUMMARY | 2025-10-24 07:26 | XMS_ITS | Encounter Summary ---
Author Organization [facility] Address [address] [place] [address] Care Team Providers Care Advertising Supervisor Name Role Phone Jhon Schneider MD Primary Care Provider +1 [phone] Encounter Details Date Type Department Care Team (Latest Contact Info) Description 07/01/2005 Outpatient Historical [place] [address] [place] [phone] Thania Calvin MD [address] [place] [phone] DIABETES MELLITUS TYPE II-UNCOMPL (CMS/HCC) (Primary Dx) Social History Tobacco Use Types Packs/Day Years Used Date Smoking Tobacco: Never Assessed Comments Unknown Sex and Gender Information Value Date Recorded Sex Assigned at Not on file Legal Sex Female 3:56 AM DEPUTY TREASURER Gender Identity Not on file Sexual Orientation Not on file documented as of this encounter Plan of Treatment Not on file documented as of this encounter Procedures Procedure Name Priority Date/Time Associated Diagnosis Comments IRON, TIBC, AND PERCENT SATURATION Routine 07/01/2005 10:55 AM CDT RETICULOCYTES Routine 07/01/2005 10:55 AM CDT HEMOGLOBIN A1C Routine 07/01/2005 10:55 AM CDT documented in this encounter Results * (ABNORMAL) IRON AND TIBC (07/01/2005 10:55 AM CDT) IRON 57 45 - 150 ug/dL INTERFACE SYSTEM TIBC 515(H) 250 - 450 ug/dL INTERFACE SYSTEM IRON % SATURATION 11(L) 15 - 50 % INTERFACE SYSTEM 07/01/2005 10:5 5 AM CDT us Thania Calvin MD CHEMISTRY ORDERABLES Final R esult Performing Organization Address [facility] Phone Number INTERFACE SYSTEM Refer to clinic/hospital department * RETICULOCYTES (07/01/2005 10:55 AM CDT) RETICULOCYTES 1.3 0.5 - 1.5 % INTE RFACE SYSTEM 07/01/2005 10:5 5 AM CDT us Thania Calvin MD HEMATOLOGY ORDERABLES Final Result Performing Organization Address [facility] Phone Number INTERFACE SYSTEM Refer to clinic/hospital department * (ABNORMAL) HEMOGLOBIN A1C (07/01/2005 10:55 AM CDT) HEMOGLOBIN A1C 6.5(H) 4.0 - 6.0 %A1C INTERFACE SYSTEM 07/01/2005 10:5 5 AM CDT us Thania Calvin MD CHEMISTRY ORDERABLES Final R esult Performing Organization Address [facility] Phone Number INTERFACE SYSTEM Refer to clinic/hospital department documented in this encounter Visit Diagnoses Diagnosis Type II or unspecified type diabetes mellitus without mention of complication, not stated as uncontrolled- Primary documented in this encounter Care Teams Advertising Supervisor Relationship Specialty Start Date End Date Jhon Schneider MD [address] [phone] PCP - General Family Practice 11/08/20 documented as of this encounter
--- OUTSIDE RECORDS SUMMARY | 2025-10-24 07:26 | XMS_ITS | Encounter Summary ---
Author Organization [facility] Address [address] [place] [address] Care Team Providers Care Casting Machine Set Up Operator Name Role Phone Jhon Schneider MD Primary Care Provider +1 [phone] Encounter Details Date Type Department Care Team (Latest Contact Info) Description 11/26/2004 Outpatient Historical [facility] [address] [place] [address] Thania Calvin MD [address] [place] [phone] ACUTE FRONTAL SINUSITIS (Primary Dx); DIABETES MELLITUS TYPE II-UNCOMPL (CMS/HCC); HYPERTENSION NOS; ABNORMAL CLINICAL FINDING NEC Social History Tobacco Use Types Packs/Day Years Used Date Smoking Tobacco: Never Assessed Comments Unknown Sex and Gender Information Value Date Recorded Sex Assigned at Not on file Legal Sex Female 3:56 AM EMPLOYMENT ATTORNEY Gender Identity Not on file Sexual Orientation Not on file documented as of this encounter Plan of Treatment Not on file documented as of this encounter Visit Diagnoses Diagnosis Acute frontal sinusitis- Primary Type II or unspecified type diabetes mellitus without mention of complication, not stated as uncontrolled Unspecified essential hypertension Other abnormal clinical finding documented in this encounter Care Teams Casting Machine Set Up Operator Relationship Specialty Start Date End Date Jhon Schneider MD [address] [facility] 60 [place] [phone] PCP - General Family Practice 11/08/20 documented as of this encounter
--- OUTSIDE RECORDS SUMMARY | 2025-10-24 07:26 | XMS_ITS | Encounter Summary ---
Author Organization [facility] Address [address] [place] [address] Care Team Providers Care Unscrambler Name Role Phone Jhon Schneider MD Primary Care Provider +1 -[phone] Encounter Details Date Type Department Care Team (Latest Contact Info) Description 04/27/2006 Outpatient Historical [facility] [address] [place] [address] Thania Calvin MD [address] [place] [phone] Unspecified Anemia (Primary Dx); DM w/o Complication Type II (CMS/HCC); Morbid Obesity (CMS/HCC) Social History Tobacco Use Types Packs/Day Years Used Date Smoking Tobacco: Never Assessed Comments Unknown Sex and Gender Information Value Date Recorded Sex Assigned at Not on file Legal Sex Female 3:56 AM INTERNATIONAL CONTROLLER Gender Identity Not on file Sexual Orientation Not on file documented as of this encounter Plan of Treatment Not on file documented as of this encounter Visit Diagnoses Diagnosis Anemia, unspecified- Primary Type II or unspecified type diabetes mellitus without mention of complication, not stated as uncontrolled Morbid obesity (CMS/HCC) Morbid obesity documented in this encounter Care Teams Unscrambler Relationship Specialty Start Date End Date Jhon Schneider MD [address] [facility] 60 [place] [phone] PCP - General Family Practice 11/08/20 documented as of this encounter
--- OUTSIDE RECORDS SUMMARY | 2025-10-24 07:26 | XMS_ITS | Encounter Summary ---
Author Organization [facility] Address [address] [place] [address] Care Team Providers Care Rough Planer Tender Name Role Phone Jhon Schneider MD Primary Care Provider +1 -[phone] Encounter Details Date Type Department Care Team (Latest Contact Info) Description 03/25/2005 Outpatient Historical [facility] [address] [place] [address] Thania Calvin MD [address] [place] [phone] ACUTE FRONTAL SINUSITIS (Primary Dx); HYPERTENSION NOS; DIABETES MELLITUS TYPE II-UNCOMPL (CMS/HCC); ANEMIA NOS Social History Tobacco Use Types Packs/Day Years Used Date Smoking Tobacco: Never Assessed Comments Unknown Sex and Gender Information Value Date Recorded Sex Assigned at Not on file Legal Sex Female 3:56 AM TELEGRAPH INSTALLER Gender Identity Not on file Sexual Orientation Not on file documented as of this encounter Plan of Treatment Not on file documented as of this encounter Visit Diagnoses Diagnosis Acute frontal sinusitis- Primary Unspecified essential hypertension Type II or unspecified type diabetes mellitus without mention of complication, not stated as uncontrolled Anemia, unspecified documented in this encounter Care Teams Rough Planer Tender Relationship Specialty Start Date End Date Jhon Schneider MD [address] [facility] 60 [place] [phone] PCP - General Family Practice 11/08/20 documented as of this encounter
--- OUTSIDE RECORDS SUMMARY | 2025-10-24 07:26 | XMS_ITS | Encounter Summary ---
Author Organization [facility] Address [address] [place] [address] Care Team Providers Care Rn Orthopedic Name Role Phone Jhon Schneider MD Primary Care Provider +1 -[phone] Encounter Details Date Type Department Care Team (Latest Contact Info) Description 01/19/2021 Ancillary Orders [facility] Pre-Registration [place] CALL TO MAKE APPOINTMENT ONLY [address] [place] [address] Julián Ortega MD NO ADDRESS ON FILE Chronic kidney disease, unspecified; Chronic kidney disease, stage IV (severe) (CMS/HCC) Social History Tobacco Use Types Packs/Day Years Used Date Smoking Tobacco: Former Smokeless Tobacco: Never Alcohol Use Standard Drinks/Week Comments Not Currently 0 (1 standard drink = 0.6 oz pur e alcohol) Comments No Sex and Gender Information Value Date Recorded Sex Assigned at Not on file Legal Sex Female 3:56 AM RECEIVING DISTRIBUTION STATION OPERATOR Gender Identity Not on file Sexual Orientation Not on file documented as of this encounter Plan of Treatment Not on file documented as of this encounter Visit Diagnoses Diagnosis Chronic kidney disease, unspecified Chronic kidney disease, stage IV (severe) (CMS/HCC) Chronic kidney disease, Stage IV (severe) documented in this encounter Additional Health Concerns Assessment Noted Time PHQ-9 Depression Total Score: 3 10/25/20 20 11:28 AM RECEIVING DISTRIBUTION STATION OPERATOR documented as of this encounter Care Teams Rn Orthopedic Relationship Specialty Start Date End Date Jhon Schneider MD [address] [facility] 60 [place] [address] PCP - General Family Practice 11/08/20 documented as of this encounter
--- OUTSIDE RECORDS SUMMARY | 2025-10-24 07:26 | XMS_ITS | Encounter Summary ---
Author Organization [facility] Address [address] [place] [address] Care Team Providers Care Shell Maker Lockstitch Name Role Phone Jhon Schneider MD Primary Care Provider +1 -[phone] Encounter Details Date Type Department Care Team (Latest Contact Info) Description 01/26/2006 Outpatient Historical [facility] [address] [place] [address] Thania Calvin MD [address] [place] [phone] Unspecified Ganglion (Primary Dx); Other Specified Hypertrophic and Atrophic Condition of Skin; Calcaneal Spur; Personal History of Malignant Neoplasm of Ovary Social History Tobacco Use Types Packs/Day Years Used Date Smoking Tobacco: Never Assessed Comments Unknown Sex and Gender Information Value Date Recorded Sex Assigned at Not on file Legal Sex Female 3:56 AM PERSONAL SECRETARY Gender Identity Not on file Sexual Orientation Not on file documented as of this encounter Plan of Treatment Not on file documented as of this encounter Visit Diagnoses Diagnosis Ganglion, unspecified- Primary Other specified hypertrophic and atrophic condition of skin Calcaneal spur Personal history of malignant neoplasm of ovary documented in this encounter Care Teams Shell Maker Lockstitch Relationship Specialty Start Date End Date Jhon Schneider MD [address] [facility] [address] [place] [phone] PCP - General Family Practice 11/08/20 documented as of this encounter
--- OUTSIDE RECORDS SUMMARY | 2025-10-24 07:26 | XMS_ITS | Encounter Summary ---
Author Organization [facility] Address [address] [place] [address] Care Team Providers Care Business Mgr Name Role Phone Jhon Schneider MD Primary Care Provider +1 -[phone] Encounter Details Date Type Department Care Team (Latest Contact Info) Description 02/25/2005 Outpatient Historical [place] [address] [place] [phone] Thania Calvin MD [address] [place] [phone] HYPERTENSION NOS (Primary Dx) Social History Tobacco Use Types Packs/Day Years Used Date Smoking Tobacco: Never Assessed Comments Unknown Sex and Gender Information Value Date Recorded Sex Assigned at Not on file Legal Sex Female 3:56 AM SENIOR J2EE DEVELOPER Gender Identity Not on file Sexual Orientation Not on file documented as of this encounter Plan of Treatment Not on file documented as of this encounter Procedures Procedure Name Priority Date/Time Associated Diagnosis Comments HEMOGLOBIN A1C Routine 02/25/2005 12:26 PM CDT documented in this encounter Results * (ABNORMAL) HEMOGLOBIN A1C (02/25/2005 12:26 PM CDT) HEMOGLOBIN A1C 7.4(H) 4.0 - 6.0 %A1C INTERFACE SYSTEM 02/25/2005 12:2 6 PM CDT us Thania Calvin MD CHEMISTRY ORDERABLES Final R esult INTERFACE SYSTEM Refer to clinic/hospital department documented in this encounter Visit Diagnoses Diagnosis Unspecified essential hypertension- Primary documented in this encounter Care Teams Business Mgr Relationship Specialty Start Date End Date Jhon Schneider MD [address] [phone] PCP - General Family Practice 11/08/20 documented as of this encounter
--- OUTSIDE RECORDS SUMMARY | 2025-10-24 07:26 | XMS_ITS | Encounter Summary ---
Author Organization [facility] Address [address] Lopez: Epic Prelude ADT [place] [address] Care Team Providers Care Naval [employer] Name Role Phone Jhon Schneider MD Primary Care Provider +1 -[phone] Encounter Details Date Type Department Care Team (Late st Contact Info) Description 05/03/2001 Outpatient Historical Non-Staff, Physician NO ADDRESS ON FILE Social History Tobacco Use Types Packs/Day Years Used Date Smoking Tobacco: Never Assessed Comments Unknown Sex and Gender Information Value Date Recorded Sex Assigned at Not on file Legal Sex Female 3:56 AM COMPENSATION EXPERT Gender Identity Not on file Sexual Orientation Not on file documented as of this encounter Plan of Treatment Not on file documented as of this encounter Visit Diagnoses Not on filedocumented in this encounter Care Teams [employer] Relationship Specialty Start Date End Date Jhon Schneider MD [address] [facility] [address] [place] [phone] PCP - General Family Practice 11/08/20 documented as of this encounter
--- OUTSIDE RECORDS SUMMARY | 2025-10-24 07:26 | XMS_ITS | Encounter Summary ---
Author Organization [facility] Address [address] [place] [address] Care Team Providers Care Learning Support Specialist Name Role Phone Jhon Schneider MD Primary Care Provider +1 -[phone] Encounter Details Date Type Department Care Team (Late st Contact Info) Description 01/15/2021 Ancillary Orders [facility] [address] [facility] [address] [place] [address] Crystal Hernandez MD [address] [facility] [address] [place] [address] Visit for screening mammogram Social History Tobacco Use Types Packs/Day Years Used Date Smoking Tobacco: Former Smokeless Tobacco: Never Alcohol Use Standard Drinks/Week Comments Not Currently 0 (1 standard drink = 0.6 oz pur e alcohol) Comments No Sex and Gender Information Value Date Recorded Sex Assigned at Not on file Legal Sex Female 3:56 AM WHEELCHAIR VAN DRIVER Gender Identity Not on file Sexual Orientation Not on file documented as of this encounter Plan of Treatment Not on file documented as of this encounter Results * MAMMO PRIOR STUDY (08/13/2018 11:45 AM CDT) Narrative 01/15/2021 11:41 AM WHEELCHAIR VAN DRIVER This exam was auto finalized to allow images to be scanned to PACS. us Crystal Hernandez MD DIAGNOSTIC IMAGING ORDERABLES Final Result documented in this encounter Visit Diagnoses Diagnosis Visit for screening mammogram Other screening mammogram Visit for screening mammogram Other screening mammogram documented in this encounter Additional Health Concerns Assessment Noted Time PHQ-9 Depression Total Score: 3 10/25/20 20 11:28 AM WHEELCHAIR VAN DRIVER documented as of this encounter Care Teams Learning Support Specialist Relationship Specialty Start Date End Date Jhon Schneider MD [address] [phone] PCP - General Family Practice 11/08/20 documented as of this encounter
--- OUTSIDE RECORDS SUMMARY | 2025-10-24 07:26 | XMS_ITS | Encounter Summary ---
Author Organization [facility] Address [address] [place] [address] Care Team Providers Care Robotic Maintenance Technician Name Role Phone Jhon Schneider MD Primary Care Provider +1 -[phone] Encounter Details Date Type Department Care Team (Latest Contact Info) Description 09/09/2006 Outpatient Historical [facility] [address] [place] [phone] Thania Calvin MD [address] [place] [phone] DM w/o Complication Type II (CMS/HCC) (Primary Dx); Other and Unspecified Hyperlipidemia; Unspecified Anemia; Vaccine for influenza Social History Tobacco Use Types Packs/Day Years Used Date Smoking Tobacco: Never Assessed Comments Unknown Sex and Gender Information Value Date Recorded Sex Assigned at Not on file Legal Sex Female 3:56 AM LINING SCRUBBER Gender Identity Not on file Sexual Orientation Not on file documented as of this encounter Plan of Treatment Not on file documented as of this encounter Visit Diagnoses Diagnosis Type II or unspecified type diabetes mellitus without mention of complication, not stated as uncontrolled- Primary Other and unspecified hyperlipidemia Anemia, unspecified Vaccine for influenza Need for prophylactic vaccination and inoculation against influenza documented in this encounter Care Teams Robotic Maintenance Technician Relationship Specialty Start Date End Date Jhon Schneider MD [address] [phone] PCP - General Family Practice 11/08/20 documented as of this encounter
--- OUTSIDE RECORDS SUMMARY | 2025-10-24 07:26 | XMS_ITS | Encounter Summary ---
Author Organization [facility] Address [address] Lopez: Epic Prelude ADT CARLA RANDOLPH [address] Care Team Providers Care Retail Merchandising Manager Name Role Phone Jhon Schneider MD Primary Care Provider [phone] [phone] Encounter Details Date Type Department Care Team (Late st Contact Info) Description 04/21/2001 Outpatient Historical Non-Staff, Physician NO ADDRESS ON FILE Social History Tobacco Use Types Packs/Day Years Used Date Smoking Tobacco: Never Assessed Comments Unknown Sex and Gender Information Value Date Recorded Sex Assigned at Not on file Legal Sex Female 3:56 AM SENIOR MEDICAL TRANSCRIPTIONIST Gender Identity Not on file Sexual Orientation Not on file documented as of this encounter Plan of Treatment Not on file documented as of this encounter Visit Diagnoses Not on filedocumented in this encounter Care Teams Retail Merchandising Manager Relationship Specialty Start Date End Date Jhon Schneider MD [address] [facility] [address] [place] [phone] PCP - General Family Practice 11/08/20 documented as of this encounter
--- OUTSIDE RECORDS SUMMARY | 2025-10-24 07:26 | XMS_ITS | Encounter Summary ---
Author Organization [facility] Address [address] [place] [address] Care Team Providers Care Encapsulator Name Role Phone Jhon Schneider MD Primary Care Provider [phone] [phone] Encounter Details Date Type Department Care Team (Late st Contact Info) Description 06/27/2025 Lab Requisition [facility] Services [place] [address] [facility] [address] [place] [address] Celia Gonzalez, [facility] [address] [facility] [address] [place] [address] Shortness of breath Social History Tobacco Use Types Packs/Day Years Used Date Smoking Tobacco: Former Cigarettes 0 Q uit: 11/23/1982 Passive Smoke Exposure: Past Smokeless Tobacco: Never Alcohol Use Standard Drinks/Week [...] on file 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 Gender Identity Not on file Sexual Orientation Not on file documented as of this encounter Plan of Treatment Not on file documented as of this encounter Procedures Procedure Name Priority Date/Time Associated Diagnosis Comments CBC WITH DIFFERENTIAL Stat 06/27/2025 12:23 PM CDT Shortness of breath D-DIMER Stat 06/27/2025 12:23 PM CDT Shortness of breath COMPREHENSIVE METABOLIC PANEL Stat 06/27/2025 11:54 AM CDT Shortness of breath documented in this encounter Results * (ABNORMAL) D-DIMER (06/27/2025 12:23 PM CDT) D-DIMER QUANT 0.61(H) <0.50 ug/mL FEU 06/27/2025 12:45 PM CDT [facility] Blood 06/27/2025 12:2 3 PM CDT 06/27/2025 12:24 PM CDT Narrative [facility] - 06/27/2025 12:45 PM CDT D-Dimer assay cutoff value for exclusion of DVT and/or PE is <0.50 ug/mL FEU. As D-Dimer levels increase naturally with age, age stratification for patients over 50 is potentially more appropriate in determining whether a patient should undergo further evaluation for DVT and/or PE than a general cutoff of 0.50 ug/mL FEU. Clinical consideration is recommended. Age Stratified Cutoff Values: 50-60 years: 0.50-0.60 ug/mL FEU 61-70 years: 0.61-0.70 ug/mL FEU 71-80 years: 0.71-0.80 ug/mL FEU us Celia Gonzalez WEAPONS OFFICER HEMATOLOGY ORDERABLES Isabell jak Result [facility] CLIA # [id number] [address] [place] [address] * (ABNORMAL) CBC WITH DIFFERENTIAL (06/27/2025 12:23 PM CDT) WBC 5.8 4.0 - 10.0 K/uL 06/27/2025 12:29 PM [facility] RBC 3.88(L) 3.93 - 5.22 M/uL 06/27/2025 12:29 PM [facility] HEMOGLOBIN 10.6(L) 11.2 - 15.7 g/dL 06/27/2025 12:29 PM [facility] HEMATOCRIT 32.4(L) 34.1 - 44.9 % 06/27/2025 12:29 PM [facility] MCV 83.5 79.4 - 94.8 fL 06/27/2025 12:29 PM [facility] MCH 27.3 25.6 - 32.2 pg 06/27/2025 12:29 PM [facility] MCHC 32.7 32.2 - 35.5 g/dL 06/27/2025 12:29 PM [facility] RDW 15.3(H) 11.0 - 14.5 % 06/27/2025 12:29 PM [facility] RDW-STDEV 45.8 36.9 - 56.9 fL 06/27/2025 12:29 PM [facility] PLATELETS 199 163 - 337 K/uL 06/27/2025 12:29 PM [facility] MPV 10.8 10.0 - 14.8 fL 06/27/2025 12:29 PM CDT [facility] NEUTROPHILS 65 34 - 71 % 06/27/2025 12:29 PM T [facility] LYMPHOCYTES 24 19 - 52 % 06/27/2025 12:29 PM [facility] MONOCYTES 8 5 - 13 % 06/27/2025 12:29 PM [facility] EOSINOPHILS 3 1 - 6 % 06/27/2025 12:29 PM T [facility] BASOPHILS 1 0 - 1 % 06/27/2025 12:29 PM [facility] IMMATURE GRANULOCYTES 0 % 06/27/2025 12:29 PM T [facility] NEUTROPHIL ABSOLUTE 3.72 1.56 - 6.13 K/uL 06/27/2025 12:29 PM [facility] LYMPHOCYTE ABSOLUTE 1.39 1.20 - 3.40 K/uL 06/27/2025 12:29 PM [facility] MONOCYTE ABSOLUTE 0.44(H) 0.24 - 0.36 K/uL 06/27/2025 12:29 PM [facility] EOSINOPHIL ABSOLUTE 0.17 0.04 - 0.36 K/uL 06/27/2025 12:29 PM [facility] BASOPHILS ABSOLUTE 0.03 0.01 - 0.08 K/uL 06/27/2025 12:29 PM [facility] IMMATURE GRANULOCYTES ABSOLUTE 0.01 K/uL 06/27/2025 12:29 PM [facility] Blood 06/27/2025 12:2 3 PM CDT 06/27/2025 12:24 PM CDT us Celia Gonzalez WEAPONS OFFICER HEMATOLOGY ORDERABLES Isabell benedict Result [facility] CLIA # [id number] [address] [place] [address] * (ABNORMAL) COMPREHENSIVE METABOLIC PANEL (06/27/2025 11:54 AM CDT) SODIUM 139 136 - 145 mmol/L 06/27/2025 12:17 PM [facility] POTASSIUM 3.9 3.5 - 5.1 mmol/L 06/27/2025 12:17 PM [facility] CHLORIDE 94(L) 98 - 107 mmol/L 06/27/2025 12:17 PM [facility] CO2 30(H) 22 - 29 mmol/L 06/27/2025 12:17 PM [facility] CALCIUM 9.2 8.8 - 10.2 mg/dL 06/27/2025 12:17 PM [facility] BUN 13 8 - 23 mg/dL 06/27/2025 12:17 PM [facility] CREATININE 2.85(H) 0.51 - 0.95 mg/dL 06/27/2025 12:17 PM [facility] GLUCOSE 125(H) 74 - 99 mg/dL 06/27/2025 12:17 PM [facility] TOTAL PROTEIN 6.9 6.6 - 8.7 g/dL 06/27/2025 12:17 PM [facility] ALBUMIN 4.1 3.5 - 5.2 g/dL 06/27/2025 12:17 PM [facility] BILIRUBIN TOTAL 1.0 0.0 - 1.2 mg/dL 06/27/2025 12:17 PM [facility] ALKALINE PHOSPHATASE 106(H) 35 - 104 U/L 06/27/2025 12:17 PM [facility] AST 38(H) 0 - 35 U/L 06/27/2025 12:17 PM [facility] ALT 31 0 - 35 U/L 06/27/2025 12:17 PM [facility] GFR 17(L) >=60 mL/min/1.7 3 sq meter 06/27/2025 12:17 PM [facility] Comment:eGFR calculated with 2020 CKD-EPI equation. Vegetarian diet, extremely high or low muscle mass, and may affect results. Cystatin C with Glomerular Filtration Rate is a suitable alternative for these patients. ANION GAP 15 5 - 20 mmol/L 06/27/2025 12:17 PM CDT [facility] Blood Collection / Unknown 06/27/2025 11:54 AM CDT 06/27/2025 11:54 AM CDT us Celia Gonzalez WEAPONS OFFICER CHEMISTRY ORDERABLES Final Result [facility] CLIA # [id number] [address] [address] documented in this encounter Visit Diagnoses Diagnosis Shortness of breath documented in this encounter Care Teams Encapsulator Relationship Specialty Start Date End Date Jhon Schneider MD [address] [phone] PCP - General Family Practice 11/08/20 documented as of this encounter
--- OUTSIDE RECORDS SUMMARY | 2025-10-24 07:26 | XMS_ITS | Encounter Summary ---
Author Organization [facility] Address [address] [place] [address] Care Team Providers Care Manager Drilling Name Role Phone Jhon Schneider MD Primary Care Provider [phone] [phone] Encounter Details Date Type Department Care Team (Latest Contact Info) Description 11/26/2004 Outpatient Historical [place] [address] [place] [phone] Thania Calvin MD [address] [place] [phone] DIABETES MELLITUS TYPE II-UNCOMPL (CMS/HCC) (Primary Dx) Social History Tobacco Use Types Packs/Day Years Used Date Smoking Tobacco: Never Assessed Comments Unknown Sex and Gender Information Value Date Recorded Sex Assigned at Not on file 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 Gender Identity Not on file Sexual Orientation Not on file documented as of this encounter Plan of Treatment Not on file documented as of this encounter Procedures Procedure Name Priority Date/Time Associated Diagnosis Comments HEMOGLOBIN A1C Routine 11/26/2004 12:15 PM CHAUFFEUR MOTORBUS documented in this encounter Results * (ABNORMAL) HEMOGLOBIN A1C (11/26/2004 12:15 PM CHAUFFEUR MOTORBUS) HEMOGLOBIN A1C 7.0(H) 4.0 - 6.0 %A1C INTERFACE SYSTEM 11/26/2004 12:1 5 PM CHAUFFEUR MOTOR[employer] us Thania Calvin MD CHEMISTRY ORDERABLES Final R esult INTERFACE SYSTEM Refer to clinic/hospital department documented in this encounter Visit Diagnoses Diagnosis Type II or unspecified type diabetes mellitus without mention of complication, not stated as uncontrolled- Primary documented in this encounter Care Teams Manager Drilling Relationship Specialty Start Date End Date Jhon Schneider MD [address] [address] PCP - General Family Practice 11/08/20 documented as of this encounter
--- OUTSIDE RECORDS SUMMARY | 2025-10-24 07:26 | XMS_ITS | Encounter Summary ---
Author Organization [facility] Address [address] [place] [address] Care Team Providers Care Changer Fixer Name Role Phone Jhon Schneider MD Primary Care Provider [phone] [phone] Encounter Details Date Type Department Care Team (Latest Contact Info) Description 10/26/2006 Outpatient Historical [facility] 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 Gender Identity Not on file Sexual Orientation Not on file documented as of this encounter Plan of Treatment Not on file documented as of this encounter Visit Diagnoses Diagnosis Type II or unspecified type diabetes mellitus without mention of complication, not stated as uncontrolled- Primary Other and unspecified hyperlipidemia Anemia, unspecified Proteinuria documented in this encounter Care Teams Changer Fixer Relationship Specialty Start Date End Date Jhon Schneider MD [address] [facility] [address] [place] [phone] PCP - General Family Practice 11/08/20 documented as of this encounter
--- OUTSIDE RECORDS SUMMARY | 2025-10-24 07:26 | XMS_ITS | Encounter Summary ---
Author Organization [facility] Address [address] [place] [address] Care Team Providers Care Detacker Name Role Phone Jhon Schneider MD Primary Care Provider [phone] Encounter Details Date Type Department Care Team (Latest Contact Info) Description 02/25/2005 Outpatient Historical [facility] [address] [place] [address] Thania Calvin MD [address] [place] [phone] ACUTE FRONTAL SINUSITIS (Primary Dx); SYMPTOMATIC FEMALE CLIMACTERIC STATE; HYPERTENSION NOS; DIABETES MELLITUS TYPE II-UNCOMPL (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 Gender Identity Not on file Sexual Orientation Not on file documented as of this encounter Plan of Treatment Not on file documented as of this encounter Visit Diagnoses Diagnosis Acute frontal sinusitis- Primary Symptomatic menopausal or female climacteric states Unspecified essential hypertension Type II or unspecified type diabetes mellitus without mention of complication, not stated as uncontrolled documented in this encounter Care Teams Detacker Relationship Specialty Start Date End Date Jhon Schneider MD [address] [facility] [address] [place] [phone] PCP - General Family Practice 11/08/20 documented as of this encounter
--- OUTSIDE RECORDS SUMMARY | 2025-10-24 07:26 | XMS_ITS | Encounter Summary ---
Author Organization [facility] Address [address] [place] [address] Care Team Providers Care 8Th Grade Teacher Name Role Phone Jhon Schneider MD Primary Care Provider [phone] [phone] Encounter Details Date Type Department Care Team (Late st Contact Info) Description 01/15/2021 Ancillary Orders [facility] [address] [facility] [address] [place] [address] Crystal Hernandez MD [address] [facility] [address] [place] [address] Visit for screening mammogram Social History Tobacco Use Types Packs/Day Years Used Date Smoking Tobacco: Former Smokeless Tobacco: Never Alcohol Use Standard Drinks/Week Comments Not Currently 0 (1 standard drink = 0.6 oz pur e alcohol) Comments No Sex and Gender Information Value Date Recorded Sex Assigned at Not on file Legal 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 us Crystal Hernandez MD DIAGNOSTIC IMAGING ORDERABLES Final Result * MAMMO PRIOR STUDY (05/12/2014 12:25 PM CDT) Narrative 01/15/2021 12:22 PM PLANT BREEDER SCIENTIST This exam was auto finalized to allow images to be scanned to PACS. us Crystal Hernandez MD DIAGNOSTIC IMAGING ORDERABLES Final Result * MAMMO PRIOR STUDY (05/04/2013 12:25 PM CDT) Narrative 01/15/2021 12:23 PM PLANT BREEDER SCIENTIST This exam was auto finalized to allow images to be scanned to PACS. us Crystal Hernandez MD DIAGNOSTIC IMAGING ORDERABLES Final Result * MAMMO PRIOR STUDY (05/03/2012 12:25 PM CDT) Narrative 01/15/2021 12:23 PM PLANT BREEDER SCIENTIST This exam was auto finalized to allow images to be scanned to PACS. us Crystal Hernandez MD DIAGNOSTIC IMAGING ORDERABLES Final Result * MAMMO PRIOR STUDY (04/03/2011 12:25 PM CDT) Narrative 01/15/2021 12:24 PM PLANT BREEDER SCIENTIST This exam was auto finalized to allow [...] Total Score: 3 10/25/20 20 11:28 AM PLANT BREEDER SCIENTIST documented as of this encounter Care Teams 8Th Grade Teacher Relationship Specialty Start Date End Date Jhon Schneider MD [address] [facility] [address] [place] [address] PCP - General Family Practice 11/08/20 documented as of this encounter
[2025-10-24 07:48] LABS: Hematocrit 39.7 % (36-47); Hemoglobin 12.10 g/dL (11.27-16.99); Mean Corpuscular HGB Conc 30.5 g/dL (30-55); Mean Corpuscular Hemoglobin 27.9 pg (27-33); Mean Corpuscular Volume 91.7 fl (85-98); Nucleated Red Blood Cells % 0 %; Platelet Count 192 10^3/cmm (157-399); Red Blood Count 4.33 10^6/uL (3.85-5.65); White Blood Count 7.65 10^3/uL (3.29-11.43)
--- NOTE | 2025-10-24 07:56 | ECG_ITS ---
[facility] Test Date: 2025-10-24 Pat Name: Tracie Corcoran Department: Room: Gender: Female Cad Technician: : 1955 Requested By: Kasandra Patel Order Number: [id number] Jessi MD: Dandre Schwarz M.D. Measurements Intervals [place] Rate: 71 P: 28 WI: 158 QRS: 45 QRSD: 90 T: 21 QT: 413 QTc: 451 Interpretive Statements SINUS RHYTHM Compared to ECG 11/02/2024 09:19:06 No significant changes Electronically Signed On 10-24-2025 08:40:02 SUPERVISOR LIQUID YEAST by Dandre Schwarz M.D. [email or web address]
[2025-10-24 08:00] LABS: Troponin(5th) Baseline 54 ng/L (0-10)
[2025-10-24 08:01] LABS: Lactic Sepsis W/Reflex 2.8 mmol/L (0.5-2.2)
[2025-10-24 08:04] LABS: Alanine Aminotransferase 21 U/L (0-33); Albumin Level 4.2 g/dL (3.5-5.2); Alkaline Phosphatase 114 U/L (35-105); Blood Urea Nitrogen 59 mg/dL (8-23); Calcium 8.9 mg/dL (8.5-10.5); Carbon Dioxide 19 mmol/L (22-29); Chloride 97 mmol/L (98-107); Globulin 2.8 g/dL (1.3-4.6); Glucose 231 mg/dL (65-115); Osmolality Calculated 314 mOsm/kg (285-295); Sodium 140 mmol/L (136-145); Total Protein 7.0 g/dL (6.6-8.7)
[2025-10-24 08:10] LABS: Anion Gap 28.9 (5-19); Aspartate Amino Transferase 30 U/L (0-32); Potassium 4.9 mmol/L (3.5-5.1)
[2025-10-24 08:11] LABS: Procalcitonin 0.36 ng/mL (0-0.5)
[2025-10-24 08:35] LABS: Respiratory Syncytial Virus Ce NEGATIVE (Negative); SARS-CoV-2 PCR NEGATIVE (Negative)
[2025-10-24 08:35] LABS: Glucose Urine UA 1+ (Normal); Nitrate Urine Negative (Negative); Specific Gravity, Urine 1.018 (1.005-1.030)
[2025-10-24 08:40] LABS: Universal Test for UA Present (0)
[2025-10-24 09:04] LABS: UA Slide Review UA Slide Review Perf
--- NOTE | 2025-10-24 09:19 | ECG_ITS ---
[facility] Date: 2025-10-24 Pat Name: Tracie Corcoran Department: Room: 279 Gender: Female Tile Layer Drainage: : 1955 Requested By: Kasandra Patel Order Number: [id number] Jessi MD: Dandre cShwarz M.D. Measurements Intervals [place] Rate: 68 P: 18 CA: 134 QRS: 60 QRSD: 94 T: 37 QT: 416 QTc: 444 Interpretive Statements SINUS RHYTHM Compared to ECG 10/24/2025 07:56:07 No significant changes Electronically Signed On 10-24-2025 20:36:16 RUBBER CALENDER HELPER by Dandre Schwarz M.D. [email or web address]
--- NOTE | 2025-10-24 09:24 | P.HP_ITS ---
Documented by User: Francine Perez NP 10/24/25 14:14 Providers/Chief Complaint 2 Primary Care Provider: Jhon Schneider Chief Complaint: Tachy, Weakness, missed dialysis History of Present Illness Tracie Corcoran is a 70 y/o F w/ pmhx ESRD on dialysis, gastric bypass, hyponatremia, HTN, TVAR, Afib- on chronic anticoagulation of Elliquis presented to the ED today via EMS w/ c/o tachycardia. Patient to be admitted to hospitalist services with nephrology consultation for further medical management and care. Patient reports that she woke up the morning of 10/20 with increased fatigue, and heart palpitations- she sates, It felt like my heart rhythm was in A-fib again, I can usually tell . On 10/21 patient states she walked into her bathroom wall and hit her hip, shoulder, and the side of her head. Patient reports increased weakness, fatigue, and dizziness with standing on 10/21. She states. I called into dialysis that morning at 0445 and then went back to bed and then went back to bed she called and canceled dialysis that day as she did not feel well enough to make the trip. Patient reports associated s/s of headache, tremor, dizziness w/ standing, chest heaviness, SOB w/ exertion, intermittent night sweats, and increased fatigue. Patient denies known fever, productive cough, N/V/D/C, changes in bowel/bladder habits, and any recent medication changes. While in ED a CBC, CMP, Mag, Trops, Lactic, procalcitonin was obtained and reviewed as follows: WBC 7.65, Neut 6.06, Hgb 12.10, Hct 39.7, MPV 11.1, Plt 192. Na 140, K 4.9, Mag 2.6. Esthetician Spa 9.0, BUN 59, Phos 5.0, LFTs WNL, Leticia Phos 114. Baseline Trop 54, 2hr Trop 54.32, Delta T 0.32. Lactic 2.8, procalcitonin 0.36. Flu/COVID/RSV was neagtive. A UA was collected likely contaminated, reordered. While in the ED patient received following medication: Cefepime 2000 mg IVP. Review of Systems 2 General: Reports: 10 or more systems reviewed and unremarkable except in HPI and below Medications/Allergies Home Medications ?Medication ?Instructions ?Recorded ?Confirmed ?Last Taken ?Type calcium 600 mg (as 1 tab PO QAM 05/13/2210/23/25 History carbonate)-vitamin D3 10 mcg (400 unit) tablet (Calcium 600 + D(3)) cholecalciferol (vitamin D3) 25 25 mcg PO QAM 05/13/22 10/24/25 10/23/25 History mcg (1,000 unit) capsule (Vitamin D3) escitalopram oxalate 20 mg tablet 20 mg PO QAM 2 2 10/24/25 10/23/25 History aspirin 81 mg tablet,delayed 81 mg PO DAILY 10/23/22 1 12/25/24 10/23/25 History release calcitriol 0.25 mcg capsule See Rx Instructions .Route .COMPLEX 10/23/22 10/24/25 10/24/25 History vit B,C-folic ac 800 mcg-zinc 12.5 1 tab PO DAILY 12/1410/24/25 10/23/25 19:00 History mg-selen-D3 2,000 unit-vit E tablet (RenaPlex-D) cinacalcet 60 mg tablet (Sensipar) 60 mg PO .3XW 08/2310/24/25 10/24/25 History lanthanum 750 mg chewable tablet See Rx Instructions . Route .COMPLEX 08/23/24 10/24/25 10/23/25 History ulnar gutter fast form #1 ea 12/06/24 10/24/25 Unkn own Rx metoprolol succinate 25 mg 12.5 mg (1/2 x 25 mg) PO DA ELIO #90 12/26/24 10/24/25 10/24/25 Rx tablet,extended release 24 hr tabs diltiazem HCl 60 mg 60 mg PO BID #180 caps 01/2710/24/25 10/24/25 07:00 Rx capsule,extended release 12 hr isosorbide mononitrate 30 mg 30 mg PO DAILY #90 tabs 0 04/12/25 10/24/25 10/23/25 Rx tablet,extended release 24 hr nitroglycerin 0.4 mg sublingual 0.4 mg sublingual Q5M PRN chest 04/12/25 10/24/25 Unknown Rx tablet pain #25 tabs apixaban 2.5 mg tablet (Eliquis) 2.5 mg PO BID #90 tab s 06/02/25 10/24/25 10/23/25 Rx atorvastatin 80 mg tablet 80 mg PO QPM 10/24/2510/23/25 19:00 History losartan 50 mg tablet 50 mg PO BID 10/24/2510/24/25 07:00 History omeprazole 20 mg capsule,delayed 20 mg PO DAILY 10/24/25 10/23/25 History release trazodone 50 mg tablet 50 mg PO BEDTIME 10/24/2510/23/25 20:00 History Allergies Allergy/AdvReac Type Severity Reaction Status Date / Time Latex, Natural Rubber Allergy ALGY-Rash Verified 04/12/25 15:56 PFSH Acute 2 PFSH: Medical History Pleural effusion Hypoxia Stage 5 chronic kidney disease Pleural effusion Hyponatremia Hypertension Pneumonia Acute respiratory failure with hypoxia Community acquired pneumonia ESRD (end stage renal disease) Surgical History H/O gastric bypass S/P TAVR (transcatheter aortic valve replacement) Social History Smoking and tobacco/nicotine status: former use of tobacco/nicotine Substance/Drug Use: never Vitals/I&O/Wt Last Vital Signs Temp 98.0 F 10/24/25 07:15 Pulse 71 10/24/25 07:15 Resp 16 10/24/25 07:15 BP 147/72 10/24/25 07:15 Pulse Ox 93 10/24/25 07:15 O2 Del Method Room Air 10/24/25 07:15 Weight last 48 hrs Weight 71.668 kg Physical Exam 2 Narrative: General: A&Ox4 , lying supine receiving dialysis. On RA. HEENT: Normo-cephalic, atraumatic, grossly unremarkable exam Cardio: NSR, normal S1-S2, systolic ejection murmur noted Respiratory: Clear lung sounds auscultation w/o any wheezes, stridor, rhonchi GI: Abd soft, non-tender, non-distended, normo-active bowel sounds present Neuro: Moves all extremities, no sensory deficits, Normal speech Behavior: Appropriate and cooperative Extremities: Adequate palpable pulses. No clubbing, cyanosis or edema, Full ROM. AV fistula on the left Data 10/25/25 06:02 10/25/25 06:02 Other Labs: 10/24: CXR: Reviewed and resulted as follows: Mild LEFT lower lobe infiltrate and LEFT basal pleural effusion. Mild cardiac enlargement. Micro: Microbiology 10/24/25 07:28 Blood Culture - Preliminary Blood SPECIMEN COLLECTED 10/24/25 07:37 Blood Culture - Preliminary Blood SPECIMEN COLLECTED A&P Assessment and plan 1. End-stage renal disease on hemodialysis: 2. Urinary tract infection: 3. Type 2 diabetes mellitus: 4. Atrial fibrillation: Plan: ESRD on dialysis Patient missed dialysis on 10/20 due to increased fatigue/palpitations ? Esthetician Spa 9.0, BUN 59, phos 5 ? Avoid nephrotoxic medications ? Nephrology consulted, recommendations appreciated. ? Dialysis scheduled for 10/24 ? CMP, Mag ordered daily. ? Urine studies, pending. CAP ? 10/24: CXR: Reviewed and resulted as follows: Mild LEFT lower lobe infiltrate and LEFT basal pleural effusion. ? Blood cultures drawn, pending. ? Continue IV abx Azithromycin and Rocephin - Urine antigens - Sputum cultures - O2 protocol Suspected UTI ? UA likely contaminated, reordered. ? Urine culture pending. ? Pt denies burning, increased frequency. Hx A-fib RVR ? Patient on chronic anticoagulation with Eliquis ? Continue patient home medication diltiazem HCI 60 mg PO ER BID DM2 ? A1c 7.1% ? Blood glucose monitoring, ACHS ? Low regimen sliding scale ? Hypoglycemic protocol ? Carb consistent diet Hyperlipidemia ? Continue home medication, atorvastatin 80 mg PO dly\ ? Lipid panel ordered, pending. Hypertension ? Continue home medication losartan 50 mg PO BID ? Isosorbide mononitrate ER 30mg PO dly ? GERD ? Switch home medication omeprazole to IV push Protonix 40 mg daily PDMP PDMP Reviewed: Not Reviewed Coding Level of Care Code 47289 Diagnoses End-stage renal disease on hemodialysis N18.6; Z99.2 Urinary tract infection N39.0 Type 2 diabetes mellitus E11.9 Atrial fibrillation I48.91 Documented by User: Micaela Tubbs MANUFACTURING SHIFT SUPERVISOR, STUDENT SUPPORT SERVICES DIRECTOR 10/25/25 12:31 Providers/Chief Complaint 2 Chief Complaint: Tachy, Weakness, missed dialysis History of Present Illness Tracie Corcoran is a 70 y/o F w/ pmhx ESRD on dialysis, gastric bypass, hyponatremia, HTN, TVAR, Afib- on chronic anticoagulation of Elliquis presented to the ED today via EMS w/ c/o tachycardia. Patient to be admitted to hospitalist services with nephrology consultation for further medical management and care. Patient reports that she woke up the morning of 10/20 with increased fatigue, and heart palpitations- she states, It felt like my heart rhythm was in A-fib again, I can usually tell . On 10/21 patient states she walked into her bathroom wall and hit her hip, shoulder, and the side of her head. Patient reports increased weakness, fatigue, and dizziness with standing on 10/21. She states. I called into dialysis that morning at 0445 and then went back to bed and then went back to bed she called and canceled dialysis that day as she did not feel well enough to make the trip. Patient reports associated s/s of headache, tremor, dizziness w/ standing, chest heaviness, SOB w/ exertion, intermittent night sweats, and increased fatigue. Patient denies known fever, productive cough, N/V/D/C, changes in bowel/bladder habits, and any recent medication changes. While in ED a CBC, CMP, Mag, Trops, Lactic, procalcitonin was obtained and reviewed as follows: WBC 7.65, Neut 6.06, Hgb 12.10, Hct 39.7, MPV 11.1, Plt 192. Na 140, K 4.9, Mag 2.6. Esthetician Spa 9.0, BUN 59, Phos 5.0, LFTs WNL, Leticia Phos 114. Baseline Trop 54, 2hr Trop 54.32, Delta T 0.32. Lactic 2.8, procalcitonin 0.36. Flu/COVID/RSV was neagtive. A UA was collected likely contaminated, reordered. While in the ED patient received following medication: Cefepime 2000 mg IVP. Medications/Allergies Home Medications ?Medication ?Instructions ?Recorded ?Confirmed ?Last Taken ?Type calcium 600 mg (as 1 tab PO QAM 05/13/2210/23/25 History carbonate)-vitamin D3 10 mcg (400 unit) tablet (Calcium 600 + D(3)) cholecalciferol (vitamin D3) 25 25 mcg PO QAM 05/13/22 10/24/25 10/23/25 History mcg (1,000 unit) capsule (Vitamin D3) escitalopram oxalate 20 mg tablet 20 mg PO QAM 2 10/24/25 10/23/25 History aspirin 81 mg tablet,delayed 81 mg PO DAILY 10/23/22 1 12/25/24 10/23/25 History release calcitriol 0.25 mcg capsule See Rx Instructions .Route .COMPLEX 10/23/22 10/24/25 10/24/25 History vit B,C-folic ac 800 mcg-zinc 12.5 1 tab PO DAILY 12/1410/24/25 10/23/25 19:00 History mg-selen-D3 2,000 unit-vit E tablet (RenaPlex-D) cinacalcet 60 mg tablet (Sensipar) 60 mg PO .3XW 08/2310/24/25 10/24/25 History lanthanum 750 mg chewable tablet See Rx Instructions . Route .COMPLEX 08/23/24 10/24/25 10/23/25 History ulnar gutter fast form #1 ea 12/06/24 10/24/25 Unkn own Rx metoprolol succinate 25 mg 12.5 mg (1/2 x 25 mg) PO DA ELIO #90 12/26/24 10/24/25 10/24/25 Rx tablet,extended release 24 hr tabs diltiazem HCl 60 mg 60 mg PO BID #180 caps 01/2710/24/25 10/24/25 07:00 Rx capsule,extended release 12 hr isosorbide mononitrate 30 mg 30 mg PO DAILY #90 tabs 0 04/12/25 10/24/25 10/23/25 Rx tablet,extended release 24 hr nitroglycerin 0.4 mg sublingual 0.4 mg sublingual Q5M PRN chest 04/12/25 10/24/25 Unknown Rx tablet pain #25 tabs apixaban 2.5 mg tablet (Eliquis) 2.5 mg PO BID #90 tab s 06/02/25 10/24/25 10/23/25 Rx atorvastatin 80 mg tablet 80 mg PO QPM 10/24/2510/23/25 19:00 History losartan 50 mg tablet 50 mg PO BID 10/24/2510/24/25 07:00 History omeprazole 20 mg capsule,delayed 20 mg PO DAILY 10/24/25 10/23/25 History release trazodone 50 mg tablet 50 mg PO BEDTIME 10/24/2510/23/25 20:00 History Allergies Allergy/AdvReac Type Severity Reaction Status Date / Time Latex, Natural Rubber Allergy ALGY-Rash Verified 04/12/25 15:56 PFSH Acute 2 PFSH: Medical History Pleural effusion Hypoxia Stage 5 chronic kidney disease Pleural effusion Hyponatremia Hypertension Pneumonia Acute respiratory failure with hypoxia Community acquired pneumonia ESRD (end stage renal disease) Surgical History H/O gastric bypass S/P TAVR (transcatheter aortic valve replacement) Social History Smoking and tobacco/nicotine status: former use of tobacco/nicotine Substance/Drug Use: never Data 10/25/25 06:02 10/25/25 06:02 A&P Assessment and plan 1. End-stage renal disease on hemodialysis: 2. Urinary tract infection: 3. Type 2 diabetes mellitus: 4. Atrial fibrillation: Plan: ESRD on dialysis Patient missed dialysis on 10/20 due to increased fatigue/palpitations ? Esthetician Spa 9.0, BUN 59, phos 5 ? Avoid nephrotoxic medications ? Nephrology consulted, recommendations appreciated. ? Dialysis scheduled for 10/24 ? CMP, Mag ordered daily. ? Urine studies, pending. CAP ? 10/24: CXR: Reviewed and resulted as follows: Mild LEFT lower lobe infiltrate and LEFT basal pleural effusion. ? Blood cultures drawn, pending. ? Continue IV abx Azithromycin and Rocephin - Urine antigens - Sputum cultures - O2 protocol Suspected UTI ? UA likely contaminated, reordered. ? Urine culture pending. ? Pt denies burning, increased frequency. Hx A-fib RVR ? Patient on chronic anticoagulation with Eliquis ? Continue patient home medication diltiazem HCI 60 mg PO ER BID DM2 ? A1c 7.1% ? Blood glucose monitoring, ACHS ? Low regimen sliding scale ? Hypoglycemic protocol ? Carb consistent diet - Follow up with endocrine outpatient Hyperlipidemia ? Continue home medication, atorvastatin 80 mg PO daily ? Lipid panel ordered, pending. Hypertension ? Continue home medication losartan 50 mg PO BID ? Isosorbide mononitrate ER 30mg PO dly ? GERD ? Switch home medication omeprazole to IV push Protonix 40 mg daily PDMP PDMP Reviewed: Not Reviewed Attestations 2 Medical Necessity Statement*: Patient continued hospitalization expected to cross two midnights secondary to Pneumonia, UTI. Diagnoses End-stage renal disease on hemodialysis N18.6; Z99.2 Urinary tract infection N39.0 Type 2 diabetes mellitus E11.9 Atrial fibrillation I48.91
[2025-10-24 09:27] LABS: Reflex Lactate Order REFLEX LACTIC ORDERD
--- NOTE | 2025-10-24 09:41 | PM.CONSULT ---
Providers/Reason For Consult Consulting Physician/Specialty*: [facility]/Nephrology Reason for Consult*: ESRD Primary Care Provider: Jhon Schneider History of Present Illness History of Present Illness Tracie Corcoran is a 70 year old female -year-old female with past medical history of end-stage renal disease on dialysis per TTS schedule, hyponatremia hypertension history of A-fib, history of TAVR history of prior gastric bypass was presented to the emergency department due to tachycardia patient was supposed to get dialysis today but has not gone to dialysis due to feeling weak and palpitations and presented to the ER. Lab data reviewed. Chest x-ray has revealed left lower lobe infiltrate. And patient was noted to have A-fib with RVR. Review of Systems Narrative: negative Medications/Allergies Home Medications ?Medication ?Instructions ?Recorded ?Confirmed ?Last Taken ?Type calcium 600 mg (as 1 tab PO QAM 05/13/22 10/24/25 10/23/25 History carbonate)-vitamin D3 10 mcg (400 unit) tablet (Calcium 600 + D(3)) cholecalciferol (vitamin D3) 25 25 mcg PO QAM 05/13/22 10/24/25 10/23/25 History mcg (1,000 unit) capsule (Vitamin D3) escitalopram oxalate 20 mg tablet 20 mg PO QAM 05/13/22 10/24/25 10/23/25 History aspirin 81 mg tablet,delayed 81 mg PO DAILY 10/23/22 10/24/25 10/23/25 History release calcitriol 0.25 mcg capsule See Rx Instructions .Route .COMPLEX 10/23/22 10/24/25 10/24/25 History vit B,C-folic ac 800 mcg-zinc 12.5 1 tab PO DAILY 10/23/22 10/24/25 10/23/25 19:00 History mg-selen-D3 2,000 unit-vit E tablet (RenaPlex-D) cinacalcet 60 mg tablet (Sensipar) 60 mg PO .3XW 08/23/24 10/24/25 10/24/25 History lanthanum 750 mg chewable tablet See Rx Instructions .Route .COMPLEX 08/23/24 10/24/25 10/23/25 History ulnar gutter fast form #1 ea 12/06/24 10/24/25 Unknown Rx metoprolol succinate 25 mg 12.5 mg (1/2 x 25 mg) PO DAILY #90 12/26/24 10/24/25 10/24/25 Rx tablet,extended release 24 hr tabs diltiazem HCl 60 mg 60 mg PO BID #180 caps 01/27/25 10/24/25 10/24/25 07:00 Rx capsule,extended release 12 hr isosorbide mononitrate 30 mg 30 mg PO DAILY #90 tabs 04/12/25 10/24/25 10/23/25 Rx tablet,extended release 24 hr nitroglycerin 0.4 mg sublingual 0.4 mg sublingual Q5M PRN chest 04/12/25 10/24/25 Unknown Rx tablet pain #25 tabs apixaban 2.5 mg tablet (Eliquis) 2.5 mg PO BID #90 tabs 06/02/25 10/24/25 10/23/25 Rx atorvastatin 80 mg tablet 80 mg PO QPM 10/24/25 10/24/25 10/23/25 19:00 History losartan 50 mg tablet 50 mg PO BID 10/24/25 10/24/25 10/24/25 07:00 History omeprazole 20 mg capsule,delayed 20 mg PO DAILY 10/24/25 10/24/25 10/23/25 History release trazodone 50 mg tablet 50 mg PO BEDTIME 10/24/25 10/24/25 10/23/25 20:00 History Allergies Allergy/AdvReac Type Severity Reaction Status Date / Time Latex, Natural Rubber Allergy ALGY-Rash Verified 04/12/25 15:56 PFSH Acute PFSH: Medical History (Updated 10/25/25 @ 12:34 by PAT Marvin, CERAMIC ENGINEERING PROFESSOR) Pleural effusion Hypoxia Stage 5 chronic kidney disease Pleural effusion Hyponatremia Hypertension Pneumonia Acute respiratory failure with hypoxia Community acquired pneumonia ESRD (end stage renal disease) Surgical History H/O gastric bypass S/P TAVR (transcatheter aortic valve replacement) Social History Smoking and tobacco/nicotine status: former use of tobacco/nicotine Substance/Drug Use: never Vitals/I&O/Wt Last Vital Signs Temp 98.0 F 10/24/25 07:15 Pulse 71 12/02/25 07:15 Resp 16 10/24/25 07:15 BP 147/72 10/24/25 07:15 Pulse Ox 93 10/24/25 07:15 O2 Del Method Room Air 10/24/25 07:15 Weight last 48 hrs Weight 71.668 kg Physical Exam Narrative: Patient is awake alert in no distress No JVD PERRLA S1-S2 regular rhythm Lungs clear bilaterally Abdomen soft nontender Extremities no pedal edema skin no rash Data 10/25/25 06:02 10/25/25 06:02 Micro: Microbiology 10/24/25 07:28 Blood Culture - Preliminary Blood SPECIMEN COLLECTED 10/24/25 07:37 Blood Culture - Preliminary Blood SPECIMEN COLLECTED A&P Assessment and plan 1. End-stage renal disease on hemodialysis: Plan: 1. End-stage renal disease: On TTS schedule, HD today with ultrafiltration as tolerated 2. Acute on chronic respiratory failure, multifactorial. HD with ultrafiltration as above 3. Anemia: Hemoglobin at goal currently, will give ROSAS if hemoglobin drops below 9 4. A-fib with RVR, 5. History of TAVR Patient evaluated using audiovisual cart. Time spent 40 minutes. PDMP PDMP Reviewed: Not Reviewed Consult Attestations Medical Necessity Statement: per grzegorz Coding Level of Care Code Acute Code for Chg Fwd Diagnoses End-stage renal disease on hemodialysis N18.6; Z99.2
--- NOTE | 2025-10-24 09:50 | PC.NURSE ---
INFORMATION SYSTEMS COORDINATOR DELAYED DUE TO NEED FOR US GUIDED IV.
[2025-10-24 10:06] LABS: Estmated Average Glucose 157; Hemoglobin A1C 7.1 % (4.0-6.0)
[2025-10-24 10:08] LABS: Magnesium 2.6 mg/dL (1.7-2.3)
[2025-10-24] MEDS: cefepime 2,000 mg SDV 2000 MG IVP (11:13)
--- NOTE | 2025-10-24 11:26 | PC.NURSE ---
Patient came to floor with medications being late due to an ultrasound IV from ER. 50 ml of NS not given. Called Marco Antonio in Pharmacy to see if we could get the order verified and reordered due to being over an hour for one time medications and am unable to pull. He was going to notify the physician. This floor does not have 50 ml bags per pharmacist.
--- NOTE | 2025-10-24 11:51 | PC.HD ---
Patient states that she does not receive heparin during dialysis due to her being on Eliquis. Contacted Dr. Rodriguez and was instructed to hold HD heparin.
[2025-10-24 12:08] LABS: Base Excess VBG 3.0 mmol/L (-3.0-3.0); HCO3 VBG 26.5 mmol/L (24-28); PCO2 VBG 35.3 mmHg (41-51); PO2 VBG 75.2 mmHg (25-40); Venous Blood Gas Hematocrit 31.8 % (37-47); pH VBG 7.48 (7.32-7.42)
[2025-10-24 12:09] LABS: Blood Gas Operator Identificat CAK; Blood Gas Sample Type Venous
--- NOTE | 2025-10-24 12:32 | PC.NURSE ---
50 ml not given. Pharmacy stated ER ordered to give with antibiotics. On the floor we push the antibiotic with 10mls sterile water over 5 mins. Pharmacy stated that does is not appropriate for sepsis orders.
--- NOTE | 2025-10-24 12:35 | PC.NURSE ---
Aretha in dialysis stated Dr. Rodriguez ordered a hold. Aretha stated there is a note put in for her.
[2025-10-24 12:57] LABS: Ketone (Acetest) Serum Negative (Negative)
[2025-10-24 13:02] LABS: Troponin 5 6HR 60.08 ng/L (0-10); Troponin 5 6HR Delta 6.08 ng/L (0-12)
[2025-10-24 13:04] LABS: Lactic Acid level (Lactate) 0.6 mmol/L (0.5-2.2)
[2025-10-24 13:20] LABS: Hepatitis B Surface Antigen Non-Reactive (Nonreactive)
--- NOTE | 2025-10-24 13:44 | PC.NURSE ---
Notified Dr. Moffett of patient needing tylenol. Verbal order to give tylenol 650 Mg Q6H PRN. Orders entered.
--- NOTE | 2025-10-24 15:08 | ECG_ITS ---
[facility] Date: 2025[facility]24 Pat Name: Tracie Corcoran Department: Room: 279 Gender: Female Dianetic Counselor: : 1955 Requested By: Kasandra Patel Order Number: [id number] Jessi MD: Dandre Schwarz M.D. Measurements Intervals [place] Rate: 70 P: 34 GA: 127 QRS: 45 QRSD: 96 T: 38 QT: 436 QTc: 471 Interpretive Statements SINUS RHYTHM Compared to ECG 10/24/2025 09:47:45 No significant changes Electronically Signed On 10-24-2025 20:32:31 INDEPENDENT CONSULTANT by Dandre Schwarz M.D. [email or web address]
[2025-10-24 16:22] LABS: Glucose Urine UA Trace (Normal); Nitrate Urine Negative (Negative); Specific Gravity, Urine 1.018 (1.005-1.030)
[2025-10-24 16:28] LABS: Add Urine Microscopic? YES
[2025-10-24 16:33] LABS: Cholesterol 97 mg/dL (0-200); HDL Cholesterol 50 mg/dL (60-100); Triglycerides 64 mg/dL (0-150)
[2025-10-24] MEDS: lactobacillus 1 Tablet 1 TAB PO (17:28)
[2025-10-24] MEDS: dilTIAZem ER (12HR) 60 mg Capsule PO (17:28)
[2025-10-24] MEDS: APIXABAN 2.5 MG TABLET PO (17:29)
[2025-10-24 19:44] LABS: Coronavirus 229E,HKU1,NL63,OC4 Not Detected (NOT DETECT); Parainfluenza Virus Type 1 Not Detected (NOT DETECT); Parainfluenza Virus Type 2 Not Detected (NOT DETECT); Parainfluenza Virus Type 3 Not Detected (NOT DETECT); Parainfluenza Virus Type 4 Not Detected (NOT DETECT); SARS-COV-2 Not Detected (NOT DETECT)
[2025-10-25] VITALS (62 sets, daily range): BP systolic 73–148; BP diastolic 39–80; PULSE 63–173; RESP 15–34; TEMP 36.6–36.8; O2SAT 91–99
[2025-10-25] MEDS: dilTIAZem ER (12HR) 60 mg Capsule PO (05:05)
[2025-10-25] MEDS: metoprolol succinate ER (24 HR) 25 mg Tablet 12.5 MG PO (05:05)
[2025-10-25] MEDS: APIXABAN 2.5 MG TABLET PO ×2 (05:06→17:20)
[2025-10-25] MEDS: lactobacillus 1 Tablet 1 TAB PO ×2 (05:06→17:20)
[2025-10-25] MEDS: calcium carb-vit d 600mg/400unit 1 Tablet 1 EACH PO (05:06)
[2025-10-25 06:14] LABS: Hematocrit 30.4 % (36-47); Hemoglobin 9.60 g/dL (11.27-16.99); Mean Corpuscular HGB Conc 31.6 g/dL (30-55); Mean Corpuscular Hemoglobin 28.4 pg (27-33); Mean Corpuscular Volume 89.9 fl (85-98); Nucleated Red Blood Cells % 0 %; Platelet Count 130 10^3/cmm (157-399); Red Blood Count 3.38 10^6/uL (3.85-5.65); White Blood Count 9.61 10^3/uL (3.29-11.43)
[2025-10-25 06:31] LABS: Anion Gap 18.5 (5-19); Blood Urea Nitrogen 36 mg/dL (8-23); Calcium 8.5 mg/dL (8.5-10.5); Carbon Dioxide 25 mmol/L (22-29); Chloride 97 mmol/L (98-107); Glucose 163 mg/dL (65-115); Osmolality Calculated 294 mOsm/kg (285-295); Potassium 4.5 mmol/L (3.5-5.1); Sodium 136 mmol/L (136-145)
--- NOTE | 2025-10-25 08:39 | PC.CHAP ---
Pastoral Care Encounter/Spiritual Assessment Type of Contact [] Declined manager clinical informatics visit [] Patient/Family/Request visit [] Outpatient visit [] Follow-up visit [] Physician referral [] Code/Alert [] Routine visit [] Staff referral [] Actively dying [] Patient sleeping [] Family support [] [x] Out of room [] Palliative care [] [] Receiving care in room [] Pre-surgical visit [] Trauma [] Long length of stay [] ICU visit [] Other: Relational/Emotional Strength [] Patient feels connected with others/family/visitors/staff [] Distress [] Loneliness/isolation [] Abandonment Spirituality of Patient [] Person of Alis [] Attends Yazdanism of their Alis [] Believes in Prayer [] Reads Bible or Advent materials [] There are Spiritual issues to be addressed Shelver Interventions [] Prayer [] Active listening [] Non-anxious presence [] Spiritual/emotional support [] Crisis/trauma care [] Spiritual counseling [] Bereavement support [] Provided bereavement packet [] Provided Bible/devotional materials [] Provided toy/stuffed animal, coloring book to patient or family member [] Provided Communion [] Anointing/Warren [] Salvation [] Completed spiritual assessment [] Other: Impact on Illness or Injury [] Angry [] Fearful [] Anxious [] Often cries [] Exhaustion [] Unable to work [] Unable to attend christian [] Unable to walk/stand [] Unable to read [] Unable to drive [] Unable to eat/drink [] Unable to sleep [] Unable to be with family [] Patient intubated [] Other: Summary Time spent with patient
--- NOTE | 2025-10-25 09:27 | PC.NURSE ---
Patient dropped low on blood sugar through the night and was really scared. Patient refused 2 units for a blood sugar of 150 this am.
--- NOTE | 2025-10-25 12:31 | PM.PN ---
Subjective Subjective: History of Present Illness Tracie Corcoran is a 70 y/o F w/ pmhx ESRD on dialysis, gastric bypass, hyponatremia, HTN, TVAR, Afib- on chronic anticoagulation of Elliquis presented to the ED today via EMS w/ c/o tachycardia. Patient to be admitted to hospitalist services with nephrology consultation for further medical management and care. Patient reports that she woke up the morning of 10/20 with increased fatigue, and heart palpitations- she sates, It felt like my heart rhythm was in A-fib again, I can usually tell . On 10/21 patient states she walked into her bathroom wall and hit her hip, shoulder, and the side of her head. Patient reports increased weakness, fatigue, and dizziness with standing on 10/21. She states. I called into dialysis that morning at 0445 and then went back to bed and then went back to bed she called and canceled dialysis that day as she did not feel well enough to make the trip. Patient reports associated s/s of headache, tremor, dizziness w/ standing, chest heaviness, SOB w/ exertion, intermittent night sweats, and increased fatigue. Patient denies known fever, productive cough, N/V/D/C, changes in bowel/bladder habits, and any recent medication changes. While in ED a CBC, CMP, Mag, Trops, Lactic, procalcitonin was obtained and reviewed as follows: WBC 7.65, Neut 6.06, Hgb 12.10, Hct 39.7, MPV 11.1, Plt 192. Na 140, K 4.9, Mag 2.6. Market St[employer] Vendor 9.0, BUN 59, Phos 5.0, LFTs WNL, Leticia Phos 114. Baseline Trop 54, 2hr Trop 54.32, Delta T 0.32. Lactic 2.8, procalcitonin 0.36. Flu/COVID/RSV was neagtive. A UA was collected likely contaminated, reordered. While in the ED patient received following medication: Cefepime 2000 mg IVP. 10/25/25: Overnight patient had glucose treated and dropped to the 50's. This morning she had increased confusion, HR 170's, glucose increased to 254. Rapid response called at 1223p s/t confusion, shob, and tachycardia. Cardizem drip ordered non-titratable start at 5ml/hr. Patient transferring from [facility] 279-2 to CSU for higher level of care. Vitals/I&O/Wt Last Vital Signs Temp 97.9 F 10/25/25 11:30 Pulse 73 10/25/25 11:30 Resp 18 10/25/25 11:30 BP 147/68 10/25/25 11:30 Pulse Ox 94 10/25/25 11:30 O2 Del Method Room Air 10/25/25 11:30 10/24/25 10/25/25 10/25/25 22:59 06:59 14:59 Intake Total 1350 / 1710 120 / 1830 480 / 480 Output Total 3700 / 3700 Balance -2349 / -1989 120 / -1870 480 / 480 Weight last 48 hrs Weight 71.781 kg Weight 70 kg Weight 69.031 kg Weight 71.668 kg Physical Exam Narrative: General: A&Ox4 , lying supine receiving dialysis. On RA> switching to NC HEENT: Normo-cephalic, atraumatic, grossly unremarkable exam Cardio: Sinus tachycardia Respiratory: Reduced lung sounds GI: Abd soft, non-tender, non-distended, normo-active bowel sounds present Neuro: Equal strength but weak. Confusion. Behavior: Confusion Musculoskeletal: Back pain bilaterally with movement Extremities: AV fistula on the left Data 10/25/25 06:02 10/25/25 06:02 Micro: Microbiology 10/24/25 08:30 Urine Culture - Preliminary Urine,Clean Catch Gram Negative Rods 10/24/25 20:15 Legionella Urinary Antigen - Final Urine,Voided Bacterial Antigens - Final 10/24/25 07:28 Blood Culture - Preliminary Blood NEGATIVE TO DATE 10/24/25 07:37 Blood Culture - Preliminary Blood NEGATIVE TO DATE A&P Assessment and plan 1. End-stage renal disease on hemodialysis: Patient missed dialysis on 10/20 due to increased fatigue/palpitations Market Stall Vendor 9.0, BUN 59, phos 5 Avoid nephrotoxic medications Nephrology consulted, recommendations appreciated. Dialysis scheduled for 10/24 CMP, Mag ordered daily Urine studies, pending. 2. Urinary tract infection: Suspected UTI UA likely contaminated, reordered. Urine culture pending Pt denies burning, increased frequency 3. Type 2 diabetes mellitus: A1c 7.1% Blood glucose monitoring, ACHS Low regimen sliding scale Hypoglycemic protocol Carb consistent diet Follow up with endocrine outpatient 4. Atrial fibrillation: Afib RVR 170s Patient on chronic anticoagulation with Eliquis Stopped patient home medication diltiazem HCI 60 mg PO ER BID > changed to IV drip Transfer from [facility] to U in the 1200 hour 5. GERD (gastroesophageal reflux disease): Switch home medication omeprazole to IV push Protonix 40 mg daily 6. HLD (hyperlipidemia): Continue home medication, atorvastatin 80 mg PO daily Lipid panel 7. Pneumonia: 10/24: CXR: Reviewed and resulted as follows: Mild LEFT lower lobe infiltrate and LEFT basal pleural effusion. Blood cultures drawn Continue IV abx Azithromycin and Rocephin Urine antigens Sputum cultures O2 protocol 8. Hypertension: Continue home medication losartan 50 mg PO BID ? Isosorbide mononitrate ER 30mg PO dly PDMP PDMP Reviewed: Not Reviewed Attestations Medical Necessity Statement*: Patient continued hospitalization expected to cross two midnights secondary to Pneumonia, UTI, afib RVR 170's, shob, and increasing confusion. Rapid response called in the 1200 hour. Diagnoses End-stage renal disease on hemodialysis N18.6; Z99.2 Urinary tract infection N39.0 Type 2 diabetes mellitus E11.9 Atrial fibrillation I48.91 GERD (gastroesophageal reflux disease) K21.9 HLD (hyperlipidemia) E78.5 Pneumonia J18.9 Hypertension I10
--- NOTE | 2025-10-25 12:39 | ECG_ITS ---
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 Measurements Intervals [place] Rate: 171 P: 0 CT: 0 QRS: 61 QRSD: 93 T: 34 QT: 277 QTc: 468 Interpretive Statements ATRIAL FIBRILLATION WITH RAPID VENTRICULAR RESPONSE NONSPECIFIC ST & T-WAVE ABNORMALITY CRITICAL TEST RESULT Compared to ECG 10/24/2025 15:08:36 T-wave abnormality now present Sinus rhythm no longer present Electronically Signed On 10-25-2025 23:39:16 [employer] by Dandre Schwarz M.D. [id number]
[2025-10-25] MEDS: DILTIAZEM HCL/D5W 125 MG/125 ML BAG 15 MG IV (13:00)
--- NOTE | 2025-10-25 13:08 | PC.NURSE ---
Patient transferred to CSU for cardiac monitoring due to elevated heart rate (afib with RVR). Received report from DENNISE Srinivasan. Patient placed on telemetry. HR at 150-180. Diltiazem drip at 15ml/hr currently. Patient reports feeling very tired. Noted patient slow to respond. No other symptoms observed at this time
[2025-10-25 13:13] LABS: Base Excess VBG 0.4 mmol/L (-3.0-3.0); HCO3 VBG 23.6 mmol/L (24-28); PCO2 VBG 32.5 mmHg (41-51); PO2 VBG 92.3 mmHg (25-40); Venous Blood Gas Hematocrit 33.9 % (37-47); pH VBG 7.47 (7.32-7.42)
[2025-10-25 13:14] LABS: Blood Gas Operator Identificat MONRO; Blood Gas Sample Site Not specified; Blood Gas Sample Type Venous
--- NOTE | 2025-10-25 14:21 | P.PN_ITS ---
Subjective 2 Subjective: moved to CSU due to Rapid A fib Medications: Reviewed: Yes Vitals/I&O/Wt Last Vital Signs Temp 97.9 F 10/25/25 11:30 Pulse 69 10/25/25 14:00 Resp 26 H 10/25/25 14:00 BP 110/39 10/25/25 14:00 Pulse Ox 93 10/25/25 14:00 O2 Del Method Room Air 10/25/25 11:30 10/24/25 10/25/25 10/25/25 22:59 06:59 14:59 Intake Total 1350 / 1710 120 / 1830 488.00 / 488.00 Output Total 3700 / 3700 Balance -0 / -1989 120 / -1870 488.00 / 488.00 Weight last 48 hrs Weight 71.781 kg Weight 70 kg Weight 69.031 kg Weight 71.668 kg Physical Exam 2 Narrative: Patient is awake alert in no distress No JVD PERRLA S1-S2 regular rhythm Lungs clear bilaterally Abdomen soft nontender Extremities no pedal edema skin no rash Data 10/25/25 06:02 10/25/25 06:02 Micro: Microbiology 10/24/25 Unknown Gram Stain - Final Sputum - Expectorated Sputum 10/24/25 08:30 Urine Culture - Preliminary Urine,Clean Catch Gram Negative Rods 10/24/25 20:15 Legionella Urinary Antigen - Final Urine,Voided Bacterial Antigens - Final 10/24/25 07:28 Blood Culture - Preliminary Blood NEGATIVE TO DATE 10/24/25 07:37 Blood Culture - Preliminary Blood NEGATIVE TO DATE A&P Assessment and plan 1. End-stage renal disease on hemodialysis: Plan: 1. End-stage renal disease: On TTS schedule, next HD tomorrow 2. Acute on chronic respiratory failure, multifactorial. HD with ultrafiltration as above 3. Anemia: Hemoglobin at goal currently, will give ROSAS if hemoglobin drops below 9 4. A-fib with RVR, 5. History of TAVR Patient evaluated using audiovisual cart. Time spent 40 minutes. PDMP PDMP Reviewed: Not Reviewed Attestations 2 Medical Necessity Statement*: per medicine Coding Level of Care Code Acute Code for Chg Fwd Diagnoses End-stage renal disease on hemodialysis N18.6; Z99.2
--- NOTE | 2025-10-25 15:39 | PC.NURSE ---
At 1158 this nurse called to patients room. Nurse manager shift getting EKG. Vitals BP 114/60, 96%, 97.9 Temp, HR 171, EKG Afib RVR, Blood sugar 245. Notified JOELLEN Hinojosa at 1204 BP at that time 103/63. JOELLEN Hinojosa came to room to assess patient. Micaela called Rapid Response at 1222 HR 177, bp 113/57, 96% ordered 2 L O2 and a bed to CSU stat. Report given to Vesta in CSU
[2025-10-26] VITALS (100 sets, daily range): BP systolic 69–167; BP diastolic 35–99; PULSE 56–162; RESP 10–35; TEMP 36.3–37.3; O2SAT 92–100
[2025-10-26] MEDS: amiodarone 150 MG/100 ML PREMIX 400 MG IV (02:28)
[2025-10-26] MEDS: AMIODARONE HCL/D5W 900 MG/500 ML BAG 33.33 MG IV (02:29)
--- NOTE | 2025-10-26 04:03 | PC.NURSE ---
Patient went into Afib rvr, rats in the 150s. Turned Cardizem to max dose of 15mls with no improvement in heart rate. Contacted hospitalist, given orders for Amiodarone IV.
[2025-10-26] MEDS: APIXABAN 2.5 MG TABLET PO ×2 (05:10→18:08)
[2025-10-26] MEDS: lactobacillus 1 Tablet 1 TAB PO ×2 (05:10→18:08)
[2025-10-26] MEDS: calcium carb-vit d 600mg/400unit 1 Tablet 1 EACH PO (05:45)
--- NOTE | 2025-10-26 07:20 | CTR_ITS ---
PROCEDURE INFORMATION: Exam: CT Head Without Contrast Exam date and time: 10/26/2025 7:49 AM Age: 70 years old Clinical indication: Altered mental status/memory loss; Additional info: AMS TECHNIQUE: Imaging protocol: Computed tomography of the head without contrast. Radiation optimization: All CT scans at this facility use at least one of these dose optimization techniques: automated exposure control; mA and/or kV adjustment per patient size (includes targeted exams where dose is matched to clinical indication); or iterative reconstruction. COMPARISON: No relevant prior studies available. RADIATION DOSE METRICS: Total DLP (mGy-cm): 1105.2 FINDINGS: Limitations: Image quality degraded by motion artifact. Brain: Mild age-appropriate volume loss. No hemorrhage. Periventricular and subcortical white matter hypodensities likely represent chronic small vessel ischemic changes. No mass effect. Vascular calcifications along the carotid siphons. Cerebral ventricles: No ventriculomegaly. Paranasal sinuses: Visualized sinuses are unremarkable. No fluid levels. Mastoid air cells: Visualized mastoid air cells are well aerated. Orbital cavities: Bilateral lens replacements. Bones: Unremarkable. No acute fracture. Soft tissues: Unremarkable. CT/CT head wo con* [id number] IMPRESSION: No acute intracranial abnormality.
--- NOTE | 2025-10-26 07:46 | P.MISC_ITS ---
Miscellaneous Note Purpose of Documentation: Significant event Note: Significant event 711 Vesta RN reached out to advise patien t increased drowsiness and low blood pressure 69/53. 716 Bedside. Patient lethargic, dong, an d slow to respond. Repeat blood pressu res inconsistent 167/132 then 88/56 map 66 at 0722. We are getting a manual BP. [facility] notified for ICU bed need. 733 Transfer order placement for ICU. Dr Tayler Moffett, Hospitalist will assume care as patient requires a higher level of care. Dr. Johnson, Hospitalist, also notified. Patient's daughter will be called for patient update.
--- NOTE | 2025-10-26 08:13 | PC.NURSE ---
During report this morning noted patient to be less responsive and diaphoretic. Patient has returned to afib with rvr during the night. Amiodarone drip was started. HR 140s BP up and down as documented. Informed Micaela Tubbs NP. [employer] into see patient and requested transfer to ICU. Spoke with patient's daughter Roslyn Corcoran and informed her of patient condition and transfer to ICU. Daughter is requesting transfer to [facility]. Patient taken to CT. Report given to DNENISE Ulrich.
[2025-10-26 08:17] LABS: Hematocrit 36.2 % (36-47); Hemoglobin 10.30 g/dL (11.27-16.99); Mean Corpuscular HGB Conc 28.5 g/dL (30-55); Mean Corpuscular Hemoglobin 28.1 pg (27-33); Mean Corpuscular Volume 98.6 fl (85-98); Nucleated Red Blood Cells % 0 %; Platelet Count 141 10^3/cmm (157-399); Red Blood Count 3.67 10^6/uL (3.85-5.65); White Blood Count 7.83 10^3/uL (3.29-11.43)
[2025-10-26 08:30] LABS: Anion Gap 24.8 (5-19); Blood Urea Nitrogen 49 mg/dL (8-23); Calcium 8.9 mg/dL (8.5-10.5); Carbon Dioxide 19 mmol/L (22-29); Chloride 94 mmol/L (98-107); Glucose 250 mg/dL (65-115); Osmolality Calculated 295 mOsm/kg (285-295); Potassium 5.8 mmol/L (3.5-5.1); Sodium 132 mmol/L (136-145)
--- NOTE | 2025-10-26 09:15 | P.CONIM_ITS ---
Providers/Reason For Consult 2 Consulting Physician/Specialty*: SHELDON Schwarz MD/cardiology Reason for Consult*: Patient with atrial fibrillation/ rapid ventricular rate/hypotension Requesting Physician: Dr. Moffett Attending Physician: Kala Moffett MD Primary Care Provider: Jhon Schneider History of Present Illness History of Present Illness Tracie Corcoran is a 70 year old female, with multiple medical problems including end-stage renal disease, on hemodialysis, is admitted to the hospital through the emergency room where she presented with some intermittent episodes of weakness/confusion and atrial fibrillation with rapid ventricular rate. She was initially started on Cardizem drip. Because of the low blood pressure, this was switched to IV amiodarone. She is now transferred to the ICU for further evaluation and management. This patient is known to have chronic intermittent atrial fibrillation. She also has a history of a TAVR This patient is known to have easy bruising, easy on reduced dose of Eliquis, end-stage renal disease, on hemodialysis, has been having episodes of hypotension lately Apparently the patient has been in her baseline state of health up until last Thursday when she started having some episodes of palpitations, feeling of dizziness and weakness. Since she was not feeling good, she canceled her scheduled dialysis. She was having episodes of palpitations since then. She went to the dialysis clinic on the . Apparently she went into atrial fibrillation with a rapid ventricular rate and low blood pressure while having the dialysis. For that reason, she was brought to the emergency room. She also has been having the feeling ofdizziness and weakness with these episodes of fibrillation, based on her records. She had no fever or chills. No cough. Patient is very drowsy and is not able to give any history at the time of my examination. Most of the information is from the medical records. She is on IV amiodarone. Currently she seems to be in sinus rhythm. Her blood pressure is 112/80 with a heart rate of 78/min. She is afebrile. Review of Systems 2 Narrative: CONSTITUTIONAL: No fever or chills. [] EYES: No blurring of vision or other visual disturbances lately. [] ENT: No hoarseness of voice, auditory disturbances or sore throat. [] CARDIOVASCULAR: As mentioned above. [] RESPIRATORY: No significant cough. [] GASTROINTESTINAL: No hematemesis or melena. [] GENITOURINARY: No dysuria or hematuria. [] INTEGUMENTARY: No skin rashes or history of skin cancer. [] NEURO: No transient ischemic attacks or amaurosis. [] PSYCHIATRIC: No history of psychosis or major depression. [] HEMATOLOGIC: No bleeding disorders or significant anemia. [] ENDOCRINE: No history of polyuria or polydipsia. [] MUSCULOSKELETAL: No recent joint pain or swelling. [] ALLERGY/IMMUNOLOGY: As mentioned above. [] Medications/Allergies Home Medications ?Medication ?Instructions ?Recorded ?Confirmed ?Last Taken ?Type calcium 600 mg (as 1 tab PO QAM 05/13/2210/23/25 History carbonate)-vitamin D3 10 mcg (400 unit) tablet (Calcium 600 + D(3)) cholecalciferol (vitamin D3) 25 25 mcg PO QAM 05/13/22 10/24/25 10/23/25 History mcg (1,000 unit) capsule (Vitamin D3) escitalopram oxalate 20 mg tablet 20 mg PO QAM 2 10/24/25 10/23/25 History aspirin 81 mg tablet,delayed 81 mg PO DAILY 10/23/22 1 12/25/24 10/23/25 History release calcitriol 0.25 mcg capsule See Rx Instructions .Route .COMPLEX 10/23/22 10/24/25 10/24/25 History vit B,C-folic ac 800 mcg-zinc 12.5 1 tab PO DAILY 12/1410/24/25 10/23/25 19:00 History mg-selen-D3 2,000 unit-vit E tablet (RenaPlex-D) cinacalcet 60 mg tablet (Sensipar) 60 mg PO .3XW 08/2310/24/25 10/24/25 History lanthanum 750 mg chewable tablet See Rx Instructions . Route .COMPLEX 08/23/24 10/24/25 10/23/25 History ulnar gutter fast form #1 ea 12/06/24 10/24/25 Unkn own Rx metoprolol succinate 25 mg 12.5 mg (1/2 x 25 mg) PO DA ELIO #90 12/26/24 10/24/25 10/24/25 Rx tablet,extended release 24 hr tabs diltiazem HCl 60 mg 60 mg PO BID #180 caps 01/2710/24/25 10/24/25 07:00 Rx capsule,extended release 12 hr isosorbide mononitrate 30 mg 30 mg PO DAILY #90 tabs 0 04/12/25 10/24/25 10/23/25 Rx tablet,extended release 24 hr nitroglycerin 0.4 mg sublingual 0.4 mg sublingual Q5M PRN chest 04/12/25 10/24/25 Unknown Rx tablet pain #25 tabs apixaban 2.5 mg tablet (Eliquis) 2.5 mg PO BID #90 tab s 06/02/25 10/24/25 10/23/25 Rx atorvastatin 80 mg tablet 80 mg PO QPM 10/24/2510/23/25 19:00 History losartan 50 mg tablet 50 mg PO BID 10/24/2510/24/25 07:00 History omeprazole 20 mg capsule,delayed 20 mg PO DAILY 10/24/25 10/23/25 History release trazodone 50 mg tablet 50 mg PO BEDTIME 10/24/2510/23/25 20:00 History Allergies Allergy/AdvReac Type Severity Reaction Status Date / Time Latex, Natural Rubber Allergy ALGY-Rash Verified 04/12/25 15:56 Current Medications Generic Name Dose Route Start Last Admin Trade Name Freq PRN Reason Stop Dose Admin Acetaminophen 650 mg 10/24/25 13:44 10/25/25 02:29 Acetaminophen 325 Mg Tablet PO 650 mg Q6H PRN Administration MILD PAIN Apixaban 2.5 mg 10/24/25 17:00 10/26/25 05:10 Apixaban 2.5 Mg Tablet PO 2.5 mg BID JAREK Administration Aspirin 81 mg 10/25/25 05:00 10/26/25 05:10 Aspirin 81 Mg Ec Tablet PO 81 mg DAILY JAREK Administration Atorvastatin Calcium 80 mg 10/24/25 17:00 10/25/25 17:20 Atorvastatin 40 Mg Tablet PO 80 mg QPM JAREK Administration Baclofen 10 mg 10/25/25 02:42 10/25/25 03:05 Baclofen 10 Mg Tablet PO 10 mg TID PRN Administration MUSCLE SPASMS Calcitriol 0.75 mcg 10/24/25 14:30 10/24/25 14:47 Calcitriol 0.25 Mcg Capsule PO 0.75 mcg TuThSa JAREK Administration Calcium Carbonate 1 each 10/25/25 05:00 10/26/25 05:45 Calcium Carb-Vit D 600mg/400unit 1 Tablet PO 1 each QAM JAREK Administration Diltiazem HCl 60 mg 10/24/25 17:00 10/25/25 05:05 Diltiazem Er (12hr) 60 Mg Capsule PO 60 mg On Hold: 10/25/25 12:19 BID JAREK Administration Escitalopram Oxalate 20 mg 10/25/25 05:00 10/26/25 05:10 Escitalopram 10 Mg Tablet PO 20 mg QAM JAREK Administration Azithromycin 250 mg/ Sodium 250 mls @ 250 mls/hr 10/24/25 17:00 10/25/25 21:55 Chloride IV Infused Q24H JAREK Infusion Protocol AMIODARONE HCL/D5W 900 mg in 500 mls @ 0 mls/hr 10/26/25 01:59 10/26/25 05:41 Amiodarone 900 Mg/500 Ml-D5w IV Infused .Q0M JAREK Titration Protocol Per Protocol Insulin Human Lispro 0 unit 10/24/25 12:00 10/26/25 08:43 Insulin Lispro 100 Unit/1 Ml SUBCUT 6 unit WM&BEDTIME JAREK Administration Protocol Isosorbide Mononitrate 30 mg 10/25/25 05:00 10/25/25 05:06 Isosorbide Mononitrate Er 30 Mg Tablet PO 30 mg On Hold: 10/25/25 12:20 DAILY JAREK Administration Lactobacillus Acidophilus 1 tab 10/24/25 17:00 10/26/25 05:10 Lactobacillus 1 Tablet PO 1 tab BID JAREK Administration Losartan Potassium 50 mg 10/24/25 17:00 10/25/25 05:04 Losartan 50 Mg Tablet PO 50 mg On Hold: 10/25/25 12:20 BID JAREK Administration Metoprolol Succinate 12.5 mg 10/25/25 05:00 10/25/25 05:05 Metoprolol Succinate Er (24 Hr) 25 Mg Tablet PO 12.5 mg On Hold: 10/25/25 12:20 DAILY JAREK Administration Pantoprazole Sodium 40 mg 10/25/25 05:00 10/26/25 05:[address] 40 Mg Tablet PO 40 mg DAILY JAREK Administration Trazodone HCl 50 mg 10/24/25 21:00 10/25/25 20:45 Trazodone 50 Mg Tablet PO 50 mg BEDTIME JAREK Administration Vitamin D 1,000 unit 10/25/25 05:00 10/26/25 05:10 Cholecalciferol (Vitamin D3) 1,000 Unit Tablet PO 1,000 unit QAM JAREK Administration PFSH Acute 2 PFSH: Medical History (Updated 10/26/25 @ 23:15 by Dandre Schwarz MD) Pleural effusion Hypoxia Stage 5 chronic kidney disease Pleural effusion Hyponatremia Hypertension Pneumonia Acute respiratory failure with hypoxia Community acquired pneumonia ESRD (end stage renal disease) Surgical History H/O gastric bypass S/P TAVR (transcatheter aortic valve replacement) Social History Smoking and tobacco/nicotine status: former use of tobacco/nicotine Substance/Drug Use: never Vitals/I&O/Wt Last Vital Signs Temp 99.1 F 10/26/25 08:45 Pulse 124 H 10/26/25 08:45 Resp 17 10/26/25 08:45 BP 99/68 10/26/25 08:45 Pulse Ox 100 10/26/25 08:45 O2 Del Method Nasal Cannula 10/26/25 08:45 O2 Flow Rate 2 10/26/25 08:45 10/25/25 10/26/25 10/26/25 22:59 06:59 14:59 Intake Total 730 / 1218.00 661.417 / 1879.417 Output Total 0 / 0 Balance 730 / 1218.00 661.417 / 1879.417 Weight last 48 hrs Weight 163 lb 11.2 oz Weight 158 lb 4 oz Weight 154 lb 5.177 oz Weight 152 lb 3 oz Physical Exam 2 Narrative: GENERAL: The patient is very drowsy and unable to answer any questions. HEENT: No significant pallor, icterus or lymphadenopathy.Oral cavity: There are no mucous membrane lesions. NECK: Trachea appears to be central. No masses noted. No JVD or thyromegaly appreciated. RESPIRATORY: Chest is symmetrical. No intercostals muscle retraction or any accessory muscle activation. There is no chest wall tenderness. Breath sounds are heard bilaterally. No rales or rhonchi heard. No evidence of any consolidation. BREASTS: Deferred. HEART: The heart sounds are normal. No S3 or S4. Ejection systolic murmur of grade 3 or 6 in the aortic area. No diastolic murmurs. No pericardial rub ABDOMEN: No vessel pulsations or distention. No tenderness. No organomegaly appreciated. Bowel sounds are normally heard. : Deferred. RECTAL: Deferred. LYMPHATIC: No lymphadenopathy noted in the neck. EXTREMITIES: No edema or cyanosis. No clubbing. MUSCULOSKELETAL: No acute joint deformities or swelling SKIN: There are no significant rashes or ecchymosis NEUROPSYCHIATRIC: The patient is drowsy and appears confused Data 10/26/25 07:36 10/26/25 07:36 Other Labs: Laboratory Last Values WBC 7.83 10^3/uL (3.29-11.43) 10/26/25 07:36 RBC 3.67 10^6/uL (3.85-5.65) L 10/26/25 07:36 Hgb 10.30 g/dL (11.27-16.99) L 10/26/25 07:36 Hct 36.2 % (36-47) 10/26/25 07:36 MCV 98.6 fl (85-98) H 10/26/25 07:36 MCH 28.1 pg (27-33) 10/26/25 07:36 MCHC 28.5 g/dL (30-55) L D 10/26/25 07:36 RDW 15.6 % (12.1-15.1) H 10/26/25 07:36 Plt Count 141 10^3/cmm (157-399) L 10/26/25 07:36 MPV 11.5 fL (7.4-10.4) H 10/26/25 07:36 Neut % (Auto) 81.9 % 10/26/25 07:36 Lymph % (Auto) 9.1 % 10/26/25 07:36 [place] % (Auto) 7.4 % 10/26/25 07:36 Eos % (Auto) 0.5 % 10/26/25 07:36 Baso % (Auto) 0.5 % 10/26/25 07:36 Neut # (Auto) 6.41 10^3/uL (1.8-7.7) 10/26/25 07:36 Lymph # (Auto) 0.7 10^3/uL (0.8-4.8) L 10/26/25 07:36 [place] # (Auto) 0.6 10^3/uL (0.2-0.9) 10/26/25 07:36 Eos # (Auto) 0.0 10^3/uL (0.0-0.8) 10/26/25 07:36 Baso # (Auto) 0.0 10^3/uL (0.0-0.1) 10/26/25 07:36 Nucleated RBC % (auto) 0 % 10/26/25 07:36 Nucleated RBCs # 0.0 /100WBC 10/26/25 07:36 Specimen Type Venous 10/25/25 13:05 Sample Site Not specified 10/25/25 13:05 [place] Test N/a 10/25/25 13:05 VBG pH 7.47 (7.32-7.42) H 10/25/25 13:05 VBG pCO2 32.5 mmHg (41-51) L 10/25/25 13:05 VBG pO2 92.3 mmHg (25-40) H 10/25/25 13:05 VBG HCO3 23.6 mmol/L (24-28) L 10/25/25 13:05 VBG Base Excess 0.4 mmol/L (-3.0-3.0) 10/25/25 13:05 VBG Hematocrit 33.9 % (37-47) L 10/25/25 13:05 O2 Delivery Device Nc 10/25/25 13:05 FiO2 28.0 % 10/25/25 13:05 Station Tender ID [place] 10/25/25 13:05 Sodium 132 mmol/L (136-145) L 10/26/25 07:36 Potassium 5.8 mmol/L (3.5-5.1) H 10/26/25 07:36 Chloride 94 mmol/L (98-107) L 10/26/25 07:36 Carbon Dioxide 19 mmol/L (22-29) L 10/26/25 07:36 Anion Gap 24.8 (5-19) H 10/26/25 07:36 BUN 49 mg/dL (8-23) H 10/26/25 07:36 Creatinine 7.7 mg/dL (0.5-0.9) H* 10/26/25 07:36 GFR Calculation 5.2 mL/min (90-130) L 10/26/25 07:36 Glucose 250 mg/dL (65-115) H 10/26/25 07:36 POC Glucose 241 mg/dL (70-110) H 10/26/25 08:32 Estimat Average Glucose 157 10/24/25 07:28 Hemoglobin A1c 7.1 % (4.0-6.0) H 10/24/25 07:28 Calculated Osmolality 295 mOsm/kg (285-295) 10/26/25 07:36 Lactic Acid 2.8 mmol/L (0.5-2.2) H 10/24/25 07:28 Lactic Acid (Sepsis) 0.6 mmol/L (0.5-2.2) 10/24/25 12:00 Calcium 8.9 mg/dL (8.5-10.5) 10/26/25 07:36 Phosphorus 5.0 mg/dL (2.5-4.5) H 10/24/25 08:30 Magnesium 2.6 mg/dL (1.7-2.3) H 10/24/25 08:30 Total Bilirubin 0.9 mg/dL (0.15-1.2) 10/24/25 07:28 AST 30 U/L (0-32) 10/24/25 07:28 ALT 21 U/L (0-33) 10/24/25 07:28 Alkaline Phosphatase 114 U/L (35-105) H 10/24/25 07:28 Troponin T Baseline 54 ng/L (0-10) H 10/24/25 07:28 Troponin T 120 Minute 54.32 ng/L (0-10) H 10/24/25 08:30 Delta Troponin T 0.32 ABS# (0-10) 10/24/25 08:30 Troponin T Hi Sens 6Hr 60.08 ng/L (0-10) H 10/24/25 11:59 Troponin T Hi Sens 6Hr Delta 6.08 ng/L (0-12) 10/24/25 11:59 Total Protein 7.0 g/dL (6.6-8.7) 10/24/25 07:28 Albumin 4.2 g/dL (3.5-5.2) 10/24/25 07: Globulin 2.8 g/dL (1.3-4.6) 10/24/25 07:28 Triglycerides 64 mg/dL (0-150) 10/24/25 11:59 Cholesterol 97 mg/dL (0-200) 10/24/25 11:59 LDL Cholesterol, Calc 34 mg/dL (50-129) L 10/24/25 11:59 HDL Cholesterol 50 mg/dL (60-100) L 10/24/25 11:59 LDL/HDL Ratio 0.68 RATIO (0.00-3.22) 10/24/25 11:59 Cholesterol/HDL Ratio 1.94 mg/dL (0.0-4.40) 10/24/25 11:59 Procalcitonin 0.36 ng/mL (0-0.5) 10/24/25 07:28 Urine Color Yellow (Yellow) 10/24/25 16:10 Urine Appearance Turbid (CLEAR) A 10/24/25 16:10 Urine pH 6.5 (5-7) 10/24/25 16:10 Ur Specific [place] 1.018 (1.005-1.030) 10/24/25 16:10 Urine Protein 3+ (Negative) A 10/24/25 16:10 Urine Glucose (UA) Trace (Normal) H 10/24/25 16:10 Urine Ketones Negative (Negative) 10/24/25 16:10 Urine Blood 1+ (Negative) A 10/24/25 16:10 Urine Nitrate Negative (Negative) 10/24/25 16:10 Urine Bilirubin Negative (Negative) 10/24/25 16:10 Urine Urobilinogen 1.0 mg/dL (Negative) 10/24/25 16:10 Ur Leukocyte Esterase 3+ (Negative) A 10/24/25 16:10 Urine RBC 6-10 /hpf (0-2) 10/24/25 16:10 Urine WBC >100 /hpf (0-5) H 10/24/25 16:10 Ur Squamous Epith Cells 0-5 /hpf (0-5) 10/24/25 16:10 Amorphous Sediment Not Reportable 10/24/25 16:10 Urine Bacteria Trace /hpf (NONE) 10/24/25 16:10 Hyaline Casts 1.65 /lpf 10/24/25 16:10 Serum Ketones Negative (Negative) 10/24/25 12:00 Adenovirus (PCR) Not detected (NOT DETECT) 10/24/25 17:11 C. pneumoniae DNA (PCR) Not detected (NOT DETECT) 10/24/25 17:11 Coronavirus 229E (PCR) Not detected (NOT DETECT) 10/24/25 17:11 Hep Bs Antigen Cancelled 10/24/25 12:00 Hep Bs Antigen Non-reactive (Nonreactive) 10/24/25 12:00 Hep Bs Antibody 593.4 (11.5-1000) 10/24/25 12:00 Hep Bs Antibody Cancelled 10/24/25 12:00 Hepatitis C Antibody Cancelled 10/24/25 12:00 Hepatitis C Antibody Non-reactive (Nonreactive) 10/24/25 12:00 Human Metapneumovir PCR Not detected (NOT DETECT) 10/24/25 17:11 Influenza A (H1) PCR Not detected (NOT DETECT) 10/24/25 17:11 Influenza A (PCR) Negative (Negative) 10/24/25 07:28 Influ A (H1/09) PCR Not detected (NOT DETECT) 10/24/25 17:11 Influenza A (H3) PCR Not detected (NOT DETECT) 10/24/25 17:11 Influenza Type A (PCR) Not detected (NOT DETECT) 10/24/25 17:11 Influenza Type B (PCR) Not detected (NOT DETECT) 10/24/25 17:11 M. pneumoniae (PCR) Not detected (NOT DETECT) 10/24/25 17:11 Parainfluenza 1 (PCR) Not detected (NOT DETECT) 10/24/25 17:11 Parainfluenza 2 (PCR) Not detected (NOT DETECT) 10/24/25 17:11 Parainfluenza 3 (PCR) Not detected (NOT DETECT) 10/24/25 17:11 Parainfluenza 4 (PCR) Not detected (NOT DETECT) 10/24/25 17:11 RSV (PCR) Negative (Negative) 10/24/25 07:28 RSV Type A (PCR) Not detected (NOT DETECT) 10/24/25 17:11 RSV Type B (PCR) Not detected (NOT DETECT) 10/24/25 17:11 Entero/Rhino (PCR) Not detected (NOT DETECT) 10/24/25 17:11 SARS-CoV-2 (PCR) Not detected (NOT DETECT) 10/24/25 17:11 Blood Type O Negative 10/25/25 17:15 Rho(D) Type Rh negative 10/25/25 17:15 Antibody Screen Negative 10/25/25 17:15 Crossmatch See Detail 10/25/25 17:15 Micro: Microbiology 10/24/25 Unknown Gram Stain - Final Sputum - Expectorated Sputum Sputum Culture - Preliminary 10/24/25 08:30 Urine Culture - Preliminary Urine,Clean Catch Gram Negative Rods 10/24/25 20:15 Legionella Urinary Antigen - Final Urine,Voided Bacterial Antigens - Final 10/24/25 07:28 Blood Culture - Preliminary Blood NEGATIVE TO DATE 10/24/25 07:37 Blood Culture - Preliminary Blood NEGATIVE TO DATE A&P Assessment and plan 1. Intermittent atrial fibrillation: The patient is in sinus rhythm at this time. IV amiodarone may be continued. May start her on p.o. amiodarone, when she is fully awake and is able to handle oral medications. 2. S/P TAVR (transcatheter aortic valve replacement): The valve function appears to be appropriate. Will continue on the current management 3. Hyperlipidemia, unspecified hyperlipidemia type: Continue on the current management 4. Other specified hypotension: The blood pressure is currently normotensive. Will continue close observation 5. End-stage renal disease on hemodialysis: Hemodialysis as per the protocol 6. Type 2 diabetes mellitus with other specified complication, unspecified whether termite control service representative insulin use: Aggressive management of diabetes as per the primary 7. Transient alteration of awareness: ? Secondary to metabolic encephalopathy. Management as per the hospitalist service Plan: Based on the clinical progress, further recommendations will be made. Patient will require any further cardiac workup at this point. PDMP PDMP Reviewed: Not Reviewed Consult Attestations 2 Medical Necessity Statement: Patient requires continued hospital stay for close monitoring and further management Coding Level of Care Code 05183 Diagnoses Intermittent atrial fibrillation I48.0 S/P TAVR (transcatheter aortic valve replacement) Z95.2 Hyperlipidemia, unspecified hyperlipidemia type E78.5 Hyperlipidemia type: unspecified Other specified hypotension I95.89 Hypotension type: other hypotension type End-stage renal disease on hemodialysis N18.6; Z99.2 Type 2 diabetes mellitus with other specified complication, unspecified whether termite control service representative insulin use E11.69 Diabetes mellitus [facility] insulin use: unspecified [facility] insulin use status Diabetes mellitus complication status: with other specified complication Transient alteration of awareness R40.4 Altered mental status type: transient alteration of awareness
--- NOTE | 2025-10-26 10:18 | PC.NURSE ---
When patient was brought down from [facility] they were lethargic. DENNISE Lemons stated that the daughter of the patient was wanting the patient to be transferred to [facility] in [place]. Daughter talked to patient on the phone and patient also stated they wanted to be transferred to [facility] in [place]. Dr. Moffett was updated and they stated that they will call the daughter.
--- NOTE | 2025-10-26 12:29 | P.PN_ITS ---
Subjective 2 Subjective: moved to [facility] due to Rapid A fib 10/26 patient seen and examined, she is c urrently snoring and appears somewhat altered. Reviewed head CT and was negative for anything acute. Also has a possible UTI and pneumonia, starting Rocephin now. Medications: Reviewed: Yes Vitals/I&O/Wt Last Vital Signs Temp 99.1 F 10/26/25 08:45 Pulse 62 10/26/25 12:00 Resp 16 10/26/25 12:00 BP 113/57 10/26/25 12:00 Pulse Ox 95 10/26/25 12:00 O2 Del Method Nasal Cannula 10/26/25 12:00 O2 Flow Rate 1 10/26/25 12:00 10/25/25 10/26/25 10/26/25 22:59 06:59 14:59 Intake Total 730 / 1218.00 661.417 / 1879.417 Output Total 0 / 0 Balance 730 / 1218.00 661.417 / 1879.417 Weight last 48 hrs Weight 74.253 kg Weight 71.781 kg Weight 70 kg Physical Exam 2 Narrative: General: SNORING HEENT: Normo-cephalic, atraumatic, grossly unremarkable exam Cardio: irregular heart rate. Respiratory: Reduced lung sounds GI: Abd soft, non-tender, non-distended, normo-active bowel sounds present Neuro: Equal strength but weak. Confusion. Behavior: Confusion Musculoskeletal: Back pain bilaterally with movement Extremities: AV fistula on the left Data 10/26/25 07:36 10/26/25 07:36 Micro: Microbiology 10/24/25 16:10 Urine Culture - Preliminary Urine,Clean Catch 10/24/25 Unknown Gram Stain - Final Sputum - Expectorated Sputum Sputum Culture - Preliminary 10/24/25 08:30 Urine Culture - Preliminary Urine,Clean Catch Gram Negative Rods 10/24/25 20:15 Legionella Urinary Antigen - Final Urine,Voided Bacterial Antigens - Final 10/24/25 07:28 Blood Culture - Preliminary Blood NEGATIVE TO DATE 10/24/25 07:37 Blood Culture - Preliminary Blood NEGATIVE TO DATE A&P Assessment and plan 1. End-stage renal disease on hemodialysis: Patient missed dialysis on 10/20 due to increased fatigue/palpitations Nephrology following. Now on dialysis scheduled Thursday.. 2. Urinary tract infection: Suspected UTI Urine cultures growing gram-negative rods. Speciation pending. 3. Type 2 diabetes mellitus with other specified complication, unspecified whether collar pointer insulin use: A1c 7.1% Blood glucose monitoring, ACHS Low regimen sliding scale Hypoglycemic protocol Carb consistent diet Follow up with endocrine outpatient 4. Atrial fibrillation: Afib RVR 10/25 170s Now on amiodarone drip, rate controlled Patient on chronic anticoagulation with Eliquis patient home medication diltiazem HCI 60 mg PO ER BID currently on hold BP soft and blood pressure medications on hold. 5. GERD (gastroesophageal reflux disease): Switch home medication omeprazole to IV push Protonix 40 mg daily 6. HLD (hyperlipidemia): Continue home medication, atorvastatin 80 mg PO daily Lipid panel 7. Pneumonia: 10/24: CXR: Reviewed and resulted as follows: Mild LEFT lower lobe infiltrate and LEFT basal pleural effusion. Blood cultures drawn Continue IV abx Azithromycin , start Rocephin Urine antigens Sputum cultures O2 protocol 8. Hypertension: home medication losartan 50 mg PO BID,, Isosorbide mononitrate ER 30mg PO dly, METOPROLOL, AND DILTIAZEM--- all are on hold given soft blood pressures PDMP PDMP Reviewed: Not Reviewed Attestations 2 Medical Necessity Statement*: Patient currently somewhat altered. Likely secondary to UTI and pneumonia. CT head negative. Ordering ABG. Discussed plan of care with the daughter. A-fib with RVR controlled on IV amiodarone drip. Cardiology consulted Coding Level of Care Code Acute Code for Chg Fwd Diagnoses End-stage renal disease on hemodialysis N18.6; Z99.2 Urinary tract infection N39.0 Type 2 diabetes mellitus with other specified complication, unspecified whether collar pointer insulin use E11.69 Diabetes mellitus complication status: with other specified complication Diabetes mellitus [facility] insulin use: unspecified collar pointer insulin use status Atrial fibrillation I48.91 GERD (gastroesophageal reflux disease) K21.9 HLD (hyperlipidemia) E78.5 Pneumonia J18.9 Hypertension I10
[2025-10-26] MEDS: cefTRIAXone 1,000 mg SDV 1000 MG IVP (13:38)
[2025-10-26 13:44] LABS: ABG PCO2 35.2 mmHg (35-45); ABG PH Result 7.45 (7.35-7.45); Alveolar-Arterial Oxygen Gradi 9.2 mmHg (5-10); Arterial Blood Gas Hematocrit 34.3 % (37-47); Blood Gas Allen Test Pos; Blood Gas LPM 2.0 %; Blood Gas Operator Identificat MONRO; Blood Gas Sample Site Radial, right; Blood Gas Sample Type Arterial; Carboxyhemoglobin < 0.3 %THgb (0.4-20.1); Glucose Level-ABG 138.0 mg/dL (70-115); HCO3 ABG 24.7 mmol/L (22-26); Ionized Calcium Level - ABG 1.2 mmol/L (1.1-1.4); Methemoglobin 0.2 % (0.4-1.5); Oxygen Saturation ABG 94.1; PO2 ABG 85.9 mmHg (80.0-100.0); PO2 FiO2 Ratio Arterial Blood 306; Potassium Level - ABG 5.0 mmol/L (3.5-5.0); Sodium Level - ABG 135.0 mmol/L (131-143)
[2025-10-26] MEDS: heparin, porcine 1,000 unit/mL INJ 10 mL 1000 UNIT IV (15:41)
--- NOTE | 2025-10-26 15:43 | PC.SLP ---
Pt in dialysis. 8[employer] GR[employer] unable to assess at this time.
--- NOTE | 2025-10-26 17:31 | P.PN_ITS ---
Subjective 2 Subjective: moved to ICU due to rapid A fib Medications: Reviewed: Yes Vitals/I&O/Wt Last Vital Signs Temp 97.3 F L 10/26/25 15:26 Pulse 60 10/26/25 16:00 Resp 17 10/26/25 16:00 BP 145/70 10/26/25 16:00 Pulse Ox 100 10/26/25 16:00 O2 Del Method Room Air 10/26/25 16:00 O2 Flow Rate 1 10/26/25 12:00 10/26/25 10/26/25 10/26/25 06:59 14:59 22:59 Intake Total 661.417 / 1879.417 Output Total 0 / 0 Balance 661.417 / 1879.417 Weight last 48 hrs Weight 74.253 kg Weight 71.781 kg Physical Exam 2 Narrative: lethargic No JVD PERRLA S1-S2 regular rhythm Lungs clear bilaterally Abdomen soft nontender Extremities no pedal edema skin no rash Data 10/26/25 07:36 10/26/25 07:36 Micro: Microbiology 10/24/25 Unknown Gram Stain - Final Sputum - Expectorated Sputum Sputum Culture - Final 10/24/25 08:30 Urine Culture - Final Urine,Clean Catch Escherichia coli 10/24/25 16:10 Urine Culture - Preliminary Urine,Clean Catch A&P Assessment and plan 1. End-stage renal disease on hemodialysis: Plan: 1. End-stage renal disease: On TTS schedule, next HD today 2. Acute on chronic respiratory failure, multifactorial. HD with ultrafiltration as above 3. Anemia: Hemoglobin at goal currently, will give ROSAS if hemoglobin drops below 9 4. A-fib with RVR, 5. History of TAVR 6, Metabolic encephalopathy , decrease PRN bclofen dose Patient evaluated using audiovisual cart. Time spent 40 minutes. PDMP PDMP Reviewed: Not Reviewed Attestations 2 Medical Necessity Statement*: [facility] Coding Level of Care Code Acute Code for Chg Fwd Diagnoses End-stage renal disease on hemodialysis N18.6; Z99.2
[2025-10-27] VITALS (83 sets, daily range): BP systolic 98–168; BP diastolic 32–110; PULSE 51–174; RESP 6–27; TEMP 36.3–36.6; O2SAT 89–100
--- NOTE | 2025-10-27 01:00 | PC.NURSE ---
Amiodarone: Amiodarone gtt running at 0.5 mg/min at 1900 shift change. Unable to titrate amiodarone gtt due to bag volume being 0 in JAN. Amiodarone paused at [address] Muhammad aware and approved.
--- NOTE | 2025-10-27 01:13 | ECG_ITS ---
[facility] Test Date: 2025-10-27 Pat Name: Tracie oCrcoran Department: Room: ICU11 Gender: Female Manager Software: : 1955 Requested By: Isai Felix Order Number: [id number] Jessi MD: Dandre Schwarz M.D. Measurements Intervals [place] Rate: 56 P: 151 GA: 161 QRS: 105 QRSD: 103 T: 148 QT: 410 QTc: 397 Interpretive Statements ECTOPIC ATRIAL BRADYCARDIA WITH OCCASIONAL SUPRAVENTRICULAR PREMATURE COMPLEXES RIGHT AXIS DEVIATION [QRS AXIS > 100] LOW QRS VOLTAGE IN EXTREMITY LEADS [QRS DEFLECTION < 0.5 mV IN LIMB LEADS] NONSPECIFIC T-WAVE ABNORMALITY Compared to ECG 10/25/2025 12:02:08 Bradycardia, nonsinus now present Right-axis deviation now present Low QRS voltage now present Atrial fibrillation no longer present T-wave abnormality still present Electronically Signed On 10-27-2025 18:45:11 BULL GANG WORKER by Dandre Schwarz M.D. [id number]
--- NOTE | 2025-10-27 01:30 | PC.NURSE ---
Blood Glucose: Blood glucose 61, started D10 bolus per protocol. Pt received 12.5 mg/125 ml D10 bolus (see MAR). Dr. Muhammad notified. Next blood glucose was 92, then 106.
--- NOTE | 2025-10-27 01:56 | PC.NURSE ---
Bradycardia: Around 0100 pt HR of 48 noted on monitor and sustaining in upper 40s to low 50s. Dr. Muhammad notified. EKG performed and Amiodarone paused per Dr. Muhammad.
--- NOTE | 2025-10-27 03:49 | ECG_ITS ---
[email or web address] Date: 2025-10-27 Pat Name: Tracie Corcoran Department: Room: ICU11 Gender: Female Barker Peeler: : 1955 Requested By: Isai Felix Order Number: [id number] Jessi MD: Dandre Schwarz M.D. Measurements Intervals [place] Rate: 136 P: 0 TX: 0 QRS: 68 QRSD: 100 T: -70 QT: 323 QTc: 487 Interpretive Statements ATRIAL FIBRILLATION WITH RAPID VENTRICULAR RESPONSE NONSPECIFIC ST & T-WAVE ABNORMALITY Compared to ECG 10/27/2025 01:14:28 Bradycardia, nonsinus no longer present Right-axis deviation no longer present T-wave abnormality still present Electronically Signed On 10-27-2025 18:45:01 TOOL ROOM ATTENDANT by Dandre Schwarz M.D. [email or web address] [id number]
[2025-10-27] MEDS: AMIODARONE HCL/D5W 900 MG/500 ML BAG 16.67 MG IV (04:00)
[2025-10-27] MEDS: APIXABAN 2.5 MG TABLET PO ×2 (04:22→16:40)
[2025-10-27] MEDS: calcium carb-vit d 600mg/400unit 1 Tablet 1 EACH PO (04:23)
[2025-10-27] MEDS: lactobacillus 1 Tablet 1 TAB PO ×2 (04:23→16:40)
--- NOTE | 2025-10-27 04:54 | PC.NURSE ---
Heart Rate: 0330 HR back in the 140s-150s, EKG obtained. Dr. Muhammad notified. Restart Amiodarone gtt @ 0.5 mg/min. 0430: Pt HR sustaining in 160s-170s, notified Dr. Muhammad. Orders to give PO amiodarone, stop amiodarone gtt and start cardizem gtt until rate controlled.
[2025-10-27] MEDS: DILTIAZEM HCL/D5W 125 MG/125 ML BAG IV (05:03)
[2025-10-27 05:54] LABS: Hematocrit 35.8 % (36-47); Hemoglobin 11.20 g/dL (11.27-16.99); Mean Corpuscular HGB Conc 31.3 g/dL (30-55); Mean Corpuscular Hemoglobin 27.2 pg (27-33); Mean Corpuscular Volume 86.9 fl (85-98); Nucleated Red Blood Cells % 0 %; Platelet Count 185 10^3/cmm (157-399); Red Blood Count 4.12 10^6/uL (3.85-5.65); White Blood Count 9.79 10^3/uL (3.29-11.43)
[2025-10-27 06:14] LABS: Anion Gap 22.2 (5-19); Blood Urea Nitrogen 35 mg/dL (8-23); Calcium 9.3 mg/dL (8.5-10.5); Carbon Dioxide 25 mmol/L (22-29); Chloride 94 mmol/L (98-107); Glucose 191 mg/dL (65-115); Osmolality Calculated 297 mOsm/kg (285-295); Potassium 4.2 mmol/L (3.5-5.1); Sodium 137 mmol/L (136-145)
--- NOTE | 2025-10-27 08:51 | P.PN_ITS ---
Subjective 2 Subjective: Patient seen and examined, again somewhat somnolent this morning, discontinued her baclofen and trazodone for now. Medications: Reviewed: Yes Vitals/I&O/Wt Last Vital Signs Temp 97.9 F 10/27/25 07:15 Pulse 58 L 10/27/25 07:15 Resp 14 10/27/25 07:15 BP 105/47 10/27/25 07:15 Pulse Ox 95 10/27/25 07:15 O2 Del Method Room Air 10/27/25 07:15 O2 Flow Rate 1 10/26/25 12:00 10/26/25 10/27/25 10/27/25 22:59 06:59 14:59 Intake Total 680 / 680 458.809 / 1138.809 Output Total 1497 / 1497 Balance -817 / -817 458.809 / -358.191 Weight last 48 hrs Weight 71.5 kg Weight 73.5 kg Weight 74.253 kg Physical Exam 2 Narrative: General: SNORING HEENT: Normo-cephalic, atraumatic, grossly unremarkable exam Cardio: irregular heart rate. Respiratory: Reduced lung sounds GI: Abd soft, non-tender, non-distended, normo-active bowel sounds present Neuro: Equal strength but weak. Confusion. Behavior: Confusion Musculoskeletal: Back pain bilaterally with movement Extremities: AV fistula on the left Data 10/27/25 05:20 10/27/25 05:20 Micro: Microbiology 10/24/25 Unknown Gram Stain - Final Sputum - Expectorated Sputum Sputum Culture - Final 10/24/25 08:30 Urine Culture - Final Urine,Clean Catch Escherichia coli 10/24/25 16:10 Urine Culture - Preliminary Urine,Clean Catch A&P Assessment and plan 1. End-stage renal disease on hemodialysis: Patient missed dialysis on 10/20 due to increased fatigue/palpitations Nephrology following. Now on dialysis scheduled Thursday.. 2. Urinary tract infection: UTI, patient is now growing E. coli in the urine susceptible to Rocephin. Continue Rocephin IV. 3. Type 2 diabetes mellitus with other specified complication, unspecified whether terminal system operator insulin use: A1c 7.1% Blood glucose monitoring, ACHS Low regimen sliding scale Hypoglycemic protocol Carb consistent diet Follow up with endocrine outpatient 4. Atrial fibrillation: Afib RVR 10/25 170s Was on amiodarone drip, now has been transition to p.o. amiodarone. Rate stable. Patient on chronic anticoagulation with Eliquis patient home medication diltiazem HCI 60 mg PO ER BID currently on hold BP soft and blood pressure medications on hold. 5. GERD (gastroesophageal reflux disease): Switch home medication omeprazole to IV push Protonix 40 mg daily 6. Hyperlipidemia, unspecified hyperlipidemia type: Continue home medication, atorvastatin 80 mg PO daily Lipid panel 7. Pneumonia: 10/24: CXR: Reviewed and resulted as follows: Mild LEFT lower lobe infiltrate and LEFT basal pleural effusion. Blood cultures drawn Continue IV abx Azithromycin , continue IV Rocephin Urine antigens Sputum cultures O2 protocol 8. Hypertension: home medication losartan 50 mg PO BID,, Isosorbide mononitrate ER 30mg PO dly, METOPROLOL, AND DILTIAZEM--- all are on hold given soft blood pressures Plan: Acute metabolic encephalopathy Patient woke up last evening but appears like getting too much baclofen and probably trazodone. Discontinued both of them today. Monitor mentation. CT head negative. ABG reviewed and was okay. Already on antibiotics for UTI and pneumonia PDMP PDMP Reviewed: Not Reviewed Attestations 2 Medical Necessity Statement*: Heart rate now controlled, has just been transition to p.o. amiodarone from IV drip. Continue. Monitor heart rate. Also will need PT OT. Currently still somnolent, discontinued baclofen and trazodone this morning. Monitor mentation. Coding Level of Care Code Acute Code for Chg Fwd Diagnoses End-stage renal disease on hemodialysis N18.6; Z99.2 Urinary tract infection N39.0 Type 2 diabetes mellitus with other specified complication, unspecified whether terminal system operator insulin use E11.69 Diabetes mellitus complication status: with other specified complication Diabetes mellitus terminal system operator insulin use: unspecified mcc insulin use status Atrial fibrillation I48.91 GERD (gastroesophageal reflux disease) K21.9 Hyperlipidemia, unspecified hyperlipidemia type E78.5 Hyperlipidemia type: unspecified Pneumonia J18.9 Hypertension I10
--- NOTE | 2025-10-27 09:07 | PC.NURSE ---
Patient is not following commands and unable to tolerate eating at the moment. Doctor ordered to hold off on the dose of insulin.
--- NOTE | 2025-10-27 12:18 | ECG_ITS ---
[facility] Date: 2025-10-27 Pat Name: Tracie Corcoran Department: Room: ICU11 Gender: Female Film Process Operator: : 1955 Requested By: Kala Moffett Order Number: [id number] Jessi MD: Dandre Schwarz M.D. Measurements Intervals [place] Rate: 172 P: 0 TX: 0 QRS: 64 QRSD: 96 T: 60 QT: 245 QTc: 415 Interpretive Statements ATRIAL FIBRILLATION WITH RAPID VENTRICULAR RESPONSE NONSPECIFIC ST & T-WAVE ABNORMALITY CRITICAL TEST RESULT Compared to ECG 10/27/2025 03:49:50 No significant changes Electronically Signed On 10-27-2025 18:44:29 APIGEE DEVELOPER by Dandre Schwarz M.D. [email or web address] [id number]
--- NOTE | 2025-10-27 12:26 | PC.NURSE ---
Addendum entered by Edward Adams RN 10/27/25 12:57: After metoprolol push, patoent copnverted to normal sinus. rate in the mid 60's to 70's. BP: 133/52. Nurse alerted Dr stinson. Received orders for 25mg PO metoprolol. BID. Starting now. Original Note: at 1205, nurse observed heart rate in the 170's. Blood pressure is 98/72, about a 40 point systolic drop form last BP. Vagal maneuvers initially worked to bring heart rate down to 70's and normal sinus, but within a few minutes heart rate went back up to 170. Nurse alerted Dr stinson while another nurse obtained an EKG. EKG shows afib with RVR. Dr stinson ordered 5mg IVP metoprolol.
--- NOTE | 2025-10-27 12:28 | PM.PN ---
Subjective Subjective: Patient has no new complaints on 2L o2. Medications: Reviewed: Yes Vitals/I&O/Wt Last Vital Signs Temp 97.9 F 10/27/25 07:15 Pulse 61 10/27/25 10:35 Resp 14 10/27/25 09:15 BP 117/45 10/27/25 09:15 Pulse Ox 99 10/27/25 10:35 O2 Del Method Nasal Cannula 10/27/25 10:35 O2 Flow Rate 1 10/27/25 10:35 10/26/25 10/27/25 10/27/25 22:59 06:59 14:59 Intake Total 680 / 680 458.809 / 1138.809 Output Total 1497 / 1497 Balance -817 / -817 458.809 / -358.191 Weight last 48 hrs Weight 71.5 kg Weight 73.5 kg Weight 74.253 kg Physical Exam Narrative: GEN: nad, alert, conversant HEAD: normocephalic, atraumatic EYES: eomi, anicteric sclera HEENT: mmm NECK: no jvd C V: RRR LUNGS: CTAB ABD: soft, nt nd EXT: NO LE edema NEURO: grossly normal SKIN; no rash PSYCH: normal affect Data 10/27/25 05:20 10/27/25 05:20 Micro: Microbiology 10/24/25 16:10 Urine Culture - Final Urine,Clean Catch 10/24/25 Unknown Gram Stain - Final Sputum - Expectorated Sputum Sputum Culture - Final 10/24/25 08:30 Urine Culture - Final Urine,Clean Catch Escherichia coli A&P Assessment and plan 1. ESRD (end stage renal disease): Plan: 1. End-stage renal disease- Patient is on HD on a TTS schedule. I will plan on HD again tomorrow 2. Acute on chronic respiratory failure- the etiology is multifactorial. I will plan on UF with HD tomorrow as tolerated 3. Anemia in CKD- Hemoglobin at goal currently, will give ROSAS if hemoglobin drops below 9 4. A-fib with RVR- HR is controlled , 5. History of TAVR 6, Metabolic encephalopathy- improved PDMP PDMP Reviewed: Not Reviewed Attestations Medical Necessity Statement*: esrd Time Spent in Patient Care: 25 minutes Coding Level of Care Code Acute Code for [facility] Fwd Diagnoses ESRD (end stage renal disease) N18.6
[2025-10-27] MEDS: metoprolol tartrate 1 mg/1 mL SDV 5 mL 5 MG IVP (12:29)
[2025-10-27] MEDS: cefTRIAXone 1,000 mg SDV 1000 MG IVP (13:19)
--- NOTE | 2025-10-27 13:48 | P.PN_ITS ---
Subjective 2 Subjective: The patient went into atrial fibrillation with rapid ventricular rate this morning. She responded to IV metoprolol. She was started on metoprolol 25 mg p.o. twice daily. The IV amiodarone was switched to p.o. Currently the patient is in sinus rhythm. Denies any specific complaints. Medications: Medication Review Details: Current Medications Acetaminophen (Acetaminophen 325 Mg Tablet) 650 mg PO Q6H PRN PRN Reason: MILD PAIN Last Admin: 10/26/25 20:44 Dose: 650 mg Amiodarone HCl (Amiodarone 200 Mg Tablet) 200 mg PO BID [facility] Last Admin: 10/27/25 05:02 Dose: 200 mg Apixaban (Apixaban 2.5 Mg Tablet) 2.5 mg PO BID [facility] Last Admin: 10/27/25 04:22 Dose: 2.5 mg Aspirin (Aspirin 81 Mg Ec Tablet) 81 mg PO DAILY [facility] Last Admin: 10/27/25 04:23 Dose: 81 mg Atorvastatin Calcium (Atorvastatin 40 Mg Tablet) 80 mg PO QPM [facility] Last Admin: 10/26/25 18:08 Dose: 80 mg Calcitriol (Calcitriol 0.25 Mcg Capsule) 0.75 mcg PO TuThSa [facility] Last Admin: 10/26/25 13:43 Dose: Not Given Calcium Carbonate (Calcium Carb-Vit D 600mg/400unit 1 Tablet) 1 each PO QAM [facility] Last Admin: 10/27/25 04:23 Dose: 1 each Ceftriaxone Sodium (Ceftriaxone 1,000 Mg Sdv) 1,000 mg IVP Q24H [facility]; Protocol Last Admin: 10/27/25 13:19 Dose: 1,000 mg Diltiazem HCl (Diltiazem Er (12hr) 60 Mg Capsule) 60 mg PO BID [facility] On Hold: 10/25/25 12:19 Last Admin: 10/25/25 05:05 Dose: 60 mg Escitalopram Oxalate (Escitalopram 10 Mg Tablet) 20 mg PO QAM [facility] Last Admin: 10/27/25 04:23 Dose: 20 mg Glucagon (Glucagon 1 Mg/Ml Kit 1 Ml) 1 mg IM ONCE PRN; Protocol PRN Reason: Adult Acute Hypoglycemia Nursing Prot. Dextrose (D5w) 500 mls @ 0 mls/hr IV ONCE PRN; Protocol PRN Reason: Adult Acute Hypoglycemia Prot Dextrose (D10w) 125 mls @ 750 mls/hr IV PRN PRN; Protocol PRN Reason: Adult Acute Hypoglycemia Nursing Protocol Last Infusion: 10/27/25 01:30 Dose: Infused Dextrose (D10w) 250 mls @ 1,000 mls/hr IV PRN PRN; Protocol PRN Reason: Adult Acute Hypoglycemia Nursing Protocol Azithromycin 250 mg/ Sodium (Chloride) 250 mls @ 250 mls/hr IV Q24H JAREK; Protocol Last Infusion: 10/26/25 23:00 Dose: Infused AMIODARONE HCL/D5W (Amiodarone 900 Mg/500 Ml-D5w) 900 mg in 500 mls @ 0 mls/hr IV .Q0M JAREK; Protocol Last Titration: 10/27/25 05:05 Dose: 0 mg/min, 0 mls/hr Sodium Chloride (Sodium Chloride 0.9%) 1,000 mls @ 0 mls/hr IV .Q0M PRN PRN Reason: hypotension or symptomatic Albumin Human (Albumin) 12.5 gm in 50 mls @ 60 mls/hr IV PRN PRN PRN Reason: Hypotension and/or symptomatic DILTIAZEM HCL/D5W (Cardizem) 125 mg in 125 mls @ 0 mls/hr IV .Q0M JAREK; Protocol Last Titration: 10/27/25 06:12 Dose: 0 mg/hr, 0 mls/hr Insulin Human Lispro (Insulin Lispro 100 Unit/1 Ml) 0 unit SUBCUT WM&BEDTIME JAREK; Protocol Last Admin: 10/27/25 13:08 Dose: Not Given Isosorbide Mononitrate (Isosorbide Mononitrate Er 30 Mg Tablet) 30 mg PO DAILY JAREK On Hold: 10/25/25 12:20 Last Admin: 10/25/25 05:06 Dose: 30 mg Lactobacillus Acidophilus (Lactobacillus 1 Tablet) 1 tab PO BID JAREK Last Admin: 10/27/25 04:23 Dose: 1 tab Losartan Potassium (Losartan 50 Mg Tablet) 50 mg PO BID JAREK On Hold: 10/25/25 12:20 Last Admin: 10/25/25 05:04 Dose: 50 mg Metoprolol Succinate (Metoprolol Succinate Er (24 Hr) 25 Mg Tablet) 12.5 mg PO DAILY JAREK On Hold: 10/25/25 12:20 Last Admin: 10/25/25 05:05 Dose: 12.5 mg Metoprolol Tartrate (Metoprolol Tartrate 25 Mg Tablet) 25 mg PO BID@0900,2100 [facility] Last Admin: 10/27/25 13:19 Dose: 25 mg Nitroglycerin (Nitroglycerin 0.4 Mg Sublingual Tablet) 0.4 mg SUBLINGUAL Q5M PRN PRN Reason: CHEST PAIN Non-Formulary Medication (Cinacalcet [Sensipar]) 60 mg PO .3XW JAREK Non-Formulary Medication (Lanthanum) 0 mg PO .COMPLEX JAREK Non-Formulary Medication (Vit B,J-Xd-Fihy-Selen-Vit D3-E [Renaplex-D]) 1 tab PO DAILY [facility] Ondansetron HCl (Ondansetron 2 Mg/Ml Sdv 2 Ml) 4 mg IVP Q8H PRN PRN Reason: vomiting, or N/V if npo Pantoprazole Sodium (Pantoprazole Dr 40 Mg Tablet) 40 mg PO DAILY [facility] Last Admin: 10/27/25 04:23 Dose: 40 mg Vitamin D (Cholecalciferol (Vitamin D3) 1,000 Unit Tablet) 1,000 unit PO QAM [facility] Last Admin: 10/27/25 04:23 Dose: 1,000 unit Vitals/I&O/Wt Last Vital Signs Temp 97.9 F 10/27/25 07:15 Pulse 61 10/27/25 10:35 Resp 14 10/27/25 09:15 BP 117/45 10/27/25 09:15 Pulse Ox 99 10/27/25 10:35 O2 Del Method Nasal Cannula 10/27/25 10:35 O2 Flow Rate 1 10/27/25 10:35 10/26/25 10/27/25 10/27/25 22:59 06:59 14:59 Intake Total 680 / 680 458.809 / 1138.809 Output Total 1497 / 1497 Balance -817 / -817 458.809 / -358.191 Weight last 48 hrs Weight 157 lb 10.088 oz Weight 162 lb 0.636 oz Weight 163 lb 11.2 oz Physical Exam 2 Narrative: GENERAL: The patient is very drowsy and unable to answer any questions. HEENT: No significant pallor, icterus or lymphadenopathy.Oral cavity: There are no mucous membrane lesions. NECK: Trachea appears to be central. No masses noted. No JVD or thyromegaly appreciated. RESPIRATORY: Chest is symmetrical. No intercostals muscle retraction or any accessory muscle activation. There is no chest wall tenderness. Breath sounds are heard bilaterally. No rales or rhonchi heard. No evidence of any consolidation. BREASTS: Deferred. HEART: The heart sounds are normal. No S3 or S4. Ejection systolic murmur of grade 3 or 6 in the aortic area. No diastolic murmurs. No pericardial rub ABDOMEN: No vessel pulsations or distention. No tenderness. No organomegaly appreciated. Bowel sounds are normally heard. : Deferred. RECTAL: Deferred. LYMPHATIC: No lymphadenopathy noted in the neck. EXTREMITIES: Trace edema or cyanosis. No clubbing. MUSCULOSKELETAL: No acute joint deformities or swelling SKIN: There are no significant rashes or ecchymosis NEUROPSYCHIATRIC: The patient is drowsy and appears confused Data 10/27/25 05:20 10/27/25 05:20 Other Labs: Laboratory Last Values WBC 9.79 10^3/uL (3.29-11.43) 10/27/25 05:20 RBC 4.12 10^6/uL (3.85-5.65) 10/27/25 05:20 Hgb 11.20 g/dL (11.27-16.99) L 10/27/25 05:20 Hct 35.8 % (36-47) L 10/27/25 05:20 MCV 86.9 fl (85-98) D 10/27/25 05:20 MCH 27.2 pg (27-33) 10/27/25 05:20 MCHC 31.3 g/dL (30-55) D 10/27/25 05:20 RDW 16.3 % (12.1-15.1) H 10/27/25 05:20 Plt Count 185 10^3/cmm (157-399) D 10/27/25 05:20 MPV 11.6 fL (7.4-10.4) H 10/27/25 05:20 Neut % (Auto) 73.1 % 10/27/25 05:20 Lymph % (Auto) 13.4 % 10/27/25 05:20 [place] % (Auto) 9.7 % 10/27/25 05:20 Eos % (Auto) 3.0 % 10/27/25 05:20 Baso % (Auto) 0.6 % 10/27/25 05:20 Neut # (Auto) 7.16 10^3/uL (1.8-7.7) 10/27/25 05:20 Lymph # (Auto) 1.3 10^3/uL (0.8-4.8) 10/27/25 05:20 [place] # (Auto) 1.0 10^3/uL (0.2-0.9) H 10/27/25 05:20 Eos # (Auto) 0.3 10^3/uL (0.0-0.8) 10/27/25 05:20 Baso # (Auto) 0.1 10^3/uL (0.0-0.1) 10/27/25 05:20 Nucleated RBC % (auto) 0 % 10/27/25 05:20 Nucleated RBCs # 0.0 /100WBC 10/27/25 05:20 Specimen Type Arterial 10/26/25 13:32 Sample Site Radial, right 10/26/25 13:32 ABG pH 7.45 (7.35-7.45) 10/26/25 13:32 ABG pCO2 35.2 mmHg (35-45) 10/26/25 13:32 ABG pO2 85.9 mmHg (80.0-100.0) 10/26/25 13:32 ABG PO2/FiO2 Ratio 306 10/26/25 13:32 ABG HCO3 24.7 mmol/L (22-26) 10/26/25 13:32 ABG O2 Saturation 94.1 10/26/25 13:32 ABG Base Excess 1.0 mmol/L (-2.0-2.0) 10/26/25 13:32 [place]lin Test Pos 10/26/25 13:32 VBG pH 7.47 (7.32-7.42) H 10/25/25 13:05 VBG pCO2 32.5 mmHg (41-51) L 10/25/25 13:05 VBG pO2 92.3 mmHg (25-40) H 10/25/25 13:05 VBG HCO3 23.6 mmol/L (24-28) L 10/25/25 13:05 VBG Base Excess 0.4 mmol/L (-3.0-3.0) 10/25/25 13:05 VBG Hematocrit 33.9 % (37-47) L 10/25/25 13:05 A-a O2 Gradient 9.2 mmHg (5-10) 10/26/25 13:32 Hematocrit 34.3 % (37-47) L 10/26/25 13:32 Hgb O2 Saturation 94.1 % (95-100) L 10/26/25 13:32 Carboxyhemoglobin < 0.3 %THgb (0.4-20.1) L 10/26/25 13:32 Methemoglobin 0.2 % (0.4-1.5) L 10/26/25 13:32 Total Hemoglobin 11.2 g/dL (12-16) L 10/26/25 13:32 Sodium 135.0 mmol/L (131-143) 10/26/25 13:32 Potassium 5.0 mmol/L (3.5-5.0) 10/26/25 13:32 Glucose 138.0 mg/dL (70-115) H 10/26/25 13:32 Ionized Calcium 1.2 mmol/L (1.1-1.4) 10/26/25 13:32 O2 Delivery Device Nc 10/26/25 13:32 O2 Liters/Min 2.0 % 10/26/25 13:32 FiO2 28.0 % 10/26/25 13:32 Director Regulatory Affairs ID [place] 10/26/25 13:32 Sodium 137 mmol/L (136-145) 10/27/25 05:20 Potassium 4.2 mmol/L (3.5-5.1) 10/27/25 05:20 Chloride 94 mmol/L (98-107) L 10/27/25 05:20 Carbon Dioxide 25 mmol/L (22-29) 10/27/25 05:20 Anion Gap 22.2 (5-19) H 10/27/25 05:20 BUN 35 mg/dL (8-23) H 10/27/25 05:20 Creatinine 6.2 mg/dL (0.5-0.9) H* 10/27/25 05:20 GFR Calculation 6.7 mL/min (90-130) L 10/27/25 05:20 Glucose 191 mg/dL (65-115) H 10/27/25 05:20 POC Glucose 130 mg/dL (70-110) H 10/27/25 11:57 Estimat Average Glucose 157 10/24/25 07:28 Hemoglobin A1c 7.1 % (4.0-6.0) H 10/24/25 07:28 Calculated Osmolality 297 mOsm/kg (285-295) H 10/27/25 05:20 Lactic Acid 2.8 mmol/L (0.5-2.2) H 10/24/25 07:28 Lactic Acid (Sepsis) 0.6 mmol/L (0.5-2.2) 10/24/25 12:00 Calcium 9.3 mg/dL (8.5-10.5) 10/27/25 05:20 Phosphorus 5.0 mg/dL (2.5-4.5) H 10/24/25 08:30 Magnesium 2.6 mg/dL (1.7-2.3) H 10/24/25 08:30 Total Bilirubin 0.9 mg/dL (0.15-1.2) 10/24/25 07:28 AST 30 U/L (0-32) 10/24/25 07:28 ALT 21 U/L (0-33) 10/24/25 07:28 Alkaline Phosphatase 114 U/L (35-105) H 10/24/25 07:28 Troponin T Baseline 54 ng/L (0-10) H 10/24/25 07:28 Troponin T 120 Minute 54.32 ng/L (0-10) H 10/24/25 08:30 Delta Troponin T 0.32 ABS# (0-10) 10/24/25 08:30 Troponin T Hi Sens 6Hr 60.08 ng/L (0-10) H 10/24/25 11:59 Troponin T Hi Sens 6Hr Delta 6.08 ng/L (0-12) 10/24/25 11:59 Total Protein 7.0 g/dL (6.6-8.7) 10/24/25 07:28 Albumin 4.2 g/dL (3.5-5.2) 10/24/25 07:28 Globulin 2.8 g/dL (1.3-4.6) 10/24/25 07:28 Triglycerides 64 mg/dL (0-150) 10/24/25 11:59 Cholesterol 97 mg/dL (0-200) 10/24/25 11:59 LDL Cholesterol, Calc 34 mg/dL (50-129) L 10/24/25 11:59 HDL Cholesterol 50 mg/dL (60-100) L 10/24/25 11:59 LDL/HDL Ratio 0.68 RATIO (0.00-3.22) 10/24/25 11:59 Cholesterol/HDL Ratio 1.94 mg/dL (0.0-4.40) 10/24/25 11:59 Procalcitonin 0.36 ng/mL (0-0.5) 10/24/25 07:28 Urine Color Yellow (Yellow) 10/24/25 16:10 Urine Appearance Turbid (CLEAR) A 10/24/25 16:10 Urine pH 6.5 (5-7) 10/24/25 16:10 Ur Specific [place] 1.018 (1.005-1.030) 10/24/25 16:10 Urine Protein 3+ (Negative) A 10/24/25 16:10 Urine Glucose (UA) Trace (Normal) H 10/24/25 16:10 Urine Ketones Negative (Negative) 10/24/25 16:10 Urine Blood 1+ (Negative) A 10/24/25 16:10 Urine Nitrate Negative (Negative) 10/24/25 16:10 Urine Bilirubin Negative (Negative) 10/24/25 16:10 Urine Urobilinogen 1.0 mg/dL (Negative) 10/24/25 16:10 Ur Leukocyte Esterase 3+ (Negative) A 10/24/25 16:10 Urine RBC 6-10 /hpf (0-2) 10/24/25 16:10 Urine WBC >100 /hpf (0-5) H 10/24/25 16:10 Ur Squamous Epith Cells 0-5 /hpf (0-5) 10/24/25 16:10 Amorphous Sediment Not Reportable 10/24/25 16:10 Urine Bacteria Trace /hpf (NONE) 10/24/25 16:10 Hyaline Casts 1.65 /lpf 10/24/25 16:10 Serum Ketones Negative (Negative) 10/24/25 12:00 Adenovirus (PCR) Not detected (NOT DETECT) 10/24/25 17:11 C. pneumoniae DNA (PCR) Not detected (NOT DETECT) 10/24/25 17:11 Coronavirus 229E (PCR) Not detected (NOT DETECT) 12/02/25 17:11 Hep Bs Antigen Cancelled 10/24/25 12:00 Hep Bs Antigen Non-reactive (Nonreactive) 10/24/25 12:00 Hep Bs Antibody 593.4 (11.5-1000) 10/24/25 12:00 Hep Bs Antibody Cancelled 10/24/25 12:00 Hepatitis C Antibody Cancelled 10/24/25 12:00 Hepatitis C Antibody Non-reactive (Nonreactive) 10/24/25 12:00 Human Metapneumovir PCR Not detected (NOT DETECT) 10/24/25 17:11 Influenza A (H1) PCR Not detected (NOT DETECT) 10/24/25 17:11 Influenza A (PCR) Negative (Negative) 10/24/25 07:28 Influ A (H1/09) PCR Not detected (NOT DETECT) 10/24/25 17:11 Influenza A (H3) PCR Not detected (NOT DETECT) 10/24/25 17:11 Influenza Type A (PCR) Not detected (NOT DETECT) 10/24/25 17:11 Influenza Type B (PCR) Not detected (NOT DETECT) 10/24/25 17:11 M. pneumoniae (PCR) Not detected (NOT DETECT) 10/24/25 17:11 Parainfluenza 1 (PCR) Not detected (NOT DETECT) 10/24/25 17:11 Parainfluenza 2 (PCR) Not detected (NOT DETECT) 10/24/25 17:11 Parainfluenza 3 (PCR) Not detected (NOT DETECT) 10/24/25 17:11 Parainfluenza 4 (PCR) Not detected (NOT DETECT) 10/24/25 17:11 RSV (PCR) Negative (Negative) 10/24/25 07:28 RSV Type A (PCR) Not detected (NOT DETECT) 10/24/25 17:11 RSV Type B (PCR) Not detected (NOT DETECT) 10/24/25 17:11 Entero/Rhino (PCR) Not detected (NOT DETECT) 10/24/25 17:11 SARS-CoV-2 (PCR) Not detected (NOT DETECT) 10/24/25 17:11 Blood Type O Negative 10/25/25 17:15 Rho(D) Type Rh negative 10/25/25 17:15 Antibody Screen Negative 10/25/25 17:15 Crossmatch See Detail 10/25/25 17:15 Micro: Microbiology 10/24/25 16:10 Urine Culture - Final Urine,Clean Catch 10/24/25 Unknown Gram Stain - Final Sputum - Expectorated Sputum Sputum Culture - Final 10/24/25 08:30 Urine Culture - Final Urine,Clean Catch Escherichia coli A&P Assessment and plan 1. Intermittent atrial fibrillation: Patient may continue on the amiodarone and metoprolol. Her heart rate need to be closely monitored. Continue the oral anticoagulation. 2. S/P TAVR (transcatheter aortic valve replacement): The valve function appears to be appropriate. Will continue on the current management 3. Hyperlipidemia, unspecified hyperlipidemia type: Continue on the current management 4. Other specified hypotension: The blood pressure is currently normotensive. Will continue on the current medications. 5. End-stage renal disease on hemodialysis: Hemodialysis as per the protocol 6. Type 2 diabetes mellitus with other specified complication, unspecified whether long term care phlebotomist insulin use: Aggressive management of diabetes as per the primary 7. Transient alteration of awareness: ? Secondary to metabolic encephalopathy. Management as per the hospitalist service Plan: Medications amiodarone 400 mg p.o. twice daily for a week followed by 400 mg daily for a week followed by 200 mg p.o. daily. Metoprolol 25 mg p.o. twice daily. Dose may need to be cut back based on the heart rate response Based on the clinical progress, further management decisions will be made. PDMP PDMP Reviewed: Not Reviewed Attestations 2 Medical Necessity Statement*: Patient requires continued hospital stay for close monitoring and further management Coding Level of Care Code 72251 Diagnoses Intermittent atrial fibrillation I48.0 S/P TAVR (transcatheter aortic valve replacement) Z95.2 Hyperlipidemia, unspecified hyperlipidemia type E78.5 Hyperlipidemia type: unspecified Other specified hypotension I95.89 Hypotension type: other hypotension type End-stage renal disease on hemodialysis N18.6; Z99.2 Type 2 diabetes mellitus with other specified complication, unspecified whether long term care phlebotomist insulin use E11.69 Diabetes mellitus complication status: with other specified complication Diabetes mellitus long term care phlebotomist insulin use: unspecified long term care phlebotomist insulin use status Transient alteration of awareness R40.4 Altered mental status type: transient alteration of awareness
--- NOTE | 2025-10-27 14:11 | PC.SOCIAL ---
IMM Update pg 2 of IMM updated and reviewed with patients daughter by registration. Copy has been placed in chart.
[2025-10-28] VITALS (39 sets, daily range): BP systolic 83–145; BP diastolic 31–66; PULSE 51–75; RESP 12–28; TEMP 36.5–37.3; O2SAT 86–100
[2025-10-28 03:49] LABS: Hematocrit 36.1 % (36-47); Hemoglobin 11.30 g/dL (11.27-16.99); Mean Corpuscular HGB Conc 31.3 g/dL (30-55); Mean Corpuscular Hemoglobin 27.6 pg (27-33); Mean Corpuscular Volume 88.0 fl (85-98); Nucleated Red Blood Cells % 0 %; Platelet Count 234 10^3/cmm (157-399); Red Blood Count 4.10 10^6/uL (3.85-5.65); White Blood Count 9.23 10^3/uL (3.29-11.43)
[2025-10-28] MEDS: ondansetron 2 mg/ML SDV 2 mL 4 MG IVP ×2 (04:00→10:11)
[2025-10-28 04:07] LABS: Anion Gap 23.4 (5-19); Blood Urea Nitrogen 46 mg/dL (8-23); Calcium 9.0 mg/dL (8.5-10.5); Carbon Dioxide 22 mmol/L (22-29); Chloride 93 mmol/L (98-107); Glucose 172 mg/dL (65-115); Osmolality Calculated 292 mOsm/kg (285-295); Potassium 5.4 mmol/L (3.5-5.1); Sodium 133 mmol/L (136-145)
[2025-10-28] MEDS: APIXABAN 2.5 MG TABLET PO ×2 (06:11→17:19)
[2025-10-28] MEDS: calcium carb-vit d 600mg/400unit 1 Tablet 1 EACH PO (06:11)
[2025-10-28] MEDS: lactobacillus 1 Tablet 1 TAB PO ×2 (06:12→17:19)
--- NOTE | 2025-10-28 08:59 | PC.NURSE ---
Patient assisted to recliner with use of walker, 2 person assist. Chair alarm active.
--- NOTE | 2025-10-28 10:34 | PC.NURSE ---
Patient back to bed at this time, 2 assist, reports nausea, denies pain. Zofran given per JAN.
--- NOTE | 2025-10-28 11:18 | P.PN_ITS ---
Subjective 2 Subjective: Patient has no new complaints on 2L o2. Medications: Reviewed: Yes Vitals/I&O/Wt Last Vital Signs Temp 97.7 F 10/28/25 10:19 Pulse 59 L 10/28/25 09:00 Resp 18 10/28/25 09:00 BP 131/53 10/28/25 09:00 Pulse Ox 98 10/28/25 08:57 O2 Del Method Nasal Cannula 10/28/25 08:57 O2 Flow Rate 2 10/28/25 08:57 10/27/25 10/28/25 10/28/25 22:59 06:59 14:59 Intake Total 310 / 310 120 / 430 150 / 150 Balance 310 / 310 120 / 430 150 / 150 Weight last 48 hrs Weight 70 kg Weight 71.5 kg Weight 73.5 kg Physical Exam 2 Narrative: GEN: nad, alert, conversant HEAD: normocephalic, atraumatic EYES: eomi, anicteric sclera HEENT: mmm NECK: no jvd C V: RRR LUNGS: CTAB ABD: soft, nt nd EXT: NO LE edema NEURO: grossly normal SKIN; no rash PSYCH: normal affect Data 10/28/25 03:07 10/28/25 03:07 Micro: Microbiology 10/24/25 16:10 Urine Culture - Final Urine,Clean Catch A&P Assessment and plan 1. ESRD (end stage renal disease): Plan: 1. End-stage renal disease- She is on HD on a TTS schedule. I will plan on HD again today 2. Acute on chronic respiratory failure- the etiology is multifactorial. I will plan on UF with HD today as tolerated 3. Anemia in CKD- Hemoglobin at goal currently 4. A-fib with RVR- HR is controlled 5. History of TAVR 6, Metabolic encephalopathy- improved PDMP PDMP Reviewed: Not Reviewed Attestations 2 Medical Necessity Statement*: esrd Time Spent in Patient Care: 25 minutes Coding Level of Care Code Acute Code for Chg Fwd Diagnoses ESRD (end stage renal disease) N18.6
--- NOTE | 2025-10-28 12:00 | PHA.VACGOAL ---
Vancomycin Goal - Goal Vancomycin Goal:: 15-20 mg/L Vancomycin Indication:: Pneumonia - Therapy Current therapy:: Pip/Tazo Day of therpy:: Day []of [] . Actual body weight (kg): 154 lb 5.177 oz - Data Labs: WBC 9.23 10^3/uL (3.29-11.43) 10/28/25 03:07 RBC 4.10 10^6/uL (3.85-5.65) 10/28/25 03:07 Hgb 11.30 g/dL (11.27-16.99) 10/28/25 03:07 Hct 36.1 % (36-47) 10/28/25 03:07 MCV 88.0 fl (85-98) 10/28/25 03:07 MCH 27.6 pg (27-33) 10/28/25 03:07 MCHC 31.3 g/dL (30-55) 10/28/25 03:07 RDW 15.6 % (12.1-15.1) H 10/28/25 03:07 Sodium 133 mmol/L (136-145) L 10/28/25 03:07 Potassium 5.4 mmol/L (3.5-5.1) H 10/28/25 03:07 Chloride 93 mmol/L (98-107) L 10/28/25 03:07 Carbon Dioxide 22 mmol/L (22-29) 10/28/25 03:07 Anion Gap 23.4 (5-19) H 10/28/25 03:07 BUN 46 mg/dL (8-23) H 10/28/25 03:07 Creatinine 7.3 mg/dL (0.5-0.9) H* 10/28/25 03:07 GFR Calculation 5.5 mL/min (90-130) L 10/28/25 03:07 Last dialysis session:: Last session (10/28) Treatment plan:: new consult Regimen:: PATIENT CURRENTLY RECEIVING DIALYSIS. SCHEDULED LOADING DOSE OF 1500 MG FOR AFTER DIALYSIS IS COMPLETE. ADDITION OF ZOSYN FOR PNEUMONIA. PATIENT IS ON DIALYSIS SCHEDULE OF THURSDAY, THURSDAY, THURSDAY. WILL DRAW LEVEL WITH AM LABS TO DETERMINE IF LEVEL IS THERAPEUTIC. WILL CONTINUE TO MONITOR DAILY AND SCHEDULE DOSES PER LEVELS.
[2025-10-28] MEDS: norepinephrine 4 MG/250 ML BAG 7.5 MG IV (12:41)
--- NOTE | 2025-10-28 14:10 | PC.NURSE ---
Patient is receiving levophed during dialysis. Delay in valproic acid due to variable compatibility, one IV access, patient declines secondary IV start at this time.
--- NOTE | 2025-10-28 15:26 | P.PN_ITS ---
Subjective 2 Subjective: Patient seen while in bed. Patient denied any pain but was unable to answer any of my questions today. Apparently she has been unable to at least tell her birthdate and her name in the past few days and her normal is that she drives herself to hemodialysis. So she is not markedly abnormal. Family present: Not at bedside but I did speak with daughter Amb status: Currently up to chair with two-person assist Diet: Dysphagia level 7 diet easy to chew Lines/Drains: Peripheral only Tele: Normal sinus rhythm O2 2 L Medications: Reviewed: Yes Vitals/I&O/Wt Last Vital Signs Temp 98.6 F 10/28/25 13:43 Pulse 56 L 10/28/25 12:16 Resp 14 10/28/25 12:16 BP 119/47 10/28/25 12:16 Pulse Ox 100 10/28/25 12:00 O2 Del Method Nasal Cannula 10/28/25 12:00 O2 Flow Rate 2 10/28/25 12:00 10/28/25 10/28/25 10/28/25 06:59 14:59 22:59 Intake Total 120 / 430 377.875 / 377.875 Balance 120 / 430 377.875 / 377.875 Weight last 48 hrs Weight 70 kg Weight 71.5 kg Weight 73.5 kg Physical Exam 2 Narrative: Lethargic female easily arousable to verbal stimuli who is uncommunicative with me Neuro otherwise motor and sensory is equal bilaterally Heart regular rate and rhythm normal S1-S2 without murmurs clicks gallops or rubs lungs clear to auscultation without wheezes rales or rhonchi abdomen soft nontender nondistended positive bowel sounds extremities no clubbing cyanosis or edema Data 10/28/25 03:07 10/28/25 03:07 Micro: Microbiology 10/24/25 16:10 Urine Culture - Final Urine,Clean Catch A&P Assessment and plan 1. Acute metabolic encephalopathy: Prior to this hospitalization patient was able to care for herself and drive herself to hemodialysis. This is a marked change. Upon personal review of head CT done on 10/26/2025 my interpretation is that the patient has worse cerebral atrophy than associated with typical age. The atrophy seems to be located mostly frontotemporal. There is also considerable small vessel ischemic changes noted. With this CT abnormalities encephalopathy from multifactorial causes including infection and medications could be attributing to worsening encephalopathy. 2. End-stage renal disease on hemodialysis: Patient missed dialysis on 10/20 due to increased fatigue/palpitations Nephrology following. Now on dialysis scheduled Thursday.. Only able to ultrafiltrate 1.5 L today due to hypotension. Patient was placed on Levophed 3. Urinary tract infection: UTI, patient is now growing E. coli in the urine susceptible to Rocephin. Change IV antibiotics that will cover UTI as well as pneumonia 4. Type 2 diabetes mellitus with other specified complication, unspecified whether drum stock clerk insulin use: A1c 7.1% Blood glucose monitoring, ACHS Low regimen sliding scale 5. Atrial fibrillation: Afib RVR 10/25 170s Was on amiodarone drip, now has been transition to p.o. amiodarone. Rate stable. Patient on chronic anticoagulation with Eliquis Patient's home medication of diltiazem HCI 60 mg PO ER BID is currently on hold due to relative hypotension and MAP sometimes less than 65 6. GERD (gastroesophageal reflux disease): Switch home medication omeprazole to IV push Protonix 40 mg daily 7. Hyperlipidemia, unspecified hyperlipidemia type: Continue home medication, atorvastatin 80 mg PO daily Lipid panel 8. Pneumonia: 10/24: CXR: Reviewed and resulted as follows: Mild LEFT lower lobe infiltrate and LEFT basal pleural effusion. Blood cultures drawn Switch to vancomycin and Zosyn to cover for pneumonia and UTI O2 2 L 9. Hypertension: home medication losartan 50 mg PO BID,, Isosorbide mononitrate ER 30mg PO dly, METOPROLOL, AND DILTIAZEM--- all are on hold given soft blood pressures Plan: Spoke with daughter via phone. She had to work. She expressed concern that patient is not getting better. She was actually quite aggressive in her conversational style. She was also very accusatory. She would like the patient transferred to [facility]. At the time this morning I felt that we would be able to take care of the patient at this facility. However now that she was not able to receive full hemodialysis today would consider this transfer for higher level of care as well as inpatient neurology consult probable MRI. PDMP PDMP Reviewed: Not Reviewed Attestations 2 Medical Necessity Statement*: Patient requires continued hospitalization. Today she has acute worsening with significant hypotension requiring IV pressors. Coding Level of Care Code Acute Code for Chg Fwd Diagnoses Acute metabolic encephalopathy G93.41 End-stage renal disease on hemodialysis N18.6; Z99.2 Urinary tract infection N39.0 Type 2 diabetes mellitus with other specified complication, unspecified whether drum stock clerk insulin use E11.69 Diabetes mellitus complication status: with other specified complication Diabetes mellitus drum stock clerk insulin use: unspecified mcc insulin use status Atrial fibrillation I48.91 GERD (gastroesophageal reflux disease) K21.9 Hyperlipidemia, unspecified hyperlipidemia type E78.5 Hyperlipidemia type: unspecified Pneumonia J18.9 Hypertension I10
--- NOTE | 2025-10-28 15:56 | PM.MISC ---
Miscellaneous Note Purpose of Documentation: Update Note: Patient now requiring Levophed status post hemodialysis with 1.5 L removed when the goal was 3.5. Patient with only 1 peripheral and poor IV access. I am unable to perform. ER there is only 1 ER doc in the facility and he is unable to take time away. Thus a fellow hospitalist will place this urgent triple-lumen catheter for medication administration in preparation for likely transfer to [facility]
[2025-10-28] MEDS: piperacillin-tazobactam 2.25 GM in sodium chloride 0.9% (plus) 50 ML IV (17:17)
--- NOTE | 2025-10-28 18:05 | PM.PN ---
Subjective Subjective: Appear to be in sinus rhythm Medications: Reviewed: Yes Medication Review Details: Current Medications Acetaminophen (Acetaminophen 325 Mg Tablet) 650 mg PO Q6H PRN PRN Reason: MILD PAIN Last Admin: 10/26/25 20:44 Dose: 650 mg Amiodarone HCl (Amiodarone 200 Mg Tablet) 200 mg PO BID COUNTS INCLUDE 234 BEDS AT THE [facility] Last Admin: 10/27/25 05:02 Dose: 200 mg Apixaban (Apixaban 2.5 Mg Tablet) 2.5 mg PO BID COUNTS INCLUDE 234 BEDS AT THE [facility] Last Admin: 10/27/25 04:22 Dose: 2.5 mg Aspirin (Aspirin 81 Mg Ec Tablet) 81 mg PO DAILY COUNTS INCLUDE 234 BEDS AT THE [facility] Last Admin: 10/27/25 04:23 Dose: 81 mg Atorvastatin Calcium (Atorvastatin 40 Mg Tablet) 80 mg PO QPM COUNTS INCLUDE 234 BEDS AT THE [facility] Last Admin: 10/26/25 18:08 Dose: 80 mg Calcitriol (Calcitriol 0.25 Mcg Capsule) 0.75 mcg PO TuThSa COUNTS INCLUDE 234 BEDS AT THE [facility] Last Admin: 10/26/25 13:43 Dose: Not Given Calcium Carbonate (Calcium Carb-Vit D 600mg/400unit 1 Tablet) 1 each PO QAM COUNTS INCLUDE 234 BEDS AT THE [facility] Last Admin: 10/27/25 04:23 Dose: 1 each Ceftriaxone Sodium (Ceftriaxone 1,000 Mg Sdv) 1,000 mg IVP Q24H COUNTS INCLUDE 234 BEDS AT THE [facility]; Protocol Last Admin: 10/27/25 13:19 Dose: 1,000 mg Diltiazem HCl (Diltiazem Er (12hr) 60 Mg Capsule) 60 mg PO BID COUNTS INCLUDE 234 BEDS AT THE [facility] On Hold: 10/25/25 12:19 Last Admin: 10/25/25 05:05 Dose: 60 mg Escitalopram Oxalate (Escitalopram 10 Mg Tablet) 20 mg PO QAM COUNTS INCLUDE 234 BEDS AT THE [facility] Last Admin: 10/27/25 04:23 Dose: 20 mg Glucagon (Glucagon 1 Mg/Ml Kit 1 Ml) 1 mg IM ONCE PRN; Protocol PRN Reason: Adult Acute Hypoglycemia Nursing Prot. Dextrose (D5w) 500 mls @ 0 mls/hr IV ONCE PRN; Protocol PRN Reason: Adult Acute Hypoglycemia Prot Dextrose (D10w) 125 mls @ 750 mls/hr IV PRN PRN; Protocol PRN Reason: Adult Acute Hypoglycemia Nursing Protocol Last Infusion: 10/27/25 01:30 Dose: Infused Dextrose (D10w) 250 mls @ 1,000 mls/hr IV PRN PRN; Protocol PRN Reason: Adult Acute Hypoglycemia Nursing Protocol Azithromycin 250 mg/ Sodium (Chloride) 250 mls @ 250 mls/hr IV Q24H JAREK; Protocol Last Infusion: 10/26/25 23:00 Dose: Infused AMIODARONE HCL/D5W (Amiodarone 900 Mg/500 Ml-D5w) 900 mg in 500 mls @ 0 mls/hr IV .Q0M JAREK; Protocol Last Titration: 10/27/25 05:05 Dose: 0 mg/min, 0 mls/hr Sodium Chloride (Sodium Chloride 0.9%) 1,000 mls @ 0 mls/hr IV .Q0M PRN PRN Reason: hypotension or symptomatic Albumin Human (Albumin) 12.5 gm in 50 mls @ 60 mls/hr IV PRN PRN PRN Reason: Hypotension and/or symptomatic DILTIAZEM HCL/D5W (Cardizem) 125 mg in 125 mls @ 0 mls/hr IV .Q0M JAREK; Protocol Last Titration: 10/27/25 06:12 Dose: 0 mg/hr, 0 mls/hr Insulin Human Lispro (Insulin Lispro 100 Unit/1 Ml) 0 unit SUBCUT WM&BEDTIME COUNTS INCLUDE 234 BEDS AT THE [facility]; Protocol Last Admin: 10/27/25 13:08 Dose: Not Given Isosorbide Mononitrate (Isosorbide Mononitrate Er 30 Mg Tablet) 30 mg PO DAILY COUNTS INCLUDE 234 BEDS AT THE [facility] On Hold: 10/25/25 12:20 Last Admin: 10/25/25 05:06 Dose: 30 mg Lactobacillus Acidophilus (Lactobacillus 1 Tablet) 1 tab PO BID COUNTS INCLUDE 234 BEDS AT THE [facility] Last Admin: 10/27/25 04:23 Dose: 1 tab Losartan Potassium (Losartan 50 Mg Tablet) 50 mg PO BID JAREK On Hold: 10/25/25 12:20 Last Admin: 10/25/25 05:04 Dose: 50 mg Metoprolol Succinate (Metoprolol Succinate Er (24 Hr) 25 Mg Tablet) 12.5 mg PO DAILY COUNTS INCLUDE 234 BEDS AT THE [facility] On Hold: 10/25/25 12:20 Last Admin: 10/25/25 05:05 Dose: 12.5 mg Metoprolol Tartrate (Metoprolol Tartrate 25 Mg Tablet) 25 mg PO BID@0900,2100 COUNTS INCLUDE 234 BEDS AT THE [facility] Last Admin: 10/27/25 13:19 Dose: 25 mg Nitroglycerin (Nitroglycerin 0.4 Mg Sublingual Tablet) 0.4 mg SUBLINGUAL Q5M PRN PRN Reason: CHEST PAIN Non-Formulary Medication (Cinacalcet [Sensipar]) 60 mg PO .3XW JAREK Non-Formulary Medication (Lanthanum) 0 mg PO .COMPLEX JAREK Non-Formulary Medication (Vit B,Q-Zo-Hsie-Selen-Vit D3-E [Renaplex-D]) 1 tab PO DAILY COUNTS INCLUDE 234 BEDS AT THE [facility] Ondansetron HCl (Ondansetron 2 Mg/Ml Sdv 2 Ml) 4 mg IVP Q8H PRN PRN Reason: vomiting, or N/V if npo Pantoprazole Sodium (Pantoprazole Dr 40 Mg Tablet) 40 mg PO DAILY COUNTS INCLUDE 234 BEDS AT THE [facility] Last Admin: 10/27/25 04:23 Dose: 40 mg Vitamin D (Cholecalciferol (Vitamin D3) 1,000 Unit Tablet) 1,000 unit PO QAM COUNTS INCLUDE 234 BEDS AT THE [facility] Last Admin: 10/27/25 04:23 Dose: 1,000 unit Vitals/I&O/Wt Last Vital Signs Temp 98.7 F 10/28/25 17:46 Pulse 70 10/28/25 17:41 Resp 20 H 10/28/25 17:00 BP 115/47 10/28/25 17:00 Pulse Ox 100 10/28/25 17:00 O2 Del Method Nasal Cannula 10/28/25 17:00 O2 Flow Rate 2 10/28/25 12:34 10/28/25 10/28/25 10/28/25 06:59 14:59 22:59 Intake Total 120 / 430 377.875 / 377.875 355 / 732.875 Balance 120 / 430 377.875 / 377.875 355 / 732.875 Weight last 48 hrs Weight 154 lb 5.177 oz Weight 157 lb 10.088 oz Physical Exam Const: OTHER: GENERAL: Patient is sleeping HEART: Regular S1 and S2. No murmur, rub or gallop. LUNGS: Clear to auscultate bilaterally. CENTRAL NERVOUS SYSTEM: Grossly nonfocal. EXTREMITIES: Lower extremities with out edema bilaterally. Data 10/28/25 03:07 10/28/25 03:07 A&P Assessment and plan 1. Intermittent atrial fibrillation: Patient may continue on the amiodarone and metoprolol. Her heart rate need to be closely monitored. Continue the oral anticoagulation. 2. S/P TAVR (transcatheter aortic valve replacement): The valve function appears to be appropriate. Will continue on the current management 3. Hyperlipidemia, unspecified hyperlipidemia type: Continue on the current management 4. Other specified hypotension: The blood pressure is currently normotensive. Will continue on the current medications. 5. End-stage renal disease on hemodialysis: Hemodialysis as per the protocol 6. Type 2 diabetes mellitus with other specified complication, unspecified whether fci insulin use: Aggressive management of diabetes as per the primary 7. Transient alteration of awareness: ? Secondary to metabolic encephalopathy. Management as per the hospitalist service Plan: Continue current management patient is sinus rhythm. PDMP PDMP Reviewed: Not Reviewed Attestations Medical Necessity Statement*: Require continuation hospitalization for above defined care Coding Level of Care Code Acute Code for [facility] Diagnoses Intermittent atrial fibrillation I48.0 S/P TAVR (transcatheter aortic valve replacement) Z95.2 Hyperlipidemia, unspecified hyperlipidemia type E78.5 Hyperlipidemia type: unspecified Other specified hypotension I95.89 Hypotension type: other hypotension type End-stage renal disease on hemodialysis N18.6; Z99.2 Type 2 diabetes mellitus with other specified complication, unspecified whether fci insulin use E11.69 Diabetes mellitus complication status: with other specified complication Diabetes mellitus intermediate frame tender insulin use: unspecified fci insulin use status Transient alteration of awareness R40.4 Altered mental status type: transient alteration of awareness
--- NOTE | 2025-10-28 18:54 | PC.NURSE ---
Report called to Ana M at [facility]. Patient to go to room 15.
--- NOTE | 2025-10-28 18:57 | PC.NURSE ---
Daughter informed of transfer, room number, and phone number to [facility].
--- NOTE | 2025-10-28 19:03 | PM.TDS ---
Transfer Summary Providers Date of Admission: 10/26/25 09:07 Date of Discharge/Transfer: 10/28/25 Attending Provider at Admission: Bubba Johnson MD Attending Provider at Transfer: Zachary Hyatt DO Primary Care Provider: Jhon Schneider Transfer Plans: Anticipated date of transfer: 10/28/25. Receiving Facility: [facility] in [place]. Receiving Provider: Dr. Leigh that I spoke with and Dr. Yu overnight attending . Diagnoses at Discharge Discharge Diagnosis 1. Hypotension: 2. Acute metabolic encephalopathy: 3. Intermittent atrial fibrillation: 4. S/P TAVR (transcatheter aortic valve replacement): 5. Hyperlipidemia, unspecified hyperlipidemia type: 6. End-stage renal disease on hemodialysis: 7. Type 2 diabetes mellitus with other specified complication, unspecified whether long term care phlebotomist insulin use: 8. Pneumonia: Reason for Visit Reason for Visit Tachy, Weakness, missed dialysis Brief History: Patient woke up on 1128 with increased fatigue and heart palpitations. On 10/21 she had to cancel dialysis she also had headache tremor dizziness with standing chest heaviness shortness of breath exertion and increased fatigue Hospital Course Hospital Course Patient was admitted to the hospital with A-fib with RVR urinary tract infection missed dialysis and pneumonia. Patient received hemodialysis in the hospital she was on antibiotics for both pneumonia and urinary tract infection. She was started on an IV amiodarone drip for the A-fib with RVR. She was transition to p.o. amiodarone with a stable rate. Her diltiazem was currently on hold due to soft blood pressures. With my first day of seeing patient on 10/28/2025 patient was found in metabolic encephalopathy that appeared to be worsening. Was felt that it was a combination of being on metoprolol and diltiazem although those had been hold for 2 days but also elevated doses of baclofen and trazodone. While these medications were held the patient to continue to deteriorate CT head was negative ABG was okay patient was on appropriate antibiotics Today she was unable to tolerate dialysis due to hypotension despite receiving albumin and I believe midodrine. He was started on Levophed. Another provider attempted a central line and was unsuccessful. 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 Physical Exam Narrative: Lethargic female easily arousable to verbal stimuli who is uncommunicative with me Neuro otherwise motor and sensory is equal bilaterally Heart regular rate and rhythm normal S1-S2 without murmurs clicks gallops or rubs lungs clear to auscultation without wheezes rales or rhonchi abdomen soft nontender nondistended positive bowel sounds extremities no clubbing cyanosis or edema TS Data Studies Completed and Pending Pending at discharge Category Date Time Status XR chest 1V portable [id number] Routine Exams 10/28/25 16:58 Ordered BMP [Basic Metabolic Panel] AM LABS Lab 10/29/25 04:00 Ordered BMP [Basic Metabolic Panel] AM LABS Lab 10/30/25 04:00 Ordered Blood Culture Stat Lab 10/24/25 07:37 Results CBC Auto Diff [Complete Blood Count w/Auto] AM LABS Lab 10/29/25 04:00 Ordered CBC Auto Diff [Complete Blood Count w/Auto] AM LABS Lab 10/30/25 04:00 Ordered Leukocyte Reduced RBC Routine Lab 10/25/25 17:15 Results Type and Screen Routine Lab 10/25/25 17:15 Results Vancomycin Random AM LABS Lab 10/29/25 04:00 Ordered Completed Studies During Hospitalization Category Date Time Status CT head wo con* [id number] Stat Cat Scan 10/26/25 07:20 Completed XR chest 1V portable [id number] Stat Exams 10/24/25 07:19 Completed Laboratory Last Values WBC 9.23 10^3/uL (3.29-11.43) 10/28/25 03:07 RBC 4.10 10^6/uL (3.85-5.65) 10/28/25 03:07 Hgb 11.30 g/dL (11.27-16.99) 10/28/25 03:07 Hct 36.1 % (36-47) 10/28/25 03:07 MCV 88.0 fl (85-98) 10/28/25 03:07 MCH 27.6 pg (27-33) 10/28/25 03:07 MCHC 31.3 g/dL (30-55) 10/28/25 03:07 RDW 15.6 % (12.1-15.1) H 10/28/25 03:07 Plt Count 234 10^3/cmm (157-399) 10/28/25 03:07 MPV 11.7 fL (7.4-10.4) H 10/28/25 03:07 Neut % (Auto) 74.6 % 10/28/25 03:07 Lymph % (Auto) 13.3 % 10/28/25 03:07 [place] % (Auto) 8.7 % 10/28/25 03:07 Eos % (Auto) 2.0 % 10/28/25 03:07 Baso % (Auto) 1.0 % 10/28/25 03:07 Neut # (Auto) 6.89 10^3/uL (1.8-7.7) 10/28/25 03:07 Lymph # (Auto) 1.2 10^3/uL (0.8-4.8) 10/28/25 03:07 [place] # (Auto) 0.8 10^3/uL (0.2-0.9) 10/28/25 03:07 Eos # (Auto) 0.2 10^3/uL (0.0-0.8) 10/28/25 03:07 Baso # (Auto) 0.1 10^3/uL (0.0-0.1) 10/28/25 03:07 Nucleated RBC % (auto) 0 % 10/28/25 03:07 Nucleated RBCs # 0.0 /100WBC 10/28/25 03:07 Specimen Type Arterial 10/26/25 13:32 Sample Site Radial, right 10/26/25 13:32 ABG pH 7.45 (7.35-7.45) 10/26/25 13:32 ABG pCO2 35.2 mmHg (35-45) 10/26/25 13:32 ABG pO2 85.9 mmHg (80.0-100.0) 10/26/25 13:32 ABG PO2/FiO2 Ratio 306 10/26/25 13:32 ABG HCO3 24.7 mmol/L (22-26) 10/26/25 13:32 ABG O2 Saturation 94.1 10/26/25 13:32 ABG Base Excess 1.0 mmol/L (-2.0-2.0) 10/26/25 13:32 Collin Test Pos 10/26/25 13:32 VBG pH 7.47 (7.32-7.42) H 10/25/25 13:05 VBG pCO2 32.5 mmHg (41-51) L 10/25/25 13:05 VBG pO2 92.3 mmHg (25-40) H 10/25/25 13:05 VBG HCO3 23.6 mmol/L (24-28) L 10/25/25 13:05 VBG Base Excess 0.4 mmol/L (-3.0-3.0) 10/25/25 13:05 VBG Hematocrit 33.9 % (37-47) L 10/25/25 13:05 A-a O2 Gradient 9.2 mmHg (5-10) 10/26/25 13:32 Hematocrit 34.3 % (37-47) L 10/26/25 13:32 Hgb O2 Saturation 94.1 % (95-100) L 10/26/25 13:32 Carboxyhemoglobin < 0.3 %THgb (0.4-20.1) L 10/26/25 13:32 Methemoglobin 0.2 % (0.4-1.5) L 10/26/25 13:32 Total Hemoglobin 11.2 g/dL (12-16) L 10/26/25 13:32 Sodium 135.0 mmol/L (131-143) 10/26/25 13:32 Potassium 5.0 mmol/L (3.5-5.0) 10/26/25 13:32 Glucose 138.0 mg/dL (70-115) H 10/26/25 13:32 Ionized Calcium 1.2 mmol/L (1.1-1.4) 10/26/25 13:32 O2 Delivery Device Nc 10/26/25 13:32 O2 Liters/Min 2.0 % 10/26/25 13:32 FiO2 28.0 % 10/26/25 13:32 Computer Engineering Technologist ID [place] 10/26/25 13:32 Sodium 133 mmol/L (136-145) L 10/28/25 03:07 Potassium 5.4 mmol/L (3.5-5.1) H 10/28/25 03:07 Chloride 93 mmol/L (98-107) L 10/28/25 03:07 Carbon Dioxide 22 mmol/L (22-29) 10/28/25 03:07 Anion Gap 23.4 (5-19) H 10/28/25 03:07 BUN 46 mg/dL (8-23) H 10/28/25 03:07 Creatinine 7.3 mg/dL (0.5-0.9) H* 10/28/25 03:07 GFR Calculation 5.5 mL/min (90-130) L 10/28/25 03:07 Glucose 172 mg/dL (65-115) H 10/28/25 03:07 POC Glucose 100 mg/dL (70-110) 10/28/25 15:58 Estimat Average Glucose 157 10/24/25 07:28 Hemoglobin A1c 7.1 % (4.0-6.0) H 10/24/25 07:28 Calculated Osmolality 292 mOsm/kg (285-295) 10/28/25 03:07 Lactic Acid 2.8 mmol/L (0.5-2.2) H 10/24/25 07:28 Lactic Acid (Sepsis) 0.6 mmol/L (0.5-2.2) 10/24/25 12:00 Calcium 9.0 mg/dL (8.5-10.5) 10/28/25 03:07 Phosphorus 5.0 mg/dL (2.5-4.5) H 10/24/25 08:30 Magnesium 2.6 mg/dL (1.7-2.3) H 10/24/25 08:30 Total Bilirubin 0.9 mg/dL (0.15-1.2) 10/24/25 07:28 AST 30 U/L (0-32) 10/24/25 07:28 ALT 21 U/L (0-33) 10/24/25 07:28 Alkaline Phosphatase 114 U/L (35-105) H 10/24/25 07:28 Troponin T Baseline 54 ng/L (0-10) H 10/24/25 07:28 Troponin T 120 Minute 54.32 ng/L (0-10) H 10/24/25 08:30 Delta Troponin T 0.32 ABS# (0-10) 10/24/25 08:30 Troponin T Hi Sens 6Hr 60.08 ng/L (0-10) H 10/24/25 11:59 Troponin T Hi Sens 6Hr Delta 6.08 ng/L (0-12) 10/24/25 11:59 Total Protein 7.0 g/dL (6.6-8.7) 10/24/25 07:28 Albumin 4.2 g/dL (3.5-5.2) 10/24/25 07: Globulin 2.8 g/dL (1.3-4.6) 10/24/25 07:28 Triglycerides 64 mg/dL (0-150) 10/24/25 11:59 Cholesterol 97 mg/dL (0-200) 10/24/25 11:59 LDL Cholesterol, Calc 34 mg/dL (50-129) L 10/24/25 11:59 HDL Cholesterol 50 mg/dL (60-100) L 10/24/25 11:59 LDL/HDL Ratio 0.68 RATIO (0.00-3.22) 10/24/25 11:59 Cholesterol/HDL Ratio 1.94 mg/dL (0.0-4.40) 10/24/25 11:59 Procalcitonin 0.36 ng/mL (0-0.5) 10/24/25 07:28 Urine Color Yellow (Yellow) 10/24/25 16:10 Urine Appearance Turbid (CLEAR) A 10/24/25 16:10 Urine pH 6.5 (5-7) 10/24/25 16:10 Ur Specific [place] 1.018 (1.005-1.030) 10/24/25 16:10 Urine Protein 3+ (Negative) A 10/24/25 16:10 Urine Glucose (UA) Trace (Normal) H 10/24/25 16:10 Urine Ketones Negative (Negative) 10/24/25 16:10 Urine Blood 1+ (Negative) A 10/24/25 16:10 Urine Nitrate Negative (Negative) 10/24/25 16:10 Urine Bilirubin Negative (Negative) 10/24/25 16:10 Urine Urobilinogen 1.0 mg/dL (Negative) 10/24/25 16:10 Ur Leukocyte Esterase 3+ (Negative) A 10/24/25 16:10 Urine RBC 6-10 /hpf (0-2) 10/24/25 16:10 Urine WBC >100 /hpf (0-5) H 10/24/25 16:10 Ur Squamous Epith Cells 0-5 /hpf (0-5) 10/24/25 16:10 Amorphous Sediment Not Reportable 10/24/25 16:10 Urine Bacteria Trace /hpf (NONE) 10/24/25 16:10 Hyaline Casts 1.65 /lpf 10/24/25 16:10 Serum Ketones Negative (Negative) 10/24/25 12:00 Adenovirus (PCR) Not detected (NOT DETECT) 10/24/25 17:11 C. pneumoniae DNA (PCR) Not detected (NOT DETECT) 10/24/25 17:11 Coronavirus 229E (PCR) Not detected (NOT DETECT) 10/24/25 17:11 Hep Bs Antigen Cancelled 10/24/25 12:00 Hep Bs Antigen Non-reactive (Nonreactive) 10/24/25 12:00 Hep Bs Antibody 593.4 (11.5-1000) 10/24/25 12:00 Hep Bs Antibody Cancelled 10/24/25 12:00 Hepatitis C Antibody Cancelled 10/24/25 12:00 Hepatitis C Antibody Non-reactive (Nonreactive) 10/24/25 12:00 Human Metapneumovir PCR Not detected (NOT DETECT) 10/24/25 17:11 Influenza A (H1) PCR Not detected (NOT DETECT) 10/24/25 17:11 Influenza A (PCR) Negative (Negative) 10/24/25 07:28 Influ A (H1/09) PCR Not detected (NOT DETECT) 10/24/25 17:11 Influenza A (H3) PCR Not detected (NOT DETECT) 10/24/25 17:11 Influenza Type A (PCR) Not detected (NOT DETECT) 10/24/25 17:11 Influenza Type B (PCR) Not detected (NOT DETECT) 10/24/25 17:11 M. pneumoniae (PCR) Not detected (NOT DETECT) 10/24/25 17:11 Parainfluenza 1 (PCR) Not detected (NOT DETECT) 10/24/25 17:11 Parainfluenza 2 (PCR) Not detected (NOT DETECT) 10/24/25 17:11 Parainfluenza 3 (PCR) Not detected (NOT DETECT) 10/24/25 17:11 Parainfluenza 4 (PCR) Not detected (NOT DETECT) 10/24/25 17:11 RSV (PCR) Negative (Negative) 10/24/25 07:28 RSV Type A (PCR) Not detected (NOT DETECT) 10/24/25 17:11 RSV Type B (PCR) Not detected (NOT DETECT) 10/24/25 17:11 Entero/Rhino (PCR) Not detected (NOT DETECT) 10/24/25 17:11 SARS-CoV-2 (PCR) Not detected (NOT DETECT) 10/24/25 17:11 Blood Type O Negative 10/25/25 17:15 Rho(D) Type Rh negative 10/25/25 17:15 Antibody Screen Negative 10/25/25 17:15 Crossmatch See Detail 10/25/25 17:15 Radiology Impressions Chest X-Ray 10/24/25 07:19 IMPRESSION: 1. Mild LEFT lower lobe infiltrate and LEFT basal pleural effusion. 2. Mild cardiac enlargement. Head CT 10/26/25 07:20 IMPRESSION: No acute intracranial abnormality. Recent Clincial Data Last Vital Signs Temp 98.7 F 10/28/25 17:46 Pulse 70 10/28/25 17:41 Resp 20 H 10/28/25 17:00 BP 115/47 10/28/25 17:00 Pulse Ox 100 10/28/25 17:00 O2 Del Method Nasal Cannula 10/28/25 17:00 O2 Flow Rate 2 10/28/25 12:34 Vital Signs Temp Pulse Resp BP Pulse Ox O2 Del Method O2 Del Method 10/28/25 17:46 98.7 F 10/28/25 17:41 70 10/28/25 17:00 65 20 H 115/47 100 Nasal Cannula 10/28/25 16:30 68 12 106/46 97 Nasal Cannula 10/28/25 16:00 74 18 125/42 100 Nasal Cannula 10/28/25 15:30 66 13 109/51 100 Nasal Cannula 10/28/25 15:00 70 17 84/40 100 Nasal Cannula 10/28/25 14:30 67 13 83/60 97 Nasal Cannula 10/28/25 14:00 70 12 117/47 88 L Nasal Cannula 10/28/25 13:43 98.6 F 10/28/25 13:30 60 15 89 L Nasal Cannula 10/28/25 13:00 60 13 125/50 86 L Nasal Cannula 10/28/25 12:34 51 L 13 104/42 100 Nasal Cannula 10/28/25 12:16 99.0 F 56 L 14 119/47 10/28/25 12:00 54 L 18 122/51 100 Nasal Cannula 10/28/25 11:30 55 L 18 130/61 100 Nasal Cannula 10/28/25 11:00 57 L 15 145/38 10/28/25 10:30 110/44 10/28/25 10:19 97.7 F 10/28/25 10:00 51 L 15 112/66 100 Nasal Cannula 10/28/25 09:30 58 L 17 121/31 100 Nasal Cannula 10/28/25 09:00 59 L 18 131/53 10/28/25 08:57 58 L 98 Nasal Cannula 10/28/25 08:30 75 23 H 131/53 10/28/25 08:00 58 L 20 H 131/53 100 Nasal Cannula 10/28/25 07:30 57 L 18 108/44 98 Nasal Cannula O2 Flow Rate O2 Flow Rate 10/28/25 17:46 10/28/25 17:41 10/28/25 17:00 10/28/25 16:30 10/28/25 16:00 10/28/25 15:30 10/28/25 15:00 10/28/25 14:30 10/28/25 14:00 10/28/25 13:43 10/28/25 13:30 10/28/25 13:00 10/28/25 12:34 2 10/28/25 12:16 10/28/25 12:00 2 10/28/25 11:30 2 10/28/25 11:00 10/28/25 10:30 10/28/25 10:19 10/28/25 10:00 2 10/28/25 09:30 2 10/28/25 09:00 10/28/25 08:57 2 10/28/25 08:30 10/28/25 08:00 2 10/28/25 07:30 2 Intake & Output/Weight 10/26/25 10/27/25 10/28/25 10/29/25 06:59 06:59 06:59 06:59 Intake Total 1879.417 / 2771.466 5720.809 / 1138.809 430 / 430 794.250 / 794.250 Output Total 0 / 0 1497 / 1497 Balance 1879.417 / 1879.417 -358.191 / -358.191 430 / 430 794.250 / 794.250 Weight 74.253 kg 71.5 kg 70 kg Vitals Last Vital Signs Temp 98.7 F 10/28/25 17:46 Pulse 70 10/28/25 17:41 Resp 20 H 10/28/25 17:00 BP 115/47 10/28/25 17:00 Pulse Ox 100 10/28/25 17:00 O2 Del Method Nasal Cannula 10/28/25 17:00 O2 Flow Rate 2 10/28/25 12:34 TS Medications Medications Acetaminophen (Acetaminophen 325 Mg Tablet) 650 mg PO Q6H PRN PRN Reason: MILD PAIN Last Admin: 10/26/25 20:44 Dose: 650 mg Amiodarone HCl (Amiodarone 200 Mg Tablet) 400 mg PO BID [facility] Last Admin: 10/28/25 17:19 Dose: 400 mg Apixaban (Apixaban 2.5 Mg Tablet) 2.5 mg PO BID [facility] Last Admin: 10/28/25 17:19 Dose: 2.5 mg Aspirin (Aspirin 81 Mg Ec Tablet) 81 mg PO DAILY [facility] Last Admin: 10/28/25 06:56 Dose: 81 mg Atorvastatin Calcium (Atorvastatin 40 Mg Tablet) 80 mg PO QPM [facility] Last Admin: 10/28/25 17:20 Dose: 80 mg Calcitriol (Calcitriol 0.25 Mcg Capsule) 0.75 mcg PO TuThSa [facility] Last Admin: 10/28/25 15:53 Dose: 0.75 mcg Calcium Carbonate (Calcium Carb-Vit D 600mg/400unit 1 Tablet) 1 each PO QAM [facility] Last Admin: 10/28/25 06:11 Dose: 1 each Diltiazem HCl (Diltiazem Er (12hr) 60 Mg Capsule) 60 mg PO BID [facility] On Hold: 10/25/25 12:19 Last Admin: 10/25/25 05:05 Dose: 60 mg Escitalopram Oxalate (Escitalopram 10 Mg Tablet) 20 mg PO QAM [facility] Last Admin: 10/28/25 06:12 Dose: 20 mg Glucagon (Glucagon 1 Mg/Ml Kit 1 Ml) 1 mg IM ONCE PRN; Protocol PRN Reason: Adult Acute Hypoglycemia Nursing Prot. Dextrose (D5w) 500 mls @ 0 mls/hr IV ONCE PRN; Protocol PRN Reason: Adult Acute Hypoglycemia Prot Dextrose (D10w) 125 mls @ 750 mls/hr IV PRN PRN; Protocol PRN Reason: Adult Acute Hypoglycemia Nursing Protocol Last Infusion: 10/27/25 01:30 Dose: Infused Dextrose (D10w) 250 mls @ 1,000 mls/hr IV PRN PRN; Protocol PRN Reason: Adult Acute Hypoglycemia Nursing Protocol AMIODARONE HCL/D5W (Amiodarone 900 Mg/500 Ml-D5w) 900 mg in 500 mls @ 0 mls/hr IV .Q0M JAREK; Protocol Last Titration: 10/27/25 05:05 Dose: 0 mg/min, 0 mls/hr Sodium Chloride (Sodium Chloride 0.9%) 1,000 mls @ 0 mls/hr IV .Q0M PRN PRN Reason: hypotension or symptomatic Albumin Human (Albumin) 12.5 gm in 50 mls @ 60 mls/hr IV PRN PRN PRN Reason: Hypotension and/or symptomatic Last Infusion: 10/28/25 17:16 Dose: Infused DILTIAZEM HCL/D5W (Cardizem) 125 mg in 125 mls @ 0 mls/hr IV .Q0M JAREK; Protocol Last Titration: 10/27/25 06:12 Dose: 0 mg/hr, 0 mls/hr Valproic Acid 500 mg/ Sodium (Chloride) 55 mls @ 55 mls/hr IV Q8H [facility] Last Infusion: 10/28/25 17:15 Dose: Infused Norepinephrine Bitartrate (Levophed) 4 mg in 250 mls @ 0 mls/hr IV .Q0M JAREK; Protocol Last Titration: 10/28/25 18:53 Dose: 8 mcg/min, 30 mls/hr Piperacillin Sod/Tazobactam (Sod 2.25 gm/ Sodium Chloride) 50 mls @ 100 mls/hr IV Q12H [facility] Vancomycin HCl (Vancocin) 1,500 mg in 300 mls @ 200 mls/hr IV ONCE ONE Stop: 10/28/25 19:59 Last Admin: 10/28/25 18:16 Dose: 200 mls/hr Insulin Human Lispro (Insulin Lispro 100 Unit/1 Ml) 0 unit SUBCUT WM&BEDTIME JAREK; Protocol Last Admin: 10/28/25 17:20 Dose: Not Given Isosorbide Mononitrate (Isosorbide Mononitrate Er 30 Mg Tablet) 30 mg PO DAILY [facility] On Hold: 10/25/25 12:20 Last Admin: 10/25/25 05:06 Dose: 30 mg Lactobacillus Acidophilus (Lactobacillus 1 Tablet) 1 tab PO BID [facility] Last Admin: 10/28/25 17:19 Dose: 1 tab Lanolin (Lanolin Oint 7 Gm) 1 applic TOPICAL PRN PRN PRN Reason: DRYNESS Last Admin: 10/27/25 20:01 Dose: 1 applic Losartan Potassium (Losartan 50 Mg Tablet) 50 mg PO BID [facility] On Hold: 10/25/25 12:20 Last Admin: 10/25/25 05:04 Dose: 50 mg Metoprolol Succinate (Metoprolol Succinate Er (24 Hr) 25 Mg Tablet) 12.5 mg PO DAILY [facility] On Hold: 10/25/25 12:20 Last Admin: 10/25/25 05:05 Dose: 12.5 mg Nitroglycerin (Nitroglycerin 0.4 Mg Sublingual Tablet) 0.4 mg SUBLINGUAL Q5M PRN PRN Reason: CHEST PAIN Non-Formulary Medication (Cinacalcet [Sensipar]) 60 mg PO .3XW [facility] Non-Formulary Medication (Lanthanum) 0 mg PO .COMPLEX [facility] Non-Formulary Medication (Vit B,V-Ti-Zyfz-Selen-Vit D3-E [Renaplex-D]) 1 tab PO DAILY [facility] Ondansetron HCl (Ondansetron 2 Mg/Ml Sdv 2 Ml) 4 mg IVP Q8H PRN PRN Reason: vomiting, or N/V if npo Last Admin: 10/28/25 10:11 Dose: 4 mg Pantoprazole Sodium (Pantoprazole Dr 40 Mg Tablet) 40 mg PO DAILY [facility] Last Admin: 10/28/25 06:11 Dose: 40 mg Vancomycin HCl (Vancomycin 1,000 Mg Sdv (Pharmacy Mix)) 0 mg XX PRN PRN PRN Reason: Pharmacy to Dose Vitamin D (Cholecalciferol (Vitamin D3) 1,000 Unit Tablet) 1,000 unit PO QAM [facility] Last Admin: 10/28/25 06:11 Dose: 1,000 unit Discontinued Medications Amiodarone HCl (Amiodarone 200 Mg Tablet) 200 mg PO BID [facility] Last Admin: 10/27/25 05:02 Dose: 200 mg Baclofen (Baclofen 10 Mg Tablet) 10 mg PO TID PRN PRN Reason: MUSCLE SPASMS Last Admin: 10/27/25 04:34 Dose: 10 mg Calcitriol (Calcitriol 0.25 Mcg Capsule) 75 mcg PO [facility] Last Admin: 10/24/25 20:49 Dose: Not Given Calcitriol (Calcitriol 0.25 Mcg Capsule) 75 mcg PO [facility] Cefepime HCl (Cefepime 2,000 Mg Sdv) 2,000 mg IVP ONCE STA; Protocol Stop: 10/24/25 09:08 Last Admin: 10/24/25 11:13 Dose: 2,000 mg Ceftriaxone Sodium (Ceftriaxone 1,000 Mg Sdv) 1,000 mg IVP Q24H [facility]; Protocol Last Admin: 10/27/25 13:19 Dose: 1,000 mg Heparin Sodium (Porcine) (Heparin, Porcine 1,000 Unit/Ml Inj 10 Ml) 10,000 unit INTRACATH ONCE ONE Stop: 10/24/25 09:42 Last Admin: 10/24/25 12:35 Dose: Not Given Heparin Sodium (Porcine) (Heparin, Porcine 1,000 Unit/Ml Inj 10 Ml) 1,000 unit IV ONCE ONE Stop: 10/24/25 09:42 Last Admin: 10/24/25 12:34 Dose: Not Given Heparin Sodium (Porcine) (Heparin, Porcine 1,000 Unit/Ml Inj 10 Ml) 10,000 unit INTRACATH ONCE ONE Stop: 10/26/25 10:05 Last Admin: 10/26/25 15:41 Dose: Not Given Heparin Sodium (Porcine) (Heparin, Porcine 1,000 Unit/Ml Inj 10 Ml) 1,000 unit IV ONCE ONE Stop: 10/26/25 10:05 Last Admin: 10/26/25 15:41 Dose: 1,000 unit Sodium Chloride (Sodium Chloride 0.9%) 50 mls @ 50 mls/hr IV ONCE ONE Stop: 10/24/25 10:06 Last Admin: 10/24/25 12:32 Dose: Not Given Sodium Chloride (Sodium Chloride 0.9%) 1,000 mls @ 0 mls/hr IV .Q0M PRN PRN Reason: hypotension or symptomatic Albumin Human (Albumin) 12.5 gm in 50 mls @ 60 mls/hr IV PRN PRN PRN Reason: Hypotension and/or symptomatic Azithromycin 250 mg/ Sodium (Chloride) 250 mls @ 250 mls/hr IV Q24H [facility]; Protocol Last Infusion: 10/27/25 21:30 Dose: Infused DILTIAZEM HCL/D5W (Cardizem) 125 mg in 125 mls @ 0 mls/hr IV .Q0M [facility]AREK; Protocol Last Titration: 10/26/25 02:06 Dose: Infused DILTIAZEM HCL/D5W (Cardizem) 125 mg in 125 mls @ 5 mls/hr IV .Q0M [facility] Amiodarone HCl/Dextrose (Nexterone) 150 mg in 100 mls @ 400 mls/hr IV ONCE ONE Stop: 10/26/25 02:13 Last Infusion: 10/26/25 03:20 Dose: Infused AMIODARONE HCL/D5W (Amiodarone 900 Mg/500 Ml-D5w) Confirm Administered Dose 900 mg in 500 mls @ as directed .ROUTE .STK-MED ONE Stop: 10/26/25 02:03 Amiodarone HCl/Dextrose (Nexterone) Confirm Administered Dose 150 mg in 100 mls @ as directed .ROUTE .STK-MED ONE Stop: 10/26/25 02:03 Valproic Acid 500 mg/ Sodium (Chloride) 55 mls @ 55 mls/hr IV Q8H [facility] Piperacillin Sod/Tazobactam (Sod 2.25 gm/ Sodium Chloride) 50 mls @ 100 mls/hr IV Q12H [facility] Last Infusion: 10/28/25 17:52 Dose: Infused Vancomycin HCl (Vancocin) 1,500 mg in 300 mls @ 200 mls/hr IV ONCE ONE Stop: 10/28/25 22:29 Insulin Human Lispro (Insulin Lispro 100 Unit/1 Ml) 3 unit SUBCUT NOW ONE Stop: 10/25/25 12:19 Last Admin: 10/25/25 13:27 Dose: 3 unit Metoprolol Tartrate (Metoprolol Tartrate 1 Mg/1 Ml Sdv 5 Ml) 5 mg IVP ONCE ONE Stop: 10/27/25 12:26 Last Admin: 10/27/25 12:29 Dose: 5 mg Metoprolol Tartrate (Metoprolol Tartrate 25 Mg Tablet) 25 mg PO BID@0900,2100 [facility] Last Admin: 10/28/25 08:58 Dose: Not Given Sodium Chloride (Sodium Chloride 0.9% 100 Ml Bag) 50 ml IV PRN PRN PRN Reason: Blood transfusion prime and flush Stop: 10/26/25 16:51 Trazodone HCl (Trazodone 50 Mg Tablet) 50 mg PO BEDTIME [facility] Last Admin: 10/26/25 20:45 Dose: 50 mg Allergies Latex, Natural Rubber Allergy (Verified 04/12/25 15:56) ALGY-Rash Home Medications calcium 600 mg (as carbonate)-vitamin D3 10 mcg (400 unit) tablet (Calcium 600 + D(3)) 1 tab PO QAM 05/13/22 [History Confirmed 10/24/25] cholecalciferol (vitamin D3) 25 mcg (1,000 unit) capsule (Vitamin D3) 25 mcg PO QAM 05/13/22 [History Confirmed 10/24/25] escitalopram oxalate 20 mg tablet 20 mg PO QAM 05/13/22 [History Confirmed 10/24/25] aspirin 81 mg tablet,delayed release 81 mg PO DAILY 10/23/22 [History Confirmed 10/24/25] calcitriol 0.25 mcg capsule See Rx Instructions .Route .COMPLEX 10/23/22 [History Confirmed 10/24/25] vit B,C-folic ac 800 mcg-zinc 12.5 mg-selen-D3 2,000 unit-vit E tablet (RenaPlex-D) 1 tab PO DAILY 10/23/22 [History Confirmed 10/24/25] cinacalcet 60 mg tablet (Sensipar) 60 mg PO .3XW 08/23/24 [History Confirmed 10/24/25] lanthanum 750 mg chewable tablet See Rx Instructions .Route .COMPLEX 08/23/24 [History Confirmed 10/24/25] ulnar gutter fast form #1 ea 12/06/24 [Rx Confirmed 10/24/25] metoprolol succinate 25 mg tablet,extended release 24 hr 12.5 mg (1/2 x 25 mg) PO DAILY #90 tabs 12/26/24 [Rx Confirmed 10/24/25] diltiazem HCl 60 mg capsule,extended release 12 hr 60 mg PO BID #180 caps 01/27/25 [Rx Confirmed 10/24/25] isosorbide mononitrate 30 mg tablet,extended release 24 hr 30 mg PO DAILY #90 tabs 04/12/25 [Rx Confirmed 10/24/25] nitroglycerin 0.4 mg sublingual tablet 0.4 mg sublingual Q5M PRN chest pain #25 tabs 04/12/25 [Rx Confirmed 10/24/25] apixaban 2.5 mg tablet (Eliquis) 2.5 mg PO BID #90 tabs 06/02/25 [Rx Confirmed 10/24/25] atorvastatin 80 mg tablet 80 mg PO QPM 10/24/25 [History Confirmed 10/24/25] losartan 50 mg tablet 50 mg PO BID 10/24/25 [History Confirmed 10/24/25] omeprazole 20 mg capsule,delayed release 20 mg PO DAILY 10/24/25 [History Confirmed 10/24/25] trazodone 50 mg tablet 50 mg PO BEDTIME 10/24/25 [History Confirmed 10/24/25] Discharge Plan Discharge Patient Disposition: Home Condition: Stable Prescriptions: No Action (DME) ulnar gutter fast form See Rx Instructions .Route .MEDSUPPLY Qty: 1 0RF Rx Instructions: As directed isosorbide mononitrate 30 mg tablet extended release 24 hr 30 mg PO DAILY Qty: 90 3RF nitroglycerin 0.4 mg tablet, sublingual 0.4 mg sublingual Q5M PRN (Reason: chest pain) Qty: 25 2RF Rx Instructions: do not exceed 3 doses per episode metoprolol succinate 25 mg tablet extended release 24 hr 12.5 mg PO DAILY Qty: 90 3RF diltiazem HCl 60 mg capsule,extended release 12 hr 60 mg PO BID Qty: 180 3RF Eliquis 2.5 mg tablet 2.5 mg PO BID Qty: 90 3RF cholecalciferol (vitamin D3) [Vitamin D3] 25 mcg (1,000 unit) Capsule 25 mcg PO QAM escitalopram oxalate 20 mg Tablet 20 mg PO QAM calcium carbonate-vitamin D3 [Calcium 600 + D(3)] 600 mg-10 mcg (400 unit) Tablet 1 tab PO QAM aspirin 81 mg Tablet,Delayed Release (Dr/Ec) 81 mg PO DAILY calcitriol 0.25 mcg capsule See Rx Instructions .ROUTE .COMPLEX Rx Instructions: 75 MG ONLY ON DIALYSIS DAYS, Thursday, , Thursday RenaPlex-D 800 mcg-12.5 mg -2,000 unit tablet 1 tab PO DAILY cinacalcet [Sensipar] 60 mg Tablet 60 mg PO .3XW Rx Instructions: takes thursday , and thursday before dialysis lanthanum 750 mg tablet,chewable See Rx Instructions .ROUTE .COMPLEX Rx Instructions: chew 3tablets by mouth before each meal and 2 tablets before each snack daily atorvastatin 80 mg tablet 80 mg PO QPM losartan 50 mg tablet 50 mg PO BID trazodone 50 mg tablet 50 mg PO BEDTIME omeprazole 20 mg capsule,delayed release(DR/EC) 20 mg PO DAILY Referrals: Jhon Schneider [Primary Care Provider, Family Practice] Patient Instructions: Opioid Safety, Patient Portal & David Instructions Transfer Attestations Time Spent in Transfer Care: greater than 30 min Quality Metrics Clinical Quality Measures [ No reported AMI, CVA or VTE this stay] Coding Level of Care Code Acute Code for Chg Fwd Diagnoses Hypotension I95.9 Acute metabolic encephalopathy G93.41 Intermittent atrial fibrillation I48.0 S/P TAVR (transcatheter aortic valve replacement) Z95.2 Hyperlipidemia, unspecified hyperlipidemia type E78.5 Hyperlipidemia type: unspecified End-stage renal disease on hemodialysis N18.6; Z99.2 Type 2 diabetes mellitus with other specified complication, unspecified whether long term care phlebotomist insulin use E11.69 Diabetes mellitus complication status: with other specified complication Diabetes mellitus prison insulin use: unspecified prison insulin use status Pneumonia J18.9
--- NOTE | 2025-10-28 19:18 | PC.NURSE ---
Located all patient belongings including a brown purse, printed blankets, clothing, cellphone, and a printed cup. All placed in a plastic bag for transport.
--- NOTE | 2025-10-28 20:15 | PC.NURSE ---
[facility] arrived @ 1954. Patient left facility at 2012. Called [facility] to inform them of patient departure and also updated daughter Roslyn Corcoran via telephone.
== END 2025-10-28 20:13 | disposition short-term general hospital (02) | DRG 193 ==
LOC: ER 09:20 → MEDSURG 09:44 → CSU 10-25 12:49 → ER IP 10-26 08:14 → ICU 10-26 08:22
PROVIDERS: Clinical Nurse Specialist Acute Care; Hospitalist; Internal Medicine; Admitting Provider Internal Medicine; Emergency Provider Emergency Medicine; PCP Family Medicine; Visit Provider Internal Medicine
DX: J18.9 Pneumonia, unspecified organism (principal); G93.41 Metabolic encephalopathy; N18.6 End stage renal disease; J96.21 Acute and chronic respiratory failure with hypoxia; N39.0 Urinary tract infection, site not specified; I12.0 Hypertensive chronic kidney disease with stage 5 chronic kidney disease or end stage renal disease; E87.1 Hypo-osmolality and hyponatremia; I48.0 Paroxysmal atrial fibrillation; I95.9 Hypotension, unspecified; E78.5 Hyperlipidemia, unspecified; E11.22 Type 2 diabetes mellitus with diabetic chronic kidney disease; B96.20 Unspecified Escherichia coli [E. coli] as the cause of diseases classified elsewhere; R00.0 Tachycardia, unspecified; D63.1 Anemia in chronic kidney disease; Z99.2 Dependence on renal dialysis; Z79.82 Long term (current) use of aspirin; Z79.01 Long term (current) use of anticoagulants; Z95.2 Presence of prosthetic heart valve; Z91.158 Patient's noncompliance with renal dialysis for other reason; Z98.84 Bariatric surgery status; Z87.891 Personal history of nicotine dependence
CPT/HCPCS: 36415; 36416; 36600; 70450; 71045; 80048; 80051; 80053; 80061; 81001; 82009; 82330; 82803; 82805; 82962; 83036; 83605; 83735; 84100; 84145; 84484; 85025; 86403; 86706; 86803; 86850; 86900; 86920; 87040; 87070; 87077; 87086; 87186; 87205; 87340; 87449; 87486; 87581; 87633; 87637; 90935; 92507; 92523; 92526; 92610; 93005; 96372; A4222; G0378; J0282; J0283; J0456; J0692; J0696; J1644; J1815; J2405; J2543; J3373; J3490; J7050; J7799; J9999; P9047; Q3014